=== PATIENT | male | born 1960 | race Caucasian/White ===

== ENCOUNTER 2023-10-18 13:01 | Outpatient (CLI) | payer OTHER, SELFPAY ==
[2023-10-18 08:47] LABS: Hemoglobin A1C 7.1 % (<5.7)
[2023-10-18 09:07] LABS: Anion Gap 5.1 mmol/L (3-11); BUN 8 mg/dL (7-18); CO2 30.9 mmol/L (21.0-32.0); CREATININE 0.9 mg/dL (0.70-1.30); Calcium 8.5 mg/dL (8.5-10.1); Chloride 105 mmol/L (98-107); Cholesterol 170 mg/dL (<200); Estimated GFR 95.37 (mL/min/1.73m2); Glucose 126 mg/dL (74-106); HDL Cholesterol 98 mg/dL (40-60); Potassium 4.5 mmol/L (3.5-5.1); Sodium 141 mmol/L (136-145)
[2023-10-18 09:22] LABS: Triglyceride <25 mg/dL (<150)
[2023-10-18 09:23] LABS: LDL CHOLESTEROL 65 mg/dL (<100)
== END 2023-10-18 13:02 | disposition home or self-care (01) ==
LOC: LBO 13:02
PROVIDERS: Visit Provider Student in an Organized Health Care Education/Training Program
DX: E10.9 Type 1 diabetes mellitus without complications (principal)
CPT/HCPCS: 36415; 80048; 80061; 83721; 83036

== ENCOUNTER 2024-02-17 00:21 | Outpatient (CLI) | payer OTHER, SELFPAY ==
--- OUTSIDE RECORDS SUMMARY | 2024-02-17 00:35 | XMS_ITS | Encounter Summary ---
Author Organization [facility] [place] [address] Care Team Providers Care Sales Enablement Specialist Name Role Phone None Primary Care Provider Unavailabl e Reason for Visit * Reason Onset Date Comments Medication Refill 11/06/2023 Encounter Details Date Type Department Care Team (Late st Contact Info) Description 11/06/2023 Refill Endocrinology at [address] [phone] Parker Land MD [facility] [place] [address] Type 1 diabetes mellitus on insulin therapy Social History Tobacco Use Types Packs/Day Years Used Date Smoking Tobacco: Never Smokeless Tobacco: Never Alcohol Use Standard Drinks/Week Comments Yes 10 (1 standard drink = 0.6 oz pu re alcohol) Wine with dinner Sex and Gender Information Value Date Recorded Sex Assigned at Not on file Gender Identity Not on file Sexual Orientation Not on file documented as of this encounter Plan of Treatment Not on file documented as of this encounter Visit Diagnoses Diagnosis Type 1 diabetes mellitus on insulin therapy Type I (juvenile type) diabetes mellitus without mention of complication, not stated as uncontrolled documented in this encounter Care Teams Sales Enablement Specialist Relationship Specialty Start Date End Date None None PCP - General 10/25/23 documented as of this encounter
--- OUTSIDE RECORDS SUMMARY | 2024-02-17 00:35 | XMS_ITS | Encounter Summary ---
[place] [address] Care Team Providers Care Entry Level Web Developer Name Role Phone Unknown Primary Care Provider Unavailabl e Encounter Details Date Type Department Care Team ([facility] Contact Info) Description 11/12/2021 12:00 PM EDT Office Visit Gastroenterology and Hepatology at [address] [phone] Barbara Sneed, PHLEBOTOMY COORDINATOR [address] [place] [address] [place] [address] Reyna's esophagus without dysplasia Social History Tobacco Use Types Packs/Day Years Used Date Smoking Tobacco: Never Smokeless Tobacco: Never Alcohol Use Standard Drinks/Week Comments Yes 10 (1 standard drink = 0.6 oz pu re alcohol) Wine with dinner Sex and Gender Information Value Date Recorded Sex Assigned at Not on file Gender Identity Not on file Sexual Orientation Not on file documented as of this encounter Last Filed Vital Signs Vital Sign Reading Time Taken Comments Blood Pressure 130/68 11/12/2021 11:58 AM EDT Pulse 54 11/12/2021 11:58 AM EDT Temperature - - Respiratory Rate - - Oxygen Saturation 99% 11/12/2021 11:58 AM EDT Inhaled Oxygen Concentration - - Weight 81.8 kg (180 lb 4.8 oz) 11/12/2021 11:58 AM EDT Height - - Body Mass Index 25.87 05/07/2021 12:44 PM EDT documented in this encounter Patient Instructions * Attachments The following attachments cannot be sent through Care Everywhere. * Reyna's Esophagus ([place]) documented in this encounter Progress Notes * Barbara Sneed, PHLEBOTOMY COORDINATOR - 11/12/2021 12:00 PM EDT [facility] - OUTPATIENT FOLLOW-UP ASSESSMENT & PLAN: Reyna's esophagus without dysplasia The patient has had Nexium 20mg BID. We did discuss that it may be appropriate to decrease the dosing and see if this is tolerated without symptoms. The patient was educated that with Reyna's esophagus fci PPI use was recommended and symptoms should be well managed so if the lower dose is not successful, he should resume the increased dosing. We agree to try this and he will let me know if it is working. Plan: Vitamin D (B12 was already checked this year) Renew Nexium Trial of decreased dosing of PPI therapy Follow up in 1 year, sooner as clinically indicated HPI: 61 y.o. male with Reyna's esophagus was seen today in the [facility] for a follow-up visit. Since his last visit, the patient did have an EGD in April of 2021. He also had a colonoscopy and recommended recall for both procedures is 3 years. The patient denies any odynophagiaor dysphagia and denies any acid reflux. He feels his symptoms are well controlled. He denies any unintentional weight loss or nausea and vomiting. He denies any black stools. Patient Active Problem List Diagnosis Code ??? Diabetic retinopathy, nonproliferative E11.3299 ??? Erectile dysfunction of non-organic origin F52.21 ??? Esophageal reflux K21.9 ??? Herpes simplex B00.9 ??? Hyperopia with presbyopia of both eyes H52.03, H52.4 ??? Type 1 diabetes mellitus on insulin therapy E10.9 ??? Amblyopia, left eye H53.002 ??? Non-recurrent unilateral inguinal hernia without obstruction or gangrene K40.90 ??? Gastroesophageal reflux disease K21.9 ??? Dysphagia R13.10 ??? Reyna's esophagus without dysplasia K22.70 Past Surgical History: Procedure Laterality Date ??? INGUINAL HERNIA REPAIR Right 03/2001 ??? INGUINAL HERNIA REPAIR Left 07/2018 ??? PRO COLONOSCOPY, DIAGNOSTIC N/A 05/07/2021 COLONOSCOPY,SCREENING performed by Greg Salcido MD at [facility] ??? PRO UPPER GI ENDOSCOPY, DIAGNOSTIC N/A 11/16/2019 EGD, UPPER GI ENDOSCOPY performed by Greg Salcido MD at [facility] ??? PRO UPPER GI ENDOSCOPY, DIAGNOSTIC N/A 05/07/2021 EGD, UPPER GI ENDOSCOPY performed by Greg Salcido MD at [facility] ??? VASECTOMY Social History Tobacco Use ??? Smoking status: Never Smoker ??? Smokeless tobacco: Never Used Substance Use Topics ??? Alcohol use: Yes Alcohol/week: 10.0 standard drinks Types: 10 Glasses of wine per week Comment: Wine with dinner Current Outpatient Medications on File Prior to Visit Medication Sig Dispense Refill ??? lisinopriL (Zestril) 5 mg Tablet Take 1 tab daily 90 tablet 3 ??? pravastatin (Pravachol) 10 mg Tablet Take 1 tablet by mouth daily. Taking one tab daily 90 tablet 3 ??? Accu-Chek Guide test strips Strip Use as instructed to check blood glucose 4 times daily Indications: diabetes mellitus 200 strip 11 ??? [DISCONTINUED] esomeprazole (NexIUM) 20 mg Capsule, Delayed Release(E.C.) Take 1 capsule by mouth 2 times daily. 180 capsule 0 ??? insulin detemir U-100 (Levemir) 100 unit/mL (3 mL) Insulin Pen Use in case of pump failure start immediately inject 14 units once a day 15 mL 1 ??? insulin needles, disposable, 31 gauge x 5/16 Needle Use as directed with insulin detemir pen in case of pump failure 30 each 1 ??? NovoLOG U-100 Insulin aspart 100 unit/mL Solution .USE IN INSULIN PUMP UP TO 35 UNITS DAILY 40 mL 1 ??? vardenafiL (LEVITRA) 20 mg Tablet TAKE 1/2 TO 1 TABLET NEEDED 6 tablet 5 ??? Accu-Chek Fastclix Lancet Drum Misc 1 each by Misc.(Non-Drug; Combo Route) route 4 times daily.Indications: diabetes mellitus 200 each 11 ??? cholecalciferol, Vitamin D3, 1,000 unit Capsule One cap daily. ??? UNABLE TO FIND Pump: Basal 12a=0.525, 6a=0.45, 12:30p=0.4, 6p=0.525; I:C 12a=12, 6a=8, 11a=9, 4p=10; Sensitivity 12a=75; BGT 120; Act 3 hrs ??? aspirin 81 mg Tablet, Delayed Release (E.C.) Take 1 tablet by mouth Daily. ??? Multivitamins with Iron Tab No current facility-administered medications on file prior to visit. Allergies Allergen Reactions ??? Oxycodone-Acetaminophen CIS - Nausea/Vomiting ??? Penicillins CIS - Hives Vitals: 11/12/21 1158 BP: 130/68 BP Location (NBP): Left arm Patient Position: Sitting BP Cuff Sizes: Adult (25-34 cm) Pulse: 54 SpO2: 99% Weight: 81.8 kg (180 lb 4.8 oz) Body mass index is 25.87 kg/m??. Gen: No fatigue, unintentional weight loss or weight gain Eyes: No eye pain or loss of vision ENT: No tinnitus or mouth sores Heart: No exertional CP, palpitations or pedal edema Resp: No SOB, wheezing or cough GI: Please see HPI Renal: No dysuria or hematuria M/S: Some joint and back pain Skin: No itching or new skin lesions Neuro: No headaches Heme: No bleeding or easy bruising EXAM: WDWN male - NAD. Head: NC/AT. Eyes: Anicteric sclera. EOMI. Mouth: No oral lesions. Neck: Supple. C/V: Heart rate regular Resp: Lung sounds clear Abd: soft, nontender, nondistended, no appreciable organomegaly or palpable masses Skin: No jaundice. No lesions on exposed skin. Neuro: Non-focal examination. LABS: Lab Results Component Value Date WBC 7.60 (External Lab) 08/23/2014 HGB 14.0 (External Lab) 08/23/2014 HCT 39.9 (EXTERNAL/ABN) 08/23/2014 MCV 89.3 (External Lab) 08/23/2014 PLATELET 221 (External Lab) 08/23/2014 Lab Results Component Value Date NA 138 05/14/2021 K 4.4 05/14/2021 BUN 15 05/14/2021 CREATININE 0.91 05/14/2021 GLUCOSE 191 05/14/2021 CALCIUM 8.7 05/14/2021 Lab Results Component Value Date AST 18 05/14/2021 ALT 16 05/14/2021 ALKPHOS 74 05/14/2021 BILITOT 0.4 05/14/2021 ALBUMIN 3.8 05/14/2021 PROT 6.6 05/14/2021 No results found for: AMYLASE, LIPASE PATHOLOGY: Lab Results Component Value Date SURGFINALRPT 05/07/2021 [id number] Location: [facility] The signing pathologist has (i) examined the relevant preparation(s) for the specimen(s) and (ii) rendered or confirmed the diagnosis(es). . Surgical Pathology DIAGNOSIS A - DISTAL ESOPHAGUS, BIOPSY: 1. SQUAMOUS MUCOSA WITH MILD REFLUX ESOPHAGITIS. 2. COLUMNAR MUCOSA WITH MODERATE CHRONIC INFLAMMATION. 3. POSITIVE FOR INTESTINAL METAPLASIA. 4. NEGATIVE FOR DYSPLASIA. B - COLON, CECUM, BIOPSY: FRAGMENTS OF TUBULAR ADENOMA. CR-PX Electronically signed by: Tara Rosario MD Verified: 05/08/2021 11:33 Pathologist Performed at: [facility] Dept of Pathology, [address] [place] [address] SPECIMEN(S) SUBMITTED A - Distal esophagus bxs, biopsy (Multiple) B - Cecal polyp, excision (1) CLINICAL INFORMATION A - EGD: F/u Reyna's esophagus B - [place]: screen A - No additional comment B - Polyp x1 SPECIMEN PROCESSING A - Received in formalin labeled with the patient's name and distal esophagus are multiple palma soft tissues, 0.2-0.3 cm. Submitted in toto in a single cassette. B - Received in formalin labeled with the patient's name and cecal polyps are multiple palma soft tissues, 0.3-0.9 cm. Submitted in toto in a single cassette. clc No results found for: HPYLORIRUREA, HPYLORISTLAG documented in this encounter Miscellaneous Notes * Assessment & Plan Note - Barbara Sneed APRN - 11/12/2021 12:20 PM EDT Associated Problem(s): Reyna's esophagus without dysplasia The patient has had Nexium 20mg BID. We did discuss that it may be appropriate to decrease the dosing and see if this is tolerated without symptoms. The patient was educated that with Reyna's esophagus fci PPI use was recommended and symptoms should be well managed so if the lower dose is not successful, he should resume the increased dosing. We agree to try this and he will let me know if it is working. Plan: Vitamin D (B12 was already checked this year) Renew Nexium Trial of decreased dosing of PPI therapy Follow up in 1 year, sooner as clinically indicated documented in this encounter Plan of Treatment Not on file documented as of this encounter Results * Vitamin D, 25-Hydroxy (06/08/2022 3:39 PM EDT) Vitamin D Total 25 OH 34 21 - 100 ng/mL [facility] Vit D Interp Sufficient [facility] Blood 06/08/2022 3:39 PM EDT 06/08/2022 3:39 PM EDT Narrative Resulting Agency Comment Spec In Lab Barbara Sneed APRN CHEMISTRY ORDERABL ES [facility] [address] [place] [address] documented in this encounter Visit Diagnoses Diagnosis Reyna's esophagus without dysplasia Reyna's esophagus documented in this encounter Care Teams Entry Level Web Developer Relationship Specialty Start Date End Date Unknown None PCP - General 08/05/21 10/05/22 documented as of this encounter
--- OUTSIDE RECORDS SUMMARY | 2024-02-17 00:35 | XMS_ITS | Encounter Summary ---
[facility] [place] [address] Care Team Providers Care Melter Supervisor Electric Arc Furnace Name Role Phone Unknown Primary Care Provider Unavailabl e Reason for Visit * Reason Comments Medication Refill Encounter Details Date Type Department Care Team ([facility] st Contact Info) Description 09/23/2021 Refill Gastroenterology and Hepatology at [address] [phone] Barbara Sneed, CAN SOLDERER [address] [place] [address] [place] [address] Reyna's esophagus without dysplasia Social History Tobacco [...] as of this encounter Visit Diagnoses Diagnosis Reyna's esophagus without dysplasia Reyna's esophagus documented in this encounter Care Teams Melter Supervisor Electric Arc Furnace Relationship Specialty Start Date End Date Unknown None PCP - General 08/05/21 10/05/22 documented as of this encounter
--- OUTSIDE RECORDS SUMMARY | 2024-02-17 00:35 | XMS_ITS | Encounter Summary ---
Author Organization [facility] [place] [address] Care Team Providers Care Industrial Nurse Name Role Phone Unavailable Primary Care Provider Unavailabl e Reason for Visit * Reason Onset Date Comments Medication Refill 04/02/2023 Encounter Details Date Type Department Care Team (Late st Contact Info) Description 04/02/2023 Refill Endocrinology at [address] [phone] Parker Land MD [facility] [place] [address] Type 1 diabetes mellitus on insulin therapy [...]
--- OUTSIDE RECORDS SUMMARY | 2024-02-17 00:35 | XMS_ITS | Encounter Summary ---
[place] [address] Care Team Providers Care Calculating Machine Mechanic Name Role Phone None Primary Care Provider Unavailabl e Reason for Visit * Reason Onset Date Comments Medication Refill 10/25/2022 Encounter Details Date Type Department Care Team (Late st Contact Info) Description 10/25/2022 Refill Endocrinology at [address] [phone] Darleen Falk, PLASTIC CNC MACHINE OPERATOR [address] [place] [address] [place] [address] Type 1 diabetes mellitus on insulin therapy [...] uncontrolled documented in this encounter Care Teams Calculating Machine Mechanic Relationship Specialty Start Date End Date None None PCP - General 10/25/23 documented as of this encounter
--- OUTSIDE RECORDS SUMMARY | 2024-02-17 00:35 | XMS_ITS | Encounter Summary ---
Author Organization [facility] [place] [address] Care Team Providers Care Show Card Letterer Name Role Phone Unavailable Primary Care Provider Unavailabl e Reason for Visit * Reason Onset Date Comments Medication Refill 08/02/2023 Encounter Details Date Type Department Care Team (Late st Contact Info) Description 08/02/2023 Refill [place] [phone] Parker Land MD [facility] [place] [address] Social History Tobacco Use Types Packs/Day Years [...] documented as of this encounter Visit Diagnoses Not on filedocumented in this encounter
--- OUTSIDE RECORDS SUMMARY | 2024-02-17 00:35 | XMS_ITS | Encounter Summary ---
[place] [address] Care Team Providers Care Manager Gallery Name Role Phone Unknown Primary Care Provider Unavailabl e Reason for Referral * Consultation (Routine) - Closed Specialty Diagnoses / Procedures Referred By Contkathy t Referred To Contact Endocrinology Diagnoses Type 1 diabetes mellitus on insulin therapy Darleen Falk APRN [address] [place] [id number] [facility] [address] [place] [phone] Referral ID Status Reason Start Date Expiration Date V isits Requested Visits Authorized [id number] Closed Consult, Test & Treat 06/14/2022 06/14/2023 1 1 Encounter Details Date Type Department Care Team (Late st Contact Info) Description 06/08/2022 2:50 PM EDT Office Visit Endocrinology at [address] [phone] Darleen Falk APRN [address] [place] [address] [id number] Type 1 diabetes mellitus on insulin therapy; Diabetic retinopathy, nonproliferative; Insulin pump in place Social History Tobacco Use Types Packs/Day Years [...] Sign Reading Time Taken Comments Blood Pressure 156/84 06/08/2022 2:40 PM EDT Pulse 74 06/08/2022 2:40 PM EDT Temperature - - Respiratory Rate - - Oxygen Saturation 96% 06/08/2022 2:40 PM EDT Inhaled Oxygen Concentration - - Weight 79.4 kg (175 lb) 06/08/2022 2:40 PM EDT Height - - Body Mass Index 25.11 05/07/2021 12:44 PM EDT documented in this encounter Patient Instructions * Patient Instructions* Darleen Falk APRN - 06/08/2022 2:50 PM EDT Please do some labs today. No follow up here you will be transferring your care to [facility]. documented in this encounter Progress Notes * Darleen Falk APRN - 06/08/2022 2:50 PM EDT Images from the original note were not included. Diabetes Visit: Visit Type: [] Initial Appnt [x] Follow up Appointment Type: [x] In office [] Telehealth [x] This provider conducted visit at [address] [place] [address] Diagnoses and all orders for this visit: Type 1 diabetes mellitus on insulin therapy - Cancel: Hemoglobin A1c; Future - Cancel: Hemoglobin A1c; Future - Hemoglobin A1c; Future - Lipid Panel (Reflex Direct LDL); Future - U Albumin/Cre Ratio; Future - glucagon (Gvoke HypoPen 2-Pack) 1 mg/0.2 mL Auto-Injector; Inject 0.2 mLs subcutaneously as needed (for low glucose emergency not responding to oral treatment.). - Referral to Endocrinology Diabetic retinopathy, nonproliferative Insulin pump in place Comments: Medtronic 7070 G with auto mode total daily dose 29.7 units Assessment/Plan: ?? Diabetes: Previously good control last HgbA1c is 7.0 on 08/25/21. His diabetes is currently managed with Medtronic 7070 G insulin pump therapy he uses auto mode most of the time . Ordered another hemoglobin A1c. No changes today to his insulin pump settings . We discussed him upgrading to the 780Medtronic pump . Diabetes safety issues, the treatment of hypoglycemia while on a pump with automation and the use of quick acting carbohydrates to treat hypoglycemia were discussed. I am Sending referral to endocrinology at [facility] as he is retiring and relocating to [facility] and wishes to establish with the practice that is closer. Glucagon Gvoke hypopen was prescribed and he was advised of risks, benefits, side effects, and proper use of this medication ?? HTN:Never diagnosed on lisinopril 5 mg??for renal protection BP borderline high today 156/84 ?? HLD: Well-controlled last LDL 74 on 05/14/2021 on pravastatin 10 mg No follow-up appointment with endocrinology here he is planning to transfer to endocrinology at [facility] after he moves HPI: Ivan is a 62 y.o. yo male who is here for Diabetes follow up.He was diagnosed in his mid 30s. Hejust got a notice that he an upgrade to a 780. He does get woken up at night by alarms to calibrate. No new medical problems,no hospital admission, no medication changes. 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 Plays [employer].??He is retiring in October and moving to [facility] and will need to change providers. ?? Past Medical History: reviewed ?Reyna's esophagus ?? No family history on file. Hemoglobin A1c: Last 3 Hemoglobin A1Cs Lab Results Component Value Date HA1C 7.3 (H) 06/08/2022 HA1C 7.0 (H) 08/25/2021 HA1C 7.3 (H) 05/14/2021 Diabetes meds:?Lisinopril 5 mg Pravastatin 10 mg? Insulins:??aspart (Novolog for pump PUMP: Model [] Medtronic : [] 530g/Paradigm [] 630 g [] 670 G [x] 770g [] Omnipod : [] Original [] Dash [] OP5 [] Tandem: [] Control IQ [] Basal IQ Back up plan for insulin pump failure: Has Lantus pen FREQUENCY OF SET CHANGES: Every 3.7 Days [] SENSOR [] Dexcom: [] G6 [] G7 [] Medtronic Guardian [] Jose: [] 14 day [] Jose 2 [] Jose 3 Finger stick testing: [] Daily, [x] twice a day, [] three times a day, [] AC and HS, [] Continuous Glucose Monitoring: Time in Range:72 % FS data: N/A Hypoglycemia: [x]?yes ??[]?no Hypoglycemia unawareness:??No Treatment ??Plan for Hypoglycemia: juice box and glucose gummies ?? Diet:??his cooks Breakfast:??frozen egg mc muffin , breakfast bowls Lunch:??at work sandwich 1 bag of chips fruits Supper:??black ??[employer] chili, pasta, chicken and potatoes?? Snacks:??nut bars, fig bars?? Beverages:??1 cup of coffee, water ?? Exercise:??don't like to go outside in the cold, usually walks dog after work and walks during lunchtime? Smoking: [x]?No ??[]?Yes, ?Alcohol: [x]?No []?Yes ? Complications: Retinopathy: [x]?yes ??[]?no, last eye exam: 10/08/20 Dr. Saxena minimal Neuropathy: []?yes ??[]?no, daily foot exams: [x]?yes ??[]?no, Follows with podiatry: []?yes ??[x]?no Nephropathy: []?yes ??[x]?no, UACR negative 05/14/21 Macrovascular complications: ??[]?yes ??[x]?no ?? ROS:?? +?weight changes increased a little?? No polyuria/polydipsia, No increased sweating or confusion, No fevers/chills, No chest pain/palpitations, No burning or tingling in hands or feet, No rashes or foot ulcers, No insomnia/nightly awakening, No n/v/d/c/early satiety??small amount of abdominal pain from bending over?? No gait instability, No memory problems, No vision impairment No anxiety, depression Labs: Hemoglobin A1C Date Value Ref Range Status 06/08/2022 7.3 (H) 4.3 - 5.6 % Final Lab Results Component Value Date NA 138 05/14/2021 K 4.4 05/14/2021 CL 103 05/14/2021 CO2 26 05/14/2021 BUN 15 05/14/2021 CREATININE 0.91 05/14/2021 GLUCOSE 191 05/14/2021 GLUCFASTING 229 (ExtH) 09/13/2016 CALCIUM 8.7 05/14/2021 ESTGFR 90 05/14/2021 Lab Results Component Value Date ALT 16 05/14/2021 AST 18 05/14/2021 ALKPHOS 74 05/14/2021 BILITOT 0.4 05/14/2021 ALBUMIN 3.8 05/14/2021 PROT 6.6 05/14/2021 Lipid Panel Lab Results Component Value Date CHLPL 180 06/08/2022 HDL 86 06/08/2022 CHOLHDL 2.1 06/08/2022 TRIG 38 06/08/2022 LDLCHOL 86 06/08/2022 Lab Results Component Value Date UMICALBCALC 2 06/08/2022 MEDS: Current Outpatient Medications: ??? Accu-Chek Guide test strips Strip, Use as instructed to check blood glucose 4 times daily Indications: diabetes, Disp: 400 strip, Rfl: 1 ??? lisinopriL (Zestril) 5 mg Tablet, Take 1 tab daily, Disp: 90 tablet, Rfl: 3 ??? pravastatin (Pravachol) 10 mg Tablet, Take 1 tablet by mouth daily. Taking one tab daily, Disp:90 tablet, Rfl: 3 ??? insulin detemir U-100 (Levemir) 100 unit/mL (3 mL) Insulin Pen, Use in case of pump failure start immediately inject 14 units once a day, Disp: 15 mL, Rfl: 1 ??? insulin needles, disposable, 31 gauge x 5/16 Needle, Use as directed with insulin detemir pen in case of pump failure, Disp: 30 each, Rfl: 1 ??? vardenafiL (LEVITRA) 20 mg Tablet, TAKE 1/2 TO 1 TABLET NEEDED, Disp: 6 tablet, Rfl: 5 ??? Accu-Chek Fastclix Lancet Drum Misc, 1 each by Misc.(Non-Drug; Combo Route) route 4 times daily. Indications: diabetes mellitus, Disp: 200 each, Rfl: 11 ??? cholecalciferol, Vitamin D3, 1,000 unit Capsule, One cap daily., Disp: , Rfl: ??? UNABLE TO FIND, Pump: Basal 12a=0.525, 6a=0.45, 12:30p=0.4, 6p=0.525; I:C 12a=12, 6a=8, 11a=9, 4p=10; Sensitivity 12a=75; BGT 120; Act 3 hrs, Disp: , Rfl: ??? aspirin 81 mg Tablet, Delayed Release (E.C.), Take 1 tablet by mouth Daily., Disp: , Rfl: ??? Multivitamins with Iron Tab, , Disp: , Rfl: ??? esomeprazole (NexIUM) [address] capsule, TAKE 1 CAPSULE TWICE DAILY, Disp: 180 capsule, Rfl: 0 ??? NovoLOG U-100 Insulin aspart 100 unit/mL Solution, .USE IN INSULIN PUMP UP TO 35 UNITS DAILY, Disp: 40 mL, Rfl: 0 ??? glucagon (Gvoke HypoPen 2-Pack) 1 mg/0.2 mL Auto-Injector, Inject 0.2 mLs subcutaneously as needed (for low glucose emergency not responding to oral treatment.)., Disp: 0.4 mL, Rfl: 3 Vital signs and weight: Visit Vitals BP 156/84 (BP Location (NBP): Left arm, Patient Position: Sitting) Pulse 74 Wt 79.4 kg (175 lb) SpO2 96% BMI 25.11 kg/m?? PE: AAOx3 In NAD abdomen soft/NT/ND Extr: no edema Skin: insulin injection/infusion sites: intact 30 minutes of this office visit is spent in counseling and disease management reviewing past and recent medical history, lifestyle patterns, nutrition patterns with education related to diabetes, glucose patterns, medication compliance with recommendation for changes, screening, monitoring and follow-up, excluding the time spent on continuous glucose monitoring analysis, interpretation and report. Disclaimer: This dictation was done with the use of the [employer] voice recognition software. Please overlook any errors in content. Darleen Falk APRN, 06/14/2022, 4:36 PM * Darleen Falk APRN - 06/08/2022 2:50 PM EDT CGM review from: 2022 through 06/08/2022 Average glucose mg/dl:145 GMI:6.8% Glucose variability:34.5 % Very High:3% High:22 % Time within Target:72 % Low:3 % Very Low:0 % Glucose trends show: Good time in range some postprandial hyperglycemia and some hypoglycemia documented in this encounter Plan of Treatment Scheduled Referrals Name Type Priority Associated Diagnoses Order Schedule Referral to Endocrinology Outpatient Referral Routine Type 1 diabetes mellitus on insulin therapy Ordered: 06/14/2022 documented as of this encounter Results * U Albumin/Cre Ratio (06/08/2022 4:50 PM EDT) Albumin / Creatinin Ratio, Urine 2 0 - 29 mcg/mg Cr [facility] Albumin, Urine 4.8 mg/L [facility] Creatinine, Urine 201 mg/dL [facility] Urine 06/08/2022 4:50 PM EDT 06/08/2022 4:50 PM EDT Narrative Resulting Agency Comment Spec In Lab Darleen Falk APRN URINE ORDERABL ES [facility] [address] [place] [address] * Lipid Panel (Reflex Direct LDL) (06/08/2022 3:39 PM EDT) Cholesterol, Total 180 mg/dL [facility] Comment: Lower Risk: <200 mg/dL Average Risk: 200-239 mg/dL Higher Risk: >br=502 mg/dL Triglyceride 38 mg/dL [facility] Comment: Average Risk/Lower Risk: <150 mg/dL Borderline High Risk: 150-199 mg/dL High Risk: 200-499 mg/dL Very High Risk: >in=686 mg/dL HDL Cholesterol 86 mg/dL [facility] Comment: Males: ?? Higher Risk: <40 mg/dL Females: ?? Higher Risk: <50 mg/dL LDL Cholesterol 86 mg/dL [facility] Comment: Lowest Risk: <100 mg/dL Lower Risk: 100-129 mg/dL Borderline High Risk: 130-159 mg/dL High Risk: 160-189 mg/dL Very High Risk: >yd=061 mg/dL Cholesterol/HDL Ratio 2.1 ratio [facility] Lipid Interpretation See Note [facility] Comment: Lipid management should be guided by a patient? s ASCVD risk, goals and preferences. ACC/AHA Guidelines recommend high intensity statin if clinical ASCVD or LDL greater than or equal to 190 mg/dL. http://TalkPlus.com/OTQ-WAP-Pddjxvwvy Adults aged 40-75 with LDL 70-189 mg/dL should have their 10 year ASCVD risk estimated with the ACC/AHA ASCVD risk junior estimator http://tools.acc.org/DFIGQ-Tiwg-Jzdrdexdo/ Statin should be discussed if risk greater than or equal to 7.5% in non-diabetics. With diabetes, moderate intensity statin is recommended if risk less than 7.5%, high intensity if risk greater than or equal to 7.5%. Annual lipid monitoring on statins is not necessary. Evaluate secondary causes of Triglycerides greater than 500 mg/dL or LDL greater than 190 mg/dL: See table 6 of ACC/AHA Guideline. Lifestyle modification is a critical component of ASCVD risk reduction. Blood 06/08/2022 3:39 PM EDT 06/08/2022 3:39 PM EDT Narrative Resulting Agency Comment Spec In Lab Darleen Martha Deya FILM READER CHEMISTRY ORDE THERESA Performing Organization Address City/[facility] Co de Phone Number [facility] [address] [place] [address] * (ABNORMAL) Hemoglobin A1c (06/08/2022 3:39 PM EDT) Hemoglobin A1c 7.3(H) 4.3 - 5.6 % [facility] Estimated Average Glucose 163 mg/dL [facility] Blood 06/08/2022 3:39 PM EDT 06/08/2022 3:39 PM EDT Narrative Resulting Agency Comment Spec In Lab Darleen Thomas Deya AMAYAN CHEMISTRY ORDRicky CARDENAS Performing Organization Address [facility] Co de Phone Number [facility] [address] [place] [address] documented in this encounter Visit Diagnoses Diagnosis Type 1 diabetes mellitus on insulin therapy Type I (juvenile type) diabetes mellitus without mention of complication, not stated as uncontrolled Diabetic retinopathy, nonproliferative Type II or unspecified type diabetes mellitus with ophthalmic manifestations, not stated as uncontrolled Insulin pump in place Insulin pump status documented in this encounter Care Teams Manager Gallery Relationship Specialty Start Date End Date Unknown None PCP - General 08/05/21 10/05/22 documented as of this encounter
--- OUTSIDE RECORDS SUMMARY | 2024-02-17 00:35 | XMS_ITS | Encounter Summary ---
Author Organization [facility]ly [facility] [place] [address] Care Team Providers Care Clean Out Driller Name Role Phone Unavailable Primary Care Provider Unavailabl e Reason for Visit * Reason Onset Date Comments Medication Refill 07/01/2023 Encounter Details Date Type Department Care Team (Late st Contact Info) Description 07/01/2023 Refill Endocrinology at [address] [phone] Parker Land MD [facility] [place] [address] Type 1 diabetes mellitus on insulin therapy [...] on file documented as of this encounter Miscellaneous Notes * Telephone Encounter - Dominique Angeles RN - 07/08/2023 8:22 AM EDT SHEY 04/19/23, no FUV scheduled - labs before next visit: A1c, BMP, lipid panel and to be done at [facility] in 6 months. documented in this encounter Plan of Treatment Not on file documented as of this encounter Visit Diagnoses Diagnosis Type 1 diabetes mellitus on insulin therapy Type I (juvenile type) diabetes mellitus without mention of complication, not stated as uncontrolled documented in this encounter
--- OUTSIDE RECORDS SUMMARY | 2024-02-17 00:35 | XMS_ITS | Encounter Summary ---
[place] [address] Care Team Providers Care Parcel Post Carrier Name Role Phone Unknown Primary Care Provider Unavailabl e Encounter Details Date Type Department Care Team (Late st Contact Info) Description 10/05/2021 Orders Only Gastroenterology and Hepatology at [address] [phone] Mireya Kahn RN Reyna's esophagus without dysplasia Social History Tobacco [...] esophagus documented in this encounter Care Teams Parcel Post Carrier Relationship Specialty Start Date End Date Unknown None PCP - General 08/05/21 10/05/22 documented as of this encounter
--- OUTSIDE RECORDS SUMMARY | 2024-02-17 00:35 | XMS_ITS | Encounter Summary ---
[place] [address] Care Team Providers Care Chief Minister Name Role Phone Unknown Primary Care Provider Unavailabl e Encounter Details Date Type Department Care Team (Late st Contact Info) Description 08/27/2021 Orders Only Endocrinology at [address] [phone] Cecily Kingston, RN Type 1 diabetes mellitus on insulin therapy [...] on file documented as of this encounter Progress Notes * Cecily Kingston RN - 08/27/2021 1:07 PM EDT Pharmacy can only fill Levemir as 15ml pen. Quantity adjsuted. documented in this encounter Plan of Treatment Not on file documented as of this encounter Visit Diagnoses Diagnosis Type 1 diabetes mellitus on insulin therapy Type I (juvenile type) diabetes mellitus without mention of complication, not stated as uncontrolled documented in this encounter Care Teams Chief Minister Relationship Specialty Start Date End Date Unknown None PCP - General 08/05/21 10/05/22 documented as of this encounter
--- OUTSIDE RECORDS SUMMARY | 2024-02-17 00:35 | XMS_ITS | Encounter Summary ---
[place] [address] Care Team Providers Care Client Relations Associate Name Role Phone Unknown Primary Care Provider Unavailabl e Reason for Visit * Reason Onset Date Comments Medication Refill 05/06/2022 Encounter Details Date Type Department Care Team (Late st Contact Info) Description 05/06/2022 Refill Endocrinology at [address] [phone] Edna Avila CMA Type 1 diabetes mellitus on insulin therapy [...] encounter Miscellaneous Notes * Telephone Encounter - Edna Avila CCMA - 05/06/2022 8:32 AM EDT Received fax from [facility] [employer] requesting a renewal on his Accu-Chek test strips documented in this encounter Plan of Treatment Not on file documented as of this encounter Visit Diagnoses Diagnosis Type 1 diabetes mellitus on insulin therapy Type I (juvenile type) diabetes mellitus without mention of complication, not stated as uncontrolled documented in this encounter Care Teams Client Relations Associate Relationship Specialty Start Date End Date Unknown None PCP - General 08/05/21 10/05/22 documented as of this encounter
--- OUTSIDE RECORDS SUMMARY | 2024-02-17 00:35 | XMS_ITS | Clinical Summary ---
Author Organization [facility] Address [facility] [place] [address] Care Team Providers Care Field Geologist Name Role Phone None Primary Care Provider Unavailabl e Allergies Active Allergy Reactions Criticality Noted Date Comments Oxycodone-Acetaminophen CIS - Nausea/Vomiting Penicillins CIS - Hives Medications Medication Sig Dispensed Refills Start Date End Date Status Multivitamins with Iron Tab 07/28/2006 Active aspirin 81 mg Tablet, Delayed Release (E.C.) Take 1 tablet by mouth Daily. 01/17/2006 Active UNABLE TO FIND Pump: Basal 12a=0.525, 6a=0.45, 12:30p=0.4, 6p=0.525; I:C 12a=12, 6a=8, 11a=9, 4p=10; Sensitivity 12a=75; BGT 120; Act 3 hrs 02/19/2010 Active cholecalciferol, Vitamin D3, 1,000 unit Capsule One cap daily. 02/09/2017 Active Accu-Chek Fastclix Lancet Drum MiscIndications:d iabetes mellitus 1 each by Misc.(Non-Drug; Combo Route) route 4 times daily. Indications: diabetes mellitus 200 each 11 05/16/2020 Active insulin needles, disposable, 31 gauge x 5/16 NeedleIndications :Type 1 diabetes mellitus on insulin therapy Use as directed with insulin detemir pen in case of pump failure 30 each 1 08/25/2021 Active lisinopriL (Zestril) 5 mg TabletIndications :Type 1 diabetes mellitus on insulin therapy Take 1 tab daily 90 tablet 3 11/06/2021 Active pravastatin (Pravachol) 10 mg TabletIndications :Type 1 diabetes mellitus on insulin therapy Take 1 tablet by mouth daily. Taking one tab daily 90 tablet 3 11/06/2021 Active glucagon (Gvoke HypoPen 2-Pack) 1 mg/0.2 mL Auto-InjectorIndi cations:Type 1 diabetes mellitus on insulin therapy Inject 0.2 mLs subcutaneously as needed (for low glucose emergency not responding to oral treatment.). 0.4 mL 3 06/08/2022 Active Acetone, Urine, Test (Ketone Care) Strip 1 each by [facility].(Non-Drug; Combo Route) route as needed (As needed for severe hyperglycemia). 50 strip 3 10/06/2022 Active esomeprazole (NexIUM) [address] capsuleIndication s:Reyna's esophagus without dysplasia,Short-s egment Reyna's esophagus,Current use of proton pump inhibitor Take 1 capsule by mouth daily. 90 capsule 3 11/03/2022 Active vardenafiL (Levitra) 20 mg tablet TAKE 1/2 TO 1 TABLET NEEDED 10 tablet 5 08/03/2023 Active insulin glargine (Lantus Solostar U-100 Insulin) 100 unit/mL (3 mL) pen Inject 10-14 Units subcutaneously nightly. In case of pump failure 3 mL 12 10/25/2023 Active Accu-Chek Guide test strips StripIndications: diabetes mellitus Use as instructed to check blood glucose 4 times daily Indications: diabetes 400 strip 3 10/25/2023 Active NovoLOG U-100 Insulin aspart 100 unit/mL SolutionIndicatio ns:Type 1 diabetes mellitus on insulin therapy .USE IN INSULIN PUMP UP TO 35 UNITS DAILY. DX: E10.9 40 mL 2 11/08/2023 Active Active Problems Problem Noted Date Diagnosed Date Reyna's esophagus without dysplasia 12/10/2019 Assessment & Plan (11/12/2021 12:24 PM EDT): The patient has had Nexium 20mg BID. [...] in 1 year, sooner as clinically indicated Assessment & Plan (12/10/2019 4:21 PM EST): The patient was educated today on his new diagnosis of Reyna's esophagus. He reports that he has been taking his Nexium for a long time and was having similar symptoms initially when he started the Nexium. He states that he is still needing to clear his throat and is having epigastric discomfort. We discuss lifestyle and diet modifications as well as how he wants to be symptom free with Reyna's esophagus. He is aware of a 1 year recall for Reyna's screening. We will plan to increase his PPI and he will give an update over the next few weeks to ensure his symptoms are improving. If they are not improving, we may decide to do a barium swallow. Plan: Increase Nexium to 20mg BID Send update thru [facility] for progress on symptoms Follow up in 6 months or sooner as clinically indicated Gastroesophageal reflux disease 11/08/2019 Overview (11/08/2019): Added automatically from request for surgery [id number] Dysphagia 11/08/2019 Overview (11/08/2019): Added automatically from request for surgery [id number] Assessment & Plan (11/08/2019 3:21 PM EDT): The patient reports ongoing GERD but more recently notes more phlegm and difficulty swallowing. He denies getting any food stuck. He does report some epigastric pain. He denies nausea or vomiting but does get queasy when bending over. He denies any significant increase in his reflux but does feel more phlegm in his throat recently. He denies loss of appetite or weight loss. He denies odynophagia. Plan: EGD with moderate sedation Follow up after exam- if unrevealing, barium swallow may be indicated to further evaluate dysphagia. Non-recurrent unilateral ing uinal hernia without obstruction or gangrene 06/28/2018 Amblyopia, left eye 04/13/2018 Hyperopia with presbyopia of both eyes 7 Type 1 diabetes mellitus on insulin therapy 06/07 Erectile dysfunction of non-organic origin 03/17 Diabetic retinopathy, nonproliferative 6 Esophageal reflux 05/14/2014 Herpes simplex 01/14/2012 Immunizations Name Administration Dates Next Due Influenza Trivalent, Preservative Free 8,01/05/2017 Influenza Unspecified Formulation 2015,12/22/2012(Deferred: Patient Refused - [facility] - Influenza; DEFERRED; Work; 2012; recorded on 12/22/2012 1:28:21 PM;),11/17/2011,11/07/2010,11/30/2009, 11/08/2007,11/15/2006 Pneumococcal 23-Valent Polys accharide (Pneumovax 23) 02/08/2004,2002 Tdap (Adacel, Boostrix) 07/23/2013 Social History Tobacco Use Types Packs/Day Years Used Date Smoking Tobacco: Never Smokeless Tobacco: Never Tobacco Cessation:Counseling Given: Not Answered Alcohol Use Standard Drinks/Week Comments Yes 10 (1 standard drink = 0.6 oz pu re alcohol) Wine with dinner Sex and Gender Information Value Date Recorded Sex Assigned at Not on file Gender Identity Not on file Sexual Orientation Not on file Last Filed Vital Signs Vital Sign Reading Time Taken Comments Blood Pressure 142/72 10/25/2023 11:40 AM EDT Pulse 63 10/25/2023 11:40 AM EDT Temperature 35.9 ??C (96.7 ??F) 10/25/2023 11:40 AM E DT Respiratory Rate 16 10/25/2023 11:40 AM EDT Oxygen Saturation 99% 10/25/2023 11:40 AM EDT Inhaled Oxygen Concentration - - Weight 75.5 kg (166 lb 6.4 oz) 10/25/2023 11:40 AM EDT Height 177.8 cm (5' 10) 10/25/2023 11:40 AM EDT Body Mass Index 23.88 10/25/2023 11:40 AM EDT Plan of Treatment Health Maintenance Due Date Last Done Comments CT Colonography 1960 FIT DNA 1960 FIT 1960 Sigmoidoscopy 1960 HIV screen 04/26/1977 Hepatitis C Screening 04/26/1977 Pneumococcal Vaccine: At-Ris k 5-64yrs (2 of 2 - PCV) 02/07/2005 02/08/2004, 2002 Zoster vaccine (1 of 2) 04/26/2009 RSV Vaccine (1 - Risk 60-74 years 1-dose series) 2019 DM Opthalmology Exam 10/08/2021 10/08/2020, 09/06/2019, 04/13/2018, Additional history exists Tetanus/Diphtheria/Pertussis Vaccines (2 - Td or Tdap) 07/24/2023 07/23/2013 Covid-19 Vaccine (1 - 2023-2 5 season) 2023 Influenza (Flu) vaccine (1 o f 1 - Influenza standard series) 10/09/2023 10/14/2017, 01/05/2017, 10/29/2015, Additional history exists DM Hemoglobin A1c 6 month 10/20/20232023, 10/06/2022, 06/08/2022, Additional history exists DM Creatinine yearly 04/18/2024 04/19/2023, 10/06/2022, 05/14/2021, Additional history exists DM Urine Microalbumin yearly 04/18/202401/2024, 06/08/2022, 05/14/2021, Additional history exists Colonoscopy 05/08/2031 05/07/2021, 04/09, 07/12/2011 Colorectal Cancer Screening 05/08/2031 Sigmoidoscopy (10 year) with FIT yearly 05/08/2031 05/07/2021, 05/07/2021 Procedures Procedure Name Priority Date/Time Associated Diagnosis Comments U ALBUMIN/CRE RATIO Routine 04/19/2023 1 0:23 AM EDT Type 1 diabetes mellitus on insulin therapy BASIC METABOLIC PANEL Routine 04/19/2023 10:20 AM EDT Type 1 diabetes mellitus on insulin therapy HEMOGLOBIN A1C Routine 04/19/2023 10:20 AM EDT Type 1 diabetes mellitus on insulin therapy COLONOSCOPY Routine 05/07/2021 12:50 PM EDT EXTERNAL DIABETES EYE EXAM RESULT Routine 11/03/2016 4:00 PM EDT from Last 3 Months or Most Recently Relevant to Health Maintenance Results * U Albumin/Cre Ratio (04/19/2023 10:23 AM EDT) Albumin / Creatinin Ratio, Urine Not Calculated 0 - 29 mcg/mg Cr [facility] Comment: Reference Ranges: <30 mcg/mg: Normal 30-300 mcg/mg: Moderately increased albuminuria.* >300 mcg/mg: Severely increased albuminuria. * ACEI or ARB recommended if diabetic; suggested if BP>130/80 without diabetes ACEI or ARB strongly recommended if diabetic; recommended if BP>130/80 without diabetes Two of three specimens collected within a 3 to 6 month period should be abnormal before considering a patient to have albuminuria. Transient causes: exercise, fever, infection, CHF, marked hyperglycemia or hypertension. Persistent albuminuria indicates CKD and is an independent risk factor for ASCVD. ADA Standards of Medical Care in Diabetes-2016; KDIGO: Kidney International Supplements (2012) 2, 357? 362 Albumin, Urine <3.0 mg/L [facility] Creatinine, Urine 71 mg/dL [facility] Urine 04/19/2023 10:2 3 AM EDT 04/19/2023 10:33 AM EDT Narrative Resulting Agency Comment Spec In Lab Parker Land MD URINE ORDERABLES [facility] [place] [address] * (ABNORMAL) Hemoglobin A1c (04/19/2023 10:20 AM EDT) Hemoglobin A1c 6.9(H) 4.3 - 5.6 % [facility] Comment: Reference Range: 4.3 - 5.6% 5.7 - 6.4% - Increased Risk of Developing Diabetes Mellitus >= 6.5% - Consistent with diagnosis of Diabetes Mellitus In the absence of hyperglycemia (i.e. plasma glucose > 200 mg/dL) or classic symptoms of hyperglycemia a repeat measurement of HbA1c should be performed on a separate sample to confirm the diagnosis. Diagnosis and Classification of Diabetes Mellitus, Diabetes Care 2013; 36: Suppl. 1, S67-34 Estimated Average Glucose 150 mg/dL [facility] Blood 04/19/2023 10:2 0 AM EDT 04/19/2023 10:28 AM EDT Narrative Resulting Agency Comment Spec In Lab Parker Land MD CHEMISTRY ORDERABL ES [facility] [place] [address] * Basic Metabolic Panel (non-fasting) (04/19/2023 10:20 AM EDT) Glucose 180 65 - 199 mg/dL [facility] Comment:Diabetes: >=200 mg/d L plus symptoms Blood Urea Nitrogen 14 10 - 20 mg/dL [facility] Creatinine 0.82 0.80 - 1.50 mg/dL [facility] Sodium 140 135 - 145 mmol/L [facility] Potassium 4.5 3.5 - 5.0 mmol/L [facility] Comment: Please note: ??Patients with WBC >100,000 may have falsely elevated Potassium levels. ??For accurate Potassium quantification in these patients send serum separator tube (gold top) for subsequent determinations. ??Contact the Clinical Chemistry Laboratory if there are any questions. Chloride 105 98 - 107 mmol/L [facility] Carbon Dioxide 27 22 - 31 mmol/L [facility] Anion Gap 8 5 - 15 mmol/L [facility] Calcium 9.3 8.5 - 10.5 mg/dL [facility] Est Glomerular Filtration Rate 99 >=60 mL/min/1. 73 m?? [facility] Comment: This patient's estimated GFR was calculated using the 2020 CKD-EPI equation. The estimated GFR can vary from the measured GFR by up to 30% in the absence of rapidly changing kidney function. Assessment of the estimated GFR is not appropriate when creatinine concentrations are rapidly changing. For clinical situations in which a more precise estimate of GFR is necessary, consider alternative methods of GFR estimation such as a 24-hour urine creatinine clearance. Assignment of CKD stage 1-5 for patients with an eGFR near the transition point between stages may be based on clinical assessment of muscle mass and symptoms in addition to eGFR. Blood 04/19/2023 10:2 0 AM EDT 04/19/2023 10:28 AM EDT Narrative Resulting Agency Comment Spec In Lab Parker Land MD CHEMISTRY ORDERABL ES [facility] [place] [address] * COLONOSCOPY (05/07/2021 12:50 PM EDT) COLONOSCOPY Patient Name: Ivan Luna Procedure Date: 05/07/2021 12:50 PM ?Attending MD: Greg Salcido MD Date of : 1960 ? Order #: [id number] Age: 61 ?Instrument Name: [id number] Procedure: ? Colonoscopy Indications: ? Screening for colorectal malignant ? neoplasm Providers: ? Greg Salcido MD, Marie ? Ruth Vincent Referring MD: ? Medicines: ? Monitored Anesthesia Care Complications: ? No immediate complications. Procedure: ? Pre-Anesthesia Assessment: ? - Prior to the procedure, a History ? and Physical was performed, and ? patient medications, allergies and ? sensitivities were reviewed. The ? patient's tolerance of previous ? anesthesia was reviewed. ? The procedure, indications, ? benefits, risks and alternatives ? were explained to the patient. ? Specifically discussed were ? potential complications including, ? but not limited to, bleeding, ? perforation, infection, missing a ? cancer, and adverse medication ? reactions. The patient was placed ? in the left lateral decubitus ? position, and a digital rectal exam ? was performed. The Colonoscope was ? inserted in the anus and under ? direct visualization, advanced to ? the cecum, identified by ? appendiceal orifice and ileocecal ? valve. Careful inspection was made ? as the colonoscope was withdrawn. ? The colonoscopy was performed ? without difficulty. The patient ? tolerated the procedure well. The ? quality of the bowel preparation ? was good. ? Scope Withdrawal Time: 0 hours 9 minutes 22 seconds Findings: ? The perianal and digital rectal examinations were ? normal. ? A 12 mm polyp was found in the cecum. The polyp was ? sessile. The polyp was removed with a hot snare. ? Resection and retrieval were complete. ? Internal hemorrhoids were found during retroflexion. ? The hemorrhoids were medium-sized. ? The exam was otherwise without abnormality. ? Impression: ?- One 12 mm polyp in the cecum, ? removed with a hot snare. Resected ? and retrieved. ? - Internal hemorrhoids. ? - The examination was otherwise ? normal. Recommendation: ?- Discharge patient to home. ? - Resume previous diet. ? - Continue present medications. ? - Await pathology results. ? - Repeat colonoscopy in 3 years for ? surveillance based on pathology ? results. ? Procedure Code(s): ? --- Professional --- ? 46299, Colonoscopy, flexible; with ? removal of tumor(s), polyp(s), or ? other lesion(s) by snare technique Diagnosis Code(s): ? --- Professional --- ? Z12.11, Encounter for screening for ? malignant neoplasm of colon ? D12.0, Benign neoplasm of cecum ? K64.8, Other hemorrhoids ? --- Technical --- ? Z12.11, Encounter for screening for ? malignant neoplasm of colon ? D12.0, Benign neoplasm of cecum ? K64.8, Other hemorrhoids CPT copyright 2020 [employer]. All rights reserved. The codes documented in this report are preliminary and upon business integration analyst review may be revised to meet current compliance requirements. Greg Salcido MD ____ Greg Salcido MD 05/07/2021 1:23:47 PM This report has been signed electronically. Number of Addenda: 0 PROVATION 05/07/2021 12:5 0 PM EDT Greg Salcido MD GENERAL SURGICAL OR DERABLES PROVATION * (ABNORMAL) Diabetes External Eye Exam (11/03/2016 4:00 PM EDT) External DM Eye Exam 11/03/2016 4:00:00 PM; See Crittercism system for full report(Externa l Lab) DAVID JACOBO CONVERSION Comment:Sourced from Maureen Jacobo Conversion Anatomical Region Laterality Modality Other 11/03/2016 4:00 PM EDT His Yessy Provider OPHTHALMOLOGY SERV ICES ORDERABLES from Last 3 Months or Most Recently Relevant to Health Maintenance Advance Directives Documents on File Type Date Recorded Patient Bin Piler Expl anation Advance Directives and Living Will 07/12/2019 2:32 PM ronda luna Care Teams Field Geologist Relationship Specialty Start Date End Date None None PCP - General 10/25/23
--- OUTSIDE RECORDS SUMMARY | 2024-02-17 00:35 | XMS_ITS | Encounter Summary ---
[place] [address] Care Team Providers Care Gas Dispatcher Name Role Phone Timothy Mo DO Primary Care Provider [phone] Reason for Visit * Auth/Cert Specialty Diagnoses / Procedures Referred By Cecille t Referred To Contact Diagnoses Reyna's esophagus Encounter for screening for malignant neoplasm of colon barretts f/u & 10 yr colo f/u Procedures PRO COLONOSCOPY, DIAGNOSTIC PRO UPPER GI ENDOSCOPY, DIAGNOSTIC PRO COLONOSCOPY, REMV LESN, SNARE PRO COLONOSCOPY, BIOPSY PRO UPPER GI ENDOSCOPY, BIOPSY PRO UP GI ENDOSCOPY, REMV TUMOR, SNARE PRO ANESTH, LWR INTESTINE, SCREENING COLONOSCOPY PRO ANESTH, UGI ENDOSCOPY NOS COLONOSCOPY,SCREENING EGD, UPPER GI ENDOSCOPY Referral ID Status Reason Start Date Expiration Date Visits Re quested Visits Authorized [id number] 1 1 Encounter Details Date Type Department Care Team ([facility] Contact Info) Description 05/07/2021 12:55 PM EDT Anesthesia Event Endoscopy at [address] [phone] Jayjay La MD [address] [place] [address] [place] [address] Anesthesia Record Procedure Summary Procedure Name Responsible Anesthesiologist Anesthesia Start Time Anesthesia Stop Time COLONOSCOPY,SCREENI NG (WRVU 3.26) (Trunk) Jayjay La MD 05/07/21 1255 05/07/21 1325 Events Date Time Event Comment 05/07/2021 1232 1251 AN Verify 1255 Start 1255 An Start Data 1256 An Induction 1258 Anesthesia Ready 1321 an stop data 1325 Recovery or ICU Handoff Kimberlyn ent care was transferred to the destination unit staff after review of the patient's medical history, current anesthetic/surgical status and plan, according to the Provider Handoff Checklist. 1325 Stop Meds Name Total IV Lidocaine 100 mg Propofol 450 mg Lactated Ringers 400 mL * Agents Name O2 Auxiliary Flowmeter 1 * Blood No blood administrations on file. Lines, Drains, and Airways Type Details Placement Removal (RETIRED) Peripheral IV Line - Single Lumen 05/07/21; 1251; median cubital vein (antecubital fossa), right; [id number] catheter system; 20 gauge; Sofía York; distraction, tolerated well, appears comfortable; 05/07/21; 1355 05/07/21 1251 by Nata Nicole RN 05/07/21 1355 by Loyda Menard RN documented in this encounter Social History Tobacco Use Types Packs/Day Years [...] Sign Reading Time Taken Comments Blood Pressure - - Pulse - - Temperature - - Respiratory Rate 23 05/07/2021 1:20 PM EDT Oxygen Saturation - - Inhaled Oxygen Concentration - - Weight - - Height - - Body Mass Index - - documented in this encounter OR Notes * Anesthesia Postprocedure Evaluation - Jayjay La MD - 05/07/2021 1:26 PM EDT Department of Anesthesiology Post-procedure Note Patient: Ivan Luna Procedure Summary Date: 05/07/21 Room / Location: [facility] / [facility] Anesthesia Start: 1255 Anesthesia Stop: 1325 Procedures: COLONOSCOPY,SCREENING (N/A Trunk) EGD, UPPER GI ENDOSCOPY (N/A ) Diagnosis: (barretts f/u & 10 yr colo f/u) Surgeons: Greg Salcido MD Responsible Provider: Jayjay La MD Anesthesia Type: MAC ASA Status: 2 All Anesthesia Providers: Anesthesiologist: Jayjay La MD Vitals Value Taken Time BP Temp Pulse Resp SpO2 Pain Level Patient Location: PACU/SSU Level of Consciousness: Conscious but Sleepy Pain Management: Satisfactory Analgesia PONV: None Cardiovascular Status: At Baseline Respiratory Status: At Baseline Postoperative Fluid Status: Intravascular EUvolemia Possible Anesthetic Complications: NONE apparent at time of evaluation Final Primary Anesthesia Type: MAC (The anesthetic type performed was the same as planned.) Comments: * Anesthesia Preprocedure Evaluation - Jayjay aL MD - 05/07/2021 12:31 PM EDT Pre-Anesthesia Evaluation for: Ivan Luna a 61 y.o. male. Procedure(s): COLONOSCOPY,SCREENING EGD, UPPER GI ENDOSCOPY Patient Active Problem List Diagnosis Date Noted ??? Reyna's esophagus without dysplasia 12/10/2019 ??? Gastroesophageal reflux disease 11/08/2019 ??? Dysphagia 11/08/2019 ??? Non-recurrent unilateral inguinal hernia without obstruction or gangrene 06/28/2018 ??? Amblyopia, left eye 04/13/2018 ??? Hyperopia with presbyopia of both eyes 11/03/2016 ??? Type 1 diabetes mellitus on insulin therapy 06/18/2016 ??? Erectile dysfunction of non-organic origin 03/17/2016 ??? Diabetic retinopathy, nonproliferative 10/30/2015 ??? Esophageal reflux 05/14/2014 ??? Herpes simplex 01/14/2012 Past Medical History: Diagnosis Date ??? Diabetes type 1 ??? Diabetic retinopathy ??? Gastroesophageal reflux ??? Herpes simplex Past Surgical History: Procedure Laterality Date ??? INGUINAL HERNIA REPAIR Right 03/2001 ??? INGUINAL HERNIA REPAIR Left 07/2018 ??? PRO UPPER GI ENDOSCOPY, DIAGNOSTIC N/A 11/16/2019 EGD, UPPER GI ENDOSCOPY performed by Greg Salcido MD at [facility] END[facility]COPY ??? VASECTOMY Social History Tobacco Use ??? Smoking status: Never Smoker ??? Smokeless tobacco: Never Used Substance Use Topics ??? Alcohol use: Yes Alcohol/week: 10.0 standard drinks Types: 10 Glasses of wine per week Comment: Wine with dinner Social History Substance and Sexual Activity Drug Use No Allergies Allergen Reactions ??? Oxycodone-Acetaminophen CIS - Nausea/Vomiting ??? Penicillins CIS - Hives Medications: MAR and/or home medications have been reviewed. Physical Exam: Preprocedure Vitals Current as of 05/07/21 1231 No BP, pulse, respiration, SpO2, or temperature recorded. Height: Weight: BMI: IBW: Airway Assessment: Mallampati: II TM distance: >3 FB Neck ROM: full Cardiovascular Assessment: system normal Pulmonary Assessment: pulmonary exam normal Dental Assessment: - normal exam Misc Assessment: Last Filed Perioperative Cognitive Screening None Anesthesia Plan: ASA 2 MAC, with a(n) intravenous induction Informed Consent: Anesthetic plan and risks discussed with patient. Anesthesia Screening documented in this encounter Plan of Treatment Not on file documented as of this encounter Visit Diagnoses Not on filedocumented in this encounter Administered Medications Inactive Administered Medications - up to 3 most recent administrations Medication Order MAR Action Action Date Dose Rate Site lactated ringers infusion Intravenous, CONTINUOUS PRN, Starting on Debo 05/07/21 at 1251, Until Debo 05/07/21 at 1325, Anesthesia Intra-op New Bag 05/07/2021 12:51 PM EDT lidocaine (pf) (Xylocaine) (20 mg/mL) 2% injection syringe Intravenous, PRN, Starting on Debo 05/07/21 at 1321, Until Debo 05/07/21 at 1325, Anesthesia Intra-op, Routine Given 05/07/2021 1:21 PM EDT 100 mg propofoL (Diprivan) 10 mg/mL bolus injection (Anesthesia) Intravenous, PRN, Starting on Debo 05/07/21 at 1321, Until Debo 05/07/21 at 1325, Anesthesia Intra-op Given 05/07/2021 1:21 PM EDT 450 mg documented in this encounter Care Teams Gas Dispatcher Relationship Specialty Start Date End Date Timothy Mo DO [address] [place] [id number] PCP - General Family Medicine 12/09/16 08/04/21 documented as of this encounter
--- OUTSIDE RECORDS SUMMARY | 2024-02-17 00:35 | XMS_ITS | Encounter Summary ---
[place] [address] Care Team Providers Care Forensic Medical Examiner Name Role Phone Unknown Primary Care Provider Unavailabl e Encounter Details Date Type Department Care Team (Late st Contact Info) Description 11/06/2021 Refill Endocrinology at [address] [phone] Yvonne Meneses RN Type 1 diabetes mellitus on insulin [...] encounter Miscellaneous Notes * Telephone Encounter - Yvonne Meneses RN - 11/06/2021 8:57 AM EDT Left message on nurse line. Patient of Darleen Falk. Last seen 08/25/21. Needs refills for Lisinopril Pravastatin Test strips. Last full set of labs 05/14/21 Return call to patient to find out where he would like RX's sent. Uses [facility]. Last scripts were in previous providers name. Scripts set up and sent to provider to sign documented in this encounter Plan of Treatment Not on file documented as of this encounter Visit Diagnoses Diagnosis Type 1 diabetes mellitus on insulin therapy Type I (juvenile type) diabetes mellitus without mention of complication, not stated as uncontrolled documented in this encounter Care Teams Forensic Medical Examiner Relationship Specialty Start Date End Date Unknown None PCP - General 08/05/21 10/05/22 documented as of this encounter
--- OUTSIDE RECORDS SUMMARY | 2024-02-17 00:35 | XMS_ITS | Encounter Summary ---
Author Organization [facility] [place] [address] Care Team Providers Care Conference Director Name Role Phone None Primary Care Provider Unavailabl e Encounter Details Date Type Department Care Team (Late st Contact Info) Description 10/25/2023 11:30 AM EDT Office Visit [place] [address] Parker Land MD [facility] [place] [address] Type 1 diabetes mellitus on insulin therapy [...] Mass Index 23.88 10/25/2023 11:40 AM EDT documented in this encounter Progress Notes * Parker Land MD - 10/25/2023 11:30 AM EDT Images from the original note were not included. Endocrine Outpatient Visit Date of Consultation: 10/25/2023 Reason for follow up: type 1 DM HPI: Ivan Luna is a 63 y.o. male with PMH significant for type 1 DM, GERD, Robert's esophagus presents for follow up of T1 DM. He was last seen in 04/2023. 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 Diabetes History: Diagnosed with T1DM at the age of mid 30s Current home regimen: Medtronic insulin pump 780 (did online videos for upgrade) Smart guard Basal settings: Midnight-6 am 0.525 6am-12:30 ppm 0.475 12:30-6 pm 0.375 6 pm -midnight 0.525 Total 11.450 Target 110 Active insulin time 3h IC ratio Midnight-6 am 1:12 6 am-11 am 1:8 11 am- midnight 1:10 Correction bolus target 120 CF 75 BG Monitoring: CGM- Medtronic 4th generation TIR 85% Smart guard 94% of time in a week Most recent HgA1C on 7.1% on 10/18/2023 Last 3 Hemoglobin A1Cs Lab Results Component Value Date HA1C 6.9 (H) 04/19/2023 HA1C 7.1 (H) 10/06/2022 HA1C 7.3 (H) 06/08/2022 24h Diet recall: Breakfast- donut and coffee Lunch- sandwich, chips, more snack as sugars was dropping Supper- pizza Typical exercise regimen: walking post lunch, exercising the dog Trouble with hypoglycemia: 1-2 times a week, symptoms nervous feeling, sweating , palpitations, corrects with sugar tablets or juice, follow 15-15 rule Hypoglycemia unawareness: no Family h/o DM: no Injection site: abdomen Recent admission with DKA: no Diabetes Complications Status: Eyes: no retinopathy, August 2023 Kidneys: None Feet: None Sensory: neg neuropathy Autonomic: none Cardiac: None Prevention: last eye exam: no retinopathy, August 2023 last microalbumin :negative 04/2023 last Cr: Lab Results Component Value Date CREATININE 0.82 04/19/2023 last lipid panel: 10/18/2023 Lipid Panel Chol 170 Trig 25 HDL 98 LDL 64 regular hog pusher: no special shoes: no flu shot: annually pneumovax: once, 15 years ago ACEi: lisinopril 5 mg ASA: 81 mg Statin:pravastatin 10 mg ROS: +lost 10 lbs (-) for Endocrine: No increased thirst or urination Eyes: No recent vision change ENT: No dysphagia, dental issues Cardiovascular: No chest pain Respiratory: No wheezing , shortness of breath GI: No nausea, vomiting, diarrhea, constipation : No frequent urinary tract infections Neurological: No weakness or numbness Skin/Feet: No current diabetic foot ulcers/open area PMH Past Medical History: Diagnosis Date Diabetes type 1 Diabetic retinopathy Gastroesophageal reflux Herpes simplex Allergy: Allergies Allergen Reactions Oxycodone-Acetaminophen CIS - Nausea/Vomiting Penicillins CIS - Hives Social history: Social History Tobacco Use Smoking status: Never Smokeless tobacco: Never Vaping Use Vaping status: Never Used Substance Use Topics Alcohol use: Yes Alcohol/week: 10.0 standard drinks of alcohol Types: 10 Glasses of wine per week Comment: Wine with dinner Drug use: No Family history: No family history on file. Vitals BP 142/72 (BP Location (NBP): Right arm, Patient Position: Sitting, BP Cuff Sizes: Adult (25-34 cm)) Pulse 63 Temp 35.9 ??C (96.7 ??F) (Temporal) Resp 16 Ht 177.8 cm (5' 10) Wt 75.5 kg (166 lb 6.4 oz) SpO2 99% BMI 23.88 kg/m?? Physical Exam: Gen: NAD, talking in clear sentences HEENT: no LAD, oral mucus membranes moist no obvious inflammation Heart:Radial pulses +2. Lungs: CTAB, breathing non-labored Abd: Soft, non-distended, no lipodistrophy SKIN: No open areas or redness to both fee, monofilament test normal Neuro: Moving all extremities. Grossly non-focal Labs: Component Latest Ref Rng 04/19/2023 Glucose Lvl 65 - 199 mg/dL 180 BUN 10 - 20 mg/dL 14 Creatinine 0.80 - 1.50 mg/dL 0.82 Sodium 135 - 145 mmol/L 140 Potassium 3.5 - 5.0 mmol/L 4.5 Chloride 98 - 107 mmol/L 105 CO2 22 - 31 mmol/L 27 Anion Gap 5 - 15 mmol/L 8 Calcium 8.5 - 10.5 mg/dL 9.3 Estimated GFR >=60 mL/min/1.73 m?? 99 Chol, Total mg/dL 191 Triglycerides mg/dL 31 HDL mg/dL 98 LDL Cholesterol mg/dL 87 Chol/HDL Ratio ratio 1.9 Lipid Interpretation See Note Alb/Cr Ratio, Random 0 - 29 mcg/mg Cr Not Calculated U Albumin Conc, Random mg/L <3.0 U Creatinine mg/dL 71 Hemoglobin A1C 4.3 - 5.6 % 6.9 (H) Est Avg Gluc mg/dL 150 Legend: (H) High Assessment: Mr. Ivan Luna is a 63 y.o. years old male with PMH significant for type 1 DM (Last A1C of 6.9% from 04/30), GERD, Robert's esophagus presents for further management of T1 DM. He is currently on Medtronic 780 insulin pump (smart guard downloaded to his 770 pump) and Guardiansensor 4th generation. Review of CGM data showed he is 80% in range which is at the target. He is using SmartGuyard 89% of the week.His A1c is currently 7.1%, increased since last visit as he had COVID recently during which he was having periods of hyperglycemia. Overall doing well so I will not make any changes to the settings. His BP is at goal. LDL is at goal. No microalbuminuria. # Well controlled Type 1 DM Plan: - continue with Medtronic 780 pump (smart guard) and [employer] 4th generation sensor- no change in the settings - prescription for lantus in case of pump failure sent - has glucagon pen at home - has ketone strips tat home - Diet - low fat/low carb diet - Exercise - weight-bearing exercise 30 min/day, as tolerated - labs before next visit: A1c, BMP, lipid panel and to be done at [facility] in 6 months. Time statement: I spent 30 total minutes on this visit today. The time was spent face to face with the patient, on chart review and documentation, ordering labs/studies and coordination of care, excludes reading of CGM data. Parker Land MD documented in this encounter Plan of Treatment Scheduled Orders Name Type Priority Associated Diagnoses Orde r Schedule Hemoglobin A1c Lab Routine Type 1 diabetes mellitus on insulin therapy Expected: 10/25/2023 (Approximate), Expires: 10/24/2024 Basic Metabolic Panel Fasting required Lab Routine Type 1 diabetes mellitus on insulin therapy Expected: 10/25/2023 (Approximate), Expires: 10/24/2024 U Albumin/Cre Ratio Lab Routine Type 1 diabetes mellitus on insulin therapy Expected: 10/25/2023 (Approximate), Expires: 10/24/2024 documented as of this encounter Visit Diagnoses Diagnosis Type 1 diabetes mellitus on insulin therapy Type I (juvenile type) diabetes mellitus without mention of complication, not stated as uncontrolled documented in this encounter Care Teams Conference Director Relationship Specialty Start Date End Date None None PCP - General 10/25/23 documented as of this encounter
--- OUTSIDE RECORDS SUMMARY | 2024-02-17 00:35 | XMS_ITS | Encounter Summary ---
Author Organization [facility]y [facility] [place] [address] Care Team Providers Care Blue Split Trimmer Name Role Phone Unavailable Primary Care Provider Unavailabl e Reason for Visit * Reason Onset Date Comments Pump/sensor 07/28/2023 Encounter Details Date Type Department Care Team (Late st Contact Info) Description 07/28/2023 Telephone [place] [address] Fely Pope Pump/sensor Social History Tobacco Use Types Packs/Day Years [...] encounter Miscellaneous Notes * Telephone Encounter - Kay Lira - 08/02/2023 11:25 AM EDT CMN (for [facility] members only) from [employer]. Filled out. Dr. Land will sign. Secretaries faxed and confirmed to [phone] * Telephone Encounter - Fely Pope - 08/01/2023 10:29 AM EDT CMN (for [facility] members only) from [employer]. Filled out. Dr. Land will sign. Secretaries will fax. * Telephone Encounter - Fely Pope - 07/28/2023 9:20 AM EDT Received CMN from [employer] Will complete as soon as possible documented in this encounter Plan of Treatment Not on file documented as of this encounter Visit Diagnoses Not on filedocumented in this encounter
--- OUTSIDE RECORDS SUMMARY | 2024-02-17 00:35 | XMS_ITS | Encounter Summary ---
[place] [address] Care Team Providers Care Dump Grounds Checker Name Role Phone Unknown Primary Care Provider Unavailabl e Encounter Details Date Type Department Care Team (Late st Contact Info) Description 10/05/2021 Telephone Gastroenterology and Hepatology at [address] [phone] Mireya Kahn RN Social History Tobacco Use Types Packs/Day Years [...] encounter Miscellaneous Notes * Telephone Encounter - Mireya Kahn RN - 10/05/2021 11:50 AM EDT Pt called requesting renewal of nexium Last seen 12/10/2019 Last rx 06/18/21 Has appt scheduled 11/12 Will set up and pend documented in this encounter Plan of Treatment Not on file documented as of this encounter Visit Diagnoses Not on filedocumented in this encounter Care Teams Dump Grounds Checker Relationship Specialty Start Date End Date Unknown None PCP - General 08/05/21 10/05/22 documented as of this encounter
--- OUTSIDE RECORDS SUMMARY | 2024-02-17 00:35 | XMS_ITS | Encounter Summary ---
[place] [address] Care Team Providers Care Bleaching Supervisor Name Role Phone Unknown Primary Care Provider Unavailabl e Encounter Details Date Type Department Care Team (Latest Contact Info) Description 06/08/2022 Travel Social History Tobacco Use Types Packs/Day Years [...] on filedocumented in this encounter Care Teams Bleaching Supervisor Relationship Specialty Start Date End Date Unknown None PCP - General 08/05/21 10/05/22 documented as of this encounter
--- OUTSIDE RECORDS SUMMARY | 2024-02-17 00:35 | XMS_ITS | Encounter Summary ---
[place] [address] Care Team Providers Care Maintenance Repairer Name Role Phone Timothy Mo DO Primary Care Provider [phone] Encounter Details Date Type Department Care Team (Latest Contact Info) Description 10/06/2022 Travel Social History Tobacco Use Types Packs/Day [...] on filedocumented in this encounter Care Teams Maintenance Repairer Relationship Specialty Start Date End Date Timothy Mo DO [address] [place] [id number] PCP - General Family Medicine 10/06/22 01/12/23 documented as of this encounter
--- OUTSIDE RECORDS SUMMARY | 2024-02-17 00:35 | XMS_ITS | Encounter Summary ---
[place] [address] Care Team Providers Care Bioinformatics Specialist Name Role Phone Timothy Mo DO Primary Care Provider [phone]- [phone] Encounter Details Date Type Department Care Team (Latest Contact Info) Description 11/03/2022 Travel Social History Tobacco Use Types Packs/Day [...] on filedocumented in this encounter Care Teams Bioinformatics Specialist Relationship Specialty Start Date End Date Timothy Mo DO [address] [place] [id number] PCP - General Family Medicine 10/06/22 01/12/23 documented as of this encounter
--- OUTSIDE RECORDS SUMMARY | 2024-02-17 00:35 | XMS_ITS | Encounter Summary ---
[place] [address] Care Team Providers Care Mechanical Insulator Name Role Phone Unavailable Primary Care Provider Unavailabl e Reason for Visit * Reason Onset Date Comments Pump/sensor 08/03/2023 Encounter Details Date Type Department Care Team (Late st Contact Info) Description 08/03/2023 [place] [phone] Fely Pope Pump/sensor Social History Tobacco Use [...] encounter Miscellaneous Notes * Telephone Encounter - Fely Pope - 08/03/2023 12:57 PM EDT Documentation request received from [employer]. 04/19/23 office notes routed Fax number: [phone] documented in this encounter Plan of Treatment Not on file documented as of this encounter Visit Diagnoses Not on filedocumented in this encounter
--- OUTSIDE RECORDS SUMMARY | 2024-02-17 00:35 | XMS_ITS | Encounter Summary ---
[place] [address] Care Team Providers Care Vacuum Form Operator Name Role Phone Unavailable Primary Care Provider Unavailabl e Encounter Details Date Type Department Care Team (Late st Contact Info) Description 03/03/2023 Telephone [place] [phone] Yosef Singh, CCMA Social History Tobacco Use Types Packs/Day Years [...]
--- OUTSIDE RECORDS SUMMARY | 2024-02-17 00:35 | XMS_ITS | Encounter Summary ---
[place] [address] Care Team Providers Care Head Librarian Name Role Phone Unknown Primary Care Provider Unavailabl e Encounter Details Date Type Department Care Team (Latest Contact Info) Description 06/08/2022 3:50 PM EDT Laboratory Appointment Lab at [address] [phone] Reyna's esophagus without dysplasia; Type 1 diabetes mellitus on insulin therapy [...] as of this encounter Progress Notes * Darleen Falk APRN - 06/08/2022 3:50 PM EDT Received lab results from 06/08/2022 Hemoglobin A1c 7.3 UACR 2 negative Lipid profile: Total cholesterol 180 Triglycerides 38 HDL 86 LDL 86 documented in this encounter Plan of Treatment Not on file documented as of this encounter Procedures Procedure Name Priority Date/Time Associated Diagnosis Comments U ALBUMIN/CRE RATIO Routine 06/08/2022 4 :50 PM EDT Type 1 diabetes mellitus on insulin therapy VITAMIN D, 25-HYDROXY Routine 06/08/2022 3:39 PM EDT Reyna's esophagus without dysplasia HEMOGLOBIN A1C Routine 06/08/2022 3:39 PM EDT Type 1 diabetes mellitus on insulin therapy LIPID PANEL (REFLEX DIRECT LDL) Routine 06/08/2022 3:39 PM EDT Type 1 diabetes mellitus on insulin therapy documented in this encounter Results * U Albumin/Cre Ratio (06/08/2022 4:50 PM EDT) Albumin / Creatinin Ratio, Urine 2 0 - 29 mcg/mg Cr [facility] Albumin, Urine 4.8 mg/L [facility] Creatinine, Urine 201 mg/dL [facility] Urine 06/08/2022 4:50 PM EDT 06/08/2022 4:50 PM EDT Narrative Resulting Agency Comment Spec In Lab Darleen Falk CONTINUOUS YARN DYEING MACHINE OPERATOR URINE ORDERABL ES Performing Organization Address [facility] Co de Phone Number [facility] [address] [place] [address] * (ABNORMAL) Hemoglobin A1c (06/08/2022 3:39 PM EDT) Hemoglobin A1c 7.3(H) 4.3 - 5.6 % [facility] Estimated Average Glucose 163 mg/dL [facility] Blood 06/08/2022 3:39 PM EDT 06/08/2022 3:39 PM EDT Narrative Resulting Agency Comment Spec In Lab Darleen Falk CONTINUOUS YARN DYEING MACHINE OPERATOR CHEMISTRY ORDE RABLES Performing Organization Address City/[facility] Co de Phone Number [facility] [address] [place] [address] * Lipid Panel (Reflex Direct LDL) (06/08/2022 3:39 PM EDT) Cholesterol, Total 180 mg/dL [facility] Comment: Lower Risk: <200 mg/dL Average Risk: 200-239 mg/dL Higher Risk: >rq=190 mg/dL Triglyceride 38 mg/dL [facility] Comment: Average Risk/Lower Risk: <150 mg/dL Borderline High Risk: 150-199 mg/dL High Risk: 200-499 mg/dL Very High Risk: >gx=396 mg/dL HDL Cholesterol 86 mg/dL [facility] Comment: Males: ?? Higher Risk: <40 mg/dL Females: ?? Higher Risk: <50 mg/dL LDL Cholesterol 86 mg/dL [facility] Comment: Lowest Risk: <100 mg/dL Lower Risk: 100-129 mg/dL Borderline High Risk: 130-159 mg/dL High Risk: 160-189 mg/dL Very High Risk: >cf=534 mg/dL Cholesterol/HDL Ratio 2.1 ratio [facility] Lipid Interpretation See Note [facility] Comment: Lipid management should be guided by a patient? s ASCVD risk, goals and preferences. ACC/AHA Guidelines recommend high intensity statin if clinical ASCVD or LDL greater than or equal to 190 mg/dL. http://Informatics [employer] Context.com/HVJ-OPV-Vjjlqpjzn Adults aged 40-75 with LDL 70-189 mg/dL should have their 10 year ASCVD risk estimated with the ACC/AHA ASCVD risk flight security specialist http://tools.acc.org/GQGYE-Bjrn-Pkdwuandv/ Statin should be discussed if risk greater [...] Comment Spec In Lab Darleen Falk APRN CHEMISTRY BELKYS CARDENAS [facility] [address] [place] [address] * Vitamin D, 25-Hydroxy (06/08/2022 3:39 PM EDT) Vitamin D Total 25 OH 34 21 - 100 ng/mL [facility] Vit D Interp Sufficient [facility] Blood 06/08/2022 3:39 PM EDT 06/08/2022 3:39 PM EDT Narrative Resulting Agency Comment Spec In Lab Barbara Sneed CONTINUOUS YARN DYEING MACHINE OPERATOR CHEMISTRY ORDERABL ES [facility] [address] [place] [address] documented in this encounter Visit Diagnoses Diagnosis Reyna's esophagus without dysplasia Reyna's esophagus Type 1 diabetes mellitus on insulin therapy Type I (juvenile type) diabetes mellitus without mention of complication, not stated as uncontrolled documented in this encounter Care Teams Head Librarian Relationship Specialty Start Date End Date Unknown None PCP - General 08/05/21 10/05/22 documented as of this encounter
--- OUTSIDE RECORDS SUMMARY | 2024-02-17 00:35 | XMS_ITS | Encounter Summary ---
[place] [address] Care Team Providers Care Transfer And Line Up Worker Name Role Phone Unknown Primary Care Provider Unavailabl e Reason for Visit * Reason Onset Date Comments Medication Refill 04/07/2022 Encounter Details Date Type Department Care Team (Late st Contact Info) Description 04/07/2022 Refill Endocrinology at [address] [phone] Darleen Falk, POCKET CREASER [address] [place] [address] [place] [address] Type 1 diabetes mellitus on insulin therapy [...] Telephone Encounter - Edna Avila CCMA - 04/07/2022 9:11 AM EST BECK Winters has requested a refill on his Novolog documented in this encounter Plan of Treatment Not on file documented as of this encounter Visit Diagnoses Diagnosis Type 1 diabetes mellitus on insulin therapy Type I (juvenile type) diabetes mellitus without mention of complication, not stated as uncontrolled documented in this encounter Care Teams Transfer And Line Up Worker Relationship Specialty Start Date End Date Unknown None PCP - General 08/05/21 10/05/22 documented as of this encounter
--- OUTSIDE RECORDS SUMMARY | 2024-02-17 00:35 | XMS_ITS | Encounter Summary ---
[place] [address] Care Team Providers Care Process Server Name Role Phone Unknown Primary Care Provider Unavailabl e Reason for Visit * Reason Comments Medication Refill Encounter Details Date Type Department Care Team ([facility] st Contact Info) Description 06/08/2022 Refill Gastroenterology and Hepatology at [address] [phone] Barbara Sneed, SOLE MOLDER [address] [place] [address] [place] [address] Reyna's esophagus without dysplasia Social History Tobacco [...] esophagus documented in this encounter Care Teams Process Server Relationship Specialty Start Date End Date Unknown None PCP - General 08/05/21 10/05/22 documented as of this encounter
--- OUTSIDE RECORDS SUMMARY | 2024-02-17 00:35 | XMS_ITS | Encounter Summary ---
Author [place] [address] Care Team Providers Care Agriculture Laborer Name Role Phone Unknown Primary Care Provider Unavailabl e Reason for Visit * Reason Onset Date Comments Medication Refill 12/30/2021 Encounter Details Date Type Department Care Team (Late st Contact Info) Description 12/30/2021 Refill Endocrinology at [address] [phone] Edna Avila CMA Type 1 [...] Telephone Encounter - Edna Avila CCMA - 12/30/2021 2:03 PM EST Pt left message again. He would like a call when this is all set. * Telephone Encounter - Edna Avila CCMA - 12/30/2021 9:29 AM EST Pt left message stating he is traveling for and just realized he is almost out of his Insulin. He is hoping to get to pick it up today at the chosen pharmacy in [place] documented in this encounter Plan of Treatment Not on file documented as of this encounter Visit Diagnoses Diagnosis Type 1 diabetes mellitus on insulin therapy Type I (juvenile type) diabetes mellitus without mention of complication, not stated as uncontrolled documented in this encounter Care Teams Agriculture Laborer Relationship Specialty Start Date End Date Unknown None PCP - General 08/05/21 10/05/22 documented as of this encounter
--- OUTSIDE RECORDS SUMMARY | 2024-02-17 00:35 | XMS_ITS | Encounter Summary ---
[place] [address] Care Team Providers Care Knotting Machine Operator Name Role Phone Timothy Mo DO Primary Care Provider Encounter Details Date Type Department Care Team (Latest Contact Info) Description 05/14/2021 7:30 AM EDT Laboratory Appointment Lab at [address] [phone] Type 1 diabetes mellitus on insulin therapy [...] Procedure Name Priority Date/Time Associated Diagnosis Comments HC CREATININE - NON BLOOD Routine 05/14/2021 8:30 AM EDT Type 1 diabetes mellitus on insulin therapy HC HEMOGLOBIN A1C Routine 05/14/2021 7:3 1 AM EDT Type 1 diabetes mellitus on insulin therapy HC VITAMIN B12 SERUM Routine 05/14/2021 7:31 AM EDT Type 1 diabetes mellitus on insulin therapy HC VENIPUNCTURE Routine 05/14/2021 7:31 AM EDT Type 1 diabetes mellitus on insulin therapy COMPREHENSIVE METABOLIC PANEL Routine 05/14/2021 7:31 AM EDT Type 1 diabetes mellitus on insulin therapy documented in this encounter Results * U Albumin/Cre Ratio (05/14/2021 8:30 AM EDT) Albumin / Creatinin Ratio, Urine Not Calculated 0 - 29 mcg/mg Cr [facility] Albumin, Urine <3.0 mg/L [facility] Comment:Unable to calculate ratio due to microalbumin being below linearity. Creatinine, Urine 153 mg/dL [facility] Urine 05/14/2021 8:30 AM EDT 05/14/2021 8:54 AM EDT Narrative Resulting Agency Comment Spec In Lab Darleen Falk FOOT DRILL OPERATOR URINE ORDERABL ES Performing Organization Address [facility] Co de Phone Number [facility] [address] [place] [address] * (ABNORMAL) Hemoglobin A1c (05/14/2021 7:31 AM EDT) Hemoglobin A1c 7.3(H) 4.3 - 5.6 % [facility] Estimated Average Glucose 163 mg/dL [facility] Blood 05/14/2021 7:31 AM EDT 05/14/2021 7:31 AM EDT Narrative Resulting Agency Comment Spec In Lab Darleen Falk FOOT DRILL OPERATOR CHEMISTRY ORDE RABLES Performing Organization Address [facility]/ZIP Co de Phone Number [facility] [address] [place] [address] * Comprehensive metabolic panel (non-fasting) (05/14/2021 7:31 AM EDT) Glucose 191 65 - 199 mg/dL [facility] Comment:Diabetes: >=200 mg/d L plus symptoms Blood Urea Nitrogen 15 10 - 20 mg/dL [facility] Creatinine 0.91 0.80 - 1.50 mg/dL [facility] Sodium 138 135 - 145 mmol/L [facility] Potassium 4.4 3.5 - 5.0 mmol/L [facility] Comment: Please note: ??Patients with WBC >100,000 may have falsely elevated Potassium levels. ??For accurate Potassium quantification in these patients send serum separator tube (gold top) for subsequent determinations. ??Contact the Clinical Chemistry Laboratory if there are any questions. Chloride 103 98 - 107 mmol/L [facility] Carbon Dioxide 26 22 - 31 mmol/L [facility] Anion Gap 9 5 - 15 mmol/L [facility] Calcium 8.7 8.5 - 10.5 mg/dL [facility] Protein, Total 6.6 6.1 - 8.0 g/dL [facility] Albumin 3.8 3.2 - 5.2 g/dL [facility] Aspartate Aminotransferase 18 0 - 39 unit/L [facility] Alanine Aminotransferase 16 0 - 55 unit/L [facility] Alkaline Phosphatase 74 40 - 130 unit/L [facility] Bilirubin, Total 0.4 0.2 - 1.3 mg/dL [facility] Est Glomerular Filtration Rate 90 >=60 mL/min/1. 73 m?? [facility] Comment: This patient? s estimated glomerular filtration rate (eGFR) is between 90 mL/min/1.73 m2 (patients with less muscle mass per kg body weight) and 104 mL/min/1.73 m2 (patients with more muscle mass per kg body weight) as determined by the CKD-EPI equation. Assessment of eGFR is not appropriate when creatinine concentrations are rapidly changing. For clinical decisions where creatinine clearance will affect therapy, a 24-hour urine creatinine clearance may be advised. Assignment of CKD stage 1 - 5 for patients with an eGFR near the transition point between stages may be based on clinical assessment of muscle mass and symptoms in addition to eGFR. Blood 05/14/2021 7:31 AM EDT 05/14/2021 7:31 AM EDT Narrative Resulting Agency Comment Spec In Lab Darleen Falk APRN CHEMISTRY BELKYS CARDENAS [facility] [address] [place] [address] * Vitamin B12 (05/14/2021 7:31 AM EDT) Vitamin B12 531 232 - 1,245 pg/mL [facility] Blood 05/14/2021 7:31 AM EDT 05/14/2021 7:31 AM EDT Narrative Resulting Agency Comment Spec In Lab Darleen Falk FOOT DRILL OPERATOR CHEMISTRY BELKYS CARDENAS [facility] [address] [place] [address] * Lipid Panel (Reflex Direct LDL) (05/14/2021 7:31 AM EDT) Cholesterol, Total 158 mg/dL [facility] Comment: Lower Risk: <200 mg/dL Average Risk: 200-239 mg/dL Higher Risk: >jf=903 mg/dL Triglyceride 33 mg/dL [facility] Comment: Average Risk/Lower Risk: <150 mg/dL Borderline High Risk: 150-199 mg/dL High Risk: 200-499 mg/dL Very High Risk: >qt=641 mg/dL HDL Cholesterol 77 mg/dL [facility] Comment: Males: ?? Higher Risk: <40 mg/dL Females: ?? Higher Risk: <50 mg/dL LDL Cholesterol 74 mg/dL [facility] Comment: Lowest Risk: <100 mg/dL Lower Risk: 100-129 mg/dL Borderline High Risk: 130-159 mg/dL High Risk: 160-189 mg/dL Very High Risk: >pm=550 mg/dL Cholesterol/HDL Ratio 2.1 ratio [facility] Lipid Interpretation See Note [facility] Comment: Lipid management should be guided by a patient? s ASCVD risk, goals and preferences. ACC/AHA Guidelines recommend high intensity statin if clinical ASCVD or LDL greater than or equal to 190 mg/dL. http://Submitneturl.com/EEW-JKT-Gxbqulrmc Adults aged 40-75 with LDL 70-189 mg/dL should have their 10 year ASCVD risk estimated with the ACC/AHA ASCVD risk external relations manager http://tools.acc.org/OAXKU-Fcru-Rajxlnbet/ Statin should be discussed if risk greater [...] critical component of ASCVD risk reduction. Blood 05/14/2021 7:31 AM EDT 05/14/2021 7:31 AM EDT Narrative Resulting Agency Comment Spec In Lab Darleen Falk APRN CHEMISTRY BELKYS CARDENAS [facility] [address] [place] [address] documented in this encounter Visit Diagnoses Diagnosis Type 1 diabetes mellitus on insulin therapy Type I (juvenile type) diabetes mellitus without mention of complication, not stated as uncontrolled documented in this encounter Care Teams Knotting Machine Operator Relationship Specialty Start Date End Date Timothy Mo DO [address] [place] [id number] PCP - General Family Medicine 12/09/16 08/04/21 documented as of this encounter
--- OUTSIDE RECORDS SUMMARY | 2024-02-17 00:35 | XMS_ITS | Encounter Summary ---
Author Organization [facility] [place] [address] Care Team Providers Care Retail General Manager Name Role Phone Unavailable Primary Care Provider Unavailabl e Reason for Visit * Reason Onset Date Comments Pump/sensor 02/25/2023 Encounter Details Date Type Department Care Team (Late st Contact Info) Description 02/25/2023 Telephone [place] [phone] Fely Pope Pump/sensor Social History Tobacco Use [...] * Telephone Encounter - Fely Pope - 03/14/2023 12:21 PM EST Re-printed * Telephone Encounter - Jim Way - 03/02/2023 10:08 AM EST Patient called to check on the status of this prescription. * Telephone Encounter - Rin May - 03/02/2023 9:42 AM EST Gabriela with [employer] called again to check on the status of the Rx request for the patient's supplies. Gabriela stated that the patient only has two left so they are needing this as soon as possible please. * Telephone Encounter - Kathia Reis - 03/01/2023 2:41 PM EST Vinnie, with [employer] [facility], is calling to confirm this request was received. Can be reached at [phone] opt2. * Telephone Encounter - Fely Pope - 02/28/2023 10:07 AM EST Prescription from [employer]. Filled out. Dr. Land will sign. Secretaries will fax. * Telephone Encounter - Fely Pope - 02/25/2023 2:50 PM EST Received Prescription from [employer] Will complete as soon as possible documented in this encounter Plan of Treatment Not on file documented as of this encounter Visit Diagnoses Not on filedocumented in this encounter
--- OUTSIDE RECORDS SUMMARY | 2024-02-17 00:35 | XMS_ITS | Encounter Summary ---
[place] [address] Care Team Providers Care Digital Sales Director Name Role Phone Unknown Primary Care Provider Unavailabl e Encounter Details Date Type Department Care Team (Late st Contact Info) Description 08/19/2021 Orders Only Endocrinology at [address] [phone] Cecily Kingston, RN Type 1 [...] of this encounter Progress Notes * Cecily Kingston, RN - 08/19/2021 12:24 PM EDT [facility] DEPARTMENT OF Endocrinology Medication Renewal: Novolog Ivan Luna is a 61 y.o. male. Last seen: 05/20/2021 100 unit/ml #40mls with 1 Refills Last Refill: 03/05/2021 A1C out of date. Order pended to provider Lab Results Component Value Date HA1C 7.3 (H) 05/14/2021 Lab Results Component Value Date NA 138 05/14/2021 K 4.4 05/14/2021 CL 103 05/14/2021 CO2 26 05/14/2021 BUN 15 05/14/2021 CREATININE 0.91 05/14/2021 GLUCOSE 191 05/14/2021 GLUCFASTING 229 (ExtH) 09/13/2016 CALCIUM 8.7 05/14/2021 ESTGFR 90 05/14/2021 Lab Results Component Value Date ALT 16 05/14/2021 AST 18 05/14/2021 ALKPHOS 74 05/14/2021 BILITOT 0.4 05/14/2021 ALBUMIN 3.8 05/14/2021 PROT 6.6 05/14/2021 Lab Results Component Value Date MICROALBUR <3.0 05/14/2021 Lab Results Component Value Date CHLPL 158 05/14/2021 Lab Results Component Value Date HDL 77 05/14/2021 Lab Results Component Value Date LDLCHOL 74 05/14/2021 Lab Results Component Value Date TRIG 33 05/14/2021 Lab Results Component Value Date CHOLHDL 2.1 05/14/2021 documented in this encounter Plan of Treatment Not on file documented as of this encounter Visit Diagnoses Diagnosis Type 1 diabetes mellitus on insulin therapy Type I (juvenile type) diabetes mellitus without mention of complication, not stated as uncontrolled documented in this encounter Care Teams Digital Sales Director Relationship Specialty Start Date End Date Unknown None PCP - General 08/05/21 10/05/22 documented as of this encounter
--- OUTSIDE RECORDS SUMMARY | 2024-02-17 00:35 | XMS_ITS | Encounter Summary ---
[place] [address] Care Team Providers Care Cylinder Sander Operator Name Role Phone Unknown Primary Care Provider Unavailabl e Reason for Visit * Reason Comments Medication Refill Encounter Details Date Type Department Care Team ([facility] st Contact Info) Description 08/25/2022 Refill Gastroenterology and Hepatology at [address] [phone] Barbara Sneed, [employer]UCTURE ASSEMBLER [address] [place] [address] [place] [address] Reyna's esophagus without dysplasia Social History Tobacco [...] Telephone Encounter - Yvonne Meneses RN - 08/26/2022 9:25 AM EDT Last seen 11/12/2021, 1 yr ROV recommended. Last filled 06/09/22 for 90 day supply, no refill. Please review and refill if appropriate documented in this encounter Plan of Treatment Not on file documented as of this encounter Visit Diagnoses Diagnosis Reyna's esophagus without dysplasia Reyna's esophagus documented in this encounter Care Teams Cylinder Sander Operator Relationship Specialty Start Date End Date Unknown None PCP - General 08/05/21 10/05/22 documented as of this encounter
--- OUTSIDE RECORDS SUMMARY | 2024-02-17 00:35 | XMS_ITS | Encounter Summary ---
[place] [address] Care Team Providers Care Merchandise Presentation Associate Name Role Phone Timothy Mo DO Primary Care Provider [phone] Reason for Referral * Consultation (Routine) - Closed Specialty Diagnoses / Procedures Referred By Cecille nieto Referred To Contact Diagnoses Type 1 diabetes mellitus on insulin therapy Parker Land MD [facility] [place] [address] Referral ID Status Reason Start Date Expiration Date V isits Requested Visits Authorized [id number] Closed Consult, Test & Treat 10/06/2022 04/04/2023 1 1 Reason for Visit * Consultation (Routine) - Closed Specialty Diagnoses / Procedures Referred By Cecille nieto Referred To Contact Endocrinology Diagnoses Type 1 diabetes mellitus on insulin therapy Darleen Falk, [employer] [address] [place] [address] [facility] Endocrinology [address] [place] [phone] Referral ID Status Reason Start Date Expiration Date V isits Requested Visits Authorized [id number] Closed Consult, Test & Treat 06/14/2022 06/14/2023 1 1 Encounter Details Date Type Department Care Team (Late st Contact Info) Description 10/06/2022 1:00 PM EDT Office Visit Endocrinology at [facility] [place] [place] [address] Parker Land MD [facility] [place] [address] Type 1 diabetes mellitus on insulin therapy [...] Sign Reading Time Taken Comments Blood Pressure 132/70 10/06/2022 12:45 PM EDT Pulse 59 10/06/2022 12:45 PM EDT Temperature 37.1 ??C (98.8 ??F) 10/06/2022 12:45 PM E DT Respiratory Rate - - Oxygen Saturation 99% 10/06/2022 12:45 PM EDT Inhaled Oxygen Concentration - - Weight 77.2 kg (170 lb 3.2 oz) 10/06/2022 12:45 PM EDT Height 177.8 cm (5' 10) 10/06/2022 12:45 PM EDT Body Mass Index 24.42 10/06/2022 12:45 PM EDT documented in this encounter Progress Notes * Parker Land MD - 10/06/2022 1:00 PM EDT Images from the original note were not included. Endocrine Outpatient Visit Date of Consultation: 10/06/2022 Reason for Consultation: type 1 DM HPI: Ivan Luna is a 62 y.o. male with PMH significant for type 1 DM, GERD, Robert's esophagus is referred to endocrine clinic for further management of T1 DM. He was following with [facility] and recently moved closer to [place] so he is here for establishment of care. Most recently seen in [place] in June 2022. He is on Medtronic pump,with recent upgrade to 780 ~3 weeks ago. He recently changed target from 120 to 110. 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 Diabetes History: Diagnosed with T1DM at the age of mid 30s Diabetes provider: [facility] Current home regimen: Medtronic insulin pump 780 (did online videos for upgrade) Smart guard Target 110 Active insulin time 3h IC ratio Midnight-6 am 1:12 6 am-11 am 1:8 11 am- midnight 10 am Correction bolus target 120 (fixed) BG Monitoring: CGM- Medtronic 4th generation TIR 78% Most recent HgA1C on Last 3 Hemoglobin A1Cs Lab Results Component Value Date HA1C 7.3 (H) 06/08/2022 HA1C 7.0 (H) 08/25/2021 HA1C 7.3 (H) 05/14/2021 24h Diet recall: Breakfast- belgian muffin Lunch- half russian hoagie Supper- hamburger Typical exercise regimen: walking post lunch Trouble with hypoglycemia: few times a week, symptoms nervous feeling, sweating , palpitations, corrects with sugar tablet or juice sarah, follow 15-15 rule Hypoglycemia unawareness: no Family h/o DM: no Injection site: abdomen Recent admission with DKA: no Diabetes Complications Status: Eyes: as per pt no diabetic retinopathy, last year, due for follow Kidneys: None Feet: None Sensory: neg neuropathy Autonomic: none Cardiac: None Prevention: last eye exam: as per pt no diabetic retinopathy, last year, due for follow last microalbumin :negative 06/2022 last Cr: will obtain today last lipid panel: from 06/29 chol 180. 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 Vitals BP 132/70 (BP Location (NBP): Right arm) Pulse 59 Temp 37.1 ??C (98.8 ??F) (Temporal) Ht 177.8 cm (5' 10) Wt 77.2 kg (170 lb 3.2 oz) SpO2 99% BMI 24.42 kg/m?? Physical Exam: Gen: NAD, talking in clear sentences HEENT: no LAD, oral mucus membranes moist no obvious inflammation Heart:Radial pulses +2. Lungs: CTAB, breathing non-labored Abd: Soft, non-distended, no lipodistrophy SKIN: No open areas or redness to both fee, monofilament test normal Neuro: Moving all extremities. Grossly non-focal Labs: Component Latest Ref Rng 10/06/2022 Glucose Lvl 65 - 199 mg/dL 176 BUN 10 - 20 mg/dL 17 Creatinine 0.80 - 1.50 mg/dL 0.81 Sodium 135 - 145 mmol/L 138 Potassium 3.5 - 5.0 mmol/L 4.1 Chloride 98 - 107 mmol/L 101 CO2 22 - 31 mmol/L 26 Anion Gap 5 - 15 mmol/L 11 Calcium 8.5 - 10.5 mg/dL 9.0 Estimated GFR >=60 mL/min/1.73 m?? 99 Hemoglobin A1C 4.3 - 5.6 % 7.1 (H) Est Avg Gluc mg/dL 157 (H) High Assessment: Mr. Ivan Luna is a 62 y.o. years old male with PMH significant for type 1 DM (Last A1C of 7.1% from 09/29), GERD, Robert's esophagus is referred to endocrine clinic for further management of T1DM. He is currently on Medtronic 780 insulin pump (smart guard downloaded to his 770 pump) and Guardiansensor 4th generation. Review of CGM data showed he is 78% in range which is at the target. Last hehad some lows after meals but he was on vacation and active more, this week his glucose has been pretty stable so we will not make any changes to the insulin pump settings at the moment. His BP is at goal, LDL is <100, no microalbuminuria and he is due for follow up with Ophthalmology (pt does not recall having retinopathy but there is diagnosis of non-proliferative retinopathy inhis chart). Our A1c goal for him is <7%, and his A1c improved from 7.3% to 7.1% since last visit. # Well controlled Type 1 DM Plan: - continue with Medtronic 780 pump (smart guard) and Medtronic 4th generation sensor- no change in the settings - has levemir at home in case of pump failure - has glucagon pen at home - will order ketone strips today - Diet - low fat/low carb diet - Exercise - weight-bearing exercise 30 min/day, as tolerated - external Ophthalmology referral was placed - labs before next visit: A1c, BMPl, lipid panel, microalbumin RTC in 6 months. Time statement: I spent 45 total minutes on this visit today. The time was spent face to face with the patient, on chart review and documentation, ordering labs/studies and coordination of care, excludes reading of CGM data. Parker Land MD documented in this encounter Plan of Treatment Scheduled Referrals Name Type Priority Associated Diagnoses Order Schedule Referral to Ophthalmology Outpatient Referral Routine Type 1 diabetes mellitus on insulin therapy Ordered: 10/06/2022 documented as of this encounter Procedures Procedure Name Priority Date/Time Associated Diagnosis Comments HEMOGLOBIN A1C Routine 10/06/2022 1:51 PM EDT Type 1 diabetes mellitus on insulin therapy BASIC METABOLIC PANEL Routine 10/06/2022 1:51 PM EDT Type 1 diabetes mellitus on insulin therapy documented in this encounter Results * U Albumin/Cre Ratio (04/19/2023 10:23 AM EDT) Albumin / Creatinin Ratio, Urine Not Calculated 0 - 29 mcg/mg Cr [facility] Comment: Reference Ranges: <30 mcg/mg: Normal [...] 2, 357? 362 Albumin, Urine <3.0 mg/L [facility] Creatinine, Urine 71 mg/dL [facility] Urine 04/19/2023 10:2 3 AM EDT 04/19/2023 10:33 AM EDT Narrative Resulting Agency Comment Spec In Lab Parker Land MD URINE ORDERABLES Performing Organization Address City/State/[facility] Co de Phone Number [facility] [address] [place] [address] * Lipid Panel (Reflex Direct LDL) (04/19/2023 10:20 AM EDT) Cholesterol, Total 191 mg/dL [facility] Comment: Desirable: ? <200 mg/dL Borderline High: 200-239 mg/dL Higher: ?>lt=164 mg/dL Triglyceride 31 mg/dL [facility] Comment: Normal: ?<150 mg/dL Borderline High: 150-199 mg/dL High: ?200-499 mg/dL Very High: ? >mt=036 mg/dL HDL Cholesterol 98 mg/dL [facility] Comment: Females: High Risk: <50 mg/dL Males: High Risk: <40 mg/dL LDL Cholesterol 87 mg/dL [facility] Comment: Desirable: ? <100 mg/dL Above Desirable: 100-129 mg/dL Borderline High: 130-159 mg/dL High: ?160-189 mg/dL Very High: ? >se=237 mg/dL Cholesterol/HDL Ratio 1.9 ratio [facility] Lipid Interpretation See Note [facility] Comment: It is important to review the results of ??your lipid panel with your health care provider. You can compare your lipid results to the ranges below and whether they are in the desirable range. These ranges are only meant to be used for people without known cardiac disease, history of stroke, or peripheral vascular disease (blockages in the leg arteries or diabetes). If ??you have one of these conditions, your desirable LDL-C (bad cholesterol) will likely be even lower. ACC/AHA Guidelines (most recently Jordana et al. [facility] 11/10/21): ?? For individuals with atherosclerotic cardiovascular disease (ASCVD)or LDL >wz=266 mg/dL, use a high-intensity statin (40-80 mg atorvastatin or 20-40 mg rosuvastatin with goal >or=50% LDL reduction) ?? For individuals with diabetes, age 40-75 without ASCVD, moderate-intensity statin (goal 30-49% LDL reduction); consider high intensity statin for those with increased risk. ?? For adults without diabetes or ASCVD, aged 40-75 with LDL 70-189 mg/dL, estimate 10 year ASCVD risk with smarphrase .ASCVDRISK or Dynamed Decisions. If 10 year risk is 7.5%-19.9% (intermediate risk), consider moderate intensity statin based on risk enhancers and patient preference. Consider coronary artery calcium test (CT) if there is concern regarding the benefit of a statin. If ten year risk is >or=20%, initiate high-intensity statin. ?? Evaluate for secondary causes of triglycerides >500 mg/dL or LDL >190 mg/dL. ?? Lifestyle modification is a critical component of ASCVD risk reduction. ?? If not reaching LDL goals on maximally tolerated statin, consider ezetimibe and/or a PCSK9 inhibitor: ?? Target for primary prevention: LDL<100 ?? Target for those with ASCVD or diabetes and 10-year risk >or=20%: LDL<70 ?? Target for thos with very high risk ASCVD: LDL<55 (Very high risk being the presence of 2 or more of: recent acute coronary syndrome, past myocardial infarction, ischemic stroke, symptomatic peripheral artery disease) Blood 04/19/2023 10:2 0 AM EDT 04/19/2023 10:28 AM EDT Narrative Resulting Agency Comment Spec In Lab Parker Land MD CHEMISTRY ORDERABL ES Performing Organization Address [facility] Co de Phone Number [facility] [place] [address] * (ABNORMAL) Hemoglobin A1c (04/19/2023 10:20 AM EDT) Hemoglobin A1c 6.9(H) 4.3 - 5.6 % [facility] Comment: Reference Range: 4.3 - 5.6% [...] Mellitus, Diabetes Care 2013; 36: Suppl. 1, Z27-04 Estimated Average Glucose 150 mg/dL [facility] Blood 04/19/2023 10:2 0 AM EDT 04/19/2023 10:28 AM EDT Narrative Resulting Agency Comment Spec In Lab Parker Land MD CHEMISTRY ORDERABL ES Performing Organization Address [facility] de Phone Number [facility] [place] [address] * Basic Metabolic Panel (non-fasting) (04/19/2023 10:20 AM EDT) Glucose 180 65 - 199 mg/dL [facility] Comment:Diabetes: >=200 mg/d L plus symptoms Blood Urea Nitrogen 14 10 - 20 mg/dL [facility] Creatinine 0.82 0.80 - 1.50 mg/dL [facility] Sodium 140 135 - 145 mmol/L [facility] Potassium 4.5 3.5 - 5.0 mmol/L [facility] Comment: Please note: ??Patients with WBC >100,000 may have falsely elevated Potassium levels. ??For accurate Potassium quantification in these patients send serum separator tube (gold top) for subsequent determinations. ??Contact the Clinical Chemistry Laboratory if there are any questions. Chloride 105 98 - 107 mmol/L [facility] Carbon Dioxide 27 22 - 31 mmol/L [facility] Anion Gap 8 5 - 15 mmol/L [facility] Calcium 9.3 8.5 - 10.5 mg/dL [facility] Est Glomerular Filtration Rate 99 >=60 mL/min/1. 73 m?? [facility] Comment: This patient's estimated GFR was [...] Lab Parker Land MD CHEMISTRY ORDERABL ES [facility] [place] [address] * Basic Metabolic Panel (non-fasting) (10/06/2022 1:51 PM EDT) Glucose 176 65 - 199 mg/dL [facility] Comment:Diabetes: >=200 mg/d L plus symptoms Blood Urea Nitrogen 17 10 - 20 mg/dL [facility] Creatinine 0.81 0.80 - 1.50 mg/dL [facility] Sodium 138 135 - 145 mmol/L [facility] Potassium 4.1 3.5 - 5.0 mmol/L [facility] Comment: Please note: ??Patients with WBC >100,000 may have falsely elevated Potassium levels. ??For accurate Potassium quantification in these patients send serum separator tube (gold top) for subsequent determinations. ??Contact the Clinical Chemistry Laboratory if there are any questions. Chloride 101 98 - 107 mmol/L [facility] Carbon Dioxide 26 22 - 31 mmol/L [facility] Anion Gap 11 5 - 15 mmol/L [facility] Calcium 9.0 8.5 - 10.5 mg/dL [facility] Est Glomerular Filtration Rate 99 >=60 mL/min/1. 73 m?? [facility] Comment: This patient's estimated GFR was [...] and symptoms in addition to eGFR. Blood 10/06/2022 1:51 PM EDT 10/06/2022 2:10 PM EDT Narrative Resulting Agency Comment Spec In Lab Parker Land MD CHEMISTRY ORDERABL ES [facility] [place] [address] * (ABNORMAL) Hemoglobin A1c (10/06/2022 1:51 PM EDT) Hemoglobin A1c 7.1(H) 4.3 - 5.6 % [facility] Comment: Reference Range: 4.3 - 5.6% [...] Mellitus, Diabetes Care 2013; 36: Suppl. 1, Y11-54 Estimated Average Glucose 157 mg/dL [facility] Comment: eAG equivalents for HbA1c percentages: HbA1c(%) ?eAG(mg/dL) 6.0 ?126 6.5 ?140 7.0 ?154 7.5 ?169 8.0 ?183 8.5 ?197 9.0 ?212 9.5 ?226 10.0 ? 240 Limitations: The eAG calculation has not been validated on women, individuals below 18 years old and above 70 years old, and individuals with hemoglobinopathies. Additional resources are available on the ADA website. Jorje PARKER, Patito J, Arianne R, et al. ??Translating the A1C assay into estimated average glucose values. ??Diabetes Care 2008:31(8):5203-9445. Blood 10/06/2022 1:51 PM EDT 10/06/2022 2:10 PM EDT Narrative Resulting Agency Comment Spec In Lab Parker Land MD CHEMISTRY ORDERABL ES [facility] [place] [address] documented in this encounter Visit Diagnoses Diagnosis Type 1 diabetes mellitus on insulin therapy Type I (juvenile type) diabetes mellitus without mention of complication, not stated as uncontrolled documented in this encounter Care Teams Merchandise Presentation Associate Relationship Specialty Start Date End Date Timothy Mo DO [address] [place] [id number] PCP - General Family Medicine 10/06/22 01/12/23 documented as of this encounter
--- OUTSIDE RECORDS SUMMARY | 2024-02-17 00:35 | XMS_ITS | Encounter Summary ---
[place] [address] Care Team Providers Care Cardiopulmonary Specialist Name Role Phone Timothy Mo DO Primary Care Provider Reason for Visit * Reason Comments Medication Refill Encounter Details Date Type Department Care Team ([facility] st Contact Info) Description 06/16/2021 Refill Gastroenterology and Hepatology at [address] [phone] Barbara Sneed, TECH ED/[employer] TE[employer]ER [address] [place] [address] [place] [address] Reyna's esophagus without dysplasia Social History Tobacco [...] esophagus documented in this encounter Care Teams Cardiopulmonary Specialist Relationship Specialty Start Date End Date Timothy Mo DO [address] [place] [address] [place] [address] PCP - General Family Medicine 12/09/16 08/04/21 documented as of this encounter
--- OUTSIDE RECORDS SUMMARY | 2024-02-17 00:35 | XMS_ITS | Encounter Summary ---
[place] [address] Care Team Providers Care Automatic Car Wash Attendant Name Role Phone None Primary Care Provider Unavailabl e Encounter Details Date Type Department Care Team (Latest Contact Info) Description 10/25/2023 Travel Social History Tobacco Use Types Packs/Day [...] on filedocumented in this encounter Care Teams Automatic Car Wash Attendant Relationship Specialty Start Date End Date None None PCP - General 10/25/23 documented as of this encounter
--- OUTSIDE RECORDS SUMMARY | 2024-02-17 00:35 | XMS_ITS | Encounter Summary ---
Author Organization [facility] [place] [address] Care Team Providers Care Victims Advocate Clerk/Specialist Name Role Phone Unavailable Primary Care Provider Unavailabl e Reason for Referral * Consultation (Routine) - Authorized Specialty Diagnoses / Procedures Referred By Cecille nieto Referred To Contact Ophthalmology Diagnoses Type 1 diabetes mellitus on insulin therapy Parker Land MD [facility] ENDOCRINOLOGY [place] [address] Dali Sykes OD [facility] OPHTHALMOLOGY [place] [address] Referral ID Status Reason Start Date Expiration Date Visits Requested Visits Authorized [id number] Authorized Consult, Test & Treat 04/19/2023 04/18/2024 1 1 Encounter Details Date Type Department Care Team (Late st Contact Info) Description 04/19/2023 11:00 AM EDT Office Visit [place] [address] Parker Land MD [facility] [place] [address] Type 1 diabetes mellitus on insulin therapy [...] Sign Reading Time Taken Comments Blood Pressure 136/72 04/19/2023 9:58 AM EDT Pulse 60 04/19/2023 9:58 AM EDT Temperature 36.3 ??C (97.4 ??F) 04/19/2023 9:58 AM ED T Respiratory Rate 20 04/19/2023 9:58 AM EDT Oxygen Saturation 98% 04/19/2023 9:58 AM EDT Inhaled Oxygen Concentration - - Weight 78.4 kg (172 lb 12.8 oz) 04/19/2023 9:58 AM EDT Height 177.5 cm (5' 9.88) 04/19/2023 9:58 AM ED T Body Mass Index 24.88 04/19/2023 9:58 AM EDT documented in this encounter Progress Notes * Parker Land MD - 04/19/2023 11:00 AM EDT Images from the original note were not included. Endocrine Outpatient Visit Date of Consultation: 04/19/2023 Reason for follow up: type 1 DM HPI: Ivan Luna is a 62 y.o. male with PMH significant for type 1 DM, GERD, Robert's esophagus presents for follow up of T1 DM. He was last seen for initial visit in 09/2022. 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 Diabetes History: Diagnosed with T1DM at [...] in a week Most recent HgA1C on Last 3 Hemoglobin A1Cs Lab Results Component Value Date HA1C 6.9 (H) 04/19/2023 HA1C 7.1 (H) 10/06/2022 HA1C 7.3 (H) 06/08/2022 24h Diet recall: Breakfast- blubbery muffin and some cereal Lunch- half Manas sandwich and some leftover pizza Supper- beef with beans and rice Typical exercise regimen: walking post lunch Trouble with hypoglycemia: 1-2 times a week, [...] year, due for follow last microalbumin :negative 04/2023 last Cr: Lab Results Component Value Date CREATININE 0.82 04/19/2023 last lipid panel: Lipid Panel Lab Results Component Value Date CHLPL 191 04/19/2023 HDL 98 04/19/2023 CHOLHDL 1.9 04/19/2023 TRIG 31 04/19/2023 LDLCHOL 87 04/19/2023 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 Vitals BP 136/72 (BP Location (NBP): Left arm, Patient Position: Sitting, BP Cuff Sizes: Large Adult (32-43 cm)) Pulse 60 Temp 36.3 ??C (97.4 ??F) (Temporal) Resp 20 Ht 177.5 cm (5' 9.88) Wt 78.4kg (172 lb 12.8 oz) SpO2 98% BMI 24.88 kg/m?? Physical Exam: Gen: NAD, talking in [...] of T1 DM. He is currently on Lolay 780 insulin pump (smart guard downloaded to his 770 pump) and Guardiansensor 4th generation. Review of CGM data showed he is 85% in range which is at the target. His [id number] form 7.1 to 6.9% since last visit (A1c goal <7%).Overall doing well so I will not make any changes to the settings. His BP is at goal. LDL is <100 but >70 so we discussed increasing statin dose. He reports nottaking it regularly lately, so then we decided to keep the same dose and repeat labs before next visit and he will start taking it daily.No microalbuminuria and he is due for follow up with Ophthalmology (pt does not recall having retinopathy but there is diagnosis of non-proliferative retinopathy in his chart) so I will place referral to be sen at [facility]. # Well controlled Type 1 DM Plan: [...] weight-bearing exercise 30 min/day, as tolerated - Ophthalmology referral at [facility] was placed - labs before next visit: A1c, BMP, lipid panel and to be done at [facility] in 6 months. Time statement: I spent [...] 1 diabetes mellitus on insulin therapy Expected: 10/20/2023 (Approximate), Expires: 04/18/2024 Basic Metabolic Panel (non-fasting) Lab Routine Type 1 diabetes mellitus on insulin therapy Expected: 10/20/2023 (Approximate), Expires: 04/18/2024 Lipid Panel (Reflex Direct LDL) Lab Routine Type 1 diabetes mellitus on insulin therapy Expected: 10/20/2023 (Approximate), Expires: 04/18/2024 Scheduled Referrals Name Type Priority Associated Diagnoses Order Schedule Referral to Ophthalmology Outpatient Referral Routine Type 1 diabetes mellitus on insulin therapy Ordered: 04/19/2023 documented as of this encounter Procedures Procedure Name Priority Date/Time Associated Diagnosis Comments U ALBUMIN/CRE RATIO Routine 04/19/2023 1 0:23 AM EDT Type 1 diabetes mellitus on insulin therapy HEMOGLOBIN A1C Routine 04/19/2023 10:20 AM EDT Type 1 diabetes mellitus on insulin therapy LIPID PANEL (REFLEX DIRECT LDL) Routine 04/19/2023 10:20 AM EDT Type 1 diabetes mellitus on insulin therapy BASIC METABOLIC PANEL Routine 04/19/2023 10:20 AM EDT Type 1 diabetes mellitus on insulin therapy documented in this encounter Results * U Albumin/Cre Ratio (04/19/2023 10:23 AM EDT) Albumin / Creatinin Ratio, Urine Not Calculated 0 - 29 mcg/mg Cr [facility] Comment: Reference Ranges: <30 mcg/mg: Normal [...] 2, 357? 362 Albumin, Urine <3.0 mg/L [facility] Creatinine, Urine 71 mg/dL [facility] Urine 04/19/2023 10:2 3 AM EDT 04/19/2023 10:33 AM EDT Narrative Resulting Agency Comment Spec In Lab Parker Land MD URINE ORDERABLES [facility] [place] [address] * Basic Metabolic Panel (non-fasting) (04/19/2023 10:20 AM EDT) Glucose 180 65 - 199 mg/dL [facility] Comment:Diabetes: >=200 mg/d L plus symptoms Blood Urea Nitrogen 14 10 - 20 mg/dL [facility] Creatinine 0.82 0.80 - 1.50 mg/dL [facility] Sodium 140 135 - 145 mmol/L [facility] Potassium 4.5 3.5 - 5.0 mmol/L [facility] Comment: Please note: ??Patients with WBC >100,000 may have falsely elevated Potassium levels. ??For accurate Potassium quantification in these patients send serum separator tube (gold top) for subsequent determinations. ??Contact the Clinical Chemistry Laboratory if there are any questions. Chloride 105 98 - 107 mmol/L [facility] Carbon Dioxide 27 22 - 31 mmol/L [facility] Anion Gap 8 5 - 15 mmol/L [facility] Calcium 9.3 8.5 - 10.5 mg/dL [facility] Est Glomerular Filtration Rate 99 >=60 mL/min/1. 73 m?? [facility] Comment: This patient's estimated GFR was [...] Lab Parker Land MD CHEMISTRY ORDERABL ES [facility] [place] [address] * (ABNORMAL) Hemoglobin A1c (04/19/2023 10:20 AM EDT) Hemoglobin A1c 6.9(H) 4.3 - 5.6 % [facility] Comment: Reference Range: 4.3 - 5.6% [...] Mellitus, Diabetes Care 2013; 36: Suppl. 1, S67-74 Estimated Average Glucose 150 mg/dL [facility] Blood 04/19/2023 10:2 0 AM EDT 04/19/2023 10:28 AM EDT Narrative Resulting Agency Comment Spec In Lab Parker Land MD CHEMISTRY ORDERABL ES [facility] [place] [address] * Lipid Panel (Reflex Direct LDL) (04/19/2023 10:20 AM EDT) Cholesterol, Total 191 mg/dL [facility] Comment: Desirable: ? <200 mg/dL Borderline High: 200-239 mg/dL Higher: ?>bn=303 mg/dL Triglyceride 31 mg/dL [facility] Comment: Normal: ?<150 mg/dL Borderline High: 150-199 mg/dL High: ?200-499 mg/dL Very High: ? >xe=534 mg/dL HDL Cholesterol 98 mg/dL [facility] Comment: Females: High Risk: <50 mg/dL Males: High Risk: <40 mg/dL LDL Cholesterol 87 mg/dL [facility] Comment: Desirable: ? <100 mg/dL Above Desirable: 100-129 mg/dL Borderline High: 130-159 mg/dL High: ?160-189 mg/dL Very High: ? >qc=231 mg/dL Cholesterol/HDL Ratio 1.9 ratio [facility] Lipid Interpretation See Note [facility] Comment: It is important to review [...] ACC/AHA Guidelines (most recently Jordana et al. [facility] 11/10/21): ?? For individuals with atherosclerotic cardiovascular disease (ASCVD)or LDL >ia=296 mg/dL, use a high-intensity statin (40-80 mg [...] Lab Parker Land MD CHEMISTRY ORDERABL ES [facility] [place] [address] documented in this encounter Visit Diagnoses Diagnosis Type 1 diabetes mellitus on insulin therapy Type I (juvenile type) diabetes mellitus without mention of complication, not stated as uncontrolled documented in this encounter
--- OUTSIDE RECORDS SUMMARY | 2024-02-17 00:35 | XMS_ITS | Encounter Summary ---
Author Organization [facility] [place] [address] Care Team Providers Care Lift Truck Mechanic Name Role Phone Unavailable Primary Care Provider Unavailabl e Encounter Details Date Type Department Care Team (Late st Contact Info) Description 08/05/2023 Telephone [place] [address] [facility] [place] [address] Social History Tobacco Use Types Packs/Day Years [...] * Telephone Encounter - Kay Lira - 08/05/2023 3:22 PM EDT Needs FUV with Dr. Land in Oct documented in this encounter Plan of Treatment Not on file documented as of this encounter Visit Diagnoses Not on filedocumented in this encounter
--- OUTSIDE RECORDS SUMMARY | 2024-02-17 00:35 | XMS_ITS | Encounter Summary ---
[place] [address] Care Team Providers Care Bander Hand Name Role Phone Unknown Primary Care Provider Unavailabl e Encounter Details Date Type Department Care Team (Latest Contact Info) Description 08/25/2021 2:40 PM EDT Laboratory Appointment Lab at [address] [phone] Type 1 diabetes mellitus on insulin therapy [...] Name Priority Date/Time Associated Diagnosis Comments HC HEMOGLOBIN A1C Routine 08/25/2021 2:3 9 PM EDT Type 1 diabetes mellitus on insulin therapy documented in this encounter Results * (ABNORMAL) Hemoglobin A1c (08/25/2021 2:39 PM EDT) Hemoglobin A1c 7.0(H) 4.3 - 5.6 % [facility] Estimated Average Glucose 154 mg/dL [facility] Blood 08/25/2021 2:39 PM EDT 08/25/2021 2:39 PM EDT Narrative Resulting Agency Comment Spec In Lab Darleen J Snowle[employer] MANAGER CHEMISTRY BELKYS [employer]DE[employer] [facility] [address] [place] [address] documented in this encounter Visit Diagnoses Diagnosis Type 1 diabetes mellitus on insulin therapy Type I (juvenile type) diabetes mellitus without mention of complication, not stated as uncontrolled documented in this encounter Care Teams Bander Hand Relationship Specialty Start Date End Date Unknown None PCP - General 08/05/21 10/05/22 documented as of this encounter
--- OUTSIDE RECORDS SUMMARY | 2024-02-17 00:35 | XMS_ITS | Encounter Summary ---
Author Organization [facility] [place] [address] Care Team Providers Care Dirt Bike Mechanic Name Role Phone Unknown Primary Care Provider Unavailabl e Encounter Details Date Type Department Care Team (Late st Contact Info) Description 02/25/2022 Telephone Endocrinology at [address] [phone] Edna Avila CMA Social History Tobacco Use Types Packs/Day Years [...] Telephone Encounter - Edna Avila CCMA - 02/25/2022 2:37 PM EST Received fax from [email or web address]. Form completed, signed and faxed back documented in this encounter Plan of Treatment Not on file documented as of this encounter Visit Diagnoses Not on filedocumented in this encounter Care Teams Dirt Bike Mechanic Relationship Specialty Start Date End Date Unknown None PCP - General 08/05/21 10/05/22 documented as of this encounter
--- OUTSIDE RECORDS SUMMARY | 2024-02-17 00:35 | XMS_ITS | Encounter Summary ---
[place] [address] Care Team Providers Care Air Defense Artillery Officer Name Role Phone Timothy Mo DO Primary Care Provider Encounter Details Date Type Department Care Team ([facility] st Contact Info) Description 11/03/2022 11:00 AM EDT Office Visit Gastroenterology and Hepatology at [address] [phone] Barbara Sneed, EDITOR DEPARTMENT [address] [place] [address] [place] [address] Reyna's esophagus without dysplasia; Short-segment Reyna's esophagus; Current use of proton pump inhibitor Social History Tobacco Use Types Packs/Day Years [...] Sign Reading Time Taken Comments Blood Pressure 120/74 11/03/2022 10:59 AM EDT Pulse 51 11/03/2022 10:59 AM EDT Temperature 36.4 ??C (97.6 ??F) 11/03/2022 1 0:59 AM EDT Respiratory Rate - - Oxygen Saturation 100% 11/03/2022 10: 59 AM EDT Inhaled Oxygen Concentration - - Weight 78.3 kg (172 lb 11.2 oz) 023 10:59 AM EDT Height - - Body Mass Index 24.78 10/06/2022 12:45 PM EDT documented in this encounter Progress Notes * Barbara Sneed APRN - 11/03/2022 11:00 AM EDT [facility] - OUTPATIENT FOLLOW-UP ASSESSMENT & PLAN: Renew Esomeprazole Vitamin B12 and Vitamin D up to date and within normal limites Follow up in 1 year via telehealth EGD due in 2024 HPI: 62 y.o. male with Reyna's esophagus was seen today in the [facility] for a follow-up visit. The patient did have an EGD in 2021 and was recommended to have a repeat in 2024. The patient has been able to cut back to one daily PPI instead of 2 over the past year. He denies anypain or any difficultly swallowing. He has moved about 2.5 hours away and asks about travel. We discuss that I can certainly refer him to a local GI and there is also option of Telehealth. He requests the telehealth option and does request having his EGD in [place] which I can certainly facilitate in 2024. Patient Active Problem List Diagnosis Code Diabetic retinopathy, nonproliferative E11.3299 Erectile dysfunction of non-organic origin F52.21 Esophageal reflux K21.9 Herpes simplex B00.9 Hyperopia with presbyopia of both eyes H52.03, H52.4 Type 1 diabetes mellitus on insulin therapy E10.9 Amblyopia, left eye H53.002 Non-recurrent unilateral inguinal hernia without obstruction or gangrene K40.90 Gastroesophageal reflux disease K21.9 Dysphagia R13.10 Reyna's esophagus without dysplasia K22.70 Past Surgical History: Procedure Laterality Date INGUINAL HERNIA REPAIR Right 03/2001 INGUINAL HERNIA REPAIR Left 07/2018 PRO COLONOSCOPY, DIAGNOSTIC N/A 05/07/2021 COLONOSCOPY,SCREENING performed by Greg Salcido MD at [facility] ENDOSCOPY PRO UPPER GI ENDOSCOPY, DIAGNOSTIC N/A 11/16/2019 EGD, UPPER GI ENDOSCOPY performed by Greg Salcido MD at [facility] ENDOSCOPY PRO UPPER GI ENDOSCOPY, DIAGNOSTIC N/A 05/07/2021 EGD, UPPER GI ENDOSCOPY performed by Greg Salcido MD at [facility] ENDOSCOPY VASECTOMY Social History Tobacco Use Smoking status: Never Smokeless tobacco: Never Substance Use Topics Alcohol use: Yes Alcohol/week: 10.0 standard drinks Types: 10 Glasses of wine per week Comment: Wine with dinner Current Outpatient Medications on File Prior to Visit Medication Sig Dispense Refill NovoLOG U-100 Insulin aspart 100 unit/mL Solution .USE IN INSULIN PUMP UP TO 35 UNITS DAILY 40 mL 2 vardenafiL (Levitra) 20 mg tablet TAKE 1/2 TO 1 TABLET NEEDED 10 tablet 5 Acetone, Urine, Test (Ketone Care) Strip 1 each by Misc.(Non-Drug; Combo Route) route as needed (Asneeded for severe hyperglycemia). 50 strip 3 esomeprazole (NexIUM) [address] capsule TAKE 1 CAPSULE TWICE DAILY 180 capsule 0 glucagon (Gvoke HypoPen 2-Pack) 1 mg/0.2 mL Auto-Injector Inject 0.2 mLs subcutaneously as needed (for low glucose emergency not responding to oral treatment.). 0.4 mL 3 Accu-Chek Guide test strips Strip Use as instructed to check blood glucose 4 times daily Indications: diabetes 400 strip 1 lisinopriL (Zestril) 5 mg Tablet Take 1 tab daily 90 tablet 3 pravastatin (Pravachol) 10 mg Tablet Take 1 tablet by mouth daily. Taking one tab daily 90 tablet 3 insulin detemir U-100 (Levemir) 100 unit/mL (3 mL) Insulin Pen Use in case of pump failure start immediately inject 14 units once a day 15 mL 1 insulin needles, disposable, 31 gauge x 5/16 Needle Use as directed with insulin detemir pen in case of pump failure 30 each 1 Accu-Chek Fastclix Lancet Drum Misc 1 each by Misc.(Non-Drug; Combo Route) route 4 times daily. Indications: diabetes mellitus 200 each 11 cholecalciferol, Vitamin D3, 1,000 unit Capsule One cap daily. UNABLE TO FIND Pump: Basal 12a=0.525, 6a=0.45, 12:30p=0.4, 6p=0.525; I:C 12a=12, 6a=8, 11a=9, 4p=10; Sensitivity 12a=75; BGT 120; Act 3 hrs aspirin 81 mg Tablet, Delayed Release (E.C.) Take 1 tablet by mouth Daily. Multivitamins with Iron Tab No current facility-administered medications on file prior to visit. Allergies Allergen Reactions Oxycodone-Acetaminophen CIS - Nausea/Vomiting Penicillins CIS - Hives There were no vitals filed for this visit. There is no height or weight on file to calculate BMI. EXAM: WDWN male - NAD. Head: NC/AT. [...] Lab Results Component Value Date NA 138 10/06/2022 K 4.1 10/06/2022 BUN 17 10/06/2022 CREATININE 0.81 10/06/2022 GLUCOSE 176 10/06/2022 CALCIUM 9.0 10/06/2022 Lab Results Component Value Date AST 18 05/14/2021 ALT 16 05/14/2021 ALKPHOS 74 05/14/2021 BILITOT 0.4 05/14/2021 ALBUMIN 3.8 05/14/2021 PROT 6.6 05/14/2021 No results found for: AMYLASE, LIPASE PATHOLOGY: Lab Results Component Value Date SURGFINALRPT 05/07/2021 [id number] Location: [facility] The signing pathologist has (i) examined the [...] MD Verified: 05/08/2021 11:33 Pathologist Performed at: [facility] Dept of Pathology, [address] [place] [address] SPECIMEN(S) SUBMITTED A - Distal esophagus bxs, biopsy (Multiple) B - Cecal polyp, excision (1) CLINICAL INFORMATION A - EGD: F/u Reyna's esophagus B - Millis: screen A - No additional comment B [...] single cassette. clc No results found for: HPYLESTEPHANIA HPYLORISTLAG documented in this encounter Plan of Treatment Not on file documented as of this encounter Visit Diagnoses Diagnosis Reyna's esophagus without dysplasia Reyna's esophagus Short-segment Reyna's esophagus Reyna's esophagus Current use of proton pump inhibitor documented in this encounter Care Teams Air Defense Artillery Officer Relationship Specialty Start Date End Date Timothy Mo DO [address] [place] [id number] PCP - General Family Medicine 10/06/22 01/12/23 documented as of this encounter
--- OUTSIDE RECORDS SUMMARY | 2024-02-17 00:35 | XMS_ITS | Encounter Summary ---
[place] [address] Care Team Providers Care Aircraft Pneudraulics Repairer Name Role Phone Unknown Primary Care Provider Unavailabl e Encounter Details Date Type Department Care Team ([facility] st Contact Info) Description 08/25/2021 2:00 PM EDT Office Visit Endocrinology at [address] [phone] Darleen Falk, [employer] [address] [place] [address] [place] [address] Type 1 diabetes mellitus on insulin therapy; [...] Sign Reading Time Taken Comments Blood Pressure 128/64 08/25/2021 1:43 PM EDT Pulse 81 08/25/2021 1:43 PM EDT Temperature - - Respiratory Rate - - Oxygen Saturation 95% 08/25/2021 1:43 PM EDT Inhaled Oxygen Concentration - - Weight 80.3 kg (177 lb) 08/25/2021 1:43 PM EDT Height - - Body Mass Index 25.4 05/07/2021 12:44 PM EDT documented in this encounter Patient Instructions * Patient Instructions* Darleen Falk APRN - 08/25/2021 2:00 PM EDT No changes to insulin pump therapy today your diabetes is well controlled. If you have any problems with your diabetes and want a sooner appointment than 6 month, you may call. documented in this encounter Progress Notes * Darleen Falk APRN - 08/25/2021 2:00 PM EDT Diabetes Follow-up: Diagnoses and all orders for this visit: Type 1 diabetes mellitus on insulin therapy - Cancel: Hemoglobin A1c; Future - Hemoglobin A1c; Future Diabetic retinopathy, nonproliferative Insulin pump in place Comments: Total Daily Dose 27.4 units Assessment and Plan: ?? Diabetes: HgBA1c 05/14/21 7.3 previously excellent control. I have ordered another hemoglobin A1c.I did not make any changes to his insulin pump therapy today. ?? HTN:Never diagnosed on lisinopril 5 mg for renal protection BP controlled ?? HLD:LDL 74 on 05/14/21 pravastatin 10 mg not at goal of <70. Follow-up in 6 months HPI: Ivan is a 61 y.o. yo male who is here for Diabetes follow up. He was diagnosed in his mid 30s. He is doing well overall had some highs when the pump go detached due to sweating. Not too many low. No new medical problems, hospital admission, medication changes. 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 Plays [employer]. Past Medical History: reviewed Reyna's esophagus No family history on file. Adopted - it is possible that his biological father might have had diabetes and of it prematurely. Hemoglobin A1c: Last 3 Hemoglobin A1Cs Lab Results Component Value Date HA1C 7.3 (H) 05/14/2021 HA1C 7.3 (A) 09/29/2020 HA1C 7.4 (A) 05/06/2020 Diabetes meds: Lisinopril 5 mg Pravastatin 10 mg ?? Insulins: aspart (Novolog for pump) ?? PUMP: Model? []? MM 530? []? MM 630?? [x]? MM770 []? Omnipod []? Tandem? Back up plan for pump failure Total Daily Dose:27.4 Units 12.5 basal and 14.9 bolus Basal Rate: 00:00 0.525 06:00 0.475 12:30 0.375 18:00 0.525 I:C 00:00 1:12 06:00 1:8 11:00 1:9 Correction Factor 1:75 ? FREQUENCY OF SET CHANGES:? Every 3-4 Days [x]? SENSOR? Dexcom []? 6 G ?[]? 5G ? []? MM?? enlite?? [x]? MM?[]? Jose ? Finger stick testing: []? Daily, [x]? twice a day, []? three times a day, []? AC and HS, []? Continuous Glucose Monitoring: Time in Range:% ?? Hypoglycemia: [x]? yes []? no Hypoglycemia unawareness: No Treatment Plan for Hypoglycemia: juice box and glucose gummies ?? Diet: his cooks Breakfast: frozen egg mc muffin , breakfast bowls Lunch: at work sandwich 1 bag of chips fruits Supper: black [place] chili, pasta, chicken and potatoes Snacks: nut bars, fig bars Beverages: 1 cup of coffee, water ?? Exercise: don't like to go outside in the cold, usually walks dog after work and walks during lunchtime ?? Smoking: [x]? No []? Yes, Alcohol: [x]? No []? Yes ?? Complications: Retinopathy: [x]? yes []? no, last eye exam: 10/08/20 Dr. Saxena minimal Neuropathy: []? yes []? no, daily foot exams: [x]? yes []? no, Follows with podiatry: []? yes [x]? no Nephropathy: []? yes [x]? no, UACR negative 05/14/21 Macrovascular complications: []? yes [x]? no ?? ROS: + weight changes increased a little No polyuria/polydipsia, No increased sweating or confusion, No fevers/chills, No chest pain/palpitations, No burning or tingling in hands or feet, No rashes or foot ulcers, No insomnia/nightly awakening, No n/v/d/c/early satiety small amount of abdominal pain from bending over No gait instability, No memory problems, No vision impairment No anxiety, depression ?? Labs: Hemoglobin A1C Date Value Ref Range Status 05/14/2021 7.3 (H) 4.3 - 5.6 % Final [...] Panel Lab Results Component Value Date CHLPL 158 05/14/2021 HDL 77 05/14/2021 CHOLHDL 2.1 05/14/2021 TRIG 33 05/14/2021 LDLCHOL 74 05/14/2021 Lab Results Component Value Date MICROALBUR <3.0 05/14/2021 MEDS: Current Outpatient Medications: ??? NovoLOG U-100 Insulin aspart 100 unit/mL Solution, .USE IN INSULIN PUMP UP TO 35 UNITS DAILY, Disp: 40 mL, Rfl: 1 ??? esomeprazole (NexIUM) 20 mg Capsule, Delayed Release(E.C.), TAKE 1 CAPSULE TWICE DAILY, Disp: 180 capsule, Rfl: 0 ??? vardenafiL (LEVITRA) 20 mg Tablet, TAKE 1/2 TO 1 TABLET NEEDED, Disp: 6 tablet, Rfl: 5 ??? lisinopriL (Zestril) 5 mg Tablet, Take 1 tab daily, Disp: 90 tablet, Rfl: 3 ??? pravastatin (Pravachol) 10 mg Tablet, Take 1 tablet by mouth daily. Taking one tab daily, Disp:90 tablet, Rfl: 3 ??? Accu-Chek Guide test strips Strip, Use as instructed to check blood glucose 4 times daily Indications: diabetes mellitus, Disp: 200 each, Rfl: 11 ??? Accu-Chek Fastclix Lancet Drum Misc, 1 [...] with Iron Tab, , Disp: , Rfl: Vital signs and weight: Visit Vitals BP 128/64 (BP Location (NBP): Left arm, Patient Position: Sitting, BP Cuff Sizes: Adult (25-34 cm)) Pulse 81 Wt 80.3 kg (177 lb) SpO2 95% BMI 25.40 kg/m?? PE: AAOx3 In NAD abdomen soft/NT/ND Skin: insulin injection/infusion sites: intact 25 minutes of this office visit is spent in counseling and disease management reviewing past and recent medical history, lifestyle patterns, nutrition patterns with education related to diabetes, glucose patterns, medication compliance with recommendation for changes, screening, monitoring and follow-up excluding the time spent on continuous glucose monitoring analysis interpretation and report. Darleen Falk APRN, 08/25/2021, 2:18 PM * Darleen Falk APRN - 08/25/2021 2:00 PM EDT Images from the original note were not included. CGM review from:08/12- 08/25/21 Average glucose mg/dl:148 GMI:6.8% Glucose variability:30.4 % Very High:3% High:18 % Time within Target:78 % Low:1 % Very Low:0 % Glucose trends show: a little hyper and hypoglycemia overall well controlled documented in this encounter Plan of Treatment Not on file documented as of this encounter Results * (ABNORMAL) Hemoglobin A1c (08/25/2021 2:39 PM EDT) Hemoglobin A1c 7.0(H) 4.3 - 5.6 % [facility] Estimated Average Glucose 154 mg/dL [facility] Blood 08/25/2021 2:39 PM EDT 08/25/2021 2:39 PM EDT Narrative Resulting Agency Comment Spec In Lab Darleen Falk APRN CHEMISTRY BELKYS CARDENAS [facility] [address] [place] [id number] documented in this encounter Visit Diagnoses Diagnosis Type 1 diabetes mellitus on insulin therapy Type I (juvenile type) diabetes mellitus without mention of complication, not stated as uncontrolled Diabetic retinopathy, nonproliferative Type II or unspecified type diabetes mellitus with ophthalmic manifestations, not stated as uncontrolled Insulin pump in place Insulin pump status documented in this encounter Care Teams Aircraft Pneudraulics Repairer Relationship Specialty Start Date End Date Unknown None PCP - General 08/05/21 10/05/22 documented as of this encounter
--- OUTSIDE RECORDS SUMMARY | 2024-02-17 00:35 | XMS_ITS | Encounter Summary ---
Author Organization [facility] [place] [address] Care Team Providers Care Hydropulper Name Role Phone Timothy Mo DO Primary Care Provider [phone] Reason for Visit * Auth/Cert Specialty Diagnoses / Procedures Referred By Cecille nieto Referred To Contact Diagnoses Reyna's esophagus Encounter [...] Expiration Date Visits Re quested Visits Authorized [id number] 1 1 Encounter Details Date Type Department Care Team ([facility] Contact Info) Description 05/07/2021 1:15 PM EDT - 05/07/2021 2:00 PM EDT Surgery Endoscopy at [address] [phone] Greg Salcido MD [address] [place] [address] [place] [address] COLONOSCOPY,SCREENING (WRVU 3.26) Social History Tobacco Use Types Packs/Day Years [...] Sign Reading Time Taken Comments Blood Pressure 112/73 05/07/2021 1:30 PM EDT Pulse 68 05/07/2021 1:37 PM EDT Temperature 36.4 ??C (97.6 ??F) 05/07/2021 1:26 PM ED T Respiratory Rate 16 05/07/2021 1:37 PM EDT Oxygen Saturation 100% 05/07/2021 1:37 PM EDT Inhaled Oxygen Concentration - - Weight 74.4 kg (164 lb) 05/07/2021 12:44 PM EDT Height 177.8 cm (5' 10) 05/07/2021 12:44 PM EDT Body Mass Index 23.53 05/07/2021 12:44 PM EDT documented in this encounter Medications at Time of Discharge Medication Sig Dispensed Refills Start Date End Date Accu-Chek Fastclix Lancet Drum MiscIndications:diab etes mellitus 1 each by Misc.(Non-Drug; Combo Route) route 4 times daily. Indications: diabetes mellitus 200 each 11 05/16/2020 cholecalciferol, Vitamin D3, 1,000 unit Capsule One cap daily. 02/09/2017 UNABLE TO FIND Pump: Basal 12a=0.525, 6a=0.45, 12:30p=0.4, 6p=0.525; I:C 12a=12, 6a=8, 11a=9, 4p=10; Sensitivity 12a=75; BGT 120; Act 3 hrs 02/19/2010 aspirin 81 mg Tablet, Delayed Release (E.C.) Take 1 tablet by mouth Daily. 01/17/2006 Multivitamins with Iron Tab 07/28/2006 NovoLOG U-100 Insulin aspart SolutionIndications: Type 1 diabetes mellitus on insulin therapy USE IN INSULIN PUMP UP TO 35 UNITS DAILY 40 mL 03/05/2021 08/19/2021 esomeprazole (NexIUM) 20 mg Capsule, Delayed Release(E.C.)Indicat ions:Reyna's esophagus without dysplasia TAKE 1 CAPSULE TWICE DAILY 180 capsule 1 10/28/2020 06/18/2021 vardenafiL (LEVITRA) 20 mg Tablet TAKE 1/2 TO 1 TABLET NEEDED 6 tablet 5 10/03/2020 10/06/2022 lisinopriL (Zestril) 5 mg TabletIndications:Ty pe 1 diabetes mellitus on insulin therapy Take 1 tab daily 90 tablet 3 09/29/2020 11/06/2021 pravastatin (Pravachol) 10 mg TabletIndications:Ty pe 1 diabetes mellitus on insulin therapy Take 1 tablet by mouth daily. Taking one tab daily 90 tablet 3 09/29/2020 11/06/2021 Accu-Chek Guide test strips StripIndications:baljeet betes mellitus Use as instructed to check blood glucose 4 times daily Indications: diabetes mellitus 200 each 11 06/13/2020 11/06/2021 documented as of this encounter Progress Notes * Greg Salcido MD - 05/07/2021 2:21 PM EDT EGD and colonoscopy with MAC in 3 years for history of Reyna's and adenoma * Loyda Aldana RN - 05/07/2021 1:31 PM EDT 1325- Pt brought to recovery from GI. Pt sedated with simple mask on at 6L. property assessment monitor in place. 1332- Pt waking up, simple mask removed. Pt blood sugar: 149. Dr. Salcido at bedside to discuss findings and recommendations with pt. 1338- Pts ride unable to get here for 30-45 minutes. 1355- Pt dressed, sitting in recliner to wait for ride. DC instructions reviewed with patient and all questions answered. Pt taking sips of water without difficulty. Pt walked with steady gait. documented in this encounter H&P Notes * Greg Salcido MD - 05/07/2021 12:45 PM EDT Patient Name: Ivan Luna Patient Age: 61 y.o. Birthdate: 1960 Admit date: 05/07/2021 Attending Physician: Greg Salcido MD Gastroenterology and Hepatology Pre-procedure History and Physical Note Procedure: Upper endoscopy and colonoscopy Indication: Ivan Luna is a 61 y.o. male here for Reyna's and screening Allergies and Meds reviewed Patient Active Problem List Diagnosis Code ??? [...] R13.10 ??? Reyna's esophagus without dysplasia K22.70 PE: Patient Vitals for the past 24 hrs: Temp Resp BP SpO2 O2 Device 05/07/21 1244 37.4 ??C (99.3 ??F) 17 146/88 99 % RA Awake and alert, NAD Heart regular A/P: Proceed with the planned endoscopic procedure. Sedation Plan: per anesthesia Risks and benefits of the procedure explained to the patient. Consent obtained. documented in this encounter Plan of Treatment Not on file documented as of this encounter Procedures Procedure Name Priority Date/Time Associated Diagnosis Comments POCT GLUCOSE Routine 05/07/2021 1:33 PM EDT SPECIMEN TO PATHOLOGY Routine 05/07/2021 1:20 PM EDT SURGICAL PATHOLOGY REPORT Routine 05/07/2021 1:02 PM EDT SPECIMEN TO PATHOLOGY Routine 05/07/2021 1:02 PM EDT Upper GI Endoscopy, Diagnostic (34821) 05/07/2021 12:52 PM EDT barretts f/u & 10 yr colo f/u Colonoscopy, Diagnostic (28162) 05/07/2021 12:52 PM EDT barretts f/u & 10 yr colo f/u GI PROVATION PATIENT INSTRUCTIONS Routine 05/07/2021 12:51 PM EDT UPPER GI ENDOSCOPY Routine 05/07/2021 12 :51 PM EDT GI PROVATION PATIENT INSTRUCTIONS Routine 05/07/2021 12:50 PM EDT COLONOSCOPY Routine 05/07/2021 12:50 PM EDT POCT GLUCOSE Routine 05/07/2021 12:49 PM EDT documented in this encounter Results * POCT Glucose (05/07/2021 1:33 PM EDT) Glucose, POC 149 65 - 199 mg/dL [facility] Blood 05/07/2021 1:33 PM EDT 05/07/2021 1:33 PM EDT Greg Salcido MD POINT OF CARE TEST ORDERABLES [facility] [address] [place] [id number] * Specimen to Pathology (05/07/2021 1:20 PM EDT) AP Specimen 05/07/2021 1:20 PM EDT 05/07/2021 1:20 PM EDT Narrative [facility] - 05/07/2021 1:20 PM EDT Specimen requisition ordered. ??Separate Pathology report to follow Greg Salcido MD PATHOLOGY/CYTOLOGY ORDERABLES Performing Organization Address City/[facility]/ZIP Co de Phone Number [facility] [place] [address] * Surgical Pathology Report (05/07/2021 1:02 PM EDT) Final Diagnosis [id number] ? Location: [facility] The signing pathologist has (i) examined the relevant preparation(s) for the specimen(s) and (ii) rendered or confirmed the diagnosis(es). . ?Surgical Pathology DIAGNOSIS A - ??DISTAL ESOPHAGUS, BIOPSY: 1. SQUAMOUS MUCOSA WITH MILD REFLUX ESOPHAGITIS. 2. COLUMNAR MUCOSA WITH MODERATE CHRONIC INFLAMMATION. 3. POSITIVE FOR INTESTINAL METAPLASIA. 4. NEGATIVE FOR DYSPLASIA. B - ??COLON, CECUM, BIOPSY: FRAGMENTS OF TUBULAR ADENOMA. CR-PX Electronically signed by: ?Abraham NELSON, Tara Sanders Verified: ??05/08/2021 11:33 ??Pathologist Performed at: ??[facility] Dept of Pathology, [address] [place] [address] SPECIMEN(S) SUBMITTED A - Distal esophagus bxs, biopsy (Multiple) B - Cecal polyp, excision (1) CLINICAL INFORMATION A - EGD: F/u Reyna's esophagus B - Marlin: screen A - No additional comment B - Polyp x1 SPECIMEN PROCESSING A - ??Received in formalin labeled with the patient's name and distal esophagus are multiple palma soft tissues, 0.2-0.3 cm. Submitted in toto in a single cassette. B - ??Received in formalin labeled with the patient's name and cecal polyps ??are multiple palma soft tissues, 0.3-0.9 cm. Submitted in toto in a single cassette. ??clc 05/08/2021 11:33 AM EDT [facility] GI Biopsy 05/07/2021 1:02 PM EDT 05/07/2021 1:02 PM EDT GI Biopsy 05/07/2021 1:02 PM EDT 05/07/2021 1:02 PM EDT Greg Salcido MD PATHOLOGY/CYTOLOGY ORDERABLES [facility] [place] [address] [facility] [address] [place] [id number] * Specimen to Pathology (05/07/2021 1:02 PM EDT) AP Specimen 05/07/2021 1:02 PM EDT 05/07/2021 1:02 PM EDT Narrative [facility] - 05/07/2021 1:02 PM EDT Specimen requisition ordered. ??Separate Pathology report to follow Greg Salcido MD PATHOLOGY/CYTOLOGY ORDERABLES Performing Organization Address City/State/[facility] Co de Phone Number [facility] [address] * Patient Instructions (05/07/2021 12:51 PM EDT) GI Provation Patient Instruction ENDOSCOPY UNIT Discharge Instructions Patient Name: ?Ivan Luna Date of : ?1960 Attending Physician:Janna Salcido MD Date of Procedure: ?? , May 07, 2021 Today's Procedure: Upper GI endoscopy Indication: Follow-up of Reyna's esophagus Your Doctor's Findings: There were esophageal mucosal changes secondary to established short-segment Reyna's disease. ??These changes involved the mucosa along an irregular Z-line. ??Mucosa was biopsied with a cold forceps for histology in 4 quadrants. The exam of the esophagus was otherwise normal. The entire examined stomach was normal. The examined duodenum was normal. Your Doctor's Recommendations: We are waiting for your pathology results. Follow an antireflux regimen. ??This includes: ?- Do not lie down for at least 3 to 4 hours after meals. ?- Raise the head of the bed 4 to 6 inches. ?- Decrease excess weight. ?- Avoid citrus juices and other acidic foods, alcohol, chocolate, mints, coffee and other caffeinated beverages, carbonated beverages, fatty and fried foods. ?- Avoid tight-fitting clothing. ?- Avoid cigarettes and other tobacco products. Continue your present medications. You will receive pathology/biopsy results from any specimens taken during your examination via phone call or letter within approximately 7 to 10 days. ??If you do not hear results by 2 weeks then please call . Upper Endoscopy Procedures 1. It is necessary that someone drive you home because even if you do not feel tired or sleepy, your judgement and reflexes will not be normal. It is recommended that you do not drive, drink alcoholic beverages or sign legal documents for 24 hours. Also, operating electrical devices or machinery should not be attempted until the effects of the medication wear off. (24 hours is suggested) 2.Localized irritation of the vein may occur at the site of medication injection. A warm moist face cloth wrapped around the area with a saran wrap covering to hold the heat in, four times a day for 20 minutes will help. 3.Notify your physician if you experience excessive cramping or abdominal pain, chest pain, fever, regurgitation or vomiting of blood, or excessive rectal bleeding (1/2 cup or more). It is not unusual to have a small amount of bleeding from the biopsy or polyp removal site. 4.The Doctor's office will notify you of biopsy results by phone or letter in about two weeks. 5.You may experience some abdominal bloating or gas for a couple hours after the procedure, this is normal. Air was introduced during the examination. 6. Medicine may have been given for the procedure to numb your gag reflex. Do not eat, drink or smoke until your gag reflex returns (Usually 30 minutes to 1 hour after the procedure) 7. Your throat may be a little sore after the procedure - this is not unusual. 8. If you have any problems or questions regarding your procedure please call Greg Salcido MD at #[phone] After 5pm Tuesday-Tuesday and on weekends or holidays please call [phone] and the hospital roof bolter operator can page the production assembly supervisor ?gastroenterolo gist to return your call. Greg Salcido MD Greg Salcido MD 05/07/2021 1:07:11 PM This report has been signed electronically. PROVATION 05/07/2021 12:5 1 PM EDT Greg Salcido MD INFORMATIONAL ON LY PROVATION * UPPER GI ENDOSCOPY (05/07/2021 12:51 PM EDT) UPPER GI ENDOSCOPY Patient Name: Ivan Luna Procedure Date: 05/07/2021 12:51 PM ?Attending MD: Greg Salcido MD Date of : 1960 ? Order #: [id number] Age: 61 ?Instrument Name: [id number] Procedure: ? Upper GI endoscopy Indications: ? Follow-up of Reyna's esophagus Providers: ? Greg Salcido MD, [facility] ? Ruth Vincent MD: ? Medicines: ? Monitored Anesthesia Care [...] cancer, and adverse medication ? reactions. The Endoscope was ? introduced through the mouth, and ? advanced to the second part of ? duodenum. The patient tolerated the ? procedure well. The upper GI ? endoscopy was accomplished without ? difficulty. The patient tolerated ? the procedure well. ? Scope Withdrawal Time: Findings: ? There were esophageal mucosal changes secondary to ? established short-segment Reyna's disease. These ? changes involved the mucosa along an irregular ? Z-line. Mucosa was biopsied with a cold forceps for ? histology in 4 quadrants. ? The exam of the esophagus was otherwise normal. ? The entire examined stomach was normal. ? The examined duodenum was normal. ? Impression: ?- Esophageal mucosal changes ? secondary to established ? short-segment Reyna's disease. ? Biopsied. ? - Normal stomach. ? - Normal examined duodenum. Recommendation: ?- Await pathology results. ? - Follow an antireflux regimen. ? - Continue present medications. ? Procedure Code(s): ? --- Professional --- ? 08698, Esophagogastroduo denoscopy, ? flexible, transoral; with biopsy, ? single or multiple Diagnosis Code(s): ? --- Professional --- ? K22.70, Reyna's esophagus without ? dysplasia ? --- Technical --- ? K22.70, Reyna's esophagus without ? dysplasia CPT copyright 202 [employer]. All rights reserved. The codes documented in this report are preliminary and upon golf cart mechanic review may be revised to meet current compliance requirements. Greg Salcido MD ____ Greg Salcido MD 05/07/2021 1:07:11 PM This report has been signed electronically. Number of Addenda: 0 PROVATION 05/07/2021 12:5 1 PM EDT Greg Salcido MD GENERAL SURGICAL OR DERABLES PROVATION * Patient Instructions (05/07/2021 12:50 PM EDT) GI Provation Patient Instruction ENDOSCOPY UNIT Discharge Instructions Patient Name: ?Ivan Luna Date of : ?1960 Attending Physician:Janna Salcido MD Date of Procedure: ?? , May 07, 2021 Today's Procedure: Colonoscopy Indication: Screening for colorectal malignant neoplasm Your Doctor's Findings: The perianal and digital rectal examinations were normal. A 12 mm polyp was found in the cecum. ??The polyp was sessile. The polyp was removed with a hot snare. ??Resection and retrieval were complete. Internal hemorrhoids were found during retroflexion. ??The hemorrhoids were medium-sized. The exam was otherwise without abnormality. Your Doctor's Recommendations: You are being discharged to home. Resume your previous diet. Continue your present medications. We are waiting for your pathology results. Your physician has recommended a repeat colonoscopy in three years for surveillance based on pathology results. You will receive pathology/biopsy results from any specimens taken during your examination via phone call or letter within approximately 7 to 10 days. ??If you do not hear results by 2 weeks then please call . Lower Endoscopy Procedures 1. It is necessary that someone drive you home because even if you do not feel tired or sleepy, your judgement and reflexes will not be normal. It is recommended that you do not drive, drink alcoholic beverages or sign legal documents for 24 hours. Also, operating electrical devices or machinery should not be attempted until the effects of the medication wear off. (24 hours is suggested) 2.Localized irritation of the vein may occur at the site of medication injection. A warm moist face cloth wrapped around the area with a saran wrap covering to hold the heat in, four times a day for 20 minutes will help. 3.Notify your physician if you experience excessive cramping or abdominal pain, chest pain, fever, regurgitation or vomiting of blood, or excessive rectal bleeding (1/2 cup or more). It is not unusual to have a small amount of bleeding from the biopsy or polyp removal site. 4.The Doctor's office will notify you of biopsy results by phone or letter in about two weeks. 5.You may experience some abdominal bloating or gas for a couple hours after the procedure, this is normal. Air was introduced during the examination. 6. If you have any problems or questions regarding your procedure please call Greg Salcido MD at #[phone] After 5pm Tuesday-Tuesday and on weekends or holidays please call [phone] and the hospital roof bolter operator can page the production assembly supervisor ?gastroenterolo gist to return your call. Greg Salcido MD Greg Salcido MD 05/07/2021 1:23:47 PM This report has been signed electronically. PROVATION 05/07/2021 12:5 0 PM EDT Greg Salcido MD INFORMATIONAL ON LY PROVATION * COLONOSCOPY (05/07/2021 12:50 PM EDT) COLONOSCOPY Patient Name: Ivan Luna Procedure Date: 05/07/2021 12:50 PM ?Attending MD: Greg Salcido MD Date of : 1960 ? Order #: [id number] Age: 61 ?Instrument Name: [id number] Procedure: ? Colonoscopy Indications: ? Screening for colorectal malignant ? neoplasm Providers: ? Greg Salcido MD, Marie ? Ruth Vincent Referring : ? Medicines: ? Monitored Anesthesia Care Complications: [...] Procedure Code(s): ? --- Professional --- ? 91041, Colonoscopy, flexible; with ? removal of tumor(s), [...] ? K64.8, Other hemorrhoids CPT copyright 2020 [employer]. All rights reserved. The codes documented in this report are preliminary and upon golf cart mechanic review may be revised to meet current compliance requirements. Greg Salcido MD ____ Greg Salcido MD 05/07/2021 1:23:47 PM This report has been signed electronically. Number of Addenda: 0 PROVATION 05/07/2021 12:5 0 PM EDT Greg Salcido MD GENERAL SURGICAL OR DERABLES Performing Organization Address City/[facility] Co de Phone Number PROVATION * POCT Glucose (05/07/2021 12:49 PM EDT) Glucose, POC 132 65 - 199 mg/dL [facility] Blood 05/07/2021 12:4 9 PM EDT 05/07/2021 12:49 PM EDT Greg Salcido MD POINT OF CARE TEST ORDERABLES Performing Organization Address [facility] Co de Phone Number [facility] [address] [place] [address] documented in this encounter Visit Diagnoses Not on filedocumented in this encounter Administered Medications Inactive Administered Medications - up to 3 most recent administrations Medication Order MAR Action Action Date Dose Rate Site lactated ringers infusion 500 mL, at 50 mL/hr, Intravenous, CONTINUOUS, Starting on Debo 05/07/21 at 1300, Until Debo 05/07/21 at 1358, Day of Surgery (Day of Procedure) New Bag 05/07/2021 12:51 PM EDT 500 mLs 50 mL/hr documented in this encounter Active and Recently Administered Medications Times are shown in EDT. Continuous Medication Order 05/05/2021 05/06/2021 05/07/2021 lactated ringers infusion (CANCELED) 500 mL, at 50 mL/hr, Intravenous, CONTINUOUS, Starting on Debo 05/07/21 at 1300, Until Debo 05/07/21 at 1358, Day of Surgery (Day of Procedure) 1251 (New Bag - Prov ider: Nata Nicole RN)1358 (Due: Stopped) documented in this encounter Care Teams Hydropulper Relationship Specialty Start Date End Date Timothy Mo DO [address] [place] [id number] PCP - General Family Medicine 12/09/16 08/04/21 documented as of this encounter
--- OUTSIDE RECORDS SUMMARY | 2024-02-17 00:35 | XMS_ITS | Encounter Summary ---
[place] [address] Care Team Providers Care Kiln Repairer Name Role Phone Timothy Mo DO Primary Care Provider Encounter Details Date Type Department Care Team (Latest Contact Info) Description 05/20/2021 1:30 PM EDT Office Visit Endocrinology at [address] [phone] Darleen Falk, WIND TURBINE SERVICE TECHNICIAN [address] [place] [address] ENDOCRINOLOGY [place], [place] [id number] Type 1 diabetes mellitus on insulin therapy (Primary Dx); Diabetic retinopathy, nonproliferative Social History Tobacco Use Types Packs/Day Years [...] Sign Reading Time Taken Comments Blood Pressure 120/72 05/20/2021 1:28 PM EDT Pulse 81 05/20/2021 1:28 PM EDT Temperature - - Respiratory Rate - - Oxygen Saturation 97% 05/20/2021 1:28 PM EDT Inhaled Oxygen Concentration - - Weight 82.1 kg (181 lb) 05/20/2021 1:28 PM EDT Height - - Body Mass Index 25.97 05/07/2021 12:44 PM EDT documented in this encounter Progress Notes * Darleen Falk, WIND TURBINE SERVICE TECHNICIAN - 05/20/2021 1:30 PM EDT Diabetes Follow-up: Diagnoses and all orders for this visit: Type 1 diabetes mellitus on insulin therapy - Hemoglobin A1c; Future Diabetic retinopathy, nonproliferative Assessment and Plan: ?? Diabetes: 7.3 HgbA1c 05/14/21. Well controlled. Ivan wanted to make a slight change to insulin pump therapy to address a glucose pattern that he noticed recently of higher glucose after lunch then dropping too low in the afternoon. After Consulting with my colleague Dr. Perry, I am advising him to change his I:C ratio at 11:00 am from 1:9 to 1:10. ?? HTN: Never diagnosed on lisinopril 5 mg for renal protection BP controlled ?? HLD: LDL 74 on 05/14/21 pravastatin 10 mg not at goal of <70. He is going to make an effort to take the pravastatin every day and plan to recheck the lipids in 12 months. Follow up in 3 months. HPI: Ivan is a 61 y.o. yo male who is here for Diabetes follow up. He has diabetes since his mid 30s.He has noticed that he has good glucose overnight and small spike at breakfast but not bad then at lunch he trends high for few hours and then 4 pm is when he drops low. His glucose comes down soonerafter breakfast than lunchtime. He may have missed a few doses of pravastatin. No new medical problems - had routine endoscopy and colonscopy, hospital admission, medication changes. 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 Plays Oatmeal. No family history on file. Adopted - it is possible that his biological father might have had diabetes and of it prematurely. Hemoglobin A1c: Last 3 Hemoglobin A1Cs Lab Results Component Value Date HA1C 7.3 (H) 05/14/2021 HA1C 7.3 (A) 09/29/2020 HA1C 7.4 (A) 05/06/2020 Diabetes meds: Lisinopril 5 mg Pravastatin 10 mg Insulins: aspart (Novolog for pump) PUMP: Model [] MM 530 [] MM 630 [x] MM770 [] Omnipod [] Tandem Total Daily Dose:27.4 Units 12.5 basal and 14.9 bolus Basal Rate: 00:00 0.525 06:00 0.475 12:30 0.375 18:00 0.525 I:C 00:00 1:12 06:00 1:8 11:00 1:9 Correction Factor 1:75 FREQUENCY OF SET CHANGES: Every 3-4 Days [x] SENSOR Dexcom [] 6 G [] 5G [] MM enlite [x] MM [] Jose Finger stick testing: [] Daily, [x] twice a day, [] three times a day, [] AC and HS, [] Continuous Glucose Monitoring: Time in Range:67% Hypoglycemia: [x] yes [] no Hypoglycemia unawareness: No Treatment Plan for Hypoglycemia: juice box and glucose gummies Diet: his cooks Breakfast: frozen egg mc muffin , breakfast bowls Lunch: at work sandwich 1 bag of chips fruits Supper: black [place] chili, pasta, chicken and potatoes Snacks: nut bars, fig bars Beverages: 1 cup of coffee, water Exercise: don't like to go outside in the cold, usually walks dog after work and walks during lunchtime Smoking: [x] No [] Yes, Alcohol: [x] No [] Yes Complications: Retinopathy: [x] yes [] no, last eye exam: 10/08/20 Dr. Saxena minimal Neuropathy: [] yes [] no, daily foot exams: [x] yes [] no, Follows with podiatry: [] yes [x] no Nephropathy: [] yes [x] no, UACR negative 05/14/21 Macrovascular complications: [] yes [x] no ROS: + weight changes increased a little [...] Outpatient Medications: ??? NovoLOG U-100 Insulin aspart Solution, USE IN INSULIN PUMP UP TO 35 UNITS DAILY, Disp: 40 mL, Rfl: 0 ??? esomeprazole (NexIUM) 20 mg Capsule, Delayed Release(E.C.), TAKE 1 CAPSULE TWICE DAILY, Disp: 180 capsule, Rfl: 1 ??? vardenafiL (LEVITRA) 20 mg [...] Vital signs and weight: Visit Vitals BP 120/72 (BP Location (NBP): Left arm, Patient Position: Sitting, BP Cuff Sizes: Adult (25-34 cm)) Pulse 81 Wt 82.1 kg (181 lb) SpO2 97% BMI 25.97 kg/m?? PE: AAOx3 In NAD S1 S2 normal lungs CTA b/l abdomen soft/NT/ND Skin: insulin injection/infusion sites: not too much induration a little on abdomen 40 minutes of this office visit is spent in counseling and disease management reviewing past and recent medical history, lifestyle patterns, nutrition patterns with education related to diabetes, glucose patterns, medication compliance with recommendation for changes, screening, monitoring and follow-up, excluding for the time spent on continuous glucose monitoring analysis, interpretation and report. Darleen Falk APRN, 05/20/2021, 4:19 PM * Darleen Falk APRN - 05/20/2021 1:30 PM EDT Images from the original note were not included. CGM review from:05/07/21- 05/20/21 Average glucose mg/dl:168 % GMI:7.1% Glucose variability:29.8 % Very High:4% High:28 % Time within Target:67 % Low:1 % Very Low:<1 % Glucose trends show:some hyperglycemia and a few hypoglycemic episodes documented in this encounter Plan of Treatment Not on file documented as of this encounter Visit Diagnoses Diagnosis Type 1 diabetes mellitus on insulin therapy- Primary Type I (juvenile type) diabetes mellitus without mention of complication, not stated as uncontrolled Diabetic retinopathy, nonproliferative Type II or unspecified type diabetes mellitus with ophthalmic manifestations, not stated as uncontrolled documented in this encounter Care Teams Kiln Repairer Relationship Specialty Start Date End Date Timothy Mo DO [address] [place] [id number] PCP - General Family Medicine 12/09/16 08/04/21 documented as of this encounter
--- OUTSIDE RECORDS SUMMARY | 2024-02-17 00:35 | XMS_ITS | Encounter Summary ---
[place] [address] Care Team Providers Care Linen Room Worker Name Role Phone Unknown Primary Care Provider Unavailabl e Reason for Visit * Reason Onset Date Comments Medication Refill 06/08/2022 Encounter Details Date Type Department Care Team (Late st Contact Info) Description 06/08/2022 Refill Endocrinology at [address] [phone] Edna Avila CMA Type 1 [...] Telephone Encounter - Edna Avila CCMA - 06/08/2022 9:22 AM EDT [place] a renewal on his Novolog Solution documented in this encounter Plan of Treatment Not on file documented as of this encounter Visit Diagnoses Diagnosis Type 1 diabetes mellitus on insulin therapy Type I (juvenile type) diabetes mellitus without mention of complication, not stated as uncontrolled documented in this encounter Care Teams Linen Room Worker Relationship Specialty Start Date End Date Unknown None PCP - General 08/05/21 10/05/22 documented as of this encounter
--- OUTSIDE RECORDS SUMMARY | 2024-02-17 00:35 | XMS_ITS | Encounter Summary ---
[place] [address] Care Team Providers Care Straightening Machine Feeder Name Role Phone Unavailable Primary Care Provider Unavailabl e Encounter Details Date Type Department Care Team (Latest Contact Info) Description 04/19/2023 Travel Social History Tobacco Use Types Packs/Day [...]
--- OUTSIDE RECORDS SUMMARY | 2024-02-17 00:35 | XMS_ITS | Encounter Summary ---
[place] [address] Care Team Providers Care Roofing Contractor Name Role Phone Unavailable Primary Care Provider Unavailabl e Encounter Details Date Type Department Care Team (Late st Contact Info) Description 03/14/2023 Telephone [place] [phone] Selene Scruggs Social History Tobacco Use Types Packs/Day Years [...]
--- OUTSIDE RECORDS SUMMARY | 2024-02-17 00:36 | XMS_ITS | Encounter Summary ---
[place] [address] Care Team Providers Care Manager Call Center Name Role Phone None Primary Care Provider Unavailabl e Reason for Visit * Reason Onset Date Comments Medication Refill 10/03/2019 Encounter Details Date Type Department Care Team (Late st Contact Info) Description 10/03/2019 Refill Endocrinology at [address] [phone] Melida Loza APRN Uncomplicated type 1 diabetes mellitus Social History Tobacco Use Types Packs/Day Years [...] as of this encounter Visit Diagnoses Diagnosis Uncomplicated type 1 diabetes mellitus Type I (juvenile type) diabetes mellitus without mention of complication, not stated as uncontrolled documented in this encounter Care Teams Manager Call Center Relationship Specialty Start Date End Date None None PCP - General 10/25/23 documented as of this encounter
--- OUTSIDE RECORDS SUMMARY | 2024-02-17 00:36 | XMS_ITS | Encounter Summary ---
[place] [address] Care Team Providers Care Bull Bucker Name Role Phone Timothy Mo DO Primary Care Provider [phone] Encounter Details Date Type Department Care Team (Late st Contact Info) Description 11/13/2019 Notes Only Gastroenterology and Hepatology at [address] [phone] Livier Vallejo Social History Tobacco Use Types Packs/Day Years [...] as of this encounter Progress Notes * Livier Vallejo - 11/13/2019 10:58 AM EDT Scheduling Instructions (Edited)?? Rebuild GI SANDER OPERATOR'S NOTE ?? Livier Vallejo 11/13/19 Patient's name: Ivan Luna - : 58 Procedure: EGD Reason: Difficulty swallowing, GERD Provider: Dr. Salcido Date: 11/16/19 Arrival: 7:15 am Time of procedure: 8:15 am Sedation Method: IV CONSCIOUS PER Barbara Paula Prep: 11/13/19 - Instructions for EGD/8-hr fast delivered verbally to patient via telephone Nurse: 11/13/19 - Message sent to nurse re: COVID-19 ORDER. Being diabetic, I transferred pt to [facility] for instructions. Message to MD: [place] order: 11/13/19 In Basket order: Verbal order: Complete recall: Assign Referral: Pacemaker form to [facility]: BRIAN Wylie folder: Copied to [facility] chart: 11/13/19 Comments: COVID-19 test scheduled 11/13/19 @3:45 pm ? documented in this encounter Plan of Treatment Not on file documented as of this encounter Visit Diagnoses Not on filedocumented in this encounter Care Teams Bull Bucker Relationship Specialty Start Date End Date Timothy Mo DO [address] [place] [address] PCP - General Family Medicine 12/09/16 08/04/21 documented as of this encounter
--- OUTSIDE RECORDS SUMMARY | 2024-02-17 00:36 | XMS_ITS | Encounter Summary ---
[place] [address] Care Team Providers Care Curer Foam Rubber Name Role Phone Timothy Mo DO Primary Care Provider [phone] Encounter Details Date Type Department Care Team (Late st Contact Info) Description 12/08/2020 11:45 AM EDT Public Health Public Health at [address] [phone] *Screening for COVID-19 virus Social History Tobacco Use Types Packs/Day Years [...] Procedure Name Priority Date/Time Associated Diagnosis Comments RAPID COVID-19 PCR (CLOTHIER) Routine 12/08/2020 12:30 PM EDT *Screening for COVID-19 virus documented in this encounter Results * COVID-19 PCR (12/08/2020 12:30 PM EDT) SARS-CoV-2 RNA (Rapid) Not Detected Not Detected [facility] Comment: This result should be interpreted in combination with the clinical observations, patient history and epidemiological information. Testing for SARS-CoV-2 (Severe acute respiratory syndrome coronavirus 2, formerly known as 2019 novel coronavirus or 2019-nCoV) to aid in the diagnosis of COVID-19 is performed using the Hurricane PartyGX Sars CoV-2 reagents for the BD Videregen as authorized by the FDA issued Emergency Use Authorization (EUA). This BD Videregen BioGX Sars CoV-2 EUA assay is intended for In-vitro Diagnostic (IVD) use with respiratory specimens such as nasopharyngeal swabs collected from individuals meeting the CDC criteria for testing. The BD MAX EUA assay is performed based on the instructions for use provided by [employer]. Testing is performed in the Microbiology Laboratory at [facility], certified under the Clinical Laboratory Improvement Amendments of 1988 (CLIA), 42 U.S.C. section 263a, to perform high complexity tests. Assay performance has been verified according to clinical laboratory regulatory requirements. Test results are provided above. A result of Not Detected indicates that the viral RNA target is not present but does not preclude SARS-CoV-2 infection. False negative results may occur if a specimen is improperly collected, transported or handled; if amplification inhibitors are present; or if inadequate numbers of viral particles are present in the specimen. A result of Detected suggests a current or recent infection and the patient is presumed to be infected. As required or requested by public health authorities, positive specimens may be sent for additional testing. Positive and negative predictive values for this test are highly dependent on disease prevalence. A result of Indeterminate is used when the inconclusive results are obtained due to the detection of only one of the viral genome regions targeted by this assay. Recollection or referral of testing to the [facility] or [facility] laboratory may be considered for specimens with indeterminate results. A result of Invalid indicates that neither the viral RNA targets nor the internal control target was detected. An invalid result suggests the presence of inhibitors or inadequate collection. Recollection is recommended in the case of an invalid result. CDC COVID-19 criteria for testing on human specimens and clinical management guidance information are available at the CDC Coronavirus Disease 2019 (COVID-19) webpage under Information for Healthcare Professionals (https://www.cdc.gov/coronavirus/2019-ncov/hcp/index.html) Additional information about this and other EUA tests can be found in provider and patient fact sheets at the following FDA website: https://www.fda.gov/medical-devices/ablhwszyalm-zfojgvz-6996-gceyr-79-xlidtjzfg- use-a obpoknylbvoda-mmdgmpb-nbjptzz/mrlog-iknvnvzqmgh-bebj SARS-CoV-2 Source AUTO RADIATOR MECHANIC Swab [facility] Nasopharyngeal Swab 12/09/19 12:30 PM EDT 12/08/2020 1:14 PM EDT Comment:Specimen Source->[facility]ha opharyngeal Swab Narrative Resulting Agency Comment Spec In Lab Piotr Lowe MD MICROBIOLOGY - G ENERAL ORDERABLES [facility] [address] [place] [address] documented in this encounter Visit Diagnoses Diagnosis Encounter for screening laboratory testing for COVID-19 virus documented in this encounter Care Teams Curer Foam Rubber Relationship Specialty Start Date End Date Timothy Mo DO [address] [place] [id number] PCP - General Family Medicine 12/09/16 08/04/21 documented as of this encounter
--- OUTSIDE RECORDS SUMMARY | 2024-02-17 00:36 | XMS_ITS | Encounter Summary ---
[place] [address] Care Team Providers Care Office Clinician Name Role Phone Timothy Mo DO Primary Care Provider [phone] Reason for Visit * Reason Comments Medication Refill Encounter Details Date Type Department Care Team ([facility] st Contact Info) Description 10/21/2020 Refill Gastroenterology and Hepatology at [address] [phone] Barbara Sneed, QUANTITATIVE ANALYST [address] [place] [address] [place] [address] Reyna's esophagus without dysplasia Social [...] esophagus documented in this encounter Care Teams Office Clinician Relationship Specialty Start Date End Date Timothy Mo DO [address] [place] [address] [place] [address] PCP - General Family Medicine 12/09/16 08/04/21 documented as of this encounter
--- OUTSIDE RECORDS SUMMARY | 2024-02-17 00:36 | XMS_ITS | Encounter Summary ---
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 Contact me through My- in 2 weeks to update on symptoms- if not improved, we can do the barium swallow test Follow the lifestyle modifications and diet modifications to see if this helps your symptoms. Patient Education Alvarado's Esophagus: Care Instructions Your Care Instructions The esophagus is the tube that connects the throat to the stomach. Food and liquids go through thistube. In Alvarado's esophagus, the cells that line the tube change. This is usually because of gastroesophageal reflux disease (GERD). GERD causes acid from your stomach to back up into the esophagus. When you have Alvarado's esophagus, you are slightly more likely to get cancer of the esophagus. So regular testing is important to watch for signs of this cancer. You can treat GERD to control your symptoms and feel better. Follow-up care is a rehman part of your treatment and safety. Be sure to make and go to all appointments, and call your doctor if you are having problems. It's also a good idea to know your test resultsand keep a list of the medicines you take. How can you care for yourself at home? ?? Take your medicines exactly as prescribed. Call your doctor if you think you are having a problem with your medicine. ?? If you take livi-vfo-ftcpttv medicine, such as antacids or acid reducers, follow all instructions on the label. If you use these medicines often, talk with your doctor. Be careful when you take kvbr-ngg-upmvqed antacid medicines. Many of these medicines have aspirin in them. Read the label to make sure that you are not taking more than the recommended dose. Too much aspirin can be harmful. ?? Do not smoke or chew tobacco. Smoking can make GERD worse. If you need help quitting, talk to your doctor about stop-smoking programs and medicines. These can increase your chances of quitting forgood. ?? Chocolate, mint, and alcohol can make GERD worse. They relax the valve between the esophagus andthe stomach. ?? Spicy foods, foods that have a lot of acid (like tomatoes and oranges), and coffee can make GERDsymptoms worse in some people. If your symptoms are worse after you eat a certain food, you may want to stop eating that food to see if your symptoms get better. ?? Eat smaller meals, and more often. After eating, wait 2 to 3 hours before you lie down. ?? Raise the head of your bed 6 to 8 inches by putting blocks under the frame or a foam wedge underthe head of the mattress. ?? Do not wear tight clothing around your midsection. ?? If you are overweight, lose weight. Even losing 5 to 10 pounds can help. When should you call for help? Call your doctor now or seek immediate medical care if: ? You have new or worse belly pain. ? You are vomiting. Watch closely for changes in your health, and be sure to contact your doctor if: ? You have any pain or difficulty swallowing. ? You are losing weight. ? You have new or worse symptoms, such as heartburn. ? You do not get better as expected. Where can you learn more? Visit our [employer] information library at [email or web address] You can also view health information on [employer], your personal patient account. Log in or sign uptoday. Enter L146 in the search box to learn more about Alvarado's Esophagus: Care Instructions. Current as of: May 23, 2019?Content Version: 12.6 ?? [id number] [employer]. Care instructions adapted under license by [facility]. If you have questions about a medical condition or this instruction, always ask your healthcare professional. [employer] disclaims any warranty or liability for your use of this information. 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 He reports that he has been taking his Nexium for a long time and was having similar symptoms initially when he started theNexium. He states that he is still needing to clear his throat and is having epigastric discomfort.We discuss lifestyle and diet modifications as well as how he wants to be symptom free with Alvarado's esophagus. He is aware of a 1 year recall for Alvarado's screening. We will plan to increase his PPI and he will give an update over the next few weeks to ensure his symptoms are improving. If they are not improving, we may decide to do a barium swallow. Plan: Increase Nexium to 20mg BID Send update thru MyDH for progress on symptoms Follow up in 6 months or sooner as clinically indicated HPI: 59 y.o. male with dysphagia was seen today in the [facility] for a follow-up visit. Since his last visit, he had an EGD with an abnormal z-line but otherwise was normal. He reports that his symptoms have not changes since the last time he was here. He does not note difficulty but just feels the need to swallow more. He has phlegm in his throat. He is also noting that he is clearing. He was diagnosed with Alvarado's esophagus and has been taking Nexium for awhile. He notices that when he swims, he cannot use a snorkel because it feels uncomfortable because of the forward position that he needs to go in. He was having similar symptoms prior to his Nexium. Patient Active Problem List Diagnosis Code ??? [...] reflux disease K21.9 ??? Dysphagia R13.10 ??? Alvarado's esophagus without dysplasia K22.70 Past Surgical History: Procedure Laterality Date ??? INGUINAL HERNIA REPAIR Right 03/2001 ??? INGUINAL HERNIA REPAIR Left 07/2018 ??? PRO UPPER GI ENDOSCOPY, DIAGNOSTIC N/A 11/16/2019 EGD, UPPER GI ENDOSCOPY performed by Greg Salcido MD at [facility] END[facility] ??? VASECTOMY Social History Tobacco Use ??? Smoking status: Never Smoker ??? Smokeless tobacco: Never Used Substance Use Topics ??? Alcohol use: Yes Alcohol/week: 10.0 standard drinks Types: 10 Glasses of wine per week Frequency: 4 or more times a week Drinks per session: 1 or 2 Binge frequency: Never Comment: Wine with dinner Current Outpatient Medications on File Prior to Visit Medication Sig Dispense Refill ??? Contour Next Test Strips Strip Test blood sugar 8 times daily. Pt has insulin pump. 800 strip 3 ??? NovoLOG U-100 Insulin aspart Solution USE IN INSULIN PUMP UP TO 35 UNITS DAILY 40 mL 1 ??? lisinopriL (Prinivil;Zestril) 5 mg Tablet Take 1 tab daily 90 tablet 3 ??? pravastatin (Pravachol) 10 mg Tablet Take 1 tablet by mouth daily. Taking one tab daily 90 tablet 3 ??? vardenafiL (Levitra) 20 mg Tablet 1/2 to 1 tab as needed. 6 tablet 5 ??? cholecalciferol, Vitamin D3, 1,000 unit Capsule One cap daily. ??? UNABLE TO FIND Pump: Basal 12a=0.525, 6a=0.45, 12:30p=0.4, 6p=0.525; I:C 12a=12, 6a=8, 11a=9, 4p=10; Sensitivity 12a=75; BGT 120; Act 3 hrs ??? insulin detemir (LEVEMIR) Solution ??? aspirin 81 mg Tablet, Delayed Release (E.C.) Take 1 tablet by mouth Daily. ??? Multivitamins with Iron Tab ??? [DISCONTINUED] esomeprazole (NEXIUM) 20 mg Capsule, Delayed Release(E.C.) Take 1 capsule by mouth daily. 30 capsule 12 No current facility-administered medications on file prior to visit. Allergies Allergen Reactions ??? Oxycodone-Acetaminophen CIS - Nausea/Vomiting ??? Penicillins CIS - Hives Vitals: 12/10/19 1619 BP: 120/78 BP Location (P): Left arm Patient Position: Sitting BP Cuff Sizes: Adult (25-34 cm) Pulse: 58 SpO2: 97% Weight: 78.3 kg (172 lb 11.2 oz) Body mass index is 24.78 kg/m??. Gen: No fatigue, unintentional weight loss or weight gain Eyes: No eye pain or loss of vision ENT: No tinnitus or mouth sores Heart: No exertional CP, palpitations or pedal edema Resp: No SOB, wheezing or cough, clearing of the throat GI: Please see HPI Renal: No dysuria or hematuria M/S: No joint or back pain Skin: No itching or new skin lesions Neuro: No headaches Heme: No bleeding or easy bruising EXAM: WDWN male - NAD. Head: NC/AT. Eyes: Anicteric sclera. EOMI. Mouth: No oral lesions. Neck: Supple. C/V: Heart rate regular Resp: Lung sounds clear Abd: soft, tender in the epigastric area, nondistended, no appreciable organomegaly or palpable masses Skin: No jaundice. No lesions on exposed skin. Neuro: Non-focal examination. LABS: Lab Results Component Value Date WBC 7.60 (External Lab) 08/23/2014 HGB 14.0 (External Lab) 08/23/2014 HCT 39.9 (EXTERNAL/ABN) 08/23/2014 MCV 89.3 (External Lab) 08/23/2014 PLATELET 221 (External Lab) 08/23/2014 Lab Results Component Value Date NA 139 11/04/2018 K 4.3 11/04/2018 BUN 14 11/04/2018 CREATININE 0.82 11/04/2018 GLUCOSE 181 11/04/2018 CALCIUM 9.1 11/04/2018 Lab Results Component Value Date AST 21 11/04/2018 ALT 20 11/04/2018 ALKPHOS 71 11/04/2018 BILITOT 0.4 11/04/2018 ALBUMIN 4.2 11/04/2018 PROT 7.0 11/04/2018 No results found for: AMYLASE, LIPASE PATHOLOGY: Lab Results Component Value Date SURGFINALRPT 11/16/2019 [id number] Location: [facility]; [facility]; A The signing pathologist has (i) examined the relevant preparation(s) for the specimen(s) and (ii) rendered or confirmed the diagnosis(es). . Surgical Pathology DIAGNOSIS DISTAL ESOPHAGUS, BIOPSY: SQUAMOUS MUCOSA WITH MILD REFLUX ESOPHAGITIS. NEGATIVE FOR INCREASED INTRAEPITHELIAL EOSINOPHILS. COLUMNAR MUCOSA WITH MODERATE CHRONIC INFLAMMATION. FOCALLY POSITIVE FOR ALVARADO'S ESOPHAGUS. NEGATIVE FOR DYSPLASIA. Electronically signed by: Tara Rosario MD Verified: 11/19/2019 Pathologist Performed at: [facility] Dept of Pathology, [address] [place] [address] SPECIMEN(S) SUBMITTED A - Distal esophagus, biopsy (Multiple) CLINICAL INFORMATION EGD, GERD A - Irregular z line SPECIMEN PROCESSING Received in formalin labeled with the patient's name and distal esophagus are 2 palma soft tissues, 0.2 and 0.4 cm. Submitted in toto in a single cassette. 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 He reports that he has been taking his Nexium for a long time and was having similar symptoms initially when he started theNexium. He states that he is still needing to clear his throat and is having epigastric discomfort.We discuss lifestyle and diet modifications as well as how he wants to be symptom free with Alvarado's esophagus. He is aware of a 1 year recall for Alvarado's screening. We will plan to increase his PPI and he will give an update over the next few weeks to ensure his symptoms are improving. If they are not improving, we may decide to do a barium swallow. 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
--- OUTSIDE RECORDS SUMMARY | 2024-02-17 00:36 | XMS_ITS | Encounter Summary ---
[place] [address] Care Team Providers Care Front Desk Lead Name Role Phone Timothy Mo DO Primary Care Provider Reason for Referral * Consultation (Routine) - Closed Specialty Diagnoses / Procedures Referred By Cecille nieto Referred To Contact Gastroenterology Diagnoses Type 1 diabetes mellitus on insulin therapy Melida Loza APRN [address] [place] [address] [facility] [address] [place] [phone] Referral ID Status Reason Start Date Expiration Date V isits Requested Visits Authorized [id number] Closed Consult, Test & Treat 09/06/2019 09/05/2020 1 1 Reason for Visit * Reason Comments Follow-up Diabetes Encounter Details Date Type Department Care Team ([facility] st Contact Info) Description 09/06/2019 3:00 PM EDT Office Visit Endocrinology at [address] [phone] Melida Loza APRN Type 1 diabetes mellitus on insulin therapy [...] Reading Time Taken Comments Blood Pressure 130/68 09/06/2019 3:04 PM EDT Pulse 60 09/06/2019 3:04 PM EDT Temperature - - Respiratory Rate - - Oxygen Saturation - - Inhaled Oxygen Concentration - - Weight 77.1 kg (170 lb) 09/06/2019 3:04 PM EDT Height - - Body Mass Index 24.39 05/14/2014 3:40 PM EDT documented in this encounter Progress Notes * Melida Loza APRN - 09/06/2019 3:00 PM EDT [facility] FOLLOW UP Chief Complaint Patient presents with ??? Follow-up ??? Diabetes Orders Placed This Encounter Procedures ??? Comprehensive metabolic panel (non-fasting) Standing Status: Future Standing Expiration Date: 03/04/2020 ??? U Albumin/Cre Ratio Standing Status: Future Standing Expiration Date: 03/04/2020 ??? Lipid Panel (Reflex Direct LDL) Standing Status: Future Standing Expiration Date: 01/07/2020 ??? TSH Standing Status: Future Standing Expiration Date: 12/05/2019 ??? Vitamin D, 25-Hydroxy Standing Status: Future Standing Expiration Date: 01/07/2020 ??? Referral to Gastroenterology Referral Priority: Routine Referral Type: Consultation Referral Reason: Consult, Test & Treat Number of Visits Requested: 1 ??? POCT Fingerstick Glucose ??? POCT glycated hemoglobin, total (HA1C) ASSESSMENT/PLAN: Diabetes type 1 for insulin pump management. Your A1c is??stable.?Glucose patterns are fairly stable??and better when using continuous glucose sensor. 1 insulin pump setting changed today bring him a less aggressive insulin to carb ratio for lunch and supper. Continue use of CGM for improved focus on glucose patterns and trending. Continue with healthy eating and regular activity. Return in 4 months for review and recheck of A1c or sooner for concerns. Andrew also agrees to annual screening labs including Lipids, TSH, vitamin D levels, CMP and urine microalbumin. We will follow-up with results when available and recommendations as needed. Referral to gastroenterology for reflux and colonoscopy. Rule out diabetic neuropathy. More urgent referral today to ophthalmology given history of herpes simplex and lesions on the outer aspect of the right eye with erythema, itching, pain and watering. It is also noted that there is a small very dark lesion in the center of the left lower rim that isalso of concern for malignancy. He denies any trauma such as with pencil-tip in the past and has noted this lesion to be there for the last couple of years. ?? HPI:?? Andrew is here today for review of his insulin pump and a recheck of his A1C for his quarterly evaluation.?He was last seen in August 2018??and continues to use the 670 G auto mode pump with continuous sensor.??He is changing his site every 3-4 days regularly. He is using on average 26??units of insulin daily with??58% as bolus insulin. He is using his bolus wizard??3-6??times daily on average.?With increased use of??his continuous glucose sensor he is in auto mode 82% of the time. Average glucose is 149??with a standard deviation of 48. His one concern has been lower blood sugars afterlunch and supper resulting in the need to snack more or bolus for less carbohydrates in an effort to prevent hypoglycemia. This has continued despite giving him a less aggressive insulin to carb ratio for lunch and supper at his last follow-up. As a result he feels like he underestimates his lunchtime carbohydrates to prevent the lows but they still occur and then he over treats the lows leading to some higher blood sugars at supper. Social History Socioeconomic History ??? Marital status: Spouse name: None ??? Number of children: None ??? Years of education: None ??? Highest education level: None Occupational History Employer: [employer] Social Needs ??? Financial resource strain: None ??? Food insecurity Worry: None Inability: None ??? Transportation needs Medical: None Non-medical: None Tobacco Use ??? Smoking status: Never Smoker ??? Smokeless tobacco: Never Used Substance and Sexual Activity ??? Alcohol use: Yes Alcohol/week: 10.0 standard drinks Types: 10 Glasses of wine per week Comment: Wine with dinner ??? Drug use: No ??? Sexual activity: None Lifestyle ??? Physical activity Days per week: None Minutes per session: None ??? Stress: None Relationships ??? Social connections Talks on phone: None Gets together: None Attends christian service: None Active member of club or organization: None Attends meetings of clubs or organizations: None Relationship status: None ??? Intimate partner violence Fear of current or ex partner: None Emotionally abused: None Physically abused: None Forced sexual activity: None Other Topics Concern ??? Abuse or Threat: Help requested by patient Not Asked ??? Abuse or Threat: Physical, Sexual, Verbal Not Asked ??? Back Care Not Asked ??? Bike Helmet Not Asked ??? Blood Transfusions Not Asked ??? Caffeine Concern Not Asked ??? Exercise Not Asked ??? Exercise: Patient reported Yes Comment: Walking when can with weather. ??? Hobby Hazards Not Asked ??? Service Not Asked ??? Occupational Exposure Not Asked ??? Poor oral hygiene Not Asked ??? Seat Belt Not Asked ??? Second-hand smoke exposure Not Asked ??? Self-Exams Not Asked ??? Sleep Concern Not Asked ??? Special Diet Not Asked ??? Stress Concern Not Asked ??? Violence Concern Not Asked ??? 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 Eye exam was in??April 2018??with background retinopathy noted. Urine for microalbumin was?? Lab Results Component Value Date MICROALBUR <3.0 11/04/2018 Lab Results Component Value Date NA 139 11/04/2018 K 4.3 11/04/2018 CL 100 11/04/2018 CO2 29 11/04/2018 BUN 14 11/04/2018 CREATININE 0.82 11/04/2018 GLUCOSE 181 11/04/2018 GLUCFASTING 229 (ExtH) 09/13/2016 CALCIUM 9.1 11/04/2018 ESTGFR 97 11/04/2018 Foot exam. Right Foot: Monofilament testing: intact sensation Dorsalis pedis pulses are Present on the right side Posterior tibial pulses are Present on the right side Skin Integrity: Negative for ulcer, blister, skin breakdown, erythema, warmth, callus or dry skin. Left Foot: Monofilament testing: intact sensation Dorsalis pedis pulses are Present on the left side. Posterior tibial pulses are Present on the left side. Skin Integrity: Negative for ulcer, blister, skin breakdown, erythema, warmth, callus or dry skin. ? DIETARY REVIEW:?? Breakfast is typically a breakfast sandwich or breakfast bowl or cereal??or??bread??with banana. Lunch is a sandwich with chips and yogurt. Might snack on fruit or granola bar or pretzels before supper. Supper are a regular meal with protein, vegetables and a starch. Bedtime snack is a cookie and his glucose is around 100 or lower. During the day he tends to drink coffee or water. ?? REVIEW OF SYSTEMS: ?? General: Overall good general health. No fever or chills. No fatigue. No flu or viral symptoms. Eyes:??There have been no visual changes. No eye pain. No blurring. Glasses. ENT:??No difficulty swallowing. No sore throat or hoarseness. Respiratory:?No dyspnea on exertion, wheeze, cough or shortness of breath. Cardiac:??Denies any chest pain or palpitations. ??No edema. Neuro:??No complaint of headaches. ??No complaint of numbness, tingling or weakness. GI:??There are no issues with heartburn, diarrhea or constipation. ??No abdominal pain or bloating.Reflux is better on Nexium. :??Denies urinary symptoms or erectile dysfunction. Uses Levitra as needed. Muscle/bone:??Can have myalgias on and off. Better lately.??Taking Vitamin d OTC. ??Denies weaknessor tremor. ??Heel can hurt when walking. Psych:??Mood is good without depression or anxiety. Sleep:??No problems falling or staying asleep. Can be off and on.?? Results for orders placed or performed in visit on 09/06/19 POCT Fingerstick Glucose Result Value Ref Range POC Glucose 179 (H) 60 - 199 mg/dl POCT glycated hemoglobin, total (HA1C) Result Value Ref Range POC HA1C 7.3 (H) 4.3 - 5.6 % Last 3 Hemoglobin A1Cs Lab Results Component Value Date HA1C 7.3 (H) 09/06/2019 HA1C 7.1 (H) 09/04/2018 HA1C 7.5 (H) 04/17/2018 Wt Readings from Last 3 Encounters: 09/06/19 77.1 kg (170 lb) 09/04/18 77.1 kg (170 lb) 06/28/18 75.8 kg (167 lb) Patient Vitals for the past 24 hrs: Pulse BP 09/06/19 1504 60 130/68 Objective: Vital signs are noted per nursing staff. Insulin pump logbook is reviewed. Please see scanned copy for details. A1c is 7.3% reflecting an average glucose of 160. 20/30 minutes of this office visit is spent in counseling and disease management reviewing recent medical history, lifestyle patterns, nutrition patterns with education related to diabetes, glucose patterns, medication compliance with recommendation for changes, screening, monitoring and follow-up. documented in this encounter Plan of Treatment Scheduled Referrals Name Type Priority Associated Diagnoses Order Schedule Referral to Gastroenterology Outpatient Referral Routine Type 1 diabetes mellitus on insulin therapy Ordered: 09/06/2019 documented as of this encounter Procedures Procedure Name Priority Date/Time Associated Diagnosis Comments POCT GLYCATED HEMOGLOBIN, TOTAL (HA1C) Routine 09/06/2019 3:20 PM EDT Type 1 diabetes mellitus on insulin therapy POCT FINGERSTICK GLUCOSE STAT 09/06/2019 3:20 PM EDT Type 1 diabetes mellitus on insulin therapy documented in this encounter Results * Vitamin D, 25-Hydroxy (12/24/2019 7:33 AM EST) Vitamin D Total 25 OH 29 21 - 100 ng/mL [facility] Vit D Interp Insufficient [facility] Blood specimen (specimen) 12/24/2019 7:33 AM EST 12/24/2019 7:33 AM EST Narrative Resulting Agency Comment Spec In Lab Melida Loza APRN CHEMISTRY ORDERA BLES [facility] [address] [place] [address] * Lipid Panel (Reflex Direct LDL) (12/24/2019 7:33 AM EST) Cholesterol, Total 182 mg/dL [facility] Comment: Lower Risk: <200 mg/dL Average Risk: 200-239 mg/dL Higher Risk: >hg=522 mg/dL Triglyceride 42 mg/dL [facility] Comment: Average Risk/Lower Risk: <150 mg/dL Borderline High Risk: 150-199 mg/dL High Risk: 200-499 mg/dL Very High Risk: >gx=238 mg/dL HDL Cholesterol 83 mg/dL [facility] Comment: Males: ?? Higher Risk: <40 mg/dL Females: ?? HIgher Risk: <50 mg/dL LDL Cholesterol 91 mg/dL [facility] Comment: Lowest Risk: <100 mg/dL Lower Risk: 100-129 mg/dL Borderline High Risk: 130-159 mg/dL High Risk: 160-189 mg/dL Very High Risk: >de=336 mg/dL Cholesterol/HDL Ratio 2.2 ratio [facility] Lipid Interpretation See Note [facility] Comment: Lipid management should be guided by a patient? s ASCVD risk, goals and preferences. ACC/AHA Guidelines recommend high intensity statin if clinical ASCVD or LDL greater than or equal to 190 mg/dL. http://[employer].com/XEH-UDR-Afeuvwmnm Adults aged 40-75 with LDL 70-189 mg/dL should have their 10 year ASCVD risk estimated with the ACC/AHA ASCVD risk welding estimator http://tools.acc.org/BJCMA-Sbaz-Xcevwcaeg/ Statin should be discussed if risk greater [...] critical component of ASCVD risk reduction. Blood specimen (specimen) 12/24/2019 7:33 AM EST 12/24/2019 7:33 AM EST Narrative Resulting Agency Comment Spec In Lab Melida Loza APRN CHEMISTRY ORDERA BLES [facility] [address] [place] [address] * Comprehensive metabolic panel (non-fasting) (12/24/2019 7:33 AM EST) Glucose 135 65 - 199 mg/dL [facility] Comment:Diabetes: >=200 mg/d L plus symptoms Blood Urea Nitrogen 16 10 - 20 mg/dL [facility] Creatinine 1.01 0.80 - 1.50 mg/dL [facility] Sodium 140 135 - 145 mmol/L [facility] Potassium 4.3 3.5 - 5.0 mmol/L [facility] Comment: Please note: ??Patients with WBC >100,000 may have falsely elevated Potassium levels. ??For accurate Potassium quantification in these patients send serum separator tube (gold top) for subsequent determinations. ??Contact the Clinical Chemistry Laboratory if there are any questions. Chloride 103 98 - 107 mmol/L [facility] Carbon Dioxide 29 22 - 31 mmol/L [facility] Anion Gap 8 5 - 15 mmol/L [facility] Calcium 9.0 8.5 - 10.5 mg/dL [facility] Protein, Total 6.6 6.1 - 8.0 gm/dL [facility] Albumin 4.1 3.2 - 5.2 gm/dL [facility] Aspartate Aminotransferase 23 0 - 39 unit/L [facility] Alanine Aminotransferase 15 0 - 55 unit/L [facility] Alkaline Phosphatase 68 40 - 130 unit/L [facility] Bilirubin, Total 0.7 0.2 - 1.3 mg/dL [facility] Est Glomerular Filtration Rate 80 >=60 mL/min/1. 73 m?? [facility] Comment: The eGFR was calculated using the CKD-EPI equation. As with all creatinine based estimates of kidney function, eGFR values calculated with the CKD-EPI equation are not accurate in patients with acute kidney failure, extremes of body mass or the acutely ill. http://[employer]/DHMCnkf eGFR 93 >=60 mL/min/1. 73 m?? [facility] Comment: The eGFR was calculated using the CKD-EPI equation. As with all creatinine based estimates of kidney function, eGFR values calculated with the CKD-EPI equation are not accurate in patients with acute kidney failure, extremes of body mass or the acutely ill. http://[employer]/DHMCnkf Blood specimen (specimen) 12/24/2019 7:33 AM EST 12/24/2019 7:33 AM EST Narrative Resulting Agency Comment Spec In Lab Melida A Dago SUPERVISOR [employer] CHEMISTRY ORDERA BLES Performing Organization Address [facility] de Phone Number [facility] [address] [place] [address] * U Albumin/Cre Ratio (12/24/2019 7:30 AM EST) Albumin / Creatinin Ratio, Urine <2 0 - 29 mcg/mg Cr [facility] Albumin, Urine <3.0 mg/L [facility] Creatinine, Urine 160 mg/dL [facility] Urine specimen (specimen) 12/24/2019 7:30 AM EST 12/24/2019 8:12 AM EST Narrative Resulting Agency Comment Spec In Lab Melida A Dago SUPER[employer]OR [employer] URINE ORDERABLES Performing Organization Address [facility] Phone Number [facility] [address] [place] [address] * (ABNORMAL) POCT glycated hemoglobin, total (HA1C) (09/06/2019 3:20 PM EDT) Hemoglobin A1C, POC 7.3(H) 4.3 - 5.6 % 09/06/2019 3:20 PM EDT Melida A Dago SUPERVISOR [employer] POINT OF CARE TE ST ORDERABLES * (ABNORMAL) POCT Fingerstick Glucose (09/06/2019 3:20 PM EDT) Glucose, POC 179(H) 60 - 199 mg/dl 09/06/2019 3:20 PM EDT Melida Rose Dago SUPERVISOR [employer] POINT OF CARE TE ST ORDERABLES documented in this encounter Visit Diagnoses Diagnosis Type 1 diabetes mellitus on insulin therapy Type I (juvenile type) diabetes mellitus without mention of complication, not stated as uncontrolled documented in this encounter Care Teams Front Desk Lead Relationship Specialty Start Date End Date Timothy Mo DO [address] [place] [address] PCP - General Family Medicine 12/09/16 08/04/21 documented as of this encounter
--- OUTSIDE RECORDS SUMMARY | 2024-02-17 00:36 | XMS_ITS | Encounter Summary ---
[place] [address] Care Team Providers Care Stone Crusher Operator Name Role Phone Unknown Primary Care Provider Unavailabl e Reason for Visit * Reason Comments Medication Refill Encounter Details Date Type Department Care Team (Late st Contact Info) Description 01/29/2020 Refill Endocrinology at [address] [phone] Melida Loza APRN Type 1 [...] uncontrolled documented in this encounter Care Teams Stone Crusher Operator Relationship Specialty Start Date End Date Unknown None PCP - General 08/05/21 10/05/22 documented as of this encounter
--- OUTSIDE RECORDS SUMMARY | 2024-02-17 00:36 | XMS_ITS | Encounter Summary ---
[place] [address] Care Team Providers Care Account Financial Manager Name Role Phone Unknown Primary Care Provider Unavailabl e Reason for Visit * Reason Comments Medication Refill Encounter Details Date Type Department Care Team (Late st Contact Info) Description 12/13/2020 Refill Endocrinology at [address] [phone] Melida Loza APRN Type 1 [...] uncontrolled documented in this encounter Care Teams Account Financial Manager Relationship Specialty Start Date End Date Unknown None PCP - General 08/05/21 10/05/22 documented as of this encounter
--- OUTSIDE RECORDS SUMMARY | 2024-02-17 00:36 | XMS_ITS | Encounter Summary ---
[place] [address] Care Team Providers Care Combining Machine Operator Name Role Phone Timothy Mo DO Primary Care Provider Encounter Details Date Type Department Care Team (Latest Contact Info) Description 11/04/2018 11:30 AM EDT Laboratory Appointment Lab at [address] [phone] Type 1 diabetes mellitus on insulin therapy [...] Name Priority Date/Time Associated Diagnosis Comments HC VENIPUNCTURE Routine 11/04/2018 11:28 AM EDT Type 1 diabetes mellitus on insulin therapy COMPREHENSIVE METABOLIC PANEL Routine 11/04/2018 11:28 AM EDT Type 1 diabetes mellitus on insulin therapy HC MICROALBUMIN, URINE Routine 9 11:00 AM EDT Type 1 diabetes mellitus on insulin therapy documented in this encounter Results * Comprehensive metabolic panel (non-fasting) (11/04/2018 11:28 AM EDT) Glucose 181 65 - 199 mg/dL [facility] Comment:Diabetes: >=200 mg/d L plus symptoms Blood Urea Nitrogen 14 10 - 20 mg/dL [facility] Creatinine 0.82 0.80 - 1.50 mg/dL [facility] Sodium 139 135 - 145 mmol/L [facility] Potassium 4.3 3.5 - 5.0 mmol/L [facility] Comment: Please note: ??Patients with WBC >100,000 may have falsely elevated Potassium levels. ??For accurate Potassium quantification in these patients send serum separator tube (gold top) for subsequent determinations. ??Contact the Clinical Chemistry Laboratory if there are any questions. Chloride 100 98 - 107 mmol/L [facility] Carbon Dioxide 29 22 - 31 mmol/L [facility] Anion Gap 10 5 - 15 mmol/L [facility] Calcium 9.1 8.5 - 10.5 mg/dL [facility] Protein, Total 7.0 6.1 - 8.0 gm/dL [facility] Albumin 4.2 3.2 - 5.2 gm/dL [facility] Aspartate Aminotransferase 21 0 - 39 unit/L [facility] Alanine Aminotransferase 20 0 - 55 unit/L [facility] Alkaline Phosphatase 71 40 - 130 unit/L [facility] Bilirubin, Total 0.4 0.2 - 1.3 mg/dL [facility] Est Glomerular Filtration Rate 97 >=60 mL/min/1. 73 m?? [facility] Comment: The eGFR was calculated using the CKD-EPI equation. As with all creatinine based estimates of kidney function, eGFR values calculated with the CKD-EPI equation are not accurate in patients with acute kidney failure, extremes of body mass or the acutely ill. http://[employer]/[facility] – MIAMInkf eGFR 112 >=60 mL/min/1. 73 m?? [facility] Comment: The eGFR was calculated using the CKD-EPI equation. As with all creatinine based estimates of kidney function, eGFR values calculated with the CKD-EPI equation are not accurate in patients with acute kidney failure, extremes of body mass or the acutely ill. http://[employer]/[facility] MIAM[facility]kf Blood specimen (specimen) 11/04/2018 11:28 AM EDT 11/04/2018 11:29 AM EDT Narrative Resulting Agency Comment Spec In Lab Melida Loza CRITICAL CARE EDUCATOR CHEMISTRY ORDERA BLES Performing Organization Address [facility] Phone Number [facility] [address] [place] [address] * Vitamin D, 25-Hydroxy (11/04/2018 11:28 AM EDT) Vitamin D Total 25 OH 34 30 - 100 ng/mL [facility] Comment: Deficient <10 ng/mL Insufficient 10 to 29 ng/mL Sufficient 30 to 100 ng/mL Potential Intoxication >100 ng/mL According to the [place] National Osteoporosis Foundation, Vitamin D concentrations >30 ng/mL are sufficient to protect bone health. ??The National Kidney Foundation has similarly stated that patients with Vitamin D concentrations <30ng/mL should be considered to be insufficient or deficient. http://[employer]/nkf-guidelines http://[employer]/nejm-VitD Blood specimen (specimen) 11/04/2018 11:28 AM EDT 11/04/2018 11:29 AM EDT Narrative Resulting Agency Comment Spec In Lab Melida Robertsonnell CRITICAL CARE EDUCATOR CHEMISTRY ORDERA BLES Performing Organization Address [facility] de Phone Number [facility] [address] [place] [address] * U Albumin/Cre Ratio (11/04/2018 11:00 AM EDT) Albumin / Creatinin Ratio, Urine Not Calculated 0 - 29 mcg/mg Cr [facility] Albumin, Urine <3.0 mg/L [facility] Creatinine, Urine 74 mg/dL [facility] Urine specimen (specimen) 11/04/2018 11:00 AM EDT 11/04/2018 12:10 PM EDT Narrative Resulting Agency Comment Spec In Lab Melida A Dago CRITICAL CARE EDUCATOR URINE ORDERABLES [facility] [address] [place] [address] documented in this encounter Visit Diagnoses Diagnosis Type 1 diabetes mellitus on insulin therapy Type I (juvenile type) diabetes mellitus without mention of complication, not stated as uncontrolled documented in this encounter Care Teams Combining Machine Operator Relationship Specialty Start Date End Date Timothy Mo DO [address] [place] [address] PCP - General Family Medicine 12/09/16 08/04/21 documented as of this encounter
--- OUTSIDE RECORDS SUMMARY | 2024-02-17 00:36 | XMS_ITS | Encounter Summary ---
[place] [address] Care Team Providers Care Television Installer Name Role Phone Unknown Primary Care Provider Unavailabl e Reason for Visit * Reason Comments Medication Refill Encounter Details Date Type Department Care Team (Late st Contact Info) Description 04/13/2019 Refill Endocrinology at [address] [phone] Melida Loza APRN Social History Tobacco Use Types Packs/Day Years [...] on filedocumented in this encounter Care Teams Television Installer Relationship Specialty Start Date End Date Unknown None PCP - General 08/05/21 10/05/22 documented as of this encounter
--- OUTSIDE RECORDS SUMMARY | 2024-02-17 00:36 | XMS_ITS | Encounter Summary ---
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 Baking Factory Worker Name Role Phone Timothy Mo DO Primary Care Provider [phone]- [phone] Reason for Visit * Consultation (Routine) - Closed Specialty Diagnoses / Procedures Referred By Cecille nieto Referred To Contact Gastroenterology Diagnoses Type 1 diabetes mellitus on insulin therapy Melida Loza, [employer] [address] [place] [address] [facility] Gastroenterology [address] [place] [phone] Referral ID Status Reason Start Date Expiration Date V isits Requested Visits Authorized [id number] Closed Consult, Test & Treat 09/06/2019 09/05/2020 1 1 Encounter Details Date Type Department Care Team (Latest Contact Info) Description 11/08/2019 3:00 PM EDT Office Visit Gastroenterology and Hepatology at [address] [phone] Barbara Sneed, [employer] [address] [place] [address] Gastroesophageal reflux disease, unspecified whether esophagitis present; Dysphagia, unspecified type Social History Tobacco Use Types Packs/Day Years [...] Sign Reading Time Taken Comments Blood Pressure 124/70 11/08/2019 2:59 PM EDT Pulse 66 11/08/2019 2:59 PM EDT Temperature - - Respiratory Rate - - Oxygen Saturation 97% 11/08/2019 2:59 PM EDT RA Inhaled Oxygen Concentration - - Weight 78 kg (172 lb) 11/08/2019 2:59 PM EDT Height - - Body Mass Index 24.68 05/14/2014 3:40 PM EDT documented in this encounter Progress Notes * Barbara Sneed APRN - 11/08/2019 3:00 PM EDT Reason for Visit: Consultation regarding GERD requested by Melida Loza APRN History of present illness: Ivan Luna is a 59 y.o. male presents to the clinic with pmhx of type 1 diabetes, reporting increased episodes of GERD. The patient repots that he seems to be havingsome trouble with swallowing and feels it is more in his throat. He reports that he has also been getting some pain on the base of his sternum occasionally- more discomfort that heavy pain. He has been taking Nexium for 2-3 years and it helped the heartburn but he did not have trouble swallowing until recent. He denies anything getting stuck in his throat. He does report sometime getting some queasiness when bending over. He is not getting heartburn sensations now. He denies any weight loss. Dysphagia The patient reports ongoing GERD but more recently notes more phlegm and difficulty swallowing. He denies getting any food stuck. He does report some epigastric pain. He denies nausea or vomiting butdoes get queasy when bending over. He denies any significant increase in his reflux but does feel more phlegm in his throat recently. He denies loss of appetite or weight loss. He denies odynophagia. Plan: EGD with moderate sedation Follow up after exam- if unrevealing, barium swallow may be indicated to further evaluate dysphagia. Gen: No fatigue, unintentional weight loss or [...] headaches Heme: No bleeding or easy bruising Social history negative for tobacco, + for alcohol- 7 drinks per week Family history negative for chronic GI diseases or GI malignancies as far as patient aware Physical Exam Patient Vitals for the past 24 hrs: Pulse BP SpO2 11/08/19 1459 66 124/70 97 % Awake and alert, oriented x 3, NAD Mood appropriate No gross neurological deficits Sclera anicteric, moist mucus membranes, head atraumatic Abdomen soft, tender in the epigastric area, nondistended, no appreciable organomegaly or palpable masses Extremities warm without considerable edema Skin free of jaundice documented in this encounter Miscellaneous Notes * Assessment & Plan Note - Barbara Sneed APRN - 11/08/2019 3:19 PM EDT Associated Problem(s): Dysphagia The patient reports ongoing GERD but more recently notes more phlegm and difficulty swallowing. He denies getting any food stuck. He does report some epigastric pain. He denies nausea or vomiting butdoes get queasy when bending over. He denies any significant increase in his reflux but does feel more phlegm in his throat recently. He denies loss of appetite or weight loss. He denies odynophagia. Plan: EGD with moderate sedation Follow up after exam- if unrevealing, barium swallow may be indicated to further evaluate dysphagia. documented in this encounter Plan of Treatment Scheduled Orders Name Type Priority Associated Diagnoses Orde r Schedule SURGICAL CASE REQUEST: EGD, UPPER GI ENDOSCOPY Procedures Routine Gastroesophageal Reflux Disease, Unspecified Whether Esophagitis Present Dysphagia, unspecified type Ordered: 11/08/2019 documented as of this encounter Visit Diagnoses Diagnosis Gastroesophageal reflux disease, unspecified whether esophagitis present Dysphagia, unspecified type documented in this encounter Care Teams Baking Factory Worker Relationship Specialty Start Date End Date Timothy Mo DO [address] [place] [id number] PCP - General Family Medicine 12/09/16 08/04/21 documented as of this encounter
--- OUTSIDE RECORDS SUMMARY | 2024-02-17 00:36 | XMS_ITS | Encounter Summary ---
[facility] [place] [address] Care Team Providers Care Change Room Attendant Name Role Phone Timothy Mo DO Primary Care Provider [phone]- [phone] Encounter Details Date Type Department Care Team ([facility] Contact Info) Description 05/16/2020 Orders Only Endocrinology at [address] [phone] Annalisa Sanders, RN Type 1 diabetes mellitus on insulin [...] uncontrolled documented in this encounter Care Teams Change Room Attendant Relationship Specialty Start Date End Date Timothy Mo DO [address] [place] [phone] PCP - General Family Medicine 12/09/16 08/04/21 documented as of this encounter
--- OUTSIDE RECORDS SUMMARY | 2024-02-17 00:36 | XMS_ITS | Encounter Summary ---
[place] [address] Care Team Providers Care Head Sawyer Name Role Phone Unknown Primary Care Provider Unavailabl e Reason for Visit * Reason Comments Medication Refill Encounter Details Date Type Department Care Team (Late st Contact Info) Description 06/13/2020 Refill Endocrinology at [address] [phone] Melida Loza APRN Type 1 [...] documented in this encounter Care Teams Head Sawyer Relationship Specialty Start Date End Date Unknown None PCP - General 08/05/21 10/05/22 documented as of this encounter
--- OUTSIDE RECORDS SUMMARY | 2024-02-17 00:36 | XMS_ITS | Encounter Summary ---
[place] [address] Care Team Providers Care Senior Trainer Name Role Phone Timothy Mo DO Primary Care Provider [phone]- [phone] Reason for Visit * Auth/Cert Specialty Diagnoses / Procedures Referred By Cecille t Referred To Contact Diagnoses Difficulty swallowing GERD (gastroesophageal reflux disease) difficulty swallowing, GERD, Procedures PRO UPPER GI ENDOSCOPY, DIAGNOSTIC PRO ANESTH, UGI ENDOSCOPY NOS EGD, UPPER GI ENDOSCOPY Referral ID Status Reason Start Date Expiration Date Visits Re quested Visits Authorized [id number] 1 1 Encounter Details Date Type Department Care Team (Latest Contact Info) Description 11/16/2019 7:34 AM EDT - 11/16/2019 10:09 AM EDT Hospital Encounter PACU at [address] [phone] Greg Salcido MD [address] [place] [address] [place] [address] Dysphagia Discharge Disposition: Home Social History Tobacco Use Types Packs/Day Years [...] Sign Reading Time Taken Comments Blood Pressure 110/64 11/16/2019 9:30 AM EDT Pulse 58 11/16/2019 9:30 AM EDT Temperature 36.6 ??C (97.8 ??F) 11/16/2019 7:54 AM ED T Respiratory Rate 15 11/16/2019 9:30 AM EDT Oxygen Saturation 99% 11/16/2019 9:30 AM EDT Inhaled Oxygen Concentration - - Weight 77.1 kg (170 lb) 11/16/2019 7:54 AM EDT Height 177.8 cm (5' 10) 11/16/2019 7:54 AM EDT Body Mass Index 24.39 11/16/2019 7:54 AM EDT documented in this encounter Medications at Time of Discharge Medication Sig Dispensed Refills Start Date End Date cholecalciferol, Vitamin D3, 1,000 unit Capsule One cap daily. 02/09/2017 UNABLE TO FIND Pump: Basal 12a=0.525, 6a=0.45, 12:30p=0.4, 6p=0.525; I:C 12a=12, 6a=8, 11a=9, 4p=10; Sensitivity 12a=75; BGT 120; Act 3 hrs 02/19/2010 aspirin 81 mg Tablet, Delayed Release (E.C.) Take 1 tablet by mouth Daily. 01/17/2006 Multivitamins with Iron Tab 07/28/2006 Contour Next Test Strips StripIndications:Unco mplicated type 1 diabetes mellitus Test blood sugar 8 times daily. Pt has insulin pump. 800 strip 3 10/03/2019 05/06/2020 NovoLOG U-100 Insulin aspart Solution USE IN INSULIN PUMP UP TO 35 UNITS DAILY 40 mL 1 09/24/2019 01/09/2020 lisinopriL (Prinivil;Zestril) 5 mg TabletIndications:Typ e 1 diabetes mellitus on insulin therapy Take 1 tab daily 90 tablet 3 09/06/2019 09/29/2020 pravastatin (Pravachol) 10 mg Tablet Take 1 tablet by mouth daily. Taking one tab daily 90 tablet 3 09/06/2019 09/29/2020 vardenafiL (Levitra) 20 mg Tablet 1/2 to 1 tab as needed. 6 tablet 5 09/06/2019 10/03/2020 esomeprazole (NEXIUM) 20 mg Capsule, Delayed Release(E.C.) Take 1 capsule by mouth daily. 30 capsule 12 09/04/2018 12/10/2019 insulin detemir (LEVEMIR) Solution 03/04/2010 2 documented as of this encounter Progress Notes * Greg Salcido MD - 11/16/2019 10:09 AM EDT Please arrange for office visit for GERD/Alvarado's. * Barbie Fry RN - 11/16/2019 9:07 AM EDT 0848 Patient transported via stretcher from gi to pacu Side rails up x2 o2 via simple mask, left lateral position. Sleepy, arousable 0935 Patient awake, denies chest pain Tolerates fluids well Dressed self, d/c instructions reviewed with verbalized understanding. Ambulated to pacu exit for d/c documented in this encounter H&P Notes * Greg Salcido MD - 11/16/2019 8:25 AM EDT Patient Name: Ivan Luna Patient Age: 59 y.o. Birthdate: 1960 Admit date: 11/16/2019 Attending Physician: Greg Salcido MD Gastroenterology and Hepatology Pre-procedure History and Physical Note Procedure: Upper endoscopy Indication: Ivan Luna is a 59 y.o. male here for GERD Allergies and Meds reviewed Patient Active Problem [...] Gastroesophageal reflux disease K21.9 ??? Dysphagia R13.10 PE: Patient Vitals for the past 24 hrs: Temp Pulse Resp BP SpO2 O2 Device 10/09/20 0754 36.6 ??C (97.8 ??F) 64 22 137/86 100 % RA Awake and alert, NAD Mallampati Score: II (soft palate, uvula, fauces visible) Heart regular A/P: Proceed with the planned endoscopic procedure. ASA 2 - Patient with mild systemic disease with no functional limitations Sedation Plan: moderate (conscious sedation) Risks and benefits of the procedure explained to the patient. Verbal consent obtained given currentpandemic. documented in this encounter Plan of Treatment Not on file documented as of this encounter Procedures Procedure Name Priority Date/Time Associated Diagnosis Comments SURGICAL PATHOLOGY REPORT Routine 11/16/2019 8:42 AM EDT SPECIMEN TO PATHOLOGY Routine 11/16/2019 8:42 AM EDT GI PROVATION PATIENT INSTRUCTIONS Routine 11/16/2019 8:25 AM EDT UPPER GI ENDOSCOPY Routine 11/16/2019 8: 25 AM EDT Upper GI Endoscopy, Diagnostic (405[address]) 11/16/2019 8:23 AM EDT Gastroesophageal reflux disease, unspecified whether esophagitis present Dysphagia, unspecified type POCT GLUCOSE Routine 11/16/2019 8:02 AM EDT documented in this encounter Results * Surgical Pathology Report (11/16/2019 8:42 AM EDT) Final Diagnosis [id number] ? [facility]; A The signing pathologist has (i) examined the relevant preparation(s) for the specimen(s) and (ii) rendered or confirmed the diagnosis(es). . ?Surgical Pathology DIAGNOSIS DISTAL ESOPHAGUS, BIOPSY: SQUAMOUS MUCOSA WITH MILD REFLUX ESOPHAGITIS. NEGATIVE FOR INCREASED INTRAEPITHELIAL EOSINOPHILS. COLUMNAR MUCOSA WITH MODERATE CHRONIC INFLAMMATION. FOCALLY POSITIVE FOR ALVARADO'S ESOPHAGUS. NEGATIVE FOR DYSPLASIA. Electronically signed by: ??Abraham NELSON, Tara Sanders Verified: ??11/19/2019 ?Pathologist Performed at: ??[facility] Dept of Pathology, [address] [place] [address] SPECIMEN(S) SUBMITTED A - Distal esophagus, biopsy (Multiple) CLINICAL INFORMATION EGD, GERD A - Irregular z line SPECIMEN PROCESSING Received in formalin labeled with the patient's name and distal esophagus are 2 palma soft tissues, 0.2 and 0.4 cm. Submitted in toto in a single cassette. ??AL 11/19/2019 9:24 AM EDT [facility] GI Biopsy 11/16/2019 8:42 AM EDT 11/16/2019 8:42 AM EDT Greg Salcido MD PATHOLOGY/CYTOLOGY ORDERABLES Performing Organization Address City/[facility]/ZIP Co de Phone Number [facility] [place] [address] [facility] [address] [place] [phone] * Specimen to Pathology (11/16/2019 8:42 AM EDT) AP Specimen 11/16/2019 8:42 AM EDT 11/16/2019 8:42 AM EDT Narrative [facility] - 11/16/2019 8:42 AM EDT Specimen requisition ordered. ??Separate Pathology report to follow Greg Salcido MD PATHOLOGY/CYTOLOGY ORDERABLES [facility] [place] [address] * Patient Instructions (11/16/2019 8:25 AM EDT) GI Provation Patient Instruction ENDOSCOPY UNIT Discharge Instructions Patient Name: ?Ivan Luna Date of : ?1960 Attending Physician:Janna Salcido MD Date of Procedure: ?? Андрей, November 16, 2019 Today's Procedure: Upper GI endoscopy Indication: Esophageal reflux Your Doctor's Findings: The Z-line was irregular. ??Biopsies were taken with a cold forceps for histology. The exam was otherwise without significant abnormality. Your Doctor's Recommendations: You are being [...] ?- Avoid cigarettes and other tobacco products. You will receive pathology/biopsy results from any specimens taken during your examination via phone call or letter within approximately 10 to 14 days. ??If you do not hear results [...] procedure please call Greg Salcido MD at #[phone] After 5pm Tuesday-Tuesday and on weekends or holidays please call [phone] and the hospital metal cnc operator can page the environmental health and safety leader ?gastroenterolo gist to return your call. Greg Salcido MD Greg Salcido MD 11/16/2019 8:44:10 AM This report has been signed electronically. PROVATION 11/16/2019 8:25 AM EDT Greg Salcido MD INFORMATIONAL ON LY PROVATION * UPPER GI ENDOSCOPY (11/16/2019 8:25 AM EDT) UPPER GI ENDOSCOPY Patient Name: Ivan Luna Procedure Date: 11/16/2019 8:25 AM ?Attending MD: Greg Salcido MD Date of : 1960 ? Order #: [id number] Age: 59 ?Instrument Name: [id number] Procedure: ? Upper GI endoscopy Indications: ? Esophageal reflux Providers: ? Greg Salcido MD, Marie ? RENALDO Garnett, Wendy Jaime MD: ?Melida Loza Requesting Provider: Barbara Sneed Medicines: ? Midazolam 6 mg IV, Fentanyl 100 ? micrograms IV Moderate Sedation: ? Moderate (conscious) sedation was administered by the ? endoscopy nurse and supervised by the endoscopist. ? The patient's oxygen saturation, heart rate, blood ? pressure and response to care were monitored. Total ? physician intraservice time was 11 minutes. Complications: ? No immediate complications. Procedure: ? Pre-Anesthesia Assessment: ? - Prior to the procedure, a History ? and Physical was performed, and ? patient medications, allergies and ? sensitivities were reviewed. The ? patient's tolerance of previous ? anesthesia was reviewed. ? The procedure, indications, benefits, ? risks and alternatives were explained ? to the patient. Specifically ? discussed were potential ? complications including, but not ? limited to, bleeding, perforation, ? infection, missing a cancer, and ? adverse medication reactions. The ? Endoscope was introduced through the ? mouth, and advanced to the second ? part of duodenum. The patient ? tolerated the procedure well. The ? upper GI endoscopy was accomplished ? without difficulty. The patient ? tolerated the procedure well. ? Scope Withdrawal Time: Findings: ? The Z-line was irregular. Biopsies were taken with a ? cold forceps for histology. ? The exam was otherwise without significant ? abnormality. ? Impression: ?- Z-line irregular. Biopsied. ? - The examination was otherwise ? normal. Recommendation: ?- Discharge patient to home. ? - Resume previous diet. ? - Continue present medications. ? - Await pathology results. ? - Follow an antireflux regimen. ? Procedure Code(s): ?? --- Professional --- ? 30493, Esophagogastroduo denoscopy, ? flexible, transoral; with biopsy, ? single or multiple ? 09377, 59, Moderate sedation services ? provided by the same physician or ? other qualified health care ? professional performing the ? diagnostic or therapeutic service ? that the sedation supports, requiring ? the presence of an independent ? trained observer to assist in the ? monitoring of the patient's level of ? consciousness and physiological ? status; initial 15 minutes of ? intraservice time, patient age 5 ? years or older Diagnosis Code(s): ?? --- Professional --- ? K22.8, Other specified diseases of ? esophagus ? K21.9, Gastro-esophageal reflux ? disease without esophagitis ? --- Technical --- ? K22.8, Other specified diseases of ? esophagus ? K21.9, Gastro-esophageal reflux ? disease without esophagitis CPT copyright 2019 [employer]. All rights reserved. The codes documented in this report are preliminary and upon surgical coder review may be revised to meet current compliance requirements. Greg Salcido MD ____ Greg Salcido MD 11/16/2019 8:44:10 AM This report has been signed electronically. Number of Addenda: 0 PROVATION 11/16/2019 8:25 AM EDT Greg Salcido MD GENERAL SURGICAL OR DERABLES PROVATION * POCT Glucose (11/16/2019 8:02 AM EDT) Glucose, POC 197 65 - 199 mg/dL [facility] Blood specimen (specimen) 11/16/2019 8:02 AM EDT 11/16/2019 8:02 AM EDT Grge Salcido MD POINT OF CARE TEST ORDERABLES Performing Organization Address [facility] Co de Phone Number [facility] [address] [place] [address] documented in this encounter Visit Diagnoses Diagnosis Dysphagia Dysphagia, unspecified Gastroesophageal reflux disease Esophageal reflux documented in this encounter Admitting Diagnoses Diagnosis Dysphagia Dysphagia, unspecified documented in this encounter Administered Medications Inactive Administered Medications - up to 3 most recent administrations Medication Order MAR Action Action Date Dose Rate Site lactated ringers infusion 500 mL, at 50 mL/hr, Intravenous, CONTINUOUS, Starting on Tue11/16/19 at 0800, Until Tue11/16/19 at 1045, Day of Surgery (Day of Procedure) New Bag 11/16/2019 8:00 AM EDT 500 mLs 50 mL/hr documented in this encounter Active and Recently Administered Medications Times are shown in EDT. Continuous Medication Order 11/14/2019 11/15/2019 11/16/2019 lactated ringers infusion (CANCELED) 500 mL, at 50 mL/hr, Intravenous, CONTINUOUS, Starting on Tue11/16/19 at 0800, Until Tue11/16/19 at 1045, Day of Surgery (Day of Procedure) 0800 (New Bag - Prov ider: Marie Vincent RN) PRN Medication Order 11/14/2019 11/15/2019 11/16/2019 benzocaine (Americaine) 20 % topical aerosol (CANCELED) ONCE PRN, Starting on Tue11/16/19 at 0825, Until Tue11/16/19 at 1245, Intra-Operative (Intra-Procedure) 0825 (Given - Provid er: Greg Salcido MD - Comment: back of throat) fentaNYL (PF) 50 mcg/mL injection (CANCELED) ONCE PRN, Starting on Tue11/16/19 at 0830, Until Tue11/16/19 at 1245, Intra-Operative (Intra-Procedure), Routine 0830 (Given - Provid er: Marie Garnett RN)0832 (Given - Provider: Marie Garnett RN) midazolam (PF) (VERSED) injection (CANCELED) ONCE PRN, Starting on Tue11/16/19 at 0830, Until Tue11/16/19 at 1245, Intra-Operative (Intra-Procedure), Routine 0830 (Given - Provid er: Marie Garnett RN)0832 (Given - Provider: Marie Garnett RN)0834 (Given - Provider: Marie Garnett, RN) documented in this encounter Care Teams Senior Trainer Relationship Specialty Start Date End Date Timothy Mo DO [address] [place] [phone] PCP - General Family Medicine 12/09/16 08/04/21 documented as of this encounter
--- OUTSIDE RECORDS SUMMARY | 2024-02-17 00:36 | XMS_ITS | Encounter Summary ---
[place] [address] Care Team Providers Care Project Development Director Name Role Phone Timothy Mo DO Primary Care Provider [phone]- [phone] Reason for Visit * Reason Comments Follow-up Diabetes Encounter Details Date Type Department Care Team (Late st Contact Info) Description 01/07/2020 3:30 PM EST Office Visit Endocrinology at [address] [phone] Melida Loza APRN Type 1 diabetes mellitus [...] Sign Reading Time Taken Comments Blood Pressure 130/72 01/07/2020 3:24 PM EST Pulse 56 01/07/2020 3:24 PM EST Temperature - - Respiratory Rate - - Oxygen Saturation - - Inhaled Oxygen Concentration - - Weight 78.5 kg (173 lb) 01/07/2020 3:24 PM EST Height 177.8 cm (5' 10) 01/07/2020 3:24 PM EST Body Mass Index 24.82 01/07/2020 3:24 PM EST documented in this encounter Progress Notes * Melida Loza APRN - 01/07/2020 3:30 PM EST [facility] FOLLOW UP Chief Complaint Patient presents with ??? Follow-up ??? Diabetes Orders Placed This Encounter Procedures ??? POCT Fingerstick Glucose ??? POCT glycated hemoglobin, total (HA1C) ASSESSMENT/PLAN: Diabetes type 1 for insulin pump management. Your A1c is??stable.?Glucose patterns are fairly stable??and better when using continuous glucose sensor. No insulin pump changes today. Continue to focus on accurate bolus patterns. Continue use of CGM for improved focus on glucose patterns and trending. Continue with healthy eating and regular activity. Return in 4 months for review and recheck of A1c or sooner for concerns. History of vitamin D deficiency. Andrew is advised to increase his [id number] vitamin D supplement 2000 international units daily during the winter months. ?? HPI:?? Andrew is here today for review of his insulin pump and a recheck of his A1C for his quarterly evaluation.?He was last seen in August 2019??and??continues to use the??670 G auto mode pump with continuous sensor.??He is changing his site every 3-4 days regularly. He is using on average??27??units of insulin daily with??48% as bolus insulin. He is using his bolus wizard??4-6??times daily on average.?With increased use of??his continuous glucose sensor he is in auto mode??84% of the time. ??Average glucose is 149??with a standard deviation of??46.?? Earlier this year we did lower his insulin to carb ratio for lunch and supper as there was concern for lower blood sugars after those meals.In general it seems to be better although he can still have lower blood sugar by late afternoon butnothing critical. He states that he does not mind as this typically gives him permission to have a small snack prior to dinner. He has already ordered the upgrade for the new Medtronic 770 G insulin pump and is hoping that he continues to have good results. Recent glucoses are in target range 75% of the time. There is some mild hypoglycemia 2% of the time and hyperglycemia 23%. He did have his screening labs done prior to this appointment and everything is in good range although his vitamin D level is just slightly below normal at 29. Those results are reviewed today. Social History Socioeconomic History ??? Marital status: Spouse name: None ??? Number of children: None ??? Years of education: None ??? Highest education level: None Occupational History Employer: [employer] Social Needs ??? Financial resource strain: None [...] Binge frequency: Never Comment: Wine with dinner ??? Drug use: No ??? Sexual activity: None Lifestyle ??? Physical activity Days per week: None Minutes per session: None ??? Stress: None Relationships ??? 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 Eye exam was in??April 2018??with background retinopathy noted. Urine for microalbumin was?? Lab Results Component Value Date MICROALBUR <3.0 12/24/2019 Lab Results Component Value Date NA 140 12/24/2019 K 4.3 12/24/2019 CL 103 12/24/2019 CO2 29 12/24/2019 BUN 16 12/24/2019 CREATININE 1.01 12/24/2019 GLUCOSE 135 12/24/2019 GLUCFASTING 229 (ExtH) 09/13/2016 CALCIUM 9.0 12/24/2019 ESTGFR 80 12/24/2019 Foot exam.?? Right Foot:?? Monofilament testing: intact sensation Dorsalis pedis pulses are??Present??on the right side Posterior tibial pulses are??Present??on the right side Skin Integrity: Negative for??ulcer,??blister,??skin breakdown,??erythema,??warmth,??callus??or dryskin. Left Foot:?? Monofilament testing: intact sensation Dorsalis pedis pulses are??Present??on the left side. Posterior tibial pulses are??Present??on the left side. Skin Integrity: Negative for??ulcer,??blister,??skin breakdown,??erythema,??warmth,??callus??or dryskin.? DIETARY REVIEW:?? Breakfast is typically a breakfast [...] diarrhea or constipation. ??No abdominal pain or bloating.??Reflux is better on Nexium.??Saw GI and had scope. :??Denies urinary symptoms or erectile dysfunction. Uses Levitra as needed. Muscle/bone:??Can have myalgias on and off. Better lately.??Taking Vitamin d OTC. ??Denies weaknessor tremor. ??Heel can hurt when walking. Psych:??Mood is good without depression or anxiety. Sleep:??No problems falling or staying asleep. Can be off and on.?? Recent Results (from the past 504 hour(s)) U Albumin/Cre Ratio Collection Time: 12/24/19 7:30 AM Result Value Ref Range Alb/Cr Ratio, Random <2 0 - 29 mcg/mg Cr U Albumin Conc, Random <3.0 mg/L U Creatinine 160 mg/dL Vitamin D, 25-Hydroxy Collection Time: 12/24/19 7:33 AM Result Value Ref Range 25-OH Vit D Total 29 21 - 100 ng/mL 25-OH Vit D Interp Insufficient Lipid Panel (Reflex Direct LDL) Collection Time: 12/24/19 7:33 AM Result Value Ref Range Chol, Total 182 mg/dL Triglycerides 42 mg/dL HDL 83 mg/dL LDL Cholesterol 91 mg/dL Chol/HDL Ratio 2.2 ratio Lipid Interpretation See Note Comprehensive metabolic panel (non-fasting) Collection Time: 12/24/19 7:33 AM Result Value Ref Range Glucose Lvl 135 65 - 199 mg/dL BUN 16 10 - 20 mg/dL Creatinine 1.01 0.80 - 1.50 mg/dL Sodium 140 135 - 145 mmol/L Potassium 4.3 3.5 - 5.0 mmol/L Chloride 103 98 - 107 mmol/L CO2 29 22 - 31 mmol/L Anion Gap 8 5 - 15 mmol/L Calcium 9.0 8.5 - 10.5 mg/dL Total Protein 6.6 6.1 - 8.0 gm/dL Albumin 4.1 3.2 - 5.2 gm/dL AST 23 0 - 39 unit/L ALT 15 0 - 55 unit/L Alk Phos 68 40 - 130 unit/L Total Bilirubin 0.7 0.2 - 1.3 mg/dL Estimated GFR 80 >=60 mL/min/1.73 m?? eGFR 93 >=60 mL/min/1.73 m?? POCT Fingerstick Glucose Collection Time: 01/07/20 3:20 PM Result Value Ref Range POC Glucose 158 60 - 199 mg/dl POCT glycated hemoglobin, total (HA1C) Collection Time: 01/07/20 3:20 PM Result Value Ref Range POC HA1C 7.5 (A) 4.3 - 5.6 % Last 3 Hemoglobin A1Cs Lab Results Component Value Date HA1C 7.5 (A) 01/07/2020 HA1C 7.3 (H) 09/06/2019 HA1C 7.1 (H) 09/04/2018 Wt Readings from Last 3 Encounters: 01/07/20 78.5 kg (173 lb) 12/10/19 78.3 kg (172 lb 11.2 oz) 11/16/19 77.1 kg (170 lb) Patient Vitals for the past 24 hrs: Pulse BP 01/07/20 1524 56 130/72 Objective: Vital signs are noted per nursing staff. Insulin pump logbook is reviewed. Please see scanned copy for details. A1c is 7.5% reflecting an average glucose of 169. 20/30 minutes of this office visit is [...] Comments POCT GLYCATED HEMOGLOBIN, TOTAL (HA1C) Routine 01/07/2020 3:20 PM EST Type 1 diabetes mellitus on insulin therapy POCT FINGERSTICK GLUCOSE STAT 01/07/2020 3:20 PM EST Type 1 diabetes mellitus on insulin therapy documented in this encounter Results * (ABNORMAL) POCT glycated hemoglobin, total (HA1C) (01/07/2020 3:20 PM EST) Hemoglobin A1C, POC 7.5(A) 4.3 - 5.6 % Blood specimen (specimen) 01/07/2020 3:20 PM EST Melida A Dago RAO POINT OF CARE TE ST ORDERABLES * (ABNORMAL) POCT Fingerstick Glucose (01/07/2020 3:20 PM EST) Glucose, POC 158 60 - 199 mg/dl Blood specimen (specimen) 01/07/2020 3:20 PM EST Melida A Dago RAO POINT OF CARE TE ST ORDERABLES documented in this encounter Visit Diagnoses Diagnosis Type 1 diabetes mellitus on insulin therapy Type I (juvenile type) diabetes mellitus without mention of complication, not stated as uncontrolled documented in this encounter Care Teams Project Development Director Relationship Specialty Start Date End Date Timothy Mo DO [address] [place] [id number] PCP - General Family Medicine 12/09/16 08/04/21 documented as of this encounter
--- OUTSIDE RECORDS SUMMARY | 2024-02-17 00:36 | XMS_ITS | Encounter Summary ---
[place] [address] Care Team Providers Care Patternator Name Role Phone Timothy Mo DO Primary Care Provider [phone]- [phone] Reason for Visit * Reason Comments Pre-op Exam Encounter Details Date Type Department Care Team ([facility] st Contact Info) Description 06/28/2018 3:15 PM EDT Office Visit Primary Care at [address] [phone] Timothy Mo DO [address] [place] [phone] Preoperative examination; Non-recurrent unilateral inguinal hernia without obstruction or gangrene Social History Tobacco Use Types Packs/Day Years [...] Sign Reading Time Taken Comments Blood Pressure 128/60 06/28/2018 3:04 PM EDT Pulse 58 06/28/2018 3:04 PM EDT Temperature - - Respiratory Rate - - Oxygen Saturation 98% 06/28/2018 3:04 PM EDT Inhaled Oxygen Concentration - - Weight 75.8 kg (167 lb) 06/28/2018 3:04 PM EDT Height - - Body Mass Index 23.96 05/14/2014 3:40 PM EDT documented in this encounter Progress Notes * Timothy Mo, DO - 06/28/2018 3:15 PM EDT I am being asked to provide preoperative evaluation for Ivan Luna in anticipation of their upcoming surgery. Indication for Surgery:Inguinal hernia, R Date of Surgery: 07/12/18 Surgical Procedure: R inguinal hernia repair Surgeon: Dr Larry in [facility] HPI: Ivan Luna is a 58 y.o. male Concerns about surgery: none Previous Studies: ?? PFT: ?? Stress Test: nuclear stress test 2011: negative, EF 67% ?? EKG: ordered ?? Echo: ?? Cardiac Cath: Surgical/ Anesthetic Complications: none Bleeding Disorders/Concerns: none Patient Active Problem List Diagnosis Code ??? Diabetic retinopathy, nonproliferative E11.3299 ??? Erectile dysfunction of non-organic origin F52.21 ??? Esophageal reflux K21.9 ??? Herpes simplex B00.9 ??? Hyperopia with presbyopia of both eyes H52.03, H52.4 ??? Type 1 diabetes mellitus on insulin therapy E10.9 ??? Amblyopia, left eye H53.002 Current Outpatient Medications on File Prior to Visit Medication Sig Dispense Refill ??? CONTOUR NEXT TEST STRIPS Strip Test blood sugar 8 times daily. Pt has insulin pump. 800 strip 3 ??? NOVOLOG U-100 INSULIN ASPART Solution Use in insulin pump up to 35 units daily 40 mL 1 ??? lisinopril (PRINIVIL;ZESTRIL) 5 mg Tablet Take 1 tab daily 90 tablet 3 ??? LEVITRA 20 mg Tablet TAKE 1/2 TO 1 TABLET 1 HOUR PRIOR TO INTERCOURSE NEEDED. 6 tablet 5 ??? pravastatin (PRAVACHOL) 10 mg Tablet Take 1 tablet by mouth daily. Taking one tab daily 90 tablet 3 ??? cholecalciferol, Vitamin D3, 1,000 unit Capsule One cap daily. ??? UNABLE TO FIND Pump: Basal 12a=0.525, 6a=0.45, 12:30p=0.4, 6p=0.525; I:C 12a=12, 6a=8, 11a=9, 4p=10; Sensitivity 12a=75; BGT 120; Act 3 hrs ??? insulin detemir (LEVEMIR) Solution ??? aspirin 81 mg Tablet, Delayed Release (E.C.) Take 1 tablet by mouth Daily. ??? pantoprazole (PROTONIX) 40 mg Tablet, Delayed Release (E.C.) Take 1 tablet by mouth daily as needed. ??? Multivitamins with Iron Tab No current facility-administered medications on file prior to visit. Allergies Allergen Reactions ??? Oxycodone-Acetaminophen CIS - Nausea/Vomiting ??? Penicillins CIS - Hives No family history on file. Vitals: 06/28/18 1504 BP: 128/60 BP Location (NBP): Left arm Pulse: 58 SpO2: 98% Weight: 75.8 kg (167 lb) Physical Exam [ x] Mallampati 1- entire soft palate clearly visible General: NAD, thin white male Head: Atraumatic, normocephalic Eyes: PERRL ENT: Ears canals and TM normal, MMM, nostrils patent, throat normal Neck: trachea midline, neck supple w/o masses CV: RRR, no murmurs Lungs: CTAB, breathing comfortably Abd: soft, non distended, non tender, normal bowel sounds Ext: no LE edema Skin: no rashes appreciated Neuro: cranial nerves normal,moving all limbs Mental: A&O, answers questions appropriately Psych: normal mood and affect, appropriate dress, normal eye contact Assessment: Condition Examples x None Unstable coronary syndromes Unstable or severe angina Recent OK Decompensated HF Significant arrhythmias High-grade AV block Mobitz II AV block Third-degree AV heart block Symptomatic ventricular arrhythmias SVT (including A-fib) with uncontrolled ventricular rate Symptomatic bradycardia Newly recognized ventricular tachycardia Severe valvular disease Severe aortic stenosis Symptomatic mitral stenosis Severe Liver Disease MELD score >10 Uncontrolled Respiratory Disease COPD or asthma flare, pneumonia Any of the above present No Surgical Risk Surgical risk Procedure Examples High / Vascular Major emergency surgery Aortic and other major vascular surgery Peripheral vascular surgery Intermediate Intraperitoneal and intrathoracic Carotid endarterectomy Head and neck surgery Orthopedic surgery (not same day) Prostate surgery Low Endoscopic procedures Superficial procedures Cataract surgery Breast surgery Ambulatory surgery (includes most arthroscopies) Functional Capacity If intermediate or high risk surgery enter Mets Examples <4 Perform ADL's Walk indoors Walk a block at 2-3 mph x >4 Run a short distance Scrub floors / move heavy furniture Moderate recreational activities If low risk procedure, not relevant Any patient undergoing intermediate risk surgery, regardless of clinical risk factors and able to exercise >4 mets may proceed to surgery without further testing or Beta Blockers administration. Clinical Risk Factors If intermediate or high risk surgery and not able to exercise > 4 mets enter (See Below): RISK STRATIFICATION Functional status: - Functional Class II: Able to perform 5-7 METS (walk > 4 blocks or climb over 2 flights without cardiac or pulmonary Sx) Revised [Still] Cardiac Risk Index (RCRI) 1. Hx ischemic heart disease: No 2. Hx heart failure: No 3. Hx cerebrovascular disease (stroke or TIA): No 4. Diabetes requiring perioperative insulin use: Yes 5. CKD (stage 3 or creatinine >2.0) : No 6. High-risk surgery type: No RCRI Score = __1 RCRI estimated risk of sandy-operative cardiac , non-fatal OK, or non-fatal cardiac arrest: 0. 0 predictors: 0.4% (95% CI: 0.1-0.8) 1. 1 predictors: 1.0% (95% CI: 0.5-1.4) 2. 2 predictors: 2.4% (95% CI: 1.3-3.5) 3. 3 predictors: 5.4% (95% CI: 2.8-7.9) 4. >3 predictors: >11% Otherwise not relevant Cardiac Evaluation & Care Plan Description Recommendations Disposition Low risk surgery (to include same day orthopedic procedures) Proceed with planned surgery x Int. Risk Surgery w/ METS >= 4 Proceed with planned surgery Int. Risk Surgery w/ METS < 4 Assess risk factors Consider pre-procedural testing if it would exchange trouble shooter (i.e. if you would do if not undergoing operation) Perioperative Testing History Action x Intermediate risk procedure with 1+ clinical risk factors, or patient without recent EKG ( x) Preoperative EKG Prior history or concern for anemia, history of clotting or bleeding disorder (should not be ordered routinely) ( ) CBC ( ) Coagulation studies x Pt on medications: Digoxin, Buddy-I/ARB, diuretics Patients undergoing urologic procedure w/ bladder irrigation (x ) Electrolytes/creatinine x Pts with Diabetes or Risk Factors for Diabetes (x ) fasting BG ( ) HbA1c (if not within last 3 months) None of the above No testing unless clinically indicated Summary: Cardiac Risk Stratification: [ ] Low Risk Surgery: Proceed to OR, no further testing [ x] Intermediate Risk Surgery > 4 Mets: Proceed to OR [ ] Intermediate Risk Surgery < 4 Mets, no cardiac risk factors: Proceed to OR [ ] Intermediate Risk Surgery > 4 Mets 1 or more cardiac Risk factors - Consider Beta Blockers initation for resting Heart Rate < 65 (re-assess prior to surgery) - Consider Stress Testing if it would exchange trouble shooter or would be done otherwise Pre-Op Testing Ordered: Was ordered by surgery in [place] - ECG: - CBC: - CMP - CXR: not indicated as no lung disease Medication Changes Prior To Surgery: none ASSESSMENT/PLAN: #1 Preoperative evaluation #2 NPV - intermediate risk surgery, low risk patient. - RCRI Score = __1__= 1% risk of perioperative cardiac issues - pending lab work, cleared for planned procedure #3 Health maintenance - ROV in 6 months to establish care documented in this encounter Plan of Treatment Not on file documented as of this encounter Visit Diagnoses Diagnosis Preoperative examination Preoperative examination, unspecified Non-recurrent unilateral inguinal hernia without obstruction or gangrene documented in this encounter Care Teams Patternator Relationship Specialty Start Date End Date Timothy Mo DO [address] [place] [id number] PCP - General Family Medicine 12/09/16 08/04/21 documented as of this encounter
--- OUTSIDE RECORDS SUMMARY | 2024-02-17 00:36 | XMS_ITS | Encounter Summary ---
[place] [address] Care Team Providers Care Level Designer Name Role Phone Timothy Mo DO Primary Care Provider +1- [phone] Encounter Details Date Type Department Care Team (Late st Contact Info) Description 04/09/2021 Telephone Endocrinology at [address] [phone] Selene Silva Social History Tobacco Use Types Packs/Day Years [...] encounter Miscellaneous Notes * Telephone Encounter - Carloz Shah - 04/16/2021 9:42 AM EST Appt scheduled 05/20 w/sommer Morejon aware of appt and to do fasting labs/urine prior * Telephone Encounter - Selene Silva - 04/15/2021 10:14 AM EST Left another message requesting call back to schedule apt. * Telephone Encounter - Selene Silva - 04/09/2021 3:45 PM EST LMOHM requesting c/b at his earliest convenience to schedule apt with Darleen for Type 1 DM 2-4 weeks, fasting labs & urine prior (former pt of [facility]). documented in this encounter Plan of Treatment Not on file documented as of this encounter Visit Diagnoses Not on filedocumented in this encounter Care Teams Level Designer Relationship Specialty Start Date End Date Timothy Mo DO [address] [place] [address] PCP - General Family Medicine 12/09/16 08/04/21 documented as of this encounter
--- OUTSIDE RECORDS SUMMARY | 2024-02-17 00:36 | XMS_ITS | Encounter Summary ---
[place] [address] Care Team Providers Care Cyber Forensic Specialist Name Role Phone Timothy Mo DO Primary Care Provider [phone]- [phone] Reason for Visit * Reason Comments Medication Refill Encounter Details Date Type Department Care Team ([facility] st Contact Info) Description 03/04/2021 Refill Endocrinology at [address] [phone] Sven Perry MD [address] [place] [address] [place] [address] Type 1 diabetes mellitus on insulin therapy [...] uncontrolled documented in this encounter Care Teams Cyber Forensic Specialist Relationship Specialty Start Date End Date Timothy Mo DO [address] [place] [address] [place] [address] PCP - General Family Medicine 12/09/16 08/04/21 documented as of this encounter
--- OUTSIDE RECORDS SUMMARY | 2024-02-17 00:36 | XMS_ITS | Encounter Summary ---
[place] [address] Care Team Providers Care Campus Coordinator Name Role Phone Timothy Mo DO Primary Care Provider Encounter Details Date Type Department Care Team (Late st Contact Info) Description 09/06/2019 4:00 PM EDT Office Visit Ophthalmology at [address] [phone] Luciano Huang MD [address] [place] [address] OPHTHALMOLOGY [place], [place] [id number] Herpes simplex Social History Tobacco Use Types Packs/Day Years [...] as of this encounter Progress Notes * Luciano Huang MD - 09/06/2019 4:00 PM EDT A/P: herpes simplex dermatitis right eyelid-outer canthus-pt using stye oint +AT drops Also: ?? 1. Type 1 diabetes mellitus on insulin therapy Without eye involvement. Continue yearly dilated eye exams and good sugar control. ?? 2. Hyperopia with presbyopia of both eyes ? 3. Amblyopia, left eye Stable ??4. Small pinpoint dark spot on LLL--being watched by Dermatology Valtrex 1gr x3 10 days po Pt will call Dr Saxena for yearly eye check ?? Patient understands all findings and I answered all questions documented in this encounter Plan of Treatment Not on file documented as of this encounter Visit Diagnoses Diagnosis Herpes simplex Herpes simplex without mention of complication documented in this encounter Care Teams Campus Coordinator Relationship Specialty Start Date End Date Timothy Mo DO [address] [place] [phone] PCP - General Family Medicine 12/09/16 08/04/21 documented as of this encounter
--- OUTSIDE RECORDS SUMMARY | 2024-02-17 00:36 | XMS_ITS | Encounter Summary ---
[place] [address] Care Team Providers Care Carpentry Supervisor Name Role Phone Timothy Mo DO Primary Care Provider [phone]- [phone] Reason for Visit * Reason Onset Date Comments Letter/Form 04/07/2021 HCP supplies Encounter Details Date Type Department Care Team (Late st Contact Info) Description 04/07/2021 Telephone Endocrinology at [address] [phone] Domitila Yates Letter/Form (HCP supplies) Social History Tobacco Use Types Packs/Day Years [...] encounter Miscellaneous Notes * Telephone Encounter - Domitila Yates CMA - 04/08/2021 3:40 PM EST Completed, Signed, Faxed and Scanned. * Telephone Encounter - Domitila Yates CMA - 04/07/2021 10:07 AM EST HCP form given to ES to sign documented in this encounter Plan of Treatment Not on file documented as of this encounter Visit Diagnoses Not on filedocumented in this encounter Care Teams Carpentry Supervisor Relationship Specialty Start Date End Date Timothy Mo DO [address] [place] [address] PCP - General Family Medicine 12/09/16 08/04/21 documented as of this encounter
--- OUTSIDE RECORDS SUMMARY | 2024-02-17 00:36 | XMS_ITS | Encounter Summary ---
[place] [address] Care Team Providers Care Pondman Name Role Phone Timothy Mo DO Primary Care Provider [phone] Reason for Visit * Reason Comments Follow-up Diabetes Encounter Details Date Type Department Care Team (Late st Contact Info) Description 05/06/2020 3:30 PM EDT Office Visit Endocrinology at [address] [phone] Melida Loza APRN Type 1 diabetes mellitus [...] Sign Reading Time Taken Comments Blood Pressure 128/76 05/06/2020 3:35 PM EDT Pulse 60 05/06/2020 3:35 PM EDT Temperature - - Respiratory Rate - - Oxygen Saturation - - Inhaled Oxygen Concentration - - Weight 79.6 kg (175 lb 8 oz) 05/06/2020 3:35 PM EDT Height - - Body Mass Index 25.18 01/07/2020 3:24 PM EST documented in this encounter Progress Notes * Melida Loza APRN - 05/06/2020 3:30 PM EDT [facility] FOLLOW UP Chief [...] for improved focus on glucose patterns and trending as well as auto mode control. Continue with healthy eating and regular activity. Return in??4??months for review and recheck of A1c or sooner for concerns. ?? HPI:?? Andrew is here today for review of his insulin pump and a recheck of his A1C for his quarterly evaluation.?He was last seen in??December 2019??and??continued to use the??670 G auto mode pump with continuous sensor until couple days ago. He has recently upgraded to the 770 G insulin pump with continuous glucose sensor. ??He is changing his site every 3-4 days regularly. He is using on average??22.5??units of insulin daily with 43% as bolus insulin. He is using his bolus wizard??2-5??times dailyon average.??With increased use of??his continuous glucose sensor he is in auto mode with a good percentage of the time. ??Average glucose is 146??41.?? Last year we did lower his insulin to carb ratio for lunch and supper as there was concern for lower blood sugars after those meals. In general itseems to be better although he can still have lower blood sugar by late afternoon but nothing critical. He states that he does not mind as this typically gives him permission to have a small snack prior to dinner. He has already ordered the upgrade for the new Medtronic 770 G insulin pump and is hop ing that he continues to have good results. Recent glucoses are in target range 78% of the time. There is some mild hypoglycemia 1% of the time and hyperglycemia 21%. Just started the new 770 G and not in auto mode yet. Has the ludwig and ok. Taking vit D. Got first COVID vaccine. Portions bigger in the day as working out of state and less active. Had gained a few pounds. Walking at lunch again. Social History Socioeconomic History ??? Marital status: Spouse name: Not on file ??? Number of children: Not on file ??? Years of education: Not on file ??? Highest education level: Not on file Occupational History Employer: [employer] Tobacco Use ??? Smoking status: Never Smoker ??? Smokeless tobacco: Never Used Substance and Sexual Activity ??? Alcohol use: Yes Alcohol/week: 10.0 standard drinks Types: 10 Glasses of wine per week Comment: Wine with dinner ??? Drug use: No ??? Sexual activity: Not on file Other Topics Concern ??? 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 Difficulty of Paying Living Expenses: Food Insecurity: ??? Worried About Running Out of Food in the Last Year: ??? Ran Out of Food in the Last Year: Transportation Needs: ??? Lack of Transportation (Medical): ??? Lack of Transportation (Non-Medical): Physical Activity: ??? Days of Exercise per Week: ??? Minutes of Exercise per Session: Stress: ??? Feeling of Stress : Social Connections: ??? Frequency of Communication with Friends and Family: ??? Frequency of Social Gatherings with Friends and Family: ??? Attends Jewish Services: ??? Active Member of Clubs or Organizations: ??? Attends Club or Organization Meetings: ??? Marital Status: Intimate Partner Violence: ??? Fear of Current or Ex-Partner: ??? Emotionally Abused: ??? Physically Abused: ??? Sexually Abused: DIABETES HEALTH MAINTENANCE:?? Eye exam was in??April 2018??with background retinopathy noted. Urine for microalbumin was?? Lab Results Component Value Date ?? MICROALBUR <3.0 12/24/2019 ?? Lab Results Component Value Date ?? NA 140 12/24/2019 ?? K 4.3 12/24/2019 ?? CL 103 12/24/2019 ?? CO2 29 12/24/2019 ?? BUN 16 12/24/2019 ?? CREATININE 1.01 12/24/2019 ?? GLUCOSE 135 12/24/2019 ?? GLUCFASTING 229 (ExtH) 09/13/2016 ?? CALCIUM 9.0 12/24/2019 ?? ESTGFR 80 12/24/2019 ? Foot exam.?? Right Foot:?? Monofilament testing: intact [...] general health. No fever or chills. No fatigue.??No flu or viral symptoms.?? Eyes:??There have been no visual changes. No eye pain. No blurring.??Glasses.??Needs exam. ENT:??No difficulty swallowing. No sore throat or hoarseness. Respiratory:?No dyspnea on exertion, wheeze, cough or shortness of breath. Cardiac:??Denies any chest pain or palpitations.?No edema. Neuro:??No complaint of headaches. ??No complaint of numbness, tingling or weakness. GI:??There are no issues with heartburn, diarrhea or constipation. ??No abdominal pain or bloating.??Reflux is better on Nexium.??Saw GI and had scope. :??Denies urinary symptoms or erectile dysfunction. Uses Levitra as needed. Muscle/bone:??Can have myalgias on and off. Better lately.??Taking Vitamin d OTC. ??Denies weaknessor tremor. ?? Psych:??Mood is good without depression or anxiety. Sleep:??No problems falling or staying asleep. Can be off and on.?? Results for orders placed or performed in visit on 05/06/20 POCT Fingerstick Glucose Result Value Ref Range POC Glucose 182 60 - 199 mg/dl POCT glycated hemoglobin, total (HA1C) Result Value Ref Range POC HA1C 7.4 (A) 4.3 - 5.6 % Last 3 Hemoglobin A1Cs Lab Results Component Value Date HA1C 7.4 (A) 05/06/2020 HA1C 7.5 (A) 01/07/2020 HA1C 7.3 (H) 09/06/2019 Wt Readings from Last 3 Encounters: 05/06/20 79.6 kg (175 lb 8 oz) 01/07/20 78.5 kg (173 lb) 12/10/19 78.3 kg (172 lb 11.2 oz) Vital Signs Heart Rate: 60 BP: 128/76 Patient Position: Sitting Objective: Vital signs are noted per nursing staff. Pump logbook is reviewed. Please see scanned copy for details. A1c is 7.4% reflecting an average glucose of 165. This office visit is spent in counseling and disease management reviewing recent medical history, review and interpretation of insulin pump and continuous glucose sensor report, lifestyle patterns, nutrition patterns with education related to diabetes, glucose patterns, medication compliance with recommendation for changes, screening, monitoring and follow-up. documented in this encounter Plan of Treatment Not on file documented as of this encounter Procedures Procedure Name Priority Date/Time Associated Diagnosis Comments POCT GLYCATED HEMOGLOBIN, TOTAL (HA1C) Routine 05/06/2020 3:47 PM EDT Type 1 diabetes mellitus on insulin therapy POCT FINGERSTICK GLUCOSE STAT 05/06/2020 3:46 PM EDT Type 1 diabetes mellitus on insulin therapy documented in this encounter Results * (ABNORMAL) POCT glycated hemoglobin, total (HA1C) (05/06/2020 3:47 PM EDT) Hemoglobin A1C, POC 7.4(A) 4.3 - 5.6 % 05/06/2020 3:47 PM EDT Melida Loza APRN POINT OF CARE TE ST ORDERABLES * (ABNORMAL) POCT Fingerstick Glucose (05/06/2020 3:46 PM EDT) Glucose, POC 182 60 - 199 mg/dl 05/06/2020 3:46 PM EDT Melida Loza APRN POINT OF CARE TE ST ORDERABLES documented in this encounter Visit Diagnoses Diagnosis Type 1 diabetes mellitus on insulin therapy Type I (juvenile type) diabetes mellitus without mention of complication, not stated as uncontrolled documented in this encounter Care Teams P[place]man Relationship Specialty Start Date End Date Timothy Mo DO [address] [place] [id number] PCP - General Family Medicine 12/09/16 08/04/21 documented as of this encounter
--- OUTSIDE RECORDS SUMMARY | 2024-02-17 00:36 | XMS_ITS | Encounter Summary ---
[place] [address] Care Team Providers Care Public Health Technician Name Role Phone Timothy Mo DO Primary Care Provider [phone]- [phone] Encounter Details Date Type Department Care Team ([facility] Contact Info) Description 01/09/2020 Orders Only Endocrinology at [address] [phone] Katelynn Perdomo LPN Type 1 diabetes mellitus on insulin therapy [...] uncontrolled documented in this encounter Care Teams Public Health Technician Relationship Specialty Start Date End Date Timothy Mo DO [address] [place] [id number] PCP - General Family Medicine 12/09/16 08/04/21 documented as of this encounter
--- OUTSIDE RECORDS SUMMARY | 2024-02-17 00:36 | XMS_ITS | Encounter Summary ---
[place] [address] Care Team Providers Care Administrative Specialist Name Role Phone Timothy Mo DO Primary Care Provider Encounter Details Date Type Department Care Team (Latest Contact Info) Description 11/13/2019 3:45 PM EDT Public Health Public Health at [address] [phone] Gastroesophageal reflux disease, unspecified whether esophagitis present; Dysphagia, unspecified type; Pre-op testing Social History Tobacco Use Types Packs/Day Years [...] Procedure Name Priority Date/Time Associated Diagnosis Comments COVID-19 PCR Routine 11/13/2019 3:45 PM EDT Gastroesophageal reflux disease, unspecified whether esophagitis present Dysphagia, unspecified type Pre-op testing documented in this encounter Results * COVID-19 PCR (11/13/2019 3:45 PM EDT) SARS-CoV-2 RNA Not Detected Not Detected [facility] Comment: This result should be interpreted in combination with the clinical observations, patient history and epidemiological information in making a final diagnosis. For testing of asymptomatic individuals, assay performance characteristics and clinical utility have not been evaluated. Testing for SARS-CoV-2 (Severe acute respiratory syndrome coronavirus 2, formerly known as 2019 novel coronavirus or 2019-nCoV) to aid in the diagnosis of COVID-19 is performed using the [employer] RealTime SARS-CoV-2 Assay as authorized by the FDA Emergency Use Authorization (EUA). This EUA assay is intended for In-vitro Diagnostic (IVD) use with respiratory specimens such as nasopharyngeal swabs collected from individuals during the acute phase of infection. This assay is performed based on the instructions for use provided by [employer] and additional guidance provided by CDC and FDA. Testing is performed in the [facility] within the Department of Pathology and Laboratory Medicine at [facility], certified under the Clinical Laboratory Improvement Amendments of 1988 (CLIA), 42 U.S.C. 263a, to perform high complexity tests. Assay performance has been verified according to clinical laboratory regulatory requirements for use with specimens collected from individuals suspected of COVID-19. Test results are provided above. A result of ? Not Detected? indicates that the viral RNA target is not present above the limit of detection, but does not preclude SARS-CoV-2 infection. False negative results may occur if a specimen is improperly collected, transported or handled; if amplification inhibitors are present; or if inadequate numbers of viral particles are present in the specimen. When a diagnostic test is negative, the possibility of a false negative result should be considered in the context of a patient? s recent exposures and the presence of clinical signs and symptoms consistent with COVID-19. A result of ? Detected? indicates that RNA from SARS-CoV-2 was detected and the patient is infected. As required or requested by public health authorities, positive specimens may be sent for additional testing. Positive and negative predictive values for this test are highly dependent on disease prevalence. A result of ? Invalid? indicates that neither the viral RNA targets nor the internal control target was detected. An invalid result suggests the presence of inhibitors. Recollection and re-testing is recommended in the case of an invalid result. CDC COVID-19 criteria for testing on human specimens and clinical management guidance information are available at the CDC Coronavirus Disease 2019 (COVID-19) webpage under ? Information for Healthcare Professionals? (https://www.cdc.gov/coronavirus/2019-ncov/hcp/index.html) Additional information about this and other EUA tests can be found in provider and patient fact sheets at the following FDA website: https://www.fda.gov/medical-devices/lkesvfrdrax-ngxdaop-7300-mdvvy-42-rsvzruzaa- use-a mqcnhjfjkrgpc-zsayxci-rcewzjp/kcstr-mqwkupzuszi-guxo SARS-CoV-2 RNA Source [employer] Swab [facility] Nasopharyngeal swab (specimen) 11/13/2019 3:45 PM EDT 11/14/2019 7:12 PM EDT Comment:Symptoms->Asymptomat ic Narrative Resulting Agency Comment Spec In Lab Greg Salcido MD MOLECULAR ORDERABLE S [facility] [place] [address] documented in this encounter Visit Diagnoses Diagnosis Gastroesophageal reflux disease, unspecified whether esophagitis present Dysphagia, unspecified type Pre-op testing Preoperative examination, unspecified documented in this encounter Care Teams Administrative Specialist Relationship Specialty Start Date End Date Timothy Mo DO [address] [place] [id number] PCP - General Family Medicine 12/09/16 08/04/21 documented as of this encounter
--- OUTSIDE RECORDS SUMMARY | 2024-02-17 00:36 | XMS_ITS | Encounter Summary ---
[place] [address] Care Team Providers Care Wax Molder Name Role Phone Timothy Mo DO Primary Care Provider [phone] Reason for Visit * Reason Comments Follow-up Diabetes Encounter Details Date Type Department Care Team (Late st Contact Info) Description 09/04/2018 9:30 AM EDT Office Visit Endocrinology at [address] [address] Melida Loza APRN Type 1 diabetes mellitus [...] Sign Reading Time Taken Comments Blood Pressure 130/65 09/04/2018 9:41 AM EDT Pulse 64 09/04/2018 9:41 AM EDT Temperature - - Respiratory Rate - - Oxygen Saturation - - Inhaled Oxygen Concentration - - Weight 77.1 kg (170 lb) 09/04/2018 9:41 AM EDT Height - - Body Mass Index 24.39 05/14/2014 3:40 PM EDT documented in this encounter Progress Notes * Melida Loza APRN - 09/04/2018 9:30 AM EDT [facility] FOLLOW UP Chief Complaint Patient presents with ??? Follow-up ??? Diabetes Orders Placed This Encounter Procedures ??? U Albumin/Cre Ratio Standing Status: Future Standing Expiration Date: 03/07/2019 ??? Comprehensive metabolic panel (non-fasting) Standing Status: Future Standing Expiration Date: 03/07/2019 ??? Vitamin D, 25-Hydroxy Standing Status: Future Standing Expiration Date: 03/07/2019 ??? POCT Fingerstick Glucose ??? POCT glycated [...] healthy eating and regular activity. Return in 3 months for review and recheck of A1c or sooner for concerns. Andrew also agrees to annual screening labs including vitamin D levels, CMP and urine microalbumin. We will follow-up with results when available and recommendations as needed. HPI:?? Andrew is here today for review of his insulin pump and a recheck of his A1C for his quarterly evaluation.?He was last seen in??April and continues to use the 670 G auto mode pump with continuous sensor.??He is changing his site every 3-4 days regularly. He is using on average 26??units of insulindaily with??58% as bolus insulin. He is using his bolus wizard??3-6??times daily on average.? With increased use of his continuous glucose sensor he is in auto mode 71% of the time. ??He has had some difficulties with sensors recently leading to less time in auto mode although his A1c is improved. Average glucose is 143 with a standard deviation of 48. His one concern has been lower blood sugars after lunch and supper resulting in the need to snack more or bolus for less carbohydrates in an effort to prevent hypoglycemia. ?? He did have left inguinal hernia repair in early July. He has had no issues with recovery. He does note a little bit of weight gain but feels that that is most likely due to decreased activity initially after his surgery. With the summer he is back to being more active hiking and working around hishouse. He is due for his annual screening labs. He reports varying compliance with his statin therap y. His prescription is renewed today to ensure more consistent usage. He does continue to take his fkkx-uxt-bzidgxu vitamin D and does have a history of vitamin D deficiency in the past. We had recommended Nexium at his last follow- up for his reflux and he reports that this is working better than the Protonix. Social History Socioeconomic History ??? Marital status: Spouse name: None ??? Number of children: None ??? Years of education: None ??? Highest education level: None Occupational History Employer: [employer] Social Needs ??? Financial resource strain: None ??? Food insecurity: Worry: None Inability: None ??? Transportation needs: Medical: None Non-medical: None Tobacco Use ??? Smoking status: Never Smoker ??? Smokeless tobacco: Never Used Substance and Sexual Activity ??? Alcohol use: Yes Alcohol/week: 6.0 oz Types: 10 Glasses of wine per week Comment: Wine with dinner ??? Drug use: No ??? Sexual activity: None Lifestyle ??? Physical activity: Days per week: None Minutes per session: None ??? Stress: None Relationships ??? Social connections: Talks on phone: None Gets together: None Attends scientologist service: None Active member of club or organization: None Attends meetings of clubs or organizations: None Relationship status: None ??? 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 Eye exam was in April 2018 with background retinopathy noted. Urine for microalbumin was??September 2017??and normal.?? Foot exam. Right Foot: Monofilament testing: intact [...] breakdown, erythema, warmth, callus or dry skin. Seasonal flu vaccine is up-to-date. ?? DIETARY REVIEW:?? Breakfast is typically a breakfast sandwich or breakfast bowl or cereal??or bread with banana. Lunch is a sandwich with chips [...] health. No fever or chills. No fatigue. Eyes:??There have been no visual changes. No eye pain. No blurring. ENT:??No difficulty swallowing. No sore throat or hoarseness. Respiratory:?No dyspnea on exertion, wheeze, cough or shortness of breath. Cardiac:??Denies any chest pain or palpitations ??No edema. Neuro:??No complaint of headaches. ??No [...] orders placed or performed in visit on 09/04/18 POCT Fingerstick Glucose Result Value Ref Range POC Glucose 145 (H) 60 - 199 mg/dl POCT glycated hemoglobin, total (HA1C) Result Value Ref Range POC HA1C 7.1 (H) 4.3 - 5.6 % Wt Readings from Last 3 Encounters: 09/04/18 77.1 kg (170 lb) 06/28/18 75.8 kg (167 lb) 04/17/18 73.9 kg (163 lb) Patient Vitals for the past 24 hrs: Pulse BP 09/04/18 0941 64 130/65 Objective: Vital signs are noted per nursing staff. Insulin pump logbook and continuous sensor reports are reviewed. Please see scanned copy for details. A1c is improved at 7.1% reflecting an average glucose of 157. 18/23 minutes of this office visit is spent [...] Comments POCT GLYCATED HEMOGLOBIN, TOTAL (HA1C) Routine 09/04/2018 10:15 AM EDT Type 1 diabetes mellitus on insulin therapy POCT FINGERSTICK GLUCOSE STAT 09/04/2018 9:57 AM EDT Type 1 diabetes mellitus on insulin therapy documented in this encounter Results * Vitamin D, 25-Hydroxy (11/04/2018 11:28 AM EDT) Vitamin D Total 25 OH 34 30 - 100 ng/mL [facility] Comment: Deficient <10 ng/mL Insufficient 10 to 29 ng/mL Sufficient 30 to 100 ng/mL Potential Intoxication >100 ng/mL According to the US National Osteoporosis Foundation, Vitamin D concentrations >30 ng/mL are sufficient to protect bone health. ??The National Kidney Foundation has similarly stated that patients with Vitamin D concentrations <30ng/mL should be considered to be insufficient or deficient. http://[employer].com/nkf-guidelines http://[employer]/nejm-VitD Blood specimen (specimen) 11/04/2018 11:28 AM EDT 11/04/2018 11:29 AM EDT Narrative Resulting Agency Comment Spec In Lab Melidaemili Loza PRINTED CIRCUIT BOARD REWORKER CHEMISTRY ORDERA BLES [facility] [address] [place] [address] * Comprehensive metabolic panel (non-fasting) (11/04/2018 11:28 AM EDT) Glucose 181 65 - 199 mg/dL [facility] Comment:Diabetes: >=200 mg/d L plus symptoms Blood Urea Nitrogen 14 10 - 20 mg/dL [facility] Creatinine 0.82 0.80 - 1.50 mg/dL [facility] Sodium 139 135 - 145 mmol/L [facility] Potassium 4.3 3.5 - 5.0 mmol/L [facility] Comment: Please note: ??Patients with WBC >100,000 may have falsely elevated Potassium levels. ??For accurate Potassium quantification in these patients send serum separator tube (gold top) for subsequent determinations. ??Contact the Clinical Chemistry Laboratory if there are any questions. Chloride 100 98 - 107 mmol/L [facility] Carbon Dioxide 29 22 - 31 mmol/L [facility] Anion Gap 10 5 - 15 mmol/L [facility] Calcium 9.1 8.5 - 10.5 mg/dL [facility] Protein, Total 7.0 6.1 - 8.0 gm/dL [facility] Albumin 4.2 3.2 - 5.2 gm/dL [facility] Aspartate Aminotransferase 21 0 - 39 unit/L [facility] Alanine Aminotransferase 20 0 - 55 unit/L [facility] Alkaline Phosphatase 71 40 - 130 unit/L [facility] Bilirubin, Total 0.4 0.2 - 1.3 mg/dL [facility] Est Glomerular Filtration Rate 97 >=60 mL/min/1. 73 m?? [facility] Comment: The eGFR was calculated using the CKD-EPI equation. As with all creatinine based estimates of kidney function, eGFR values calculated with the CKD-EPI equation are not accurate in patients with acute kidney failure, extremes of body mass or the acutely ill. http://[employer]/[facility] BEAVERnkf eGFR 112 >=60 mL/min/1. 73 m?? [facility] Comment: The eGFR was calculated using the CKD-EPI equation. As with all creatinine based estimates of kidney function, eGFR values calculated with the CKD-EPI equation are not accurate in patients with acute kidney failure, extremes of body mass or the acutely ill. http://[employer]/[facility]ER[facility] Blood specimen (specimen) 11/04/2018 11:28 AM EDT 11/04/2018 11:29 AM EDT Narrative Resulting Agency Comment Spec In Lab Melida Loza PRINTED CIRCUIT BOARD REWORKER CHEMISTRY ORDERA BLES Performing Organization Address [facility] Co de Phone Number [facility] [address] [place] [address] * U Albumin/Cre Ratio (11/04/2018 11:00 AM EDT) Albumin / Creatinin Ratio, Urine Not Calculated 0 - 29 mcg/mg Cr [facility] Albumin, Urine <3.0 mg/L [facility] Creatinine, Urine 74 mg/dL [facility] Urine specimen (specimen) 11/04/2018 11:00 AM EDT 11/04/2018 12:10 PM EDT Narrative Resulting Agency Comment Spec In Lab Melida Loza PRINTED CIRCUIT BOARD REWORKER URINE ORDERABLES Performing Organization Address [facility] Co de Phone Number [facility] [address] [place] [address] * (ABNORMAL) POCT glycated hemoglobin, total (HA1C) (09/04/2018 10:15 AM EDT) Hemoglobin A1C, POC 7.1(H) 4.3 - 5.6 % 09/04/2018 10:1 5 AM EDT Melida A Dago RAO POINT OF CARE TE ST ORDERABLES * (ABNORMAL) POCT Fingerstick Glucose (09/04/2018 9:57 AM EDT) Glucose, POC 145(H) 60 - 199 mg/dl 09/04/2018 9:57 AM EDT Melida A Dago RAO POINT OF CARE TE ST ORDERABLES documented in this encounter Visit Diagnoses Diagnosis Type 1 diabetes mellitus on insulin therapy Type I (juvenile type) diabetes mellitus without mention of complication, not stated as uncontrolled documented in this encounter Care Teams Wax Molder Relationship Specialty Start Date End Date Timothy Mo DO [address] [place], [place] [address], [place] [address] PCP - General Family Medicine 12/09/16 08/04/21 documented as of this encounter
--- OUTSIDE RECORDS SUMMARY | 2024-02-17 00:36 | XMS_ITS | Encounter Summary ---
[place] [address] Care Team Providers Care Soil Science Technical Officer Name Role Phone Timothy Mo DO Primary Care Provider Encounter Details Date Type Department Care Team (Late st Contact Info) Description 04/07/2021 Telephone Gastroenterology and Hepatology at [address] [address] Dale Molina RN Social History Tobacco Use Types Packs/Day [...] encounter Miscellaneous Notes * Telephone Encounter - Dale Molina RN - 04/07/2021 3:07 PM EST 05/07 COLO/EGD with [facility]. Per our records, Ivan is DM1 and has insulin pump. COVID test ordered. Andrew called and LM, looking for hold instructions for his diabetic meds before his COLO tomorrow. I called specialty med and was able to speak with Ricky Falk APRN. She would like him to keep his basal rate going on his insulin pump. His insulin pump has closed loop technology and will actually turn off and stop the basal rate if his sugar gets too low. Per Ricky Falk, if he does have sometime sugary like apple juice or gatorade, he should do a small corrective bolus. I called his home and spoke with his . Andrew is actually at work right now. He is currently doing clear liquid diet. He took his two DULCOLAX this morning but plans on coming home from work if he feels he needs to. I was able to relay the instructions from endocrinology to Andrew's , and she says she will call and give them to him. I did try calling his cell but he did not sampler pickup. * Telephone Encounter - Dale Molina RN - 04/07/2021 3:06 PM EST ----- Message from Shawanda Rivera sent at 04/07/2021 1:58 PM EST ----- 05/07/21 EGD/COLO [place] 1. PT IS DIABETIC. NEEDS INSULIN INSTRUCTIONS 2. COVID TEST ORDER NEEDED documented in this encounter Plan of Treatment Not on file documented as of this encounter Visit Diagnoses Diagnosis Reyna's esophagus without dysplasia Reyna's esophagus Pre-procedure lab exam Pre-procedural laboratory examination documented in this encounter Care Teams Soil Science Technical Officer Relationship Specialty Start Date End Date Timothy Mo DO [address] [place] [address] PCP - General Family Medicine 12/09/16 08/04/21 documented as of this encounter
--- OUTSIDE RECORDS SUMMARY | 2024-02-17 00:36 | XMS_ITS | Encounter Summary ---
[place] [address] Care Team Providers Care Labor Relations Worker Name Role Phone Timothy Mo DO Primary Care Provider [phone]- [phone] Encounter Details Date Type Department Care Team (Late st Contact Info) Description 04/07/2021 Notes Only Gastroenterology and Hepatology at [address] [phone] Shawanda Rivera Social History Tobacco Use Types Packs/Day Years [...] as of this encounter Progress Notes * Shawanda Rivera - 04/07/2021 1:45 PM EST GI SLIDE MAKER'S NOTE Shawanda Rivera 04/07/21 Patient's name: Ivan Luna Procedure: COLO / EGD Reason: SCREEN / BARRETTS F/U Provider: SHERIF Date: 05/07/21 Arrival: 12:15 PM Time of procedure: 1:15 PM Sedation Method: MAC Prep: Instructions for DULC AND MIRALAX SPLIT DOSE delivered via MAIL, 04/07/21 Nurse: Message sent to nurse re: PT IS DIABETIC. NEEDS INSULIN INSTRUCTIONS, COVID TEST ORDER VIA FOLLOWUP, 04/07/21 Message to MD: SEEN BY ADDISON [facility] [employer] order: In Basket order: Verbal order: Complete recall: Assign Referral: Pacemaker form to [employer] GUID[employer] COUNSELOR: BRIAN Dejan folder: Copied to [facility] chart: 04/07/21 Comments: 04/25/21: COVID test cxld by Dept. No longer needed. Pt aware /casandra COVID TEST 05/05/21 @ 8:00 AM documented in this encounter Plan of Treatment Not on file documented as of this encounter Visit Diagnoses Not on filedocumented in this encounter Care Teams Labor Relations Worker Relationship Specialty Start Date End Date Timothy Mo DO [address] [place] [address] PCP - General Family Medicine 12/09/16 08/04/21 documented as of this encounter
--- OUTSIDE RECORDS SUMMARY | 2024-02-17 00:36 | XMS_ITS | Encounter Summary ---
[place] [address] Care Team Providers Care Graduate Advisor Name Role Phone Timothy Mo DO Primary Care Provider Encounter Details Date Type Department Care Team (Late st Contact Info) Description 12/02/2020 Orders Only Public Health at [address] [phone] Ute Haley, [facility] *Screening for COVID-19 virus (Primary Dx) Social History Tobacco Use Types Packs/Day Years [...] documented as of this encounter Results * COVID-19 PCR (12/08/2020 12:30 PM EDT) SARS-CoV-2 RNA (Rapid) Not Detected Not Detected [facility] Comment: This result should be interpreted in combination with the clinical observations, patient history and epidemiological information. Testing for SARS-CoV-2 (Severe acute respiratory syndrome coronavirus 2, formerly known as 2019 novel coronavirus or 2019-nCoV) to aid in the diagnosis of COVID-19 is performed using the [employer] Sars CoV-2 reagents for the BD MAX as authorized by the FDA issued Emergency Use Authorization (EUA). This BD Room 77GX Sars CoV-2 EUA assay is intended for In-vitro Diagnostic (IVD) use with respiratory specimens such as nasopharyngeal swabs collected from individuals meeting the CDC criteria for testing. The BD MAX EUA assay is performed based on the instructions for use provided by Haily Pinellas. Testing is performed in the Microbiology Laboratory at [facility], certified under the Clinical Laboratory Improvement [...] Recollection or referral of testing to the [facility] or [facility] may be considered for [...] fact sheets at the following FDA website: https://www.fda.gov/medical-devices/yekyibqdiis-omjyynw-5902-ddngd-00-bvfnpywsj- use-a sndttizjbjfjg-ssyrzbt-qtjetvp/zuymr-gkgfheklgrx-bdza SARS-CoV-2 Source VICE PRESIDENT OF PROCUREMENT Swab [facility] Nasopharyngeal Swab 11/01/20 21 12:30 PM EDT 12/08/2020 1:14 PM EDT Comment:Specimen Source->Talha opharyngeal Swab Narrative Resulting Agency Comment Spec In Lab Piotr Lowe MD MICROBIOLOGY - G ENERAL ORDERABLES [facility] [address] [place] [address] documented in this encounter Visit Diagnoses Diagnosis Encounter for screening laboratory testing for COVID-19 virus- Primary documented in this encounter Care Teams Graduate Advisor Relationship Specialty Start Date End Date Timothy Mo DO [address] [place] [address] PCP - General Family Medicine 12/09/16 08/04/21 documented as of this encounter
--- OUTSIDE RECORDS SUMMARY | 2024-02-17 00:36 | XMS_ITS | Encounter Summary ---
[place] [address] Care Team Providers Care Business Control Manager Name Role Phone Timothy Mo DO Primary Care Provider [phone]- [phone] Encounter Details Date Type Department Care Team ([facility] Contact Info) Description 03/20/2020 Orders [place] [address] Covid, Eligible Social History Tobacco Use Types Packs/Day Years [...] on filedocumented in this encounter Care Teams Business Control Manager Relationship Specialty Start Date End Date Timothy Mo DO [address] [place] [address] [place] [address] PCP - General Family Medicine 12/09/16 08/04/21 documented as of this encounter
--- OUTSIDE RECORDS SUMMARY | 2024-02-17 00:36 | XMS_ITS | Encounter Summary ---
[place] [address] Care Team Providers Care Passementerie Worker Name Role Phone None Primary Care Provider Unavailabl e Reason for Visit * Reason Onset Date Comments Medication Refill 02/04/2020 Encounter Details Date Type Department Care Team ([facility] st Contact Info) Description 02/04/2020 Refill Gastroenterology and Hepatology at [address] [phone] Barbara Sneed, STAFF TRAINER [address] [place] [address] [place] [address] Reyna's esophagus without dysplasia Social History Tobacco [...] esophagus documented in this encounter Care Teams Passementerie Worker Relationship Specialty Start Date End Date None None PCP - General 10/25/23 documented as of this encounter
--- OUTSIDE RECORDS SUMMARY | 2024-02-17 00:36 | XMS_ITS | Encounter Summary ---
Author Organization [facility] [place] [address] Care Team Providers Care Spooler Operator Automatic Name Role Phone Timothy Mo DO Primary Care Provider [phone]- [phone] Reason for Visit * Auth/Cert Specialty Diagnoses / Procedures Referred By Contac t Referred To Contact Diagnoses Difficulty swallowing GERD (gastroesophageal reflux disease) difficulty swallowing, GERD, Procedures PRO UPPER GI ENDOSCOPY, DIAGNOSTIC PRO ANESTH, UGI ENDOSCOPY NOS EGD, UPPER GI ENDOSCOPY Referral ID Status Reason Start Date Expiration Date Visits Re quested Visits Authorized [id number] 1 1 Encounter Details Date Type Department Care Team ([facility] st Contact Info) Description 11/16/2019 8:15 AM EDT - 11/16/2019 9:00 AM EDT Surgery Endoscopy at [address] [phone] Greg Salcido MD [address] [place] [address] [place] [address] EGD, UPPER GI ENDOSCOPY (WRVU 2.09) Social History Tobacco Use Types Packs/Day Years [...] Sign Reading Time Taken Comments Blood Pressure 101/65 11/16/2019 9:00 AM EDT Pulse 54 11/16/2019 9:00 AM EDT Temperature 36.6 ??C (97.8 ??F) 11/16/2019 7:54 AM ED T Respiratory Rate 11 11/16/2019 9:00 AM EDT Oxygen Saturation 100% 11/16/2019 9:00 AM EDT Inhaled Oxygen Concentration - - [...] Temp Pulse Resp BP SpO2 O2 Device 11/16/19 0754 36.6 ??C (97.8 ??F) 64 22 [...] 25 AM EDT Upper GI Endoscopy, Diagnostic ([address]) 11/16/2019 8:23 AM EDT Gastroesophageal reflux disease, unspecified whether esophagitis present Dysphagia, unspecified type POCT GLUCOSE Routine 11/16/2019 8:02 AM EDT documented in this encounter Results * Surgical Pathology Report (11/16/2019 8:42 AM EDT) Final Diagnosis [id number] ? [facility]; [facility]; A The signing pathologist has (i) examined the relevant preparation(s) for the specimen(s) and (ii) rendered or confirmed the diagnosis(es). . ?Surgical Pathology DIAGNOSIS DISTAL ESOPHAGUS, BIOPSY: SQUAMOUS MUCOSA WITH MILD REFLUX ESOPHAGITIS. NEGATIVE FOR INCREASED INTRAEPITHELIAL EOSINOPHILS. COLUMNAR MUCOSA WITH MODERATE CHRONIC INFLAMMATION. FOCALLY POSITIVE FOR ALVARADO'S ESOPHAGUS. NEGATIVE FOR DYSPLASIA. Electronically signed by: ??Tara Roasrio MD Verified: ??11/19/2019 ?Pathologist Performed at: ??[facility] Dept of Pathology, [address] [place] [address] SPECIMEN(S) SUBMITTED A - Distal esophagus, biopsy (Multiple) CLINICAL INFORMATION EGD, GERD A - Irregular z line SPECIMEN PROCESSING Received in formalin labeled with the patient's name and distal esophagus are 2 palma soft tissues, 0.2 and 0.4 cm. Submitted in toto in a single cassette. ??AL 11/19/2019 9:24 AM EDT [facility] GI Biopsy 11/16/2019 8:42 AM EDT 11/16/2019 8:42 AM EDT Greg Salcido MD PATHOLOGY/CYTOLOGY ORDERABLES [facility] [place] [address] [facility] [address] [place] [id number] * Specimen to Pathology (11/16/2019 8:42 AM EDT) AP Specimen 11/16/2019 8:42 AM EDT 11/16/2019 8:42 AM EDT Narrative [facility] - 11/16/2019 8:42 AM EDT Specimen requisition ordered. ??Separate Pathology report to follow Greg Salcido MD PATHOLOGY/CYTOLOGY ORDERABLES Performing Organization Address City/[facility]/ZIP Co de Phone Number [facility] [place] [address] * Patient Instructions (11/16/2019 8:25 AM EDT) GI Provation Patient Instruction ENDOSCOPY UNIT Discharge Instructions Patient Name: ?Ivan Luna Date of : ?1960 Attending Physician:Janna Salcido MD Date of Procedure: ?? Saturday, November 16, 2019 Today's Procedure: Upper GI [...] procedure please call Greg Salcido MD at #[phone] After 5pm Tuesday-Tuesday and on weekends or holidays please call [phone] and the hospital timing machine operator can page the contracts paralegal ?gastroenterolo gist to return your call. Greg [...] Date of : 1960 ? Order #: [id number] Age: 59 ?Instrument Name: [id number] Procedure: ? Upper GI endoscopy Indications: ? Esophageal reflux Providers: ? Greg Salcido MD, Marie ? RENALDO Garnett, Wendy Reynaga Referring : ?Melida Loza Requesting Provider: Barbara Sneed Medicines: [...] Procedure Code(s): ?? --- Professional --- ? 16850, Esophagogastroduo denoscopy, ? flexible, transoral; with biopsy, ? single or multiple ? 55553, 59, Moderate sedation services ? provided by [...] ? disease without esophagitis CPT copyright 2019 [employer]. All rights reserved. The codes documented in this report are preliminary and upon clinical manager home care review may be revised to meet current compliance requirements. Greg Salcido MD ____ Greg Salcido MD 11/16/2019 8:44:10 AM This report has been signed electronically. Number of Addenda: 0 PROVATION 11/16/2019 8:25 AM EDT Greg Salcido MD GENERAL SURGICAL OR DERABLES Performing Organization Address City/[facility] Co de Phone Number PROVATION * POCT Glucose (11/16/2019 8:02 AM EDT) Glucose, POC 197 65 - 199 mg/dL [facility] Blood specimen (specimen) 11/16/2019 8:02 AM EDT 11/16/2019 8:02 AM EDT Greg Salcido MD POINT OF CARE TEST ORDERABLES Performing Organization Address [facility] de Phone Number [facility] [address] [phone] documented in this encounter Visit Diagnoses Diagnosis Dysphagia Dysphagia, unspecified Gastroesophageal reflux disease Esophageal reflux Gastroesophageal reflux disease, unspecified whether esophagitis present Dysphagia, unspecified type documented in this encounter Admitting Diagnoses Diagnosis Dysphagia Dysphagia, unspecified documented in this encounter Administered Medications Inactive Administered Medications - up to 3 most recent administrations Medication Order MAR Action Action Date Dose Rate Site benzocaine (Americaine) 20 % topical aerosol ONCE PRN, Starting on Tue11/16/19 at 0825, Until Tue11/16/19 at 1245, Intra-Operative (Intra-Procedure) Given 11/16/2019 8:25 AM EDT 1 spray 20-Other (document in comment section) fentaNYL (PF) 50 mcg/mL injection ONCE PRN, Starting on Tue11/16/19 at 0830, Until Tue11/16/19 at 1245, Intra-Operative (Intra-Procedure), Routine Given 11/16/2019 8:32 AM EDT 50 mcg Given 11/16/2019 8:30 AM EDT 50 mcg lactated ringers infusion 500 mL, at 50 mL/hr, Intravenous, CONTINUOUS, Starting on Tue11/16/19 at 0800, Until Tue11/16/19 at 1045, Day of Surgery (Day of Procedure) New Bag 11/16/2019 8:00 AM EDT 500 mLs 50 mL/hr midazolam (PF) (VERSED) injection ONCE PRN, Starting on Tue11/16/19 at 0830, Until Tue11/16/19 at 1245, Intra-Operative (Intra-Procedure), Routine Given 11/16/2019 8:34 AM EDT 2 mg Given 11/16/2019 8:32 AM EDT 2 mg Given 11/16/2019 8:30 AM EDT 2 mg documented in this encounter Active and Recently [...] Garnett RN)[phone] (Given - Provider: Marie Garnett, RENALDO) documented in this encounter Care Teams Spooler Operator Automatic Relationship Specialty Start Date End Date Timothy Mo DO [address] [place] [address] PCP - General Family Medicine 12/09/16 08/04/21 documented as of this encounter
--- OUTSIDE RECORDS SUMMARY | 2024-02-17 00:36 | XMS_ITS | Encounter Summary ---
[place] [address] Care Team Providers Care Cornice Upholsterer Name Role Phone Timothy Mo DO Primary Care Provider [phone]- [phone] Encounter Details Date Type Department Care Team ([facility] Contact Info) Description 10/05/2018 Orders Only Endocrinology at [address] [phone] Neeta Nath LPN Social History Tobacco Use Types Packs/Day Years [...] on filedocumented in this encounter Care Teams Cornice Upholsterer Relationship Specialty Start Date End Date Timothy Mo DO [address] [place] [address] PCP - General Family Medicine 12/09/16 08/04/21 documented as of this encounter
--- OUTSIDE RECORDS SUMMARY | 2024-02-17 00:36 | XMS_ITS | Encounter Summary ---
Author Organization [facility] [place] [address] Care Team Providers Care Wire Bender Name Role Phone Timothy Mo DO Primary Care Provider [phone]- [phone] Encounter Details Date Type Department Care Team ([facility] Contact Info) Description 05/15/2020 Orders Only Endocrinology at [address] [phone] Annalisa Sanders, RN Type 1 diabetes mellitus [...] uncontrolled documented in this encounter Care Teams Wire Bender Relationship Specialty Start Date End Date Timothy Mo DO [address] [place] [address] [phone] PCP - General Family Medicine 12/09/16 08/04/21 documented as of this encounter
--- OUTSIDE RECORDS SUMMARY | 2024-02-17 00:36 | XMS_ITS | Encounter Summary ---
[place] [address] Care Team Providers Care Coffee Taster Name Role Phone Timothy Mo DO Primary Care Provider [phone]- [phone] Encounter Details Date Type Department Care Team (Late st Contact Info) Description 05/12/2020 Telephone Endocrinology at [address] [phone] Annalisa Sanders RN Social History Tobacco Use Types Packs/Day [...] encounter Miscellaneous Notes * Telephone Encounter - Annalisa Sanders RN - 05/16/2020 3:50 PM EDT Sent Strips * Telephone Encounter - Annalisa Sanders RN - 05/12/2020 10:40 AM EDT ----- Message from Melida Loza APRN sent at 05/09/2020 9:34 AM EDT ----- Regarding: Myron Morales needs a RX to [facility] for strips to his new Accucheck meter that goes with the Medtronic 770 pump. I was not sure which strip that was. Please send for testing 6 times a day. 90 day with 3 refills Thanks documented in this encounter Plan of Treatment Not on file documented as of this encounter Visit Diagnoses Not on filedocumented in this encounter Care Teams Coffee Taster Relationship Specialty Start Date End Date Timothy Mo DO [address] [place] [address] PCP - General Family Medicine 12/09/16 08/04/21 documented as of this encounter
--- OUTSIDE RECORDS SUMMARY | 2024-02-17 00:36 | XMS_ITS | Encounter Summary ---
[place] [address] Care Team Providers Care Cyber Systems Administrator Name Role Phone Timothy Mo DO Primary Care Provider [phone] Encounter Details Date Type Department Care Team ([facility] st Contact Info) Description 11/13/2019 Orders Only Gastroenterology and Hepatology at [address] [phone] Greg Salcido MD [address] [place] [address] GASTROENTEROLOGY [place], [place] [phone] Gastroesophageal reflux disease, unspecified whether esophagitis present; [...] of this encounter Results * COVID-19 PCR (11/13/2019 3:45 PM EDT) SARS-CoV-[address] Not Detected [facility] Comment: This result should be [...] on the instructions for use provided by [employer] and additional guidance provided by CDC and FDA. Testing is performed in the Clinical Genomics and Advanced Technology Laboratory within the Department of Pathology and Laboratory Medicine at [facility], certified under the Clinical Laboratory Improvement [...] fact sheets at the following FDA website: https://www.fda.gov/medical-devices/mbgjcdhzbli-vmpzzlg-2627-epata-33-dyohwmehn- use-a brodeugdfmlvx-lluzrnw-mbhnmet/lqqqk-dkscgwmmjhq-yzvb SARS-CoV-2 RNA Source RADIO ARTIST Swab [facility] Nasopharyngeal swab (specimen) 11/13/2019 3:45 PM EDT 11/14/2019 7:12 PM EDT Comment:Symptoms->Asymptomat ic Narrative Resulting Agency Comment Spec In Lab Greg Salcido MD MOLECULAR ORDERABLE S [facility] [place] [address] documented in this encounter Visit Diagnoses Diagnosis Gastroesophageal reflux disease, unspecified whether esophagitis present Dysphagia, unspecified type Pre-op testing Preoperative examination, unspecified documented in this encounter Care Teams Cyber Systems Administrator Relationship Specialty Start Date End Date Timothy Mo DO [address] [place] [phone] PCP - General Family Medicine 12/09/16 08/04/21 documented as of this encounter
--- OUTSIDE RECORDS SUMMARY | 2024-02-17 00:36 | XMS_ITS | Encounter Summary ---
[place] [address] Care Team Providers Care Pump Installer Name Role Phone Timothy Mo DO Primary Care Provider [phone]- [phone] Reason for Visit * Reason Comments Follow-up Diabetes Encounter Details Date Type Department Care Team (Latest Contact Info) Description 09/29/2020 3:30 PM EDT Office Visit Endocrinology at [address] [phone] Melida Loza APRN Type 1 diabetes mellitus on insulin therapy; Diabetic retinopathy, nonproliferative Social History Tobacco Use [...] Sign Reading Time Taken Comments Blood Pressure 116/74 09/29/2020 3:58 PM EDT Pulse 56 09/29/2020 3:58 PM EDT Temperature - - Respiratory Rate - - Oxygen Saturation - - Inhaled Oxygen Concentration - - Weight 79.4 kg (175 lb) 09/29/2020 3:58 PM EDT Height - - Body Mass Index 25.11 01/07/2020 3:24 PM EST documented in this encounter Progress Notes * Melida Loza APRN - 09/29/2020 3:30 PM EDT [facility] FOLLOW UP Chief Complaint Patient presents with ??? Follow-up ??? Diabetes Orders Placed This Encounter Procedures ??? POCT Fingerstick Glucose ??? POCT glycated hemoglobin, total (HA1C) ASSESSMENT/PLAN: Diabetes type 1 for insulin pump management. Your A1c is??stable.?There is some postprandial spikes in the afternoon and evening. More aggressive I:C ratio from 11 AM-midnight. ??Continue to focus on accurate bolus patterns. Continue use of CGM for improved focus on glucose patterns and trending as well as auto mode control. Continue with healthy eating and regular activity. Return in??4??months with my replacement for review and recheck of A1c or sooner for concerns. Due for annual screening labs at next follow up. TSH, CMP, urine microalbumin and Vit D 25 OH. ?? HPI:?? Andrew is here today for review of his insulin pump and a recheck of his A1C for his quarterly evaluation.?He was last seen in??April 2020 and??is now using the??Medtronic 770 G auto mode pump with continuous sensor.??He is changing his site every 3-4 days regularly. He is using on average??25.3??units of insulin daily with 47% as bolus insulin. He is using his bolus wizard??3-6??times daily on average.??With increased use of??his continuous glucose sensor he is in auto mode 88% of the time. ??Average glucose is 151??51.?? Last year we did give him a less aggressive insulin to carb ratio forlunch and supper as there was concern for lower blood sugars after those meals. No it seems he is having higher glucose patterns after those meals. This may also be related to some increase in snacksbetween meals. ??Recent glucoses are in target range 74% of the time. There is some mild hypoglycemia 2% of the time and hyperglycemia 24%. Social History Socioeconomic History ??? Marital status: Spouse name: Not on file ??? Number of children: Not on file ??? Years of education: Not on file ??? Highest education level: Not on file Occupational History Employer: [employer] Tobacco Use ??? 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 Difficulty of Paying Living Expenses: Not on file Food Insecurity: ??? Worried About Running Out of Food in the Last Year: Not on file ??? Ran Out of Food in the Last Year: Not on file Transportation Needs: ??? Lack of Transportation (Medical): Not on file ??? Lack of Transportation (Non-Medical): Not on file Physical Activity: ??? Days of Exercise per Week: Not on file ??? Minutes of Exercise per Session: Not on file DIABETES HEALTH MAINTENANCE:?? Eye exam was in??April 2018??with background retinopathy noted. Exam scheduled next week. Urine for microalbumin was? Lab Results Component Value Date ?? MICROALBUR <3.0 12/24/2019 ? Lab Results Component Value Date ?? NA 140 12/24/2019 ?? K 4.3 12/24/2019 ?? CL 103 12/24/2019 ?? CO2 29 12/24/2019 ?? BUN 16 12/24/2019 ?? CREATININE 1.01 12/24/2019 ?? GLUCOSE 135 12/24/2019 ?? GLUCFASTING 229 (ExtH) 09/13/2016 ?? CALCIUM 9.0 12/24/2019 ?? ESTGFR 80 12/24/2019 Lipid Panel Lab Results Component Value Date CHLPL 182 12/24/2019 HDL 83 12/24/2019 CHOLHDL 2.2 12/24/2019 TRIG 42 12/24/2019 LDLCHOL 91 12/24/2019 ?? Foot exam.?? Right Foot:?? Monofilament testing: intact [...] or chills. No fatigue.??No flu or viral symptoms.??Had COVID vaccines. Eyes:??There have been no visual changes. No [...] is better on Nexium.??Saw GI and had scope.??Needs follow up on Barretts. :??Denies urinary symptoms or erectile dysfunction. Uses Levitra as needed. Muscle/bone:??Can have myalgias on and off. Better.??Taking Vitamin d OTC. ??Denies weakness or tremor. ?? Psych:??Mood is good without depression or anxiety. Sleep:??No problems falling or staying asleep. Can be off and on.?? Results for orders placed or performed in visit on 09/29/20 POCT Fingerstick Glucose Result Value Ref Range POC Glucose 158 60 - 199 mg/dl POCT glycated hemoglobin, total (HA1C) Result Value Ref Range POC HA1C 7.3 (A) 4.3 - 5.6 % Last 3 Hemoglobin A1Cs Lab Results Component Value Date HA1C 7.3 (A) 09/29/2020 HA1C 7.4 (A) 05/06/2020 HA1C 7.5 (A) 01/07/2020 Wt Readings from Last 3 Encounters: 09/29/20 79.4 kg (175 lb) 05/06/20 79.6 kg (175 lb 8 oz) 01/07/20 78.5 kg (173 lb) Patient Vitals for the past 24 hrs: Pulse BP 09/29/20 1558 56 116/74 Objective: Vital signs are noted per nursing staff. Insulin pump log book is reviewed. See scanned copy for details. A1c is 7.3% reflecting an average glucose of 163. This office visit is spent in counseling [...] Comments POCT GLYCATED HEMOGLOBIN, TOTAL (HA1C) Routine 09/29/2020 4:01 PM EDT Type 1 diabetes mellitus on insulin therapy POCT FINGERSTICK GLUCOSE STAT 09/29/2020 4:00 PM EDT Type 1 diabetes mellitus on insulin therapy documented in this encounter Results * (ABNORMAL) POCT glycated hemoglobin, total (HA1C) (09/29/2020 4:01 PM EDT) Hemoglobin A1C, POC 7.3(A) 4.3 - 5.6 % 09/29/2020 4:01 PM EDT Melida Loza APRN POINT OF CARE TE ST ORDERABLES * (ABNORMAL) POCT Fingerstick Glucose (09/29/2020 4:00 PM EDT) Glucose, POC 158 60 - 199 mg/dl 09/29/2020 4:00 PM EDT Melida Loza APRN POINT OF CARE TE ST ORDERABLES documented in this encounter Visit Diagnoses Diagnosis Type 1 diabetes mellitus on insulin therapy Type I (juvenile type) diabetes mellitus without mention of complication, not stated as uncontrolled Diabetic retinopathy, nonproliferative Type II or unspecified type diabetes mellitus with ophthalmic manifestations, not stated as uncontrolled documented in this encounter Care Teams Pump Installer Relationship Specialty Start Date End Date Timothy Mo DO [address] [place], [place] [address], [place] [address] PCP - General Family Medicine 12/09/16 08/04/21 documented as of this encounter
--- OUTSIDE RECORDS SUMMARY | 2024-02-17 00:36 | XMS_ITS | Encounter Summary ---
[place] [address] Care Team Providers Care Woods Superintendent Name Role Phone Timothy Mo DO Primary Care Provider Encounter Details Date Type Department Care Team ([facility] Contact Info) Description 11/01/2018 Orders Only Endocrinology at [address] [phone] Katelynn Perdomo LPN Type 1 diabetes mellitus [...] uncontrolled documented in this encounter Care Teams Woods Superintendent Relationship Specialty Start Date End Date Timothy Mo DO [address] [place] [phone] PCP - General Family Medicine 12/09/16 08/04/21 documented as of this encounter
--- OUTSIDE RECORDS SUMMARY | 2024-02-17 00:36 | XMS_ITS | Encounter Summary ---
[place] [address] Care Team Providers Care Tool Setter Name Role Phone Timothy Mo DO Primary Care Provider [phone]- [phone] Reason for Visit * Reason Comments Diabetic Eye Exam Encounter Details Date Type Department Care Team (Late st Contact Info) Description 10/08/2020 3:00 PM EDT Office Visit Ophthalmology at [address] [phone] Jamal Saxena MD Type 1 diabetes mellitus on insulin therapy; Amblyopia, left eye; Hyperopia with presbyopia of both eyes Social History Tobacco Use Types Packs/Day Years [...] as of this encounter Progress Notes * Jamal Saxena MD - 10/08/2020 3:00 PM EDT ASSESSMENT/PLAN: 1. Type 1 diabetes mellitus on insulin therapy Without eye involvement. Continue yearly dilated eye exams and good sugar control. 2. Amblyopia, left eye 3. Hyperopia with presbyopia of both eyes Updated RX given. Patient understands all findings and I answered all questions. documented in this encounter Plan of Treatment Not on file documented as of this encounter Visit Diagnoses Diagnosis Type 1 diabetes mellitus on insulin therapy Type I (juvenile type) diabetes mellitus without mention of complication, not stated as uncontrolled Amblyopia, left eye Amblyopia, unspecified Hyperopia with presbyopia of both eyes documented in this encounter Care Teams Tool Setter Relationship Specialty Start Date End Date Timothy Mo DO [address] [place] [id number] PCP - General Family Medicine 12/09/16 08/04/21 documented as of this encounter
--- OUTSIDE RECORDS SUMMARY | 2024-02-17 00:36 | XMS_ITS | Encounter Summary ---
Author Organization [facility] [place] [address] Care Team Providers Care Multi Disciplined Language Analyst Name Role Phone Timothy Mo DO Primary Care Provider [phone]- [phone] Encounter Details Date Type Department Care Team ([facility] Contact Info) Description 11/13/2019 Telephone Gastroenterology and Hepatology at [address] [phone] Loyda Menard RN Social History Tobacco Use Types Packs/Day [...] encounter Miscellaneous Notes * Telephone Encounter - Loyda Aldana RN - 11/13/2019 10:52 AM EDT Pt understands that there will be no changes to his insulin pump prior to procedure. documented in this encounter Plan of Treatment Not on file documented as of this encounter Visit Diagnoses Not on filedocumented in this encounter Care Teams Multi Disciplined Language Analyst Relationship Specialty Start Date End Date Timothy Mo DO [address] [place] [phone] PCP - General Family Medicine 11/2/17 6/28/22 documented as of this encounter
--- OUTSIDE RECORDS SUMMARY | 2024-02-17 00:36 | XMS_ITS | Encounter Summary ---
[place] [address] Care Team Providers Care Clinical Allergist Name Role Phone Timothy Mo DO Primary Care Provider Encounter Details Date Type Department Care Team (Latest Contact Info) Description 12/24/2019 7:30 AM EST Laboratory Appointment Lab at [address] [phone] Type 1 diabetes mellitus on insulin therapy [...] Name Priority Date/Time Associated Diagnosis Comments HC VITAMIN D TOTAL-25 HYDROXY Routine 12/24/2019 7:33 AM EST Type 1 diabetes mellitus on insulin therapy LIPID PANEL (REFLEX DIRECT LDL) Routine 12/24/2019 7:33 AM EST Type 1 diabetes mellitus on insulin therapy COMPREHENSIVE METABOLIC PANEL Routine 12/24/2019 7:33 AM EST Type 1 diabetes mellitus on insulin therapy HC CREATININE - NON BLOOD Routine 12/24/2019 7:30 AM EST Type 1 diabetes mellitus on insulin therapy documented in this encounter Results * Comprehensive metabolic panel (non-fasting) (12/24/2019 7:33 AM EST) Glucose 135 65 - 199 mg/dL [facility] Comment:Diabetes: >=200 mg/d L plus symptoms Blood Urea Nitrogen 16 10 - 20 mg/dL [facility] Creatinine 1.01 0.80 - 1.50 mg/dL [facility] Sodium 140 135 - 145 mmol/L [facility] Potassium 4.3 3.5 - 5.0 mmol/L [facility] Comment: Please note: ??Patients with WBC >100,000 may have falsely elevated Potassium levels. ??For accurate Potassium quantification in these patients send serum separator tube (gold top) for subsequent determinations. ??Contact the Clinical Chemistry Laboratory if there are any questions. Chloride 103 98 - 107 mmol/L [facility] Carbon Dioxide 29 22 - 31 mmol/L [facility] Anion Gap 8 5 - 15 mmol/L [facility] Calcium 9.0 8.5 - 10.5 mg/dL [facility] Protein, Total 6.6 6.1 - 8.0 gm/dL [facility] Albumin 4.1 3.2 - 5.2 gm/dL [facility] Aspartate Aminotransferase 23 0 - 39 unit/L [facility] Alanine Aminotransferase 15 0 - 55 unit/L [facility] Alkaline Phosphatase 68 40 - 130 unit/L [facility] Bilirubin, Total 0.7 0.2 - 1.3 mg/dL [facility] Est Glomerular Filtration Rate 80 >=60 mL/min/1. 73 m?? [facility] Comment: The eGFR was calculated using the CKD-EPI equation. As with all creatinine based estimates of kidney function, eGFR values calculated with the CKD-EPI equation are not accurate in patients with acute kidney failure, extremes of body mass or the acutely ill. http://Digital Path/DHnkf eGFR 93 >=60 mL/min/1. 73 m?? [facility] Comment: The eGFR was calculated using the CKD-EPI equation. As with all creatinine based estimates of kidney function, eGFR values calculated with the CKD-EPI equation are not accurate in patients with acute kidney failure, extremes of body mass or the acutely ill. http://Digital Path/DHMCnkf Blood specimen (specimen) 12/24/2019 7:33 AM EST 12/24/2019 7:33 AM EST Narrative Resulting Agency Comment Spec In Lab Melida Loza FIRER DIESEL LOCOMOTIVE CHEMISTRY ORDERA BLES [facility] [address] [place], [place] [id number] * Lipid Panel (Reflex Direct LDL) (12/24/2019 7:33 AM EST) Cholesterol, Total 182 mg/dL [facility] Comment: Lower Risk: <200 mg/dL Average Risk: 200-239 mg/dL Higher Risk: >vi=247 mg/dL Triglyceride 42 mg/dL [facility] Comment: Average Risk/Lower Risk: <150 mg/dL Borderline High Risk: 150-199 mg/dL High Risk: 200-499 mg/dL Very High Risk: >wd=194 mg/dL HDL Cholesterol 83 mg/dL [facility] Comment: Males: ?? Higher Risk: <40 mg/dL Females: ?? HIgher Risk: <50 mg/dL LDL Cholesterol 91 mg/dL [facility] Comment: Lowest Risk: <100 mg/dL Lower Risk: 100-129 mg/dL Borderline High Risk: 130-159 mg/dL High Risk: 160-189 mg/dL Very High Risk: >wl=903 mg/dL Cholesterol/HDL Ratio 2.2 ratio [facility] Lipid Interpretation See Note [facility] Comment: Lipid management should be guided by a patient? s ASCVD risk, goals and preferences. ACC/AHA Guidelines recommend high intensity statin if clinical ASCVD or LDL greater than or equal to 190 mg/dL. http://ColorChipurl.com/TDO-JJM-Vfthzrzlm Adults aged 40-75 with LDL 70-189 mg/dL should have their 10 year ASCVD risk estimated with the ACC/AHA ASCVD risk insulation estimator http://tools.acc.org/FKUEK-Pxjn-Syncozhfi/ Statin should be discussed if risk greater [...] Resulting Agency Comment Spec In Lab Melida Rose Dago FIRER DIESEL LOCOMOTIVE CHEMISTRY ORDERA BLES Performing Organization Address [facility] de Phone Number [facility] [address] [place] [address] * Vitamin D, 25-Hydroxy (12/24/2019 7:33 AM EST) Vitamin D Total 25 OH 29 21 - 100 ng/mL [facility] Vit D Interp Insufficient [facility] Blood specimen (specimen) 12/24/2019 7:33 AM EST 12/24/2019 7:33 AM EST Narrative Resulting Agency Comment Spec In Lab Melida Rose Dago FIRER DIESEL LOCOMOTIVE CHEMISTRY ORDERA BLES Performing Organization Address [facility] de Phone Number [facility] [address] [place] [address] * U Albumin/Cre Ratio (12/24/2019 7:30 AM EST) Albumin / Creatinin Ratio, Urine <2 0 - 29 mcg/mg Cr [facility] Albumin, Urine <3.0 mg/L [facility] Creatinine, Urine 160 mg/dL [facility] Urine specimen (specimen) 12/24/2019 7:30 AM EST 12/24/2019 8:12 AM EST Narrative Resulting Agency Comment Spec In Lab Melida Rose Dago FIRER DIESEL LOCOMOTIVE URINE ORDERABLES Performing Organization Address [facility] Co de Phone Number [facility] [address] [place] [address] documented in this encounter Visit Diagnoses Diagnosis Type 1 diabetes mellitus on insulin therapy Type I (juvenile type) diabetes mellitus without mention of complication, not stated as uncontrolled documented in this encounter Care Teams Clinical Allergist Relationship Specialty Start Date End Date Timothy Mo DO [address] [place] [address] PCP - General Family Medicine 12/09/16 08/04/21 documented as of this encounter
--- OUTSIDE RECORDS SUMMARY | 2024-02-17 00:36 | XMS_ITS | Encounter Summary ---
[place] [address] Care Team Providers Care Speeder Worker Name Role Phone Unknown Primary Care Provider Unavailabl e Reason for Visit * Reason Comments Medication Refill Encounter Details Date Type Department Care Team (Late st Contact Info) Description 09/24/2019 Refill Endocrinology at [address] [phone] Melida Loza APRN Social History [...] on filedocumented in this encounter Care Teams Speeder Worker Relationship Specialty Start Date End Date Unknown None PCP - General 08/05/21 10/05/22 documented as of this encounter
--- OUTSIDE RECORDS SUMMARY | 2024-02-17 00:36 | XMS_ITS | Encounter Summary ---
[place] [address] Care Team Providers Care Signal Operator Name Role Phone Timothy Mo DO Primary Care Provider Encounter Details Date Type Department Care Team ([facility] st Contact Info) Description 04/08/2021 Orders Only Endocrinology at [address] [phone] Darleen Falk, PRODUCTION ZONE LEADER [address] [facility] [place] [address] Type 1 diabetes mellitus on insulin therapy (Primary Dx) Social History Tobacco Use Types [...] Not Calculated 0 - 29 mcg/mg Cr [facility] Albumin, Urine <3.0 mg/L [facility] Comment:Unable to calculate ratio due to microalbumin being below linearity. Creatinine, Urine 153 mg/dL [facility] Urine 05/14/2021 8:30 AM EDT 05/14/2021 8:54 AM EDT Narrative Resulting Agency Comment Spec In Lab Darleen Falk PRODUCTION ZONE LEADER URINE ORDERABL ES [facility] [address] [place] [address] * Lipid Panel (Reflex Direct LDL) (05/14/2021 7:31 AM EDT) Cholesterol, Total 158 mg/dL C [facility] Comment: Lower Risk: <200 mg/dL Average Risk: 200-239 mg/dL Higher Risk: >bl=510 mg/dL Triglyceride 33 mg/dL [facility] Comment: Average Risk/Lower Risk: <150 mg/dL Borderline High Risk: 150-199 mg/dL High Risk: 200-499 mg/dL Very High Risk: >or=959 mg/dL HDL Cholesterol 77 mg/dL [facility] Comment: Males: ?? Higher Risk: <40 mg/dL Females: ?? Higher Risk: <50 mg/dL LDL Cholesterol 74 mg/dL [facility] Comment: Lowest Risk: <100 mg/dL Lower Risk: 100-129 mg/dL Borderline High Risk: 130-159 mg/dL High Risk: 160-189 mg/dL Very High Risk: >hr=760 mg/dL Cholesterol/HDL Ratio 2.1 ratio [facility] Lipid Interpretation See Note [facility] Comment: Lipid management should be guided by a patient? s ASCVD risk, goals and preferences. ACC/AHA Guidelines recommend high intensity statin if clinical ASCVD or LDL greater than or equal to 190 mg/dL. http://tinyurl.com/VCV-JNU-Zgwbgjjty Adults aged 40-75 with LDL 70-189 mg/dL should have their 10 year ASCVD risk estimated with the ACC/AHA ASCVD risk fabric and accessories estimator http://tools.acc.org/UIMKY-Dgjk-Modpnsazt/ Statin should be discussed if risk greater [...] Agency Comment Spec In Lab Darleen Falk PRODUCTION ZONE LEADER CHEMISTRY ORDE RABLES Performing Organization Address [facility] Co de Phone Number [facility] [address] [place] [address] * Vitamin B12 (05/14/2021 7:31 AM EDT) Vitamin B12 531 232 - 1,245 pg/mL [facility] Blood 05/14/2021 7:31 AM EDT 05/14/2021 7:31 AM EDT Narrative Resulting Agency Comment Spec In Lab Darleen Falk PRODUCTION ZONE LEADER CHEMISTRY ORDE RABLES Performing Organization Address [facility] de Phone Number [facility] [address] [place] [address] * Comprehensive metabolic panel (non-fasting) (05/14/2021 7:31 AM EDT) Glucose 191 65 - 199 mg/dL [facility] Comment:Diabetes: >=200 mg/d L plus symptoms Blood Urea Nitrogen 15 10 - 20 mg/dL [facility] Creatinine 0.91 0.80 - 1.50 mg/dL [facility] Sodium 138 135 - 145 mmol/L [facility] Potassium 4.4 3.5 - 5.0 mmol/L [facility] Comment: Please note: ??Patients with WBC >100,000 may have falsely elevated Potassium levels. ??For accurate Potassium quantification in these patients send serum separator tube (gold top) for subsequent determinations. ??Contact the Clinical Chemistry Laboratory if there are any questions. Chloride 103 98 - 107 mmol/L [facility] Carbon Dioxide 26 22 - 31 mmol/L [facility] Anion Gap 9 5 - 15 mmol/L [facility] Calcium 8.7 8.5 - 10.5 mg/dL [facility] Protein, Total 6.6 6.1 - 8.0 g/dL [facility] Albumin 3.8 3.2 - 5.2 g/dL [facility] Aspartate Aminotransferase 18 0 - 39 unit/L [facility] Alanine Aminotransferase 16 0 - 55 unit/L [facility] Alkaline Phosphatase 74 40 - 130 unit/L [facility] Bilirubin, Total 0.4 0.2 - 1.3 mg/dL [facility] Est Glomerular Filtration Rate 90 >=60 mL/min/1. 73 m?? [facility] Comment: This patient? s estimated [...] Agency Comment Spec In Lab Darleen Falk PRODUCTION ZONE LEADER CHEMISTRY BELKYS CARDENAS [facility] [address] [place] [address] * (ABNORMAL) Hemoglobin A1c (05/14/2021 7:31 AM EDT) Hemoglobin A1c 7.3(H) 4.3 - 5.6 % [facility] Estimated Average Glucose 163 mg/dL [facility] Blood 05/14/2021 7:31 AM EDT 05/14/2021 7:31 AM EDT Narrative Resulting Agency Comment Spec In Lab Darleen Falk PRODUCTION ZONE LEADER CHEMISTRY BELKYS CARDENAS [facility] [address] [place] [address] documented in this encounter Visit Diagnoses Diagnosis Type 1 diabetes mellitus on insulin therapy- Primary Type I (juvenile type) diabetes mellitus without mention of complication, not stated as uncontrolled documented in this encounter Care Teams Signal Operator Relationship Specialty Start Date End Date Timothy Mo DO [address] [place] [address] PCP - General Family Medicine 12/09/16 08/04/21 documented as of this encounter
--- OUTSIDE RECORDS SUMMARY | 2024-02-17 00:36 | XMS_ITS | Encounter Summary ---
[place] [address] Care Team Providers Care Pharmacy Clinical Coordinator Name Role Phone iTmothy Mo DO Primary Care Provider [phone]- [phone] Reason for Visit * Auth/Cert Specialty Diagnoses [...] Expiration Date Visits Re quested Visits Authorized [id number] 1 1 Encounter Details Date Type Department Care Team (Latest Contact Info) Description 05/07/2021 12:00 PM EDT - 05/07/2021 2:21 PM EDT Hospital Encounter PACU at [address] [phone] Greg Salcido MD [address] [place] [address] [place] [address] Discharge Disposition: Home Social History Tobacco Use [...] sedated with simple mask on at 6L. monitor tech in place. 1332- Pt waking up, simple [...] 1:02 PM EDT Upper GI Endoscopy, Diagnostic (75661) 05/07/2021 12:52 PM EDT barretts f/u & 10 yr colo f/u Colonoscopy, Diagnostic (81978) 05/07/2021 12:52 PM EDT barretts f/u & [...] Glucose, POC 149 65 - 199 mg/dL [facility] Blood 05/07/2021 1:33 PM EDT 05/07/2021 1:33 PM EDT Greg Salcido MD POINT OF CARE TEST ORDERABLES Performing Organization Address City/[facility]/ZIP Co de Phone Number [facility] [address] [place] [phone] * Specimen to Pathology (05/07/2021 1:20 PM EDT) AP Specimen 05/07/2021 1:20 PM EDT 05/07/2021 1:20 PM EDT Narrative [facility] - 05/07/2021 1:20 PM EDT Specimen requisition ordered. ??Separate Pathology report to follow Greg Salcido MD PATHOLOGY/CYTOLOGY ORDERABLES Performing Organization Address City/[facility]/ZIP Co de Phone Number [facility] [place] [address] * Surgical Pathology Report (05/07/2021 1:02 PM EDT) Final Diagnosis [id number] ? Location: [facility] The signing pathologist has (i) examined [...] Sanders Verified: ??05/08/2021 11:33 ??Pathologist Performed at: ??[facility] Dept of Pathology, [address] [place] [address] SPECIMEN(S) SUBMITTED A - Distal esophagus bxs, biopsy (Multiple) B - Cecal polyp, excision (1) CLINICAL INFORMATION A - EGD: F/u Reyna's esophagus B - [place]: screen A - No additional comment B [...] single cassette. ??clc 05/08/2021 11:33 AM EDT [facility] GI Biopsy 05/07/2021 1:02 PM EDT 05/07/2021 1:02 PM EDT GI Biopsy 05/07/2021 1:02 PM EDT 05/07/2021 1:02 PM EDT Greg Salcido MD PATHOLOGY/CYTOLOGY ORDERABLES [facility] [place] [address] [facility] [address] [place] [address] * Specimen to Pathology (05/07/2021 1:02 PM EDT) AP Specimen 05/07/2021 1:02 PM EDT 05/07/2021 1:02 PM EDT Narrative [facility] - 05/07/2021 1:02 PM EDT Specimen requisition ordered. ??Separate Pathology report to follow Greg Salcido MD PATHOLOGY/CYTOLOGY ORDERABLES Performing Organization Address City/State/[facility] Co de Phone Number [facility] [place] [address] * Patient Instructions (05/07/2021 12:51 PM EDT) [...] procedure please call Greg Salcido MD at #[phone] After 5pm Tuesday-Tuesday and on weekends or holidays please call [phone] and the hospital press operator meat can page the government relations analyst ?gastroenterolo gist to return your call. Greg [...] Date of : 1960 ? Order #: [id number] Age: 61 ?Instrument Name: [id number] Procedure: ? Upper GI endoscopy Indications: ? Follow-up of Reyna's esophagus Providers: ? Greg Salcido MD, [facility] ? Ruth Vincent MD: ? Medicines: ? [...] Procedure Code(s): ? --- Professional --- ? 27728, Esophagogastroduo denoscopy, ? flexible, transoral; with biopsy, ? single or multiple Diagnosis Code(s): ? --- Professional --- ? K22.70, Reyna's esophagus without ? dysplasia ? --- Technical --- ? K22.70, Reyna's esophagus without ? dysplasia CPT copyright 202 [employer]. All rights reserved. The codes documented in this report are preliminary and upon shipping lead review may be revised to meet current [...] procedure please call Greg Salcido MD at #[phone] After 5pm Tuesday-Tuesday and on weekends or holidays please call [phone] and the hospital press operator meat can page the government relations analyst ?gastroenterolo gist to return your call. Greg Salcido MD Greg Salcido MD 05/07/2021 1:23:47 PM This report has been signed electronically. PROVATION 05/07/2021 12:5 0 PM EDT Greg Salcido MD INFORMATIONAL ON LY PROVATION * COLONOSCOPY (05/07/2021 12:50 PM EDT) COLONOSCOPY Patient Name: Ivan Luna Procedure Date: 05/07/2021 12:50 PM ?Attending MD: Greg Salcido MD Date of : 1960 ? Order #: [id number] Age: 61 ?Instrument Name: [id number] Procedure: ? Colonoscopy Indications: ? Screening for [...] Procedure Code(s): ? --- Professional --- ? 86448, Colonoscopy, flexible; with ? removal of tumor(s), [...] ? K64.8, Other hemorrhoids CPT copyright 2020 [employer]. All rights reserved. The codes documented in this report are preliminary and upon shipping lead review may be revised to meet current compliance requirements. Greg Salcido MD ____ Greg Salcido MD 05/07/2021 1:23:47 PM This report has been signed electronically. Number of Addenda: 0 PROVATION 05/07/2021 12:5 0 PM EDT Greg Salcido MD GENERAL SURGICAL OR DERABLES Performing Organization Address City/[facility] Co de Phone Number PROVATION * POCT Glucose (05/07/2021 12:49 PM EDT) Glucose, POC 132 65 - 199 mg/dL [facility] Blood 05/07/2021 12:4 9 PM EDT 05/07/2021 12:49 PM EDT Greg Salcido MD POINT OF CARE TEST ORDERABLES Performing Organization Address [facility] Co de Phone Number [facility] [address] [place] [address] documented in this encounter Visit Diagnoses Not [...] Stopped) documented in this encounter Care Teams Pharmacy Clinical Coordinator Relationship Specialty Start Date End Date Timothy Mo DO [address] [place] [phone] PCP - General Family Medicine 12/09/16 08/04/21 documented as of this encounter
--- OUTSIDE RECORDS SUMMARY | 2024-02-17 00:36 | XMS_ITS | Encounter Summary ---
[place] [address] Care Team Providers Care Ordinary Seaman Name Role Phone Unknown Primary Care Provider Unavailabl e Reason for Visit * Reason Comments Medication Refill Encounter Details Date Type Department Care Team (Late st Contact Info) Description 10/02/2020 Refill Endocrinology at [address] [phone] Melida Loza APRN Social History [...] on filedocumented in this encounter Care Teams Ordinary Seaman Relationship Specialty Start Date End Date Unknown None PCP - General 08/05/21 10/05/22 documented as of this encounter
--- OUTSIDE RECORDS SUMMARY | 2024-02-17 00:37 | XMS_ITS | Encounter Summary ---
[place] [address] Care Team Providers Care Scale Attendant Name Role Phone Timothy Mo DO Primary Care Provider [phone]- [phone] Encounter Details Date Type Department Care Team ([facility] Contact Info) Description 03/28/2018 Orders Only Endocrinology at [address] [phone] Katelynn Perdomo LPN Uncomplicated type 1 diabetes mellitus Social History [...] uncontrolled documented in this encounter Care Teams Scale Attendant Relationship Specialty Start Date End Date Timothy Mo DO [address] [place] [phone] PCP - General Family Medicine 12/09/16 08/04/21 documented as of this encounter
--- OUTSIDE RECORDS SUMMARY | 2024-02-17 00:37 | XMS_ITS | Encounter Summary ---
[place] [address] Care Team Providers Care Hvac Engineering Technician Name Role Phone Timothy Mo DO Primary Care Provider [phone]- [phone] Reason for Visit * Reason Comments Diabetic Eye Exam Encounter Details Date Type Department Care Team (Late st Contact Info) Description 04/13/2018 2:30 PM EST Office Visit Ophthalmology at [address] [phone] Jamal Saxena MD Type 1 diabetes mellitus on insulin therapy; Diabetic retinopathy, nonproliferative; Hyperopia with presbyopia of both eyes; Amblyopia, left eye Social History Tobacco Use Types Packs/Day Years [...] Progress Notes * Jamal Saxena MD - 04/13/2018 2:30 PM EST ASSESSMENT/PLAN: 1. Type 1 diabetes mellitus on insulin therapy Without eye involvement. Continue yearly dilated eye exams and good sugar control. 2. Hyperopia with presbyopia of both eyes Updated RX given. 3. Amblyopia, left eye Stable Patient understands all findings and I answered [...] with ophthalmic manifestations, not stated as uncontrolled Hyperopia with presbyopia of both eyes Amblyopia, left eye Amblyopia, unspecified documented in this encounter Care Teams Hvac Engineering Technician Relationship Specialty Start Date End Date Timothy Mo DO [address] [place] [phone] PCP - General Family Medicine 12/09/16 08/04/21 documented as of this encounter
--- OUTSIDE RECORDS SUMMARY | 2024-02-17 00:37 | XMS_ITS | Encounter Summary ---
[place] [address] Care Team Providers Care Ornamental Ironworker Helper Name Role Phone Aram Ascencio MD Primary Care Provider [facility] Encounter Details Date Type Department Care Team (Late st Contact Info) Description 09/22/2016 4:00 PM EDT Office Visit Endocrinology [address] [phone] Melida Loza APRN Social History Tobacco Use Types Packs/Day Years Used Date Smoking Tobacco: Never Assessed Sex and Gender Information Value Date Recorded Sex Assigned at Not on file Gender Identity Not on file Sexual Orientation Not on file documented as of this encounter Plan of Treatment Not on file documented as of this encounter Visit Diagnoses Not on filedocumented in this encounter Care Teams Ornamental Ironworker Helper Relationship Specialty Start Date End Date Aram Ascencio MD PCP - General 05/08/12 12/08/16 documented as of this encounter
--- OUTSIDE RECORDS SUMMARY | 2024-02-17 00:37 | XMS_ITS | Encounter Summary ---
[place] [address] Care Team Providers Care Tube Heater Name Role Phone Aram Ascencio MD Primary Care Provider [facility] Encounter Details Date Type Department Care Team (Late st Contact Info) Description 06/17/2016 4:00 PM EDT Office Visit Endocrinology [address] [phone] Melida Loza APRN Social History Tobacco Use [...] on filedocumented in this encounter Care Teams Tube Heater Relationship Specialty Start Date End Date Aram Ascencio MD PCP - General 05/08/12 12/08/16 documented as of this encounter
--- OUTSIDE RECORDS SUMMARY | 2024-02-17 00:37 | XMS_ITS | Encounter Summary ---
[place] [address] Care Team Providers Care Inspector Firearms Name Role Phone Aram Ascencio MD Primary Care Provider [facility] Encounter Details Date Type Department Care Team (Late st Contact Info) Description 05/06/2014 4:00 AM EDT Laboratory Appointment [address] [phone] Social History Tobacco Use Types Packs/Day Years Used Date Smoking Tobacco: Never Assessed Sex and Gender Information Value Date Recorded Sex Assigned at Not on file Gender Identity Not on file Sexual Orientation Not on file documented as of this encounter Plan of Treatment Not on file documented as of this encounter Visit Diagnoses Not on filedocumented in this encounter Care Teams Inspector Firearms Relationship Specialty Start Date End Date Aram Ascencio MD PCP - General 05/08/12 12/08/16 documented as of this encounter
--- OUTSIDE RECORDS SUMMARY | 2024-02-17 00:37 | XMS_ITS | Encounter Summary ---
[place] [address] Care Team Providers Care Alterations Manager Name Role Phone Timothy Mo DO Primary Care Provider [phone]- [phone] Reason for Visit * Reason Comments Medication Refill Encounter Details Date Type Department Care Team ([facility] st Contact Info) Description 07/28/2017 Refill Endocrinology at [address] [phone] Melida Loza APRN Social History Tobacco Use [...] on filedocumented in this encounter Care Teams Alterations Manager Relationship Specialty Start Date End Date Timothy Mo DO [address] [place] [id number] PCP - General Family Medicine 12/09/16 08/04/21 documented as of this encounter
--- OUTSIDE RECORDS SUMMARY | 2024-02-17 00:37 | XMS_ITS | Encounter Summary ---
[place] [address] Care Team Providers Care Technology Advisor Name Role Phone Timothy Mo DO Primary Care Provider [phone] Reason for Visit * Reason Comments Follow-up Diabetes Encounter Details Date Type Department Care Team (Latest Contact Info) Description 09/12/2017 10:00 AM EDT Office Visit Endocrinology at [address] [phone] Melida Loza APRN Uncomplicated type 1 diabetes [...] Sign Reading Time Taken Comments Blood Pressure 130/64 09/12/2017 10:06 AM EDT Pulse - - Temperature - - Respiratory Rate - - Oxygen Saturation - - Inhaled Oxygen Concentration - - Weight 72.6 kg (160 lb) 09/12/2017 10:06 AM EDT Height - - Body Mass Index 22.96 05/14/2014 3:40 PM EDT documented in this encounter Progress Notes * Melida Loza APRN - 09/12/2017 10:00 AM EDT [facility] FOLLOW UP Chief Complaint Patient presents with ??? Follow-up ??? Diabetes Orders Placed This Encounter Procedures ??? U Albumin/Cre Ratio Standing Status: Future Number of Occurrences: 1 Standing Expiration Date: 03/11/2018 ??? Comprehensive metabolic panel (non-fasting) Standing Status: Future Number of Occurrences: 1 Standing Expiration Date: 03/11/2018 ??? Vitamin D, 25-Hydroxy Standing Status: Future Number of Occurrences: 1 Standing Expiration Date: 03/14/2018 ??? POCT Fingerstick Glucose ??? POCT glycated hemoglobin, total (HA1C) ASSESSMENT/PLAN: Diabetes type 1 for insulin pump management. Your A1c is stable. Glucose patterns are fairly stable and better when using continuous glucose sensor. No insulin pump setting changes today. Continue use of CGM for improved focus on glucose patterns and trending. Continue with healthy eating and regular activity. Return in 3 months for review and recheck of A1c or sooner for concerns. We will contact [facility] in regards to an upgrade to the 670 G series. Andrew is advised that it isimportant for him to bolus for all carbohydrates consumed with this system. He is also advised thathe will need to wear his continuous glucose sensor all of the time for her to function in the auto mode. Andrew agrees to go to the lab for his screening test including urine microalbumin, CMP and vitamin Dlevels. We will follow-up with results and recommendations as needed. HPI: Andrew is here today for review of his insulin pump, glucose log and a recheck of his A1C for his quarterly evaluation. He was last seen in February and unfortunately missed his most recent quarterly evaluation. This was the earliest reschedule available. Andrew is using his continuous glucose sensor more consistently and finds that that has been very helpful. Glucose patterns are more stable when using his sensor. He is using has bolus wizard regularly. He is changing his site every 3-4 days regularly. He is using 22-33 units of insulin daily with 47-69 % as bolus insulin. He is using his bolus wizard 3-7 times daily on average. He is eligible for pump upgrade this summer and would like to get the 670 G with continuous glucose sensor and auto mode option. He's had no other health history or medication changes in the interim. In addition to his calcium and vitamin D he is taking an additional 1000 international units of vitamin D. The myalgias that he is experiencing seem to come and go without any particular pattern. He continues to remain active as best he can with current weather. Using FitBit and walking and hiking. Getting steps in. He has not had a recheck of his vitamin D since beginning [id number] supplement. His annual screening labs are due as well. ?? Social History Social History ??? Marital status: Spouse name: N/A ??? Number of children: N/A ??? Years of education: N/A Occupational History ??? [employer] Social History Main Topics ??? Smoking status: Never Smoker ??? Smokeless tobacco: Never Used ??? Alcohol use 6.0 oz/week 10 Glasses of wine per week Comment: Wine with dinner ??? Drug use: No ??? Sexual activity: Not Asked Other Topics Concern ??? Exercise: Patient Reported Yes Walking when can with weather. Social History Narrative DIABETES HEALTH MAINTENANCE: Eye exam was in October 2016 with background retinopathy noted. Urine for microalbumin was June 2016 and normal. He will provide a sample today. Foot exam today and negative for neuropathy. Seasonal flu vaccine is up-to-date. FOOT EXAM (AMB) 09/12/2017 Visual foot exam normal Pedal pulse check - RIGHT nl Pedal pulse check - LEFT nl Monofilament exam - RIGHT foot nl Monofilament exam - LEFT foot nl DIETARY REVIEW: Breakfast is typically a breakfast sandwich or breakfast bowl or cereal or toast with banana. Lunch is a sandwich with chips and yogurt. Might snack on fruit or granola bar or pretzels before supper. Supper are a regular meal with protein, vegetables and a starch. Bedtime snack is a cookie and his glucose is around 100 or lower. During the day he tends to drink coffee or water. REVIEW OF SYSTEMS: General: Overall good general health. No fever or chills. No fatigue. Eyes: There have been no visual changes. No eye pain. No blurring. ENT: No difficulty swallowing. No sore throat or hoarseness. Recent URI with some PND. Respiratory: No dyspnea on exertion, wheeze, cough or shortness of breath. Cardiac: Denies any chest pain or palpitations No edema. Neuro: No complaint of headaches. No complaint of numbness, tingling or weakness. GI: There are no issues with heartburn, diarrhea or constipation. No abdominal pain or bloating. : Denies urinary symptoms or erectile dysfunction. Uses Levitra as needed. Muscle/bone: Can have myalgias on and off. Taking Vitamin d OTC. Denies weakness or tremor. Psych: Mood is good without depression or anxiety. Sleep: No problems falling or staying asleep. Can be off and on. Can be restless with aches and pains. Results for orders placed or performed in visit on 09/12/17 POCT Fingerstick Glucose Result Value Ref Range POC Glucose 198 (H) 60 - 199 mg/dl POCT glycated hemoglobin, total (HA1C) Result Value Ref Range POC HA1C 7.5 (H) 4.3 - 5.6 % Wt Readings from Last 3 Encounters: 09/12/17 72.6 kg (160 lb) 02/09/17 73 kg (161 lb) 09/22/16 73.9 kg (163 lb) Vital Signs BP: 130/64 Patient Position: Sitting Objective: Vital signs are noted per nursing staff. Insulin pump log book and sensor reports are reviewed. Please see scanned copy for details. A1c is stable at 7.5% reflecting an average glucose of 169. 18/23 minutes of this office visit is [...] Comments POCT GLYCATED HEMOGLOBIN, TOTAL (HA1C) Routine 09/12/2017 10:15 AM EDT Uncomplicated type 1 diabetes mellitus POCT FINGERSTICK GLUCOSE STAT 09/12/2017 10:14 AM EDT Uncomplicated type 1 diabetes mellitus documented in this encounter Results * Vitamin D, 25-Hydroxy (09/12/2017 11:07 AM EDT) Pathologist [facility] [place] Vitamin D Total 25 [place] 34 30 - 100 ng/mL [facility] Comment: Deficient <10 ng/mL Insufficient 10 to 29 ng/mL Sufficient 30 to 100 ng/mL Potential Intoxication >100 ng/mL According to the US National Osteoporosis Foundation, Vitamin D concentrations >30 ng/mL are sufficient to protect bone health. ??The National Kidney Foundation has similarly stated that patients with Vitamin D concentrations <30ng/mL should be considered to be insufficient or deficient. http://Magzter.Insight Guru/nkf-guidelines http://Magzter.[employer]uru/nejm-VitD Blood specimen (specimen) 09/12/2017 11:07 AM EDT 09/12/2017 11:08 AM EDT Narrative Resulting Agency Comment Spec In Lab Melida Loza SALESPERSON FLYING SQUAD CHEMISTRY ORDERA BLES [facility] [address] [place] [address] * (ABNORMAL) Comprehensive metabolic panel (non-fasting) (09/12/2017 11:07 AM EDT) Glucose 193 65 - 199 mg/dL [facility] Comment:Diabetes: >=200 mg/d L plus symptoms Blood Urea Nitrogen 17 10 - 20 mg/dL [facility] Creatinine 0.79(L) 0.80 - 1.50 mg/dL [facility] Sodium 139 135 - 145 mmol/L [facility] Potassium 4.5 3.5 - 5.0 mmol/L [facility] Comment: Please note: ??Patients with WBC >100,000 may have falsely elevated Potassium levels. ??For accurate Potassium quantification in these patients send serum separator tube (gold top) for subsequent determinations. ??Contact the Clinical Chemistry Laboratory if there are any questions. Chloride 97(L) 98 - 107 mmol/L [facility] Carbon Dioxide 28 22 - 31 mmol/L [facility] Anion Gap 14 5 - 15 mmol/L [facility] Calcium 9.2 8.5 - 10.5 mg/dL [facility] Protein, Total 7.0 6.1 - 8.0 gm/dL [facility] Albumin 4.1 3.2 - 5.2 gm/dL [facility] Aspartate Aminotransferase 20 0 - 39 unit/L [facility] Alanine Aminotransferase 18 0 - 55 unit/L [facility] Alkaline Phosphatase 57 40 - 120 unit/L [facility] Bilirubin, Total 0.6 0.2 - 1.3 mg/dL [facility] Est Glomerular Filtration Rate 99 >=60 mL/min/1. 73 m?? [facility] Comment: The eGFR was calculated using the CKD-EPI equation. As with all creatinine based estimates of kidney function, eGFR values calculated with the CKD-EPI equation are not accurate in patients with acute kidney failure, extremes of body mass or the acutely ill. [email or web address] CITYnkf eGFR 115 >=60 mL/min/1. 73 m?? [facility] Comment: The eGFR was calculated using the CKD-EPI equation. As with all creatinine based estimates of kidney function, eGFR values calculated with the CKD-EPI equation are not accurate in patients with acute kidney failure, extremes of body mass or the acutely ill. [email or web address] CITYnkf Blood specimen (specimen) 09/12/2017 11:07 AM EDT 09/12/2017 11:08 AM EDT Narrative Resulting Agency Comment Spec In Lab Melida Loza APRN CHEMISTRY ORDERA BLES Performing Organization Address [facility] Co de Phone Number [facility] [address] [place] [address] * U Albumin/Cre Ratio (09/12/2017 11:04 AM EDT) Albumin / Creatinin Ratio, Urine <2 0 - 29 mcg/mg Cr [facility] Albumin, Urine <3.0 mg/L [facility] Creatinine, Urine 145 mg/dL [facility] Urine specimen (specimen) 09/12/2017 11:04 AM EDT 09/12/2017 11:32 AM EDT Narrative Resulting Agency Comment Spec In Lab Melida Loza APRN URINE ORDERABLES Performing Organization Address [facility] Co de Phone Number [facility] [address] [place] [address] * (ABNORMAL) POCT glycated hemoglobin, total (HA1C) (09/12/2017 10:15 AM EDT) Hemoglobin A1C, POC 7.5(H) 4.3 - 5.6 % 09/12/2017 10:1 5 AM EDT Melida A Dago RAO POINT OF CARE TE ST ORDERABLES * (ABNORMAL) POCT Fingerstick Glucose (09/12/2017 10:14 AM EDT) Glucose, POC 198(H) 60 - 199 mg/dl 09/12/2017 10:1 4 AM EDT Melida Rose Dago RAO POINT OF CARE TE ST ORDERABLES documented in this encounter Visit Diagnoses Diagnosis Uncomplicated type 1 diabetes mellitus Type I (juvenile type) diabetes mellitus without mention of complication, not stated as uncontrolled documented in this encounter Care Teams Technology Advisor Relationship Specialty Start Date End Date Timothy Mo DO [address] [place] [id number] PCP - General Family Medicine 12/09/16 08/04/21 documented as of this encounter
--- OUTSIDE RECORDS SUMMARY | 2024-02-17 00:37 | XMS_ITS | Encounter Summary ---
[place] [address] Care Team Providers Care Instructor Tap Dancing Name Role Phone Aram Ascencio MD Primary Care Provider [facility] Encounter Details Date Type Department Care Team ([facility] st Contact Info) Description 08/23/2014 2:30 PM EDT Office Visit Primary Care [address] [phone] Briseida Sanchez, TALENT ASSOCIATE [address] [place] [phone] Social History Tobacco Use Types Packs/Day Years Used Date Smoking Tobacco: Never Assessed Sex and Gender Information Value Date Recorded Sex Assigned at Not on file Gender Identity Not on file Sexual Orientation Not on file documented as of this encounter Plan of Treatment Not on file documented as of this encounter Visit Diagnoses Not on filedocumented in this encounter Care Teams Instructor Tap Dancing Relationship Specialty Start Date End Date Aram Ascencio MD PCP - General 05/08/12 12/08/16 documented as of this encounter
--- OUTSIDE RECORDS SUMMARY | 2024-02-17 00:37 | XMS_ITS | Encounter Summary ---
[place] [address] Care Team Providers Care Sampling Expert Name Role Phone Timothy Mo DO Primary Care Provider [phone]- [phone] Encounter Details Date Type Department Care Team ([facility] Contact Info) Description 02/06/2018 Orders Only Endocrinology at [address] [phone] Neeta Nath LPN Social History Tobacco Use [...] on filedocumented in this encounter Care Teams Sampling Expert Relationship Specialty Start Date End Date Timothy Mo DO [address] [place] [address] PCP - General Family Medicine 12/09/16 08/04/21 documented as of this encounter
--- OUTSIDE RECORDS SUMMARY | 2024-02-17 00:37 | XMS_ITS | Encounter Summary ---
[place] [address] Care Team Providers Care Casing Mixer Name Role Phone Aram Ascencio MD Primary Care Provider [facility] Encounter Details Date Type Department Care Team (Late st Contact Info) Description 04/24/2015 3:30 PM EDT Office Visit Endocrinology [address] [phone] Melida Loza APRN Social History Tobacco Use [...] on filedocumented in this encounter Care Teams Casing Mixer Relationship Specialty Start Date End Date Aram Ascencio MD PCP - General 05/08/12 12/08/16 documented as of this encounter
--- OUTSIDE RECORDS SUMMARY | 2024-02-17 00:37 | XMS_ITS | Encounter Summary ---
[place] [address] Care Team Providers Care Sanitizer Name Role Phone Timothy Mo DO Primary Care Provider [phone]- [phone] Reason for Visit * Reason Comments Follow-up Diabetes Encounter Details Date Type Department Care Team (Latest Contact Info) Description 12/14/2017 3:30 PM EST Office Visit Endocrinology at [address] [phone] Melida Loza APRN Uncomplicated type 1 diabetes [...] Sign Reading Time Taken Comments Blood Pressure 124/62 12/14/2017 3:38 PM EST Pulse 64 12/14/2017 3:38 PM EST Temperature - - Respiratory Rate - - Oxygen Saturation - - Inhaled Oxygen Concentration - - Weight 73 kg (161 lb) 12/14/2017 3:38 PM EST Height - - Body Mass Index 23.1 05/14/2014 3:40 PM EDT documented in this encounter Progress Notes * Melida Loza APRN - 12/14/2017 3:30 PM EST [facility] FOLLOW UP Chief Complaint Patient presents with ??? Follow-up ??? Diabetes Orders Placed This Encounter Procedures ??? POCT Fingerstick Glucose ??? POCT glycated hemoglobin, total (HA1C) ASSESSMENT/PLAN: Diabetes type 1 for insulin pump management. Your A1c is stable.?Glucose patterns are fairly stable and better when using continuous glucose sensor. No insulin pump setting changes today. Continue use of CGM for improved focus on glucose patterns and trending. Continue with healthy eating and regular activity. Return in 3 months for review and recheck of A1c or sooner for concerns. He is provided with a tip sheet today for problem solving with the 670 G. HPI: Andrew is here today for review of his insulin pump, glucose log and a recheck of his A1C for his quarterly evaluation. He was last seen in September and has converted to the 670 G auto mode pump with continuous sensor. He is changing his site every 3-4 days regularly. He is using on average 30??units of insulin daily with 60??% as bolus insulin. He is using his bolus wizard 3-6??times daily on average. As he is not always wearing his continuous glucose sensor he is only in auto mode 46% of the time. Average glucose is 162 with a standard deviation of 58. He's had no other health history or medication changes in the interim. He did have his annual screening labs after his last follow-up and everything was in target range. Social History Socioeconomic History ??? Marital status: Spouse name: Not on file ??? Number of children: Not on file ??? Years of education: Not on file ??? Highest education level: Not on file Social Needs ??? Financial resource strain: Not on file ??? Food insecurity - worry: Not on file ??? Food insecurity - inability: Not on file ??? Transportation needs - medical: Not on file ??? Transportation needs - non-medical: Not on file Occupational History Employer: [employer] Tobacco Use ??? Smoking status: Never Smoker [...] Weight Concern Not Asked Social History Narrative ??? Not on file DIABETES HEALTH MAINTENANCE: Eye exam was in October 2016 with background retinopathy noted. Urine for microalbumin was September 2017 and normal. Foot exam September and negative for neuropathy. Seasonal flu vaccine is up-to-date. DIETARY REVIEW: Breakfast is typically a breakfast [...] visual changes. No eye pain. No blurring. Needs exam. ENT:??No difficulty swallowing. No sore throat or hoarseness. Respiratory:?No dyspnea on exertion, wheeze, cough or shortness of breath. Cardiac:??Denies any chest pain or palpitations ??No edema. Neuro:??No complaint of headaches. ??No complaint of numbness, tingling or weakness. GI:??There are no issues with heartburn, diarrhea or constipation. ??No abdominal pain or bloating. :??Denies urinary symptoms or erectile dysfunction. Uses Levitra as needed. Muscle/bone:??Can have myalgias on and off. Better lately. Taking Vitamin d OTC. ??Denies weakness or tremor. ?? Psych:??Mood is good without depression or anxiety. Sleep:??No problems falling or staying asleep. Can be off and on. Can be restless with new dog. Results for orders placed or performed in visit on 12/14/17 POCT Fingerstick Glucose Result Value Ref Range POC Glucose 152 60 - 199 mg/dl POCT glycated hemoglobin, total (HA1C) Result Value Ref Range POC HA1C 7.5 (A) 4.3 - 5.6 % Wt Readings from Last 3 Encounters: 12/14/17 73 kg (161 lb) 09/12/17 72.6 kg (160 lb) 02/09/17 73 kg (161 lb) Vital Signs Heart Rate: 64 BP: 124/62 Patient Position: Sitting Objective: Vital signs are noted per nursing staff. Insulin pump logbook is reviewed. Please see scanned copy for details. A1c is good at 7.5% reflecting an average glucose of 169. 18/23minutes of this office visit is spent in [...] Comments POCT GLYCATED HEMOGLOBIN, TOTAL (HA1C) Routine 12/14/2017 3:35 PM EST Uncomplicated type 1 diabetes mellitus POCT FINGERSTICK GLUCOSE STAT 12/14/2017 3:35 AM EST Uncomplicated type 1 diabetes mellitus documented in this encounter Results * (ABNORMAL) POCT glycated hemoglobin, total (HA1C) (12/14/2017 3:35 PM EST) Hemoglobin A1C, POC 7.5(A) 4.3 - 5.6 % 12/14/2017 3:35 PM EST Melida Loza APRN POINT OF CARE TE ST ORDERABLES * POCT Fingerstick Glucose (12/14/2017 3:35 AM EST) Glucose, POC 152 60 - 199 mg/dl 12/14/2017 3:35 AM EST Melida Loza APRN POINT OF CARE ST ORDERABLES documented in this encounter Visit Diagnoses Diagnosis Uncomplicated type 1 diabetes mellitus Type I (juvenile type) diabetes mellitus without mention of complication, not stated as uncontrolled documented in this encounter Care Teams Sanitizer Relationship Specialty Start Date End Date Timothy Mo DO [address] [place] [address] [place] [address] PCP - General Family Medicine 12/09/16 08/04/21 documented as of this encounter
--- OUTSIDE RECORDS SUMMARY | 2024-02-17 00:37 | XMS_ITS | Encounter Summary ---
[place] [address] Care Team Providers Care Mail Forwarding System Markup Clerk Name Role Phone Aram Ascencio MD Primary Care Provider [facility] Encounter Details Date Type Department Care Team (Late st Contact Info) Description 03/11/2014 11:15 AM EST Procedure visit [address] [phone] Social History Tobacco Use Types Packs/Day Years Used Date Smoking Tobacco: Never Assessed Sex and Gender Information Value Date Recorded Sex Assigned at Not on file Gender Identity Not on file Sexual Orientation Not on file documented as of this encounter Plan of Treatment Not on file documented as of this encounter Visit Diagnoses Not on filedocumented in this encounter Care Teams Mail Forwarding System Markup Clerk Relationship Specialty Start Date End Date Aram Ascencio MD PCP - General 05/08/12 12/08/16 documented as of this encounter
--- OUTSIDE RECORDS SUMMARY | 2024-02-17 00:37 | XMS_ITS | Encounter Summary ---
[place] [address] Care Team Providers Care Neurosurgery Spine Physician Name Role Phone Aram Ascencio MD Primary Care Provider [facility] Encounter Details Date Type Department Care Team (Late st Contact Info) Description 10/29/2015 4:00 PM EDT Office Visit Endocrinology [address] [phone] Melida Loza APRN Social History Tobacco Use [...] on filedocumented in this encounter Care Teams Neurosurgery Spine Physician Relationship Specialty Start Date End Date Aram Ascencio MD PCP - General 05/08/12 12/08/16 documented as of this encounter
--- OUTSIDE RECORDS SUMMARY | 2024-02-17 00:37 | XMS_ITS | Encounter Summary ---
[place] [address] Care Team Providers Care Mds Nurse Name Role Phone Aram Ascencio MD Primary Care Provider [facility] Encounter Details Date Type Department Care Team (Late st Contact Info) Description 03/11/2014 4:15 AM EST Procedure visit [address] [phone] Social History Tobacco Use Types Packs/Day Years Used Date Smoking Tobacco: Never Assessed Sex and Gender Information Value Date Recorded Sex Assigned at Not on file Gender Identity Not on file Sexual Orientation Not on file documented as of this encounter Plan of Treatment Not on file documented as of this encounter Visit Diagnoses Not on filedocumented in this encounter Care Teams Mds Nurse Relationship Specialty Start Date End Date Aram Ascencio MD PCP - General 05/08/12 12/08/16 documented as of this encounter
--- OUTSIDE RECORDS SUMMARY | 2024-02-17 00:37 | XMS_ITS | Encounter Summary ---
Author Organization [facility] [place] [address] Care Team Providers Care Gas Desulfurizer Name Role Phone Aram Ascencio MD Primary Care Provider [facility] Encounter Details Date Type Department Care Team (Late st Contact Info) Description 10/14/2015 [facility] Information Services [address] [place], [place] [address] [phone] Provider, His Yessy MD Social History Tobacco Use Types Packs/Day Years Used Date Smoking Tobacco: Never Assessed Sex and Gender Information Value Date Recorded Sex Assigned at Not on file Gender Identity Not on file Sexual Orientation Not on file documented as of this encounter Last Filed Vital Signs Vital Sign Reading Time Taken Comments Blood Pressure - - Pulse 60 07/29/2015 4:00 PM EDT Sourced from [employer] Conversion Temperature - - Respiratory Rate - - Oxygen Saturation - - Inhaled Oxygen Concentration - - Weight 76.4 kg (168 lb 8 oz) 07/29/2015 4:00 PM EDT Sourced from [employer] Conversion Height - - Body Mass Index 24.18 05/14/2014 3:40 PM EDT documented in this encounter Plan of Treatment Not on file documented as of this encounter Procedures Procedure Name Priority Date/Time Associated Diagnosis Comments CMP ([facility] CONVERSION) Routine 10/14/2015 7:45 AM EDT U ALBUMIN/CRE RATIO Routine 10/14/2015 6 :00 AM EDT POCT GLYCATED HEMOGLOBIN, TOTAL (HA1C) Routine 07/29/2015 4:12 PM EDT documented in this encounter Results * (ABNORMAL) CMP (David conversion) (10/14/2015 7:45 AM EDT) Est Glomerular Filtration Rate >60(Exte rnal Lab) ml/min/1.73m2 [facility] RES[facility] CONVERSION Comment: Sourced from [employer] Conversion Albumin 3.9(Exte rnal Lab) 3.5 - 5.2 g/dl [facility] RESULT CONVERSION Comment: Sourced from [facility] Conversion Alkaline Phosphatase 59(Exter nal Lab) 40 - 130 international units per liter [facility] RES[facility] Comment: Sourced from [employer] Conversion Alanine Aminotransferase 18(Exter nal Lab) <56 international units per liter [facility] RESULT CON[facility] Comment: Sourced from [facility] Conversion Aspartate Aminotransferase 22(Exter nal Lab) <40 international units per liter [facility] RESULT CONVERSION Comment: Sourced from [facility] Conversion Blood Urea Nitrogen 14(Exter nal Lab) 6 - 20 mg/dl [facility] RESULT CONVERSION Comment: Sourced from [facility] Conversion Calcium 9.1(Exte rnal Lab) 8.6 - 10.2 mg/dl [facility] RESULT CONVERSION Comment: Sourced from [facility] Conversion CKD Stage NL, 1or2(Ext ernal Lab) [facility] RES[facility] CONVERSION Comment: Sourced from [facility] Conversion Chloride 100(Exte rnal Lab) 98 - 107 mmol/L [facility] RESULT CONVERSION Comment: Sourced from [facility] Conversion Carbon Dioxide 28(Exter nal Lab) 21 - 32 mmol/L [facility] RESULT CONVERSION Comment: Sourced from [employer] Conversion Creatinine 0.8(Exte rnal Lab) 0.8 - 1.5 mg/dl [facility] RESULT CONVERSION Comment: Sourced from [facility] Conversion Anion Gap 11(Exter nal Lab) 8 - 16 mmol/L [facility] RESULT CONVERSION Comment: Sourced from [facility] Glucose Fasting 170(EXTE RNAL/ABN ) 70 - 100 mg/dl [facility] RESULT CONVERSION Comment: Sourced from [facility] Conversion Potassium 4.3(Exte rnal Lab) 3.3 - 5.1 mmol/L [facility] RESULT CONVERSION Comment: Sourced from [employer] Conversion Sodium 139(Exte rnal Lab) 136 - 145 mmol/L [facility] RESULT CONVERSION Comment: Sourced from [facility] [place] Conversion Bilirubin, Total 0.7(Exte rnal Lab) <1.2 mg/dl [facility] RESULT CONVERSION Comment: Sourced from [employer] Conversion Protein, Total 6.2(EXTE RNAL/ABN ) 6.6 - 8.7 g/dl [facility] RESULT CONVERSION Comment: Sourced from [facility] Conversion 10/14/2015 7:45 AM EDT His Yessy Provider CHEMISTRY ORDERABL ES [facility] RESULT CONVERSION * (ABNORMAL) U Albumin/Cre Ratio (10/14/2015 6:00 AM EDT) Albumin / Creatinin Ratio, Urine Urine albumin level <12.1 mg/l unable to(External Lab) [facility] RES[facility] CONVERSION Comment: calculate the urine albumin/creatinine ratio. Sourced from [facility] Conversion 10/14/2015 6:00 AM EDT His Yessy Provider URINE ORDERABLES [facility] RESULT CONVERSION * (ABNORMAL) POCT glycated hemoglobin, total (HA1C) (07/29/2015 4:12 PM EDT) POC Glycohemoglobin 7.2(EXTER NAL/ABN) <5.7% % [facility] RESULT CONVERSION Comment: Sourced from [facility] Conversion 07/29/2015 4:12 PM EDT His Yessy Provider POINT OF CARE TEST ORDERABLES [facility] RESULT CONVERSION documented in this encounter Visit Diagnoses Not on filedocumented in this encounter Care Teams Gas Desulfurizer Relationship Specialty Start Date End Date Aram Ascencio MD PCP - General 05/08/12 12/08/16 documented as of this encounter
--- OUTSIDE RECORDS SUMMARY | 2024-02-17 00:37 | XMS_ITS | Encounter Summary ---
[place] [address] Care Team Providers Care Medical Scheduler Name Role Phone Aram Ascencio MD Primary Care Provider [facility] le Encounter Details Date Type Department Care Team (Late st Contact Info) Description 03/11/2014 9:40 AM EST Office Visit [address] [phone] Aram Ascencio MD Social History Tobacco Use Types Packs/Day Years Used Date Smoking Tobacco: Never Assessed Sex and Gender Information Value Date Recorded Sex Assigned at Not on file Gender Identity Not on file Sexual Orientation Not on file documented as of this encounter Plan of Treatment Not on file documented as of this encounter Visit Diagnoses Not on filedocumented in this encounter Care Teams Medical Scheduler Relationship Specialty Start Date End Date Aram Ascencio MD PCP - General 05/08/12 12/08/16 documented as of this encounter
--- OUTSIDE RECORDS SUMMARY | 2024-02-17 00:37 | XMS_ITS | Encounter Summary ---
[place] [address] Care Team Providers Care Air Intelligence Specialist Name Role Phone Aram Ascencio MD Primary Care Provider [facility] Encounter Details Date Type Department Care Team (Late st Contact Info) Description 09/13/2016 External Results Lab at [address] [phone] Melida Loza APRN Social History Tobacco Use [...] Name Priority Date/Time Associated Diagnosis Comments CMP W/FASTING GLUCOSE Routine 09/13/2016 7:18 AM EDT TSH Routine 09/13/2016 7:18 AM EDT U ALBUMIN/CRE RATIO Routine 09/13/2016 7 :13 AM EDT documented in this encounter Results * (ABNORMAL) TSH (09/13/2016 7:18 AM EDT) Thyroid Stimulating Hormone 0.92(Exter nal Lab) 0.27 - 4.2 uIU/mL [facility] EXTERNAL RESULTS 09/13/2016 7:18 AM EDT Melida Loza APRN CHEMISTRY ORDERA BLES [facility] EXTERNAL RESULTS [address] [place] [address] * (ABNORMAL) CMP w/fasting Glucose (09/13/2016 7:18 AM EDT) Calcium 9.2(Exter nal Lab) 8.6 - 10.2 mg/dl [facility] EXTERNAL RESULTS Sodium 139(Exter nal Lab) 136 - 145 mmol/L [facility] EXTERNAL RESULTS Potassium 5.0(Exter nal Lab) 3.3 - 5.1 mmol/L [facility] EXTERNAL RESULTS Chloride 99(Reporting Coordinator al Lab) 98 - 107 mmol/L [facility] EXTERNAL RESULTS Carbon Dioxide 29(Reporting Coordinator al Lab) 21 - 32 mmol/L [facility] EXTERNAL RESULTS Glucose Fasting 229(ExtH) 70 - 100 mg/dl [facility] EXTERNAL RESULTS Blood Urea Nitrogen 19(Reporting Coordinator al Lab) 6 - 20 mg/dl [facility] EXTERNAL RESULTS Creatinine 0.9(Exter nal Lab) 0.8 - 1.5 mg/dl [facility] EXTERNAL RESULTS Est Glomerular Filtration Rate >60(Exter nal Lab) ml/min/1. 73m2 [facility] EXTERNAL RESULTS Comment: REFERENCE RANGE >60 ml/min/1.73m2 Test is not always accurate for GFR's above 60 CKD Stage NL, 1or2(Exte rnal Lab) [facility] EXTERNAL RESULTS Aspartate Aminotransferase 21(Reporting Coordinator al Lab) <40 IU/L [facility] EXTERNAL RESULTS Alanine Aminotransferase 17(Reporting Coordinator al Lab) <56 IU/L [facility] EXTERNAL RESULTS Alkaline Phosphatase 70(Reporting Coordinator al Lab) 40 - 130 IU/L [facility] EXTERNAL RESULTS Bilirubin, Total 0.5(Exter nal Lab) <1.2 mg/dl [facility] EXTERNAL RESULTS Protein, Total 6.7(Exter nal Lab) 6.6 - 8.7 g/dl [facility] EXTERNAL RESULTS Albumin 4.1(Exter nal Lab) 3.5 - 5.2 g/dl [facility] EXTERNAL RESULTS Anion Gap 11(Reporting Coordinator al Lab) 8 - 16 mmol/L [facility] EXTERNAL RESULTS 09/13/2016 7:18 AM EDT Melida A Dago BANKING PIN ADJUSTER CHEMISTRY ORDERA BLES Performing Organization Address [facility] Co de Phone Number [facility] EXTERNAL RESULTS [address] [place] [address] * (ABNORMAL) U Albumin/Cre Ratio (09/13/2016 7:13 AM EDT) U Albumin/24hr Urine albumin level <3.0 mg/l unable to calculate the urine albumin/crea tinine ratio. (External Lab) [facility] EXTERNAL RESULTS 09/13/2016 7:13 AM EDT Melida A Dago BANKING PIN ADJUSTER URINE ORDERABLES Performing Organization Address [facility] de Phone Number [facility] EXTERNAL RESULTS [address] [place] [address] documented in this encounter Visit Diagnoses Not on filedocumented in this encounter Care Teams Air Intelligence Specialist Relationship Specialty Start Date End Date Aram Ascencio MD PCP - General 05/08/12 12/08/16 documented as of this encounter
--- OUTSIDE RECORDS SUMMARY | 2024-02-17 00:37 | XMS_ITS | Encounter Summary ---
Author Organization [facility] [place] [address] Care Team Providers Care Residential Aide Name Role Phone Aram Ascencio MD Primary Care Provider [facility] Encounter Details Date Type Department Care Team (Late st Contact Info) Description 03/17/2016 [facility] Information Services [address] [place] [address] [place] [phone] Provider, His MD Yessy Social History Tobacco Use Types Packs/Day Years Used Date Smoking Tobacco: Never Assessed Sex and Gender Information Value Date Recorded Sex Assigned at Not on file Gender Identity Not on file Sexual Orientation Not on file documented as of this encounter Last Filed Vital Signs Vital Sign Reading Time Taken Comments Blood Pressure - - Pulse 60 03/17/2016 4:00 PM EST Sourced from [employer] Conversion Temperature - - Respiratory Rate - - Oxygen Saturation - - Inhaled Oxygen Concentration - - Weight 75.5 kg (166 lb 8 oz) 03/17/2016 4:00 PM EST Sourced from [employer] Conversion Height - - Body Mass Index 23.89 05/14/2014 3:40 PM EDT documented in this encounter Plan of Treatment Not on file documented as of this encounter Procedures Procedure Name Priority Date/Time Associated Diagnosis Comments POCT GLYCATED HEMOGLOBIN, TOTAL (HA1C) Routine 03/17/2016 4:21 PM EST documented in this encounter Results * (ABNORMAL) POCT glycated hemoglobin, total (HA1C) (03/17/2016 4:21 PM EST) POC Glycohemoglobin 8.0(EXTER NAL/ABN) <5.7% % [facility] Comment: Sourced from [facility] 03/17/2016 4:21 PM EST His Yessy Provider POINT OF CARE TEST ORDERABLES [facility] documented in this encounter Visit Diagnoses Not on filedocumented in this encounter Care Teams Residential Aide Relationship Specialty Start Date End Date Aram Ascencio MD PCP - General 05/08/12 12/08/16 documented as of this encounter
--- OUTSIDE RECORDS SUMMARY | 2024-02-17 00:37 | XMS_ITS | Encounter Summary ---
[facility] [place] [address] Care Team Providers Care Health Care Assistant Name Role Phone Aram Ascencio MD Primary Care Provider [facility] Encounter Details Date Type Department Care Team (Late st Contact Info) Description 04/24/2015 [facility] Information Services [address] [facility] [place] [phone] Provider, His MD Yessy Social History Tobacco Use Types Packs/Day Years Used Date Smoking Tobacco: Never Assessed Sex and Gender Information Value Date Recorded Sex Assigned at Not on file Gender Identity Not on file Sexual Orientation Not on file documented as of this encounter Last Filed Vital Signs Vital Sign Reading Time Taken Comments Blood Pressure - - Pulse 60 04/24/2015 3:30 PM EDT Sourced from [employer] Conversion Temperature - - Respiratory Rate - - Oxygen Saturation - - Inhaled Oxygen Concentration - - Weight 77.1 kg (170 lb) 04/24/2015 3:30 PM EDT Sourced from [employer] Conversion Height - - Body Mass Index 24.39 05/14/2014 3:40 PM EDT documented in this encounter Plan of Treatment Not on file documented as of this encounter Procedures Procedure Name Priority Date/Time Associated Diagnosis Comments POCT GLYCATED HEMOGLOBIN, TOTAL (HA1C) Routine 04/24/2015 3:47 PM EDT documented in this encounter Results * (ABNORMAL) POCT glycated hemoglobin, total (HA1C) (04/24/2015 3:47 PM EDT) POC Glycohemoglobin 7.3(EXTER NAL/ABN) <5.7% % [facility] RESULT CONVERSION Comment: Sourced from [facility] Conversion 04/24/2015 3:47 PM EDT His Yessy Provider POINT OF CARE TEST ORDERABLES [facility] RESULT CONVERSION documented in this encounter Visit Diagnoses Not on filedocumented in this encounter Care Teams Health Care Assistant Relationship Specialty Start Date End Date Aram Ascencio MD PCP - General 05/08/12 12/08/16 documented as of this encounter
--- OUTSIDE RECORDS SUMMARY | 2024-02-17 00:37 | XMS_ITS | Encounter Summary ---
[place] [address] Care Team Providers Care Reel Blade Bender Furnace Tender Name Role Phone Aram Ascencio MD Primary Care Provider [facility] Encounter Details Date Type Department Care Team (Late st Contact Info) Description 07/29/2015 4:00 PM EDT Office Visit Endocrinology [address] [phone] Melida Loza APRN Social History Tobacco Use [...] on filedocumented in this encounter Care Teams Reel Blade Bender Furnace Tender Relationship Specialty Start Date End Date Aram Ascencio MD PCP - General 05/08/12 12/08/16 documented as of this encounter
--- OUTSIDE RECORDS SUMMARY | 2024-02-17 00:37 | XMS_ITS | Encounter Summary ---
[place] [address] Care Team Providers Care Bag Filler Machine Operator Name Role Phone Timothy Mo DO Primary Care Provider [phone] Reason for Visit * Reason Comments Follow-up Diabetes Type 1 with insulin pump Encounter Details Date Type Department Care Team (Latest Contact Info) Description 02/09/2017 3:30 PM EST Office Visit Endocrinology at [address] [phone] Melida Loza APRN Uncomplicated type 1 diabetes [...] Sign Reading Time Taken Comments Blood Pressure 125/72 02/09/2017 4:03 PM EST Pulse 58 02/09/2017 4:03 PM EST Temperature - - Respiratory Rate - - Oxygen Saturation - - Inhaled Oxygen Concentration - - Weight 73 kg (161 lb) 02/09/2017 4:03 PM EST Height - - Body Mass Index 23.1 05/14/2014 3:40 PM EDT documented in this encounter Progress Notes * Melida Loza APRN - 02/09/2017 3:30 PM EST [facility] FOLLOW UP Chief Complaint Patient presents with ??? Follow-up Diabetes Type 1 with insulin pump Orders Placed This Encounter Procedures ??? POCT Fingerstick Glucose ??? POCT glycated hemoglobin, total (HA1C) ASSESSMENT/PLAN: Your A1c is improving. Glucose patterns are fairly stable although there is some persistent hyperglycemia in the morning. Formula seems to be appropriate so we are increasing the basal rate between 6 AM and 12:30 PM minimally from 0.45 up to 0.475. Bringing the total daily dose of basal insulin to 11.3-5 units. Continue use of CGM for improved focus on glucose patterns and trending. Continue with healthy eating and regular activity. Return in 3 months for review and recheck of A1c or sooner for concerns. In addition Andrew's ProPlan insulin pump is set for renewal later this year he will give [employer] call so that we can initiate paperwork for the 670 G closed-loop system as soon as he is eligible. HPI: Andrew is here today for review of his insulin pump, glucose log and a recheck of his A1C for his quarterly evaluation. Andrew is using his continuous glucose sensor more consistently and finds that thathas been very helpful. He is using has bolus wizard regularly. He is changing his site every 3-4 days regularly. He is using 23-33 units of insulin daily with 53-67 % as bolus insulin. He is using his bolus wizard 4-9 times daily on average. He is eligible for pump upgrade this year. He's had no other health history or medication changes in the interim although on his blood work earlier this summer he was noted to be mildly vitamin D deficient. In addition to his calcium and vitamin D he is taking an additional 1000 international units of vitamin D. The myalgias that he is experiencing seem to come and go without any particular pattern. He continues to remain active as best he can with current weather. Social History Social History ??? Marital status: Spouse name: N/A ??? Number of children: N/A ??? Years of education: N/A Social History Main Topics ??? Smoking status: Never Smoker ??? Smokeless tobacco: Never Used ??? Alcohol use None ??? Drug use: None ??? Sexual activity: Not Asked Other Topics Concern ??? None Social History Narrative ??? None DIABETES HEALTH MAINTENANCE: Eye exam was in October 2015 with background retinopathy noted. Urine for microalbumin was June 2016 and normal. Foot exam was in June 2016 and negative for neuropathy. Seasonal flu vaccine is up-to-date. DIETARY REVIEW: Breakfast is typically a breakfast sandwich or breakfast bowl or cereal. Lunch is a sandwich with chips and [...] visual changes. No eye pain. No blurring. Recent exam, no changes. ENT: No difficulty swallowing. No sore throat [...] staying asleep. Can be off and on. Results for orders placed or performed in visit on 11/03/16 Diabetes External Eye Exam Result Value Ref Range External DM Eye Exam (External Lab) 11/03/2016 4:00:00 PM; See [employer] system for full report Wt Readings from Last 3 Encounters: 09/22/16 73.9 kg (163 lb) 06/17/16 73.9 kg (163 lb) 03/17/16 75.5 kg (166 lb 8 oz) Vital Signs Heart Rate: 58 BP: 125/72 Patient Position: Sitting Objective: Vital signs are noted per nursing staff. Weight is stable at 161. Glucose on arrival is 110. Insulin pump log book and continuous glucose sensor reports are reviewed. Please see scanned copiesfor details. A1c is 7.4% reflecting an average glucose of 166. 18/23 minutes of this office visit is spent in counseling and disease management reviewing recent medical history, lifestyle patterns, nutrition patterns with education related to diabetes, glucose patterns, medication compliance with recommendation for changes, monitoring and follow-up. documented in this encounter Plan of Treatment Not on file documented as of this encounter Procedures Procedure Name Priority Date/Time Associated Diagnosis Comments POCT GLYCATED HEMOGLOBIN, TOTAL (HA1C) Routine 02/09/2017 4:01 PM EST Uncomplicated type 1 diabetes mellitus POCT FINGERSTICK GLUCOSE STAT 02/09/2017 3:59 PM EST Uncomplicated type 1 diabetes mellitus documented in this encounter Results * (ABNORMAL) POCT glycated hemoglobin, total (HA1C) (02/09/2017 4:01 PM EST) Hemoglobin A1C, POC 7.4(H) 4.3 - 5.6 % 02/09/2017 4:01 PM EST Melida Loza APRN POINT OF CARE TE ST ORDERABLES * (ABNORMAL) POCT Fingerstick Glucose (02/09/2017 3:59 PM EST) Glucose, POC 110(H) 60 - 199 mg/dl Kit name Stat Strip Kit Lot# [id number] 02/09/2017 3:59 PM EST Melida Loza APRN POINT OF CARE TE ST ORDERABLES documented in this encounter Visit Diagnoses Diagnosis Uncomplicated type 1 diabetes mellitus Type I (juvenile type) diabetes mellitus without mention of complication, not stated as uncontrolled documented in this encounter Care Teams Bag Filler Machine Operator Relationship Specialty Start Date End Date Timothy Mo DO [address] [place] [phone] PCP - General Family Medicine 12/09/16 08/04/21 documented as of this encounter
--- OUTSIDE RECORDS SUMMARY | 2024-02-17 00:37 | XMS_ITS | Encounter Summary ---
[place] [address] Care Team Providers Care Furniture Crater Name Role Phone Timothy Mo DO Primary Care Provider [phone]- [phone] Reason for Visit * Reason Comments Follow-up Diabetes Encounter Details Date Type Department Care Team (Late st Contact Info) Description 04/17/2018 9:30 AM EDT Office Visit Endocrinology at [address] [phone] Melida Loza APRN Type 1 diabetes mellitus on insulin therapy; Gastroesophageal reflux disease, esophagitis presence not specified Social History Tobacco Use Types Packs/Day Years [...] Sign Reading Time Taken Comments Blood Pressure 130/80 04/17/2018 9:32 AM EDT Pulse 59 04/17/2018 9:32 AM EDT Temperature - - Respiratory Rate - - Oxygen Saturation - - Inhaled Oxygen Concentration - - Weight 73.9 kg (163 lb) 04/17/2018 9:32 AM EDT Height - - Body Mass Index 23.39 05/14/2014 3:40 PM EDT documented in this encounter Progress Notes * Melida Loza APRN - 04/17/2018 9:30 AM EDT [facility] FOLLOW UP Chief Complaint Patient presents with ??? Follow-up ??? Diabetes Orders Placed This Encounter Procedures ??? POCT Fingerstick Glucose ??? POCT glycated hemoglobin, total (HA1C) ASSESSMENT/PLAN: Diabetes type 1 for insulin pump management. Your A1c is??stable.?Glucose patterns are fairly stable??and better when using continuous glucose sensor. 1 insulin pump setting changed today with a minimal increase to basal rate between 12:30 PM and 6 PM. Continue use of CGM for improved focus on glucose patterns and trending. Continue with healthy eating and regular activity. Return in 3 months for review and recheck of A1c or sooner for concerns. Esophageal reflux. Andrew is advised that he could try Nexium [id number] 1-2 times daily for his symptoms. If things do not improve or worsen he will be following up with his PCP in the near future for a physical exam prior to inguinal hernia surgery repair. ?? HPI: Andrew is here today for review of his insulin pump, glucose log and a recheck of his A1C for his quarterly evaluation.?He was last seen in December and has converted to the 670 G auto mode pump with continuous sensor. He is changing his site every 3-4 days regularly. He is using on average 31??units of insulin daily with??58% as bolus insulin. He is using his bolus wizard??3-6??times daily on av erage. With increased use of his continuous glucose sensor he is in auto mode 82% of the time. Average glucose is 159 with a standard deviation of 50. He does have some concern for possible reflux over the last couple of months. He has had 2 very badcolds and sinus congestion although they are gradually clearing. He feels that he has some discharge in the back of the throat that is not necessarily coming from his sinuses. He does have a history of reflux in the past treated with Protonix but nothing recently either prescriptive or [id number]. Is gradually gaining back his energy from being sick with a viral infections. Otherwise reviewof systems is negative with the exception of an inguinal hernia. He has had a surgical consultationand [place] and would like to proceed with a repair. He has not seen his PCP in quite some time. We did do his diabetes screening labs last year and everything was in target range. Social History Socioeconomic History ??? Marital status: Spouse name: None ??? Number of children: None ??? Years of education: None ??? Highest education level: None Social Needs ??? Financial resource strain: None ??? Food insecurity - worry: None ??? Food insecurity - inability: None ??? Transportation needs - medical: None ??? Transportation needs - non-medical: None Occupational History Employer: [employer] Tobacco Use ??? Smoking status: Never Smoker ??? Smokeless tobacco: Never Used Substance and Sexual Activity ??? Alcohol use: Yes Alcohol/week: 6.0 oz Types: 10 Glasses of wine per week Comment: Wine with dinner ??? Drug use: No ??? Sexual activity: None Other Topics Concern ??? Abuse [...] Concern Not Asked Social History Narrative ??? None DIABETES HEALTH MAINTENANCE: Eye exam was in April 2018 with background retinopathy noted. Urine for microalbumin was September 2017 and normal.?? Foot exam??[place]??and negative for neuropathy. Seasonal flu vaccine is up-to-date. ?? DIETARY REVIEW: Breakfast is typically a breakfast [...] health. No fever or chills. No fatigue. Did have a couple of bad colds this winter. Eyes:??There have been no visual changes. No eye pain. No blurring. Needs exam. ENT:??No difficulty swallowing. No sore throat or hoarseness. Respiratory:?No dyspnea on exertion, wheeze, cough or shortness of breath. Cardiac:??Denies any chest pain or palpitations ??No edema. Neuro:??No complaint of headaches. ??No complaint of numbness, tingling or weakness. GI:??There are no issues with heartburn, diarrhea or constipation. ??No abdominal pain or bloating.Question return of reflux. Not taking anything now. :??Denies urinary symptoms or erectile dysfunction. Uses Levitra as needed. Muscle/bone:??Can have myalgias on and off. Better lately. Taking Vitamin d OTC. ??Denies weakness or tremor. ?? Psych:??Mood is good without depression or anxiety. Sleep:??No problems falling or staying asleep. Can be off and on.??Can be restless with new dog.?? Results for orders placed or performed in visit on 12/14/17 POCT Fingerstick Glucose Result Value Ref Range POC Glucose 152 60 - 199 mg/dl POCT glycated hemoglobin, total (HA1C) Result Value Ref Range POC HA1C 7.5 (A) 4.3 - 5.6 % Wt Readings from Last 3 Encounters: 04/17/18 73.9 kg (163 lb) 12/14/17 73 kg (161 lb) 09/12/17 72.6 kg (160 lb) Patient Vitals for the past 24 hrs: Pulse BP 04/17/18 0932 59 130/80 PHYSICAL EXAM: GENERAL: A+O x 3; Comfortable; Mood and affect appropriate. EYES;sclera clear, no conjunctival injection. ENT: Nares clear, mucosa is pale boggy and edematous, pharynx is clear, no cervical adenopathy. CHEST: Clear to auscultation; No dullness to percussion CV: Regular rate and rhythm; No murmurs rubs or gallops; no peripheral edema SKIN: Skin is neither fine and moist nor excessively dry; No rashes noted. ABD: Flat, soft, mild tenderness in the epigastric region, no HSM, active bowel sounds throughout. Objective: Vital signs are noted per nursing [...] Comments POCT GLYCATED HEMOGLOBIN, TOTAL (HA1C) Routine 04/17/2018 9:53 AM EDT Type 1 diabetes mellitus on insulin therapy POCT FINGERSTICK GLUCOSE STAT 04/17/2018 9:53 AM EDT Type 1 diabetes mellitus on insulin therapy documented in this encounter Results * (ABNORMAL) POCT glycated hemoglobin, total (HA1C) (04/17/2018 9:53 AM EDT) Hemoglobin A1C, POC 7.5(H) 4.3 - 5.6 % 04/17/2018 9:53 AM EDT Melida Loza APRN POINT OF CARE TE ST ORDERABLES * (ABNORMAL) POCT Fingerstick Glucose (04/17/2018 9:53 AM EDT) Glucose, POC 165(H) 60 - 199 mg/dl 04/17/2018 9:53 AM EDT Melida Loza APRN POINT OF CARE TE ST ORDERABLES documented in this encounter Visit Diagnoses Diagnosis Type 1 diabetes mellitus on insulin therapy Type I (juvenile type) diabetes mellitus without mention of complication, not stated as uncontrolled Gastroesophageal reflux disease, esophagitis presence not specified documented in this encounter Care Teams Furniture Crater Relationship Specialty Start Date End Date Timothy Mo DO [address] [facility] [place] [address] PCP - General Family Medicine 12/09/16 08/04/21 documented as of this encounter
--- OUTSIDE RECORDS SUMMARY | 2024-02-17 00:37 | XMS_ITS | Encounter Summary ---
[place] [address] Care Team Providers Care Vegetable Canner Name Role Phone Aram Ascencio MD Primary Care Provider [facility] Encounter Details Date Type Department Care Team (Late st Contact Info) Description 11/03/2016 4:00 PM EDT Office Visit Ophthalmology [address] [phone] Jamal Saxena MD Social History Tobacco Use Types Packs/Day Years Used Date Smoking Tobacco: Never Assessed Sex and Gender Information Value Date Recorded Sex Assigned at Not on file Gender Identity Not on file Sexual Orientation Not on file documented as of this encounter Plan of Treatment Not on file documented as of this encounter Visit Diagnoses Not on filedocumented in this encounter Care Teams Vegetable Canner Relationship Specialty Start Date End Date Aram Ascencio MD PCP - General 05/08/12 12/08/16 documented as of this encounter
--- OUTSIDE RECORDS SUMMARY | 2024-02-17 00:37 | XMS_ITS | Encounter Summary ---
Author Organization [facility] [place] [address] Care Team Providers Care Certified Marine Mechanic Name Role Phone Aram Ascencio MD Primary Care Provider [place] Encounter Details Date Type Department Care Team (Late st Contact Info) Description 05/06/2014 Abstract [facility] [address] [facility] [place] [phone] Provider, His [place] MD Social History Tobacco [...] Procedure Name Priority Date/Time Associated Diagnosis Comments PSA (ULTRASENSITIVE) Routine 05/06/2014 7:21 AM EDT documented in this encounter Results * (ABNORMAL) PSA (05/06/2014 7:21 AM EDT) PSA Screen 1.14(Exter nal Lab) 0.00 - 4.0 ng/ml [facility] RESULT CONVERSION Comment: Sourced from [facility] Krishnamurthy Conversion 05/06/2014 7:21 AM EDT His [place] Provider CHEMISTRY ORDERABL ES [facility] RESULT CONVERSION documented in this encounter Visit Diagnoses Not on filedocumented in this encounter Care Teams Certified Marine Mechanic Relationship Specialty Start Date End Date Aram Ascencio MD PCP - General 05/08/12 12/08/16 documented as of this encounter
--- OUTSIDE RECORDS SUMMARY | 2024-02-17 00:37 | XMS_ITS | Encounter Summary ---
[place] [address] Care Team Providers Care Fire Lieutenant Name Role Phone Aram Ascencio MD Primary Care Provider [facility] Encounter Details Date Type Department Care Team (Late st Contact Info) Description 03/17/2016 4:00 PM EST Office Visit Endocrinology [address] [phone] Meilda Loza APRN Social History Tobacco Use Types [...] on filedocumented in this encounter Care Teams Fire Lieutenant Relationship Specialty Start Date End Date Aram Asecncio MD PCP - General 05/08/12 12/08/16 documented as of this encounter
--- OUTSIDE RECORDS SUMMARY | 2024-02-17 00:37 | XMS_ITS | Encounter Summary ---
[place] [address] Care Team Providers Care Death Surveys Coder Name Role Phone Aram Ascencio MD Primary Care Provider Unavail le Encounter Details Date Type Department Care Team (Late st Contact Info) Description 08/23/2014 11:00 AM EDT Procedure visit Ancillary at [address] [phone] Social History Tobacco Use Types Packs/Day Years Used Date Smoking Tobacco: Never Assessed Sex and Gender Information Value Date Recorded Sex Assigned at Not on file Gender Identity Not on file Sexual Orientation Not on file documented as of this encounter Plan of Treatment Not on file documented as of this encounter Visit Diagnoses Not on filedocumented in this encounter Care Teams Death Surveys Coder Relationship Specialty Start Date End Date Aram Ascencio MD PCP - General 05/08/12 12/08/16 documented as of this encounter
--- OUTSIDE RECORDS SUMMARY | 2024-02-17 00:37 | XMS_ITS | Encounter Summary ---
[place] [address] Care Team Providers Care Telegraphic Typewriter Installer Name Role Phone Timothy Mo DO Primary Care Provider Encounter Details Date Type Department Care Team (Latest Contact Info) Description 09/12/2017 11:00 AM EDT Laboratory Appointment Lab at [address] [phone] Uncomplicated type 1 diabetes mellitus Social History [...] Procedure Name Priority Date/Time Associated Diagnosis Comments VITAMIN D, 25-HYDROXY Routine 09/12/2017 11:07 AM EDT Uncomplicated type 1 diabetes mellitus COMPREHENSIVE METABOLIC PANEL Routine 09/12/2017 11:07 AM EDT Uncomplicated type 1 diabetes mellitus U ALBUMIN/CRE RATIO Routine 09/12/2017 1 1:04 AM EDT Uncomplicated type 1 diabetes mellitus documented in this encounter Results * Vitamin D, 25-Hydroxy (09/12/2017 11:07 AM EDT) Vitamin D Total 25 OH 34 30 - 100 ng/mL [facility] Comment: Deficient <10 ng/mL Insufficient 10 to 29 ng/mL Sufficient 30 to 100 ng/mL Potential Intoxication >100 ng/mL According to the [place] National Osteoporosis Foundation, Vitamin D concentrations >30 ng/mL are sufficient to protect bone health. ??The National Kidney Foundation has similarly stated that patients with Vitamin D concentrations <30ng/mL should be considered to be insufficient or deficient. [email or web address]-guidelines [email or web address]/nejm-VitD Blood specimen (specimen) 09/12/2017 11:07 AM EDT 09/12/2017 11:08 AM EDT Narrative Resulting Agency Comment Spec In Lab Melida Loza TAVERN KEEPER CHEMISTRY ORDERA BLES [facility] [address] [id number] * (ABNORMAL) Comprehensive metabolic panel (non-fasting) (09/12/2017 11:07 AM EDT) Glucose 193 65 - 199 mg/dL [facility] Comment:Diabetes: >=200 mg/d L plus symptoms Blood Urea Nitrogen 17 10 - 20 mg/dL [facility] Creatinine 0.79(L) 0.80 - 1.50 mg/dL [facility] Sodium 139 135 - 145 mmol/L [facility] Potassium 4.5 3.5 - 5.0 mmol/L [facility] Comment: Please note: ??Patients with WBC >100,000 may have falsely elevated Potassium levels. ??For accurate Potassium quantification in these patients send serum separator tube (gold top) for subsequent determinations. ??Contact the Clinical Chemistry Laboratory if there are any questions. Chloride 97(L) 98 - 107 mmol/L [facility] Carbon Dioxide 28 22 - 31 mmol/L [facility] Anion Gap 14 5 - 15 mmol/L [facility] Calcium 9.2 8.5 - 10.5 mg/dL [facility] Protein, Total 7.0 6.1 - 8.0 gm/dL [facility] Albumin 4.1 3.2 - 5.2 gm/dL [facility] Aspartate Aminotransferase 20 0 - 39 unit/L [facility] Alanine Aminotransferase 18 0 - 55 unit/L [facility] Alkaline Phosphatase 57 40 - 120 unit/L [facility] Bilirubin, Total 0.6 0.2 - 1.3 mg/dL [facility] Est Glomerular Filtration Rate 99 >=60 mL/min/1. 73 m?? [facility] Comment: The eGFR was calculated using the CKD-EPI equation. As with all creatinine based estimates of kidney function, eGFR values calculated with the CKD-EPI equation are not accurate in patients with acute kidney failure, extremes of body mass or the acutely ill. [email or web address] eGFR 115 >=60 mL/min/1. 73 m?? [facility] Comment: The eGFR was calculated using the CKD-EPI equation. As with all creatinine based estimates of kidney function, eGFR values calculated with the CKD-EPI equation are not accurate in patients with acute kidney failure, extremes of body mass or the acutely ill. [email or web address] Blood specimen (specimen) 09/12/2017 11:07 AM EDT 09/12/2017 11:08 AM EDT Narrative Resulting Agency Comment Spec In Lab Melida Loza APRN CHEMISTRY ORDERA BLES [facility] [address] [place] [address] * U Albumin/Cre Ratio (09/12/2017 11:04 AM EDT) Albumin / Creatinin Ratio, Urine <2 0 - 29 mcg/mg Cr [facility] Albumin, Urine <3.0 mg/L [facility] Creatinine, Urine 145 mg/dL [facility] Urine specimen (specimen) 09/12/2017 11:04 AM EDT 09/12/2017 11:32 AM EDT Narrative Resulting Agency Comment Spec In Lab Melida Loza TAVERN KEEPER URINE ORDERABLES [facility] [address] [place] [address] documented in this encounter Visit Diagnoses Diagnosis Uncomplicated type 1 diabetes mellitus Type I (juvenile type) diabetes mellitus without mention of complication, not stated as uncontrolled documented in this encounter Care Teams Telegraphic Typewriter Installer Relationship Specialty Start Date End Date Timothy Mo DO [address] [place] [address] PCP - General Family Medicine 12/09/16 08/04/21 documented as of this encounter
--- OUTSIDE RECORDS SUMMARY | 2024-02-17 00:37 | XMS_ITS | Encounter Summary ---
[place] [address] Care Team Providers Care Blow Molder Name Role Phone Aram Ascencio MD Primary Care Provider [facility] Encounter Details Date Type Department Care Team (Late st Contact Info) Description 10/30/2015 2:45 PM EDT Office Visit Ophthalmology [address] [phone] Jamal Saxena MD Social History Tobacco Use [...] on filedocumented in this encounter Care Teams Blow Molder Relationship Specialty Start Date End Date Aram Ascencio MD PCP - General 05/08/12 12/08/16 documented as of this encounter
--- OUTSIDE RECORDS SUMMARY | 2024-02-17 00:37 | XMS_ITS | Encounter Summary ---
Author Organization [facility] [place] [address] Care Team Providers Care Telegraph Operator Name Role Phone Timothy Mo DO Primary Care Provider [phone]- [phone] Encounter Details Date Type Department Care Team (Late st Contact Info) Description 03/11/2014 [facility] Information Services [address] [place] [phone] Provider, His [place] MD Social History Tobacco [...] Procedure Name Priority Date/Time Associated Diagnosis Comments CBC (WITH DIFF) Routine 03/11/2014 10:15 AM EST documented in this encounter Results * (ABNORMAL) CBC (with Diff) (03/11/2014 10:15 AM EST) Baso Absolute 0.05(Exte rnal Lab) 0.0 - 0.2 THOUS [facility] RESULT CONVERSION Comment: Sourced from [facility] Krishnamurthy Conversion Basophil % 1.0(Exter nal Lab) 0.0 - 2.0 percent [facility] RESULT CONVERSION Comment: Sourced from [facility] Krishnamurthy Conversion Eosinophils Abs 0.02(Exte rnal Lab) 0.0 - 0.8 THOUS [facility] RESULT CONVERSION Comment: Sourced from [facility] [place] Conversion Eos % 0.4(Exter nal Lab) 0.0 - 7.0 percent [facility] RESULT CONVERSION Comment: Sourced from [facility] [place] Conversion Immature Gran Absolute 0.02(Exte rnal Lab) 0.0 - 0.05 THOUS [facility] RESULT CONVERSION Comment: Sourced from [place] [place] Conversion Immature Gran % 0.4(Exter nal Lab) 0.0 - 0.66 %/100 WBC [facility] RESULT CONVERSION Comment: Sourced from [facility] Conversion Hematocrit 40.4(EXTE RNAL/ABN) 42.0 - 52.0 percent [facility] RESULT CONVERSION Comment: Sourced from [facility] Conversion Hemoglobin 13.7(EXTE RNAL/ABN) 14.0 - 18.0 g/dl [facility] RESULT CONVERSION Comment: Sourced from [facility] Conversion White Blood Cell 5.15(Exte rnal Lab) 4.8 - 10.8 THOUS [facility] RESULT CONVERSION Comment: Sourced from [facility] Conversion Lymphocytes Abs 1.41(Exte rnal Lab) 0.90 - 5.20 THOUS [facility] RESULT CONVERSION Comment: Sourced from [facility] [place] Conversion Lymph % 27.4(Exte rnal Lab) 19.0 - 48.0 percent [facility] RESULT CONVERSION Comment: Sourced from [facility] Conversion Mean Cell Hemoglobin 30.2(Exte rnal Lab) 27 - 31 pg [facility] RESULT CONVERSION Comment: Sourced from [place] Conversion Mean Cell Hemoglobin Concentration 33.9(Exte rnal Lab) 33 - 37 g/dl [facility] RESULT CONVERSION Comment: Sourced from [place] [place] Conversion Mean Cell Volume 89.2(Exte rnal Lab) 80 - 94 FL [facility] RESULT CONVERSION Comment: Sourced from [facility] [place] Conversion Monocyte Abs 0.40(Exte rnal Lab) 0.16 - 1.00 THOUS [facility] RESULT CONVERSION Comment: Sourced from [place] [place] Conversion Monocyte % 7.8(Exter nal Lab) 3.4 - 9.0 percent [facility] RESULT CONVERSION Comment: Sourced from [facility] Conversion Mean Platelet Volume 11.9(EXTE RNAL/ABN) 7.2 - 11.1 FL [facility] RESULT CONVERSION Comment: Sourced from [facility] [place] Conversion Neutrophil Absolute (ANC) - Automated 3.25(Exte rnal Lab) 1.90 - 8.00 THOUS [facility] RESULT CONVERSION Comment: Sourced from [facility] [place] Conversion Neutrophil % 63.0(Exte rnal Lab) 40.0 - 74.0 percent [facility] RESULT CONVERSION Comment: Sourced from [place] Conversion NRBC Absolute 0.00(Exte rnal Lab) 0.0 - 0.012 THOUS [facility] RESULT CONVERSION Comment: Sourced from [facility] Conversion NRBC% auto 0.0(Exter nal Lab) 0.0 - 0.2 %/100 WBC [facility] RESULT CONVERSION Comment: Sourced from [place] Conversion Platelet 218(Exter nal Lab) 130 - 400 THOUS [facility] RESULT CONVERSION Comment: Sourced from [facility] [place] Conversion Red Blood Cell 4.53(EXTE RNAL/ABN) 4.7 - 6.1 MILLIONS [facility] RESULT CONVERSION Comment: Sourced from [facility] Conversion RDW coefficient of variation 11.7(Exte rnal Lab) 11.5 - 14.5 percent [facility] RESULT CONVERSION Comment: Sourced from [facility] [place] Conversion 03/11/2014 10:1 5 AM EST His [place] Provider HEMATOLOGY ORDERAB LES [facility] RESULT CONVERSION documented in this encounter Visit Diagnoses Not on filedocumented in this encounter Care Teams Telegraph Operator Relationship Specialty Start Date End Date Timothy Mo DO [address] [place] [id number] PCP - General Family Medicine 12/09/16 08/04/21 documented as of this encounter
--- OUTSIDE RECORDS SUMMARY | 2024-02-17 00:37 | XMS_ITS | Encounter Summary ---
[place] [address] Care Team Providers Care Cooler Deliverer Name Role Phone Aram Ascencio MD Primary Care Provider Unavail le Encounter Details Date Type Department Care Team (Late st Contact Info) Description 08/23/2014 4:15 AM EDT Procedure visit Ancillary at [address] [phone] Social History Tobacco Use Types [...] on filedocumented in this encounter Care Teams Cooler Deliverer Relationship Specialty Start Date End Date Aram Ascencio MD PCP - General 05/08/12 12/08/16 documented as of this encounter
--- OUTSIDE RECORDS SUMMARY | 2024-02-17 00:37 | XMS_ITS | Encounter Summary ---
[place] [address] Care Team Providers Care Car Salesperson Name Role Phone Timothy Mo DO Primary Care Provider [phone]- [phone] Encounter Details Date Type Department Care Team ([facility] Contact Info) Description 04/20/2017 Orders Only Endocrinology at [address] [phone] Neeta Nath LPN Social History Tobacco Use [...] on filedocumented in this encounter Care Teams Car Salesperson Relationship Specialty Start Date End Date Timothy Mo DO [address] [place] [id number] PCP - General Family Medicine 12/09/16 08/04/21 documented as of this encounter
--- OUTSIDE RECORDS SUMMARY | 2024-02-17 00:37 | XMS_ITS | Encounter Summary ---
[place] [address] Care Team Providers Care Doggy Daycare Activities Director Name Role Phone Aram Ascencio MD Primary Care Provider [facility] Encounter Details Date Type Department Care Team ([facility] st Contact Info) Description 08/27/2014 8:30 AM EDT Office Visit Primary Care [address] [phone] Briseida Sanchez, SAFETY OFFICER [address] [place] [phone] Social History Tobacco Use Types Packs/Day Years Used Date Smoking Tobacco: Never Assessed Sex and Gender Information Value Date Recorded Sex Assigned at Not on file Gender Identity Not on file Sexual Orientation Not on file documented as of this encounter Plan of Treatment Not on file documented as of this encounter Visit Diagnoses Not on filedocumented in this encounter Care Teams Doggy Daycare Activities Director Relationship Specialty Start Date End Date Aram Ascencio MD PCP - General 05/08/12 12/08/16 documented as of this encounter
--- OUTSIDE RECORDS SUMMARY | 2024-02-17 00:37 | XMS_ITS | Encounter Summary ---
[place] [address] Care Team Providers Care Screening Tech Name Role Phone Timothy Mo DO Primary Care Provider +1- [phone] Encounter Details Date Type Department Care Team ([facility] Contact Info) Description 03/07/2018 Orders Only Endocrinology at [address] [phone] Neeta Nath LPN Social History Tobacco Use [...] on filedocumented in this encounter Care Teams Screening Tech Relationship Specialty Start Date End Date Timothy Mo DO [address] [place] [address] PCP - General Family Medicine 12/09/16 08/04/21 documented as of this encounter
--- OUTSIDE RECORDS SUMMARY | 2024-02-17 00:37 | XMS_ITS | Encounter Summary ---
Author [place] [address] Care Team Providers Care Fixed Wing Pilot Name Role Phone Timothy Mo DO Primary Care Provider +1- [phone] Encounter Details Date Type Department Care Team ([facility] Contact Info) Description 11/04/2017 Orders Only Endocrinology at [address] [phone] Neeta Nath LPN Social History Tobacco Use [...] on filedocumented in this encounter Care Teams Fixed Wing Pilot Relationship Specialty Start Date End Date Timothy Mo DO [address] [place] [id number] PCP - General Family Medicine 12/09/16 08/04/21 documented as of this encounter
--- OUTSIDE RECORDS SUMMARY | 2024-02-17 00:37 | XMS_ITS | Encounter Summary ---
[place] [address] Care Team Providers Care High School Sports Coach Name Role Phone Aram Ascencio MD Primary Care Provider [facility] Encounter Details Date Type Department Care Team (Late st Contact Info) Description 05/22/2014 [facility] Information Services [address] [place] [address] [place] [phone] Provider, His MD [place] Social History Tobacco [...] - Inhaled Oxygen Concentration - - Weight 76.7 kg (169 lb) 05/22/2014 3:00 PM EDT Sourced from [place] Conversion Height - - Body Mass Index 24.25 05/14/2014 3:40 PM EDT documented in this encounter Plan of Treatment Not on file documented as of this encounter Visit Diagnoses Not on filedocumented in this encounter Care Teams High School Sports Coach Relationship Specialty Start Date End Date Aram Ascencio MD PCP - General 05/08/12 12/08/16 documented as of this encounter
--- OUTSIDE RECORDS SUMMARY | 2024-02-17 00:37 | XMS_ITS | Encounter Summary ---
[place] [address] Care Team Providers Care Through Freight Engineer Name Role Phone Aram Ascencio MD Primary Care Provider [facility] Encounter Details Date Type Department Care Team (Late st Contact Info) Description 05/14/2014 [facility] Information Services [address] [place] [address] [place] [phone] Provider, His MD [place] Social History Tobacco [...] - - Weight 76.7 kg (169 lb) 05/14/2014 3:40 PM EDT Sourced from [place] Conversion Height 177.8 cm (5' 10) 05/14/2014 3:4 0 PM EDT Sourced from [place] Conversion Body Mass Index 24.25 05/14/2014 3:40 PM EDT documented in this encounter Plan of Treatment Not on file documented as of this encounter Visit Diagnoses Not on filedocumented in this encounter Care Teams Through Freight Engineer Relationship Specialty Start Date End Date Aram Ascencio MD PCP - General 05/08/12 12/08/16 documented as of this encounter
--- OUTSIDE RECORDS SUMMARY | 2024-02-17 00:37 | XMS_ITS | Encounter Summary ---
Author Organization [facility] [place] [address] Care Team Providers Care Stationary Engineer Supervisor Name Role Phone Aram Ascencio MD Primary Care Provider [facility] Encounter Details Date Type Department Care Team (Late st Contact Info) Description 10/29/2015 [facility] Information Services [address] [facility] [place] [phone] Provider, His MD [place] Social History Tobacco Use Types Packs/Day Years Used Date Smoking Tobacco: Never Assessed Sex and Gender Information Value Date Recorded Sex Assigned at Not on file Gender Identity Not on file Sexual Orientation Not on file documented as of this encounter Last Filed Vital Signs Vital Sign Reading Time Taken Comments Blood Pressure - - Pulse 64 10/29/2015 4:00 PM EDT Sourced from [place] Conversion Temperature - - Respiratory Rate - - Oxygen Saturation - - Inhaled Oxygen Concentration - - Weight 77.1 kg (170 lb) 10/29/2015 4:00 PM EDT Sourced from [place] Conversion Height - - Body Mass Index 24.39 05/14/2014 3:40 PM EDT documented in this encounter Plan of Treatment Not on file documented as of this encounter Procedures Procedure Name Priority Date/Time Associated Diagnosis Comments POCT GLYCATED HEMOGLOBIN, TOTAL (HA1C) Routine 10/29/2015 4:28 PM EDT documented in this encounter Results * (ABNORMAL) POCT glycated hemoglobin, total (HA1C) (10/29/2015 4:28 PM EDT) POC Glycohemoglobin 7.4(EXTER NAL/ABN) <5.7% % [facility] RESULT CONVERSION Comment: Sourced from [facility] Krishnamurthy Conversion 10/29/2015 4:28 PM EDT His [place] Provider POINT OF CARE TEST ORDERABLES [facility] RESULT CONVERSION documented in this encounter Visit Diagnoses Not on filedocumented in this encounter Care Teams Stationary Engineer Supervisor Relationship Specialty Start Date End Date Aram Ascencio MD PCP - General 05/08/12 12/08/16 documented as of this encounter
--- OUTSIDE RECORDS SUMMARY | 2024-02-17 00:37 | XMS_ITS | Encounter Summary ---
Author Organization [facility] [place] [address] Care Team Providers Care Coil Winding Machines Set Up Mechanic Name Role Phone Timothy Mo DO Primary Care Provider Encounter Details Date Type Department Care Team ([facility] st Contact Info) Description 12/04/2016 Orders Only Primary Care [address] [phone] Zayda Lynch, RN Social History Tobacco Use Types Packs/Day Years Used Date Smoking Tobacco: Never Assessed Sex and Gender Information Value Date Recorded Sex Assigned at Not on file Gender Identity Not on file Sexual Orientation Not on file documented as of this encounter Plan of Treatment Not on file documented as of this encounter Visit Diagnoses Not on filedocumented in this encounter Care Teams Coil Winding Machines Set Up Mechanic Relationship Specialty Start Date End Date Timothy Mo DO [address] [place] [id number] PCP - General Family Medicine 12/09/16 08/04/21 documented as of this encounter
--- OUTSIDE RECORDS SUMMARY | 2024-02-17 00:37 | XMS_ITS | Encounter Summary ---
Author Organization [facility] [place] [address] Care Team Providers Care Hotel Services Sales Representative Name Role Phone Aram Ascencio MD Primary Care Provider [facility] Encounter Details Date Type Department Care Team (Late st Contact Info) Description 12/26/2014 [facility] Information Services [address] [facility] [phone] Provider, His MD [place] Social History Tobacco Use Types Packs/Day Years Used Date Smoking Tobacco: Never Assessed Sex and Gender Information Value Date Recorded Sex Assigned at Not on file Gender Identity Not on file Sexual Orientation Not on file documented as of this encounter Last Filed Vital Signs Vital Sign Reading Time Taken Comments Blood Pressure - - Pulse 64 12/26/2014 4:00 PM EST Sourced from [employer] Conversion Temperature - - Respiratory Rate - - Oxygen Saturation - - Inhaled Oxygen Concentration - - Weight 76.4 kg (168 lb 8 oz) 12/26/2014 4:00 PM EST Sourced from [employer] Conversion Height - - Body Mass Index 24.18 05/14/2014 3:40 PM EDT documented in this encounter Plan of Treatment Not on file documented as of this encounter Procedures Procedure Name Priority Date/Time Associated Diagnosis Comments POCT GLYCATED HEMOGLOBIN, TOTAL (HA1C) Routine 12/26/2014 4:10 PM EST documented in this encounter Results * (ABNORMAL) POCT glycated hemoglobin, total (HA1C) (12/26/2014 4:10 PM EST) POC Glycohemoglobin 7.4(EXTER NAL/ABN) <5.7% % [facility] RESULT CONVERSION Comment: Sourced from [facility] Conversion 12/26/2014 4:10 PM EST His [place] Provider POINT OF CARE TEST ORDERABLES [facility] RESULT CONVERSION documented in this encounter Visit Diagnoses Not on filedocumented in this encounter Care Teams Hotel Services Sales Representative Relationship Specialty Start Date End Date Aram Ascencio MD PCP - General 05/08/12 12/08/16 documented as of this encounter
--- OUTSIDE RECORDS SUMMARY | 2024-02-17 00:37 | XMS_ITS | Encounter Summary ---
[place] [address] Care Team Providers Care Waterway Traffic Checker Name Role Phone Timothy Mo DO Primary Care Provider [phone]- [phone] Encounter Details Date Type Department Care Team ([facility] Contact Info) Description 12/25/2016 Orders Only Endocrinology at [address] [phone] Neeta Nath LPN Social History Tobacco Use [...] on filedocumented in this encounter Care Teams Waterway Traffic Checker Relationship Specialty Start Date End Date Timothy Mo DO [address] [place] [phone] PCP - General Family Medicine 12/09/16 08/04/21 documented as of this encounter
--- OUTSIDE RECORDS SUMMARY | 2024-02-17 00:37 | XMS_ITS | Encounter Summary ---
[place] [address] Care Team Providers Care Brace Maker Name Role Phone Aram Ascencio MD Primary Care Provider [facility] Encounter Details Date Type Department Care Team (Late st Contact Info) Description 02/21/2014 2:45 PM EST Office Visit [address] [phone] Jamal Saxena MD Social History Tobacco Use [...] on filedocumented in this encounter Care Teams Brace Maker Relationship Specialty Start Date End Date Aram Ascencio MD PCP - General 05/08/12 12/08/16 documented as of this encounter
--- OUTSIDE RECORDS SUMMARY | 2024-02-17 00:37 | XMS_ITS | Encounter Summary ---
[place] [address] Care Team Providers Care Manager Trade Marketing Name Role Phone Aram Ascencio MD Primary Care Provider [facility] Encounter Details Date Type Department Care Team (Late st Contact Info) Description 09/22/2016 External Results Lab at [address] [phone] Melida Loza APRN Social History Tobacco Use [...] Associated Diagnosis Comments VITAMIN D, 25-HYDROXY Routine 09/22/2016 5:12 PM EDT VITAMIN B12 Routine 09/22/2016 5:12 PM EDT documented in this encounter Results * (ABNORMAL) Vitamin D, 25-Hydroxy (09/22/2016 5:12 PM EDT) Vitamin D Total 25 OH 24.05(Ext L) >30 ng/ml [facility] EXTERNAL RESULTS Comment: Reference range: <10 ng/mL ?Deficient 10-30 ng/mL ??Insufficient >30 ng/mL ? Sufficient >100 gn/ml ? Potential Intoxication 09/22/2016 5:12 PM EDT Melida Loza COMMODITY DIRECTOR CHEMISTRY ORDERA BLES Performing Organization Address [facility] [address]/[facility] Co de Phone Number [facility] EXTERNAL RESULTS [address] [place] [address] * (ABNORMAL) Vitamin B12 (09/22/2016 5:12 PM EDT) Vitamin B12 907.1(Exte rnal Lab) 211 - 946 pg/ml [facility] EXTERNAL RESULTS 09/22/2016 5:12 PM EDT Melida Loza COMMODITY DIRECTOR CHEMISTRY ORDERA BLES Performing Organization Address [facility] de Phone Number [facility] EXTERNAL RESULTS [address] [place] [address] documented in this encounter Visit Diagnoses Not on filedocumented in this encounter Care Teams Manager Trade Marketing Relationship Specialty Start Date End Date Aram Ascencio MD PCP - General 05/08/12 12/08/16 documented as of this encounter
--- OUTSIDE RECORDS SUMMARY | 2024-02-17 00:37 | XMS_ITS | Encounter Summary ---
Author Organization [facility] [address] Care Team Providers Care Warp Starter Name Role Phone Aram Ascencio MD Primary Care Provider [facility] Encounter Details Date Type Department Care Team (Late st Contact Info) Description 11/03/2016 [facility] Information Services [address] [facility] [place] [phone] Provider, His [place] MD Social History Tobacco [...] Procedure Name Priority Date/Time Associated Diagnosis Comments EXTERNAL DIABETES EYE EXAM RESULT Routine 11/03/2016 4:00 PM EDT documented in this encounter Results * (ABNORMAL) Diabetes External Eye Exam (11/03/2016 4:00 PM EDT) External DM Eye Exam 11/03/2016 4:00:00 PM; See [employer] system for full report(Externa l Lab) [facility] CONVERSION Comment:Sourced from [facility]ureen Jacob[facility] Conversion Anatomical Region Laterality Modality Other 11/03/2016 4:00 PM EDT His [place] Provider OPHTHALMOLOGY SERV ICES ORDERABLES documented in this encounter Visit Diagnoses Not on filedocumented in this encounter Care Teams Warp Starter Relationship Specialty Start Date End Date Aram Ascencio MD PCP - General 05/08/12 12/08/16 documented as of this encounter
--- OUTSIDE RECORDS SUMMARY | 2024-02-17 00:37 | XMS_ITS | Encounter Summary ---
[place] [address] Care Team Providers Care Chain Tender Name Role Phone Aram Ascencio MD Primary Care Provider [facility] Encounter Details Date Type Department Care Team (Late st Contact Info) Description 03/11/2014 [facility] Information Services [address] [place] [address] [place] [phone] Provider, His MD [place] Social History Tobacco [...] - Inhaled Oxygen Concentration - - Weight 75.8 kg (167 lb) 03/11/2014 9:40 AM EST Sourced from [place] Conversion Height - - Body Mass Index 23.96 07/06/2013 8:30 AM EDT documented in this encounter Plan of Treatment Not on file documented as of this encounter Visit Diagnoses Not on filedocumented in this encounter Care Teams Chain Tender Relationship Specialty Start Date End Date Aram Ascencio MD PCP - General 05/08/12 12/08/16 documented as of this encounter
--- OUTSIDE RECORDS SUMMARY | 2024-02-17 00:37 | XMS_ITS | Encounter Summary ---
[place] [address] Care Team Providers Care Shrimp Cleaner Name Role Phone Aram Ascencio MD Primary Care Provider [facility] le Encounter Details Date Type Department Care Team (Late st Contact Info) Description 01/22/2014 [facility] Information Services [address] [place] [address] [place] [phone] Provider, His MD [place] Social History Tobacco [...] - - Weight 75.8 kg (167 lb) 01/22/2014 1:30 PM EST Sourced from [place] Conversion Height - - Body Mass Index 23.96 07/06/2013 8:30 AM EDT documented in this encounter Plan of Treatment Not on file documented as of this encounter Visit Diagnoses Not on filedocumented in this encounter Care Teams Shrimp Cleaner Relationship Specialty Start Date End Date Aram Ascencio MD PCP - General 05/08/12 12/08/16 documented as of this encounter
--- OUTSIDE RECORDS SUMMARY | 2024-02-17 00:37 | XMS_ITS | Encounter Summary ---
[place] [address] Care Team Providers Care Hand Pleater Name Role Phone Aram Ascencio MD Primary Care Provider [facility] Encounter Details Date Type Department Care Team (Late st Contact Info) Description 08/23/2014 3:30 PM EDT Office Visit Endocrinology [address] [phone] Melida Loza APRN Social History Tobacco Use [...] on filedocumented in this encounter Care Teams Hand Pleater Relationship Specialty Start Date End Date Aram Ascencio MD PCP - General 05/08/12 12/08/16 documented as of this encounter
--- OUTSIDE RECORDS SUMMARY | 2024-02-17 00:37 | XMS_ITS | Encounter Summary ---
Author Organization [facility] [place] [address] Care Team Providers Care Forensic Toxicologist Name Role Phone Timothy Mo DO Primary Care Provider Encounter Details Date Type Department Care Team (Late st Contact Info) Description 05/06/2014 [facility] Information Services [address] [place] [phone] Provider, His [place] MD Social History Tobacco [...] Associated Diagnosis Comments CMP ([facility] CONVERSION) Routine 05/06/2014 7:21 AM EDT documented in this encounter Results * (ABNORMAL) CMP (David conversion) (05/06/2014 7:21 AM EDT) Est Glomerular Filtration Rate >60(Exte rnal Lab) ml/min/1.73m2 [facility] RESULT CONVERSION Comment: Sourced from [facility] Krishnamur[facility] Conversion Albumin 4.0(Exte rnal Lab) 3.5 - 5.2 g/dl [facility] RESULT CONVERSION Comment: Sourced from [facility]nam[facility] Conversion Alkaline Phosphatase 63(Exter nal Lab) 40 - 130 international units per liter [facility] RESULT CONVERSION Comment: Sourced from [employer] [place] Conversion Alanine Aminotransferase 19(Exter nal Lab) <56 international units per liter [facility] RESULT CONVERSION Comment: Sourced from David [place] Conversion Aspartate Aminotransferase 20(Exter nal Lab) <40 international units per liter [facility] RESULT CONVERSION Comment: Sourced from David [place] Conversion Blood Urea Nitrogen 13(Exter nal Lab) 6 - 20 mg/dl [facility] RESULT CONVERSION Comment: Sourced from [place] Conversion Calcium 8.8(Exte rnal Lab) 8.6 - 10.2 mg/dl [facility] RESULT CONVERSION Comment: Sourced from [facility] [place] Conversion CKD Stage NL, 1or2(Ext ernal Lab) [facility] RESULT CONVERSION Comment: Sourced from [place] Conversion Chloride 102(Exte rnal Lab) 98 - 107 mmol/L [facility] RESULT CONVERSION Comment: Sourced from [facility] [place] Conversion Carbon Dioxide 29(Exter nal Lab) 21 - 32 mmol/L [facility] RESULT CONVERSION Comment: Sourced from [place] Conversion Creatinine 0.8(Exte rnal Lab) 0.8 - 1.5 mg/dl [facility] RESULT CONVERSION Comment: Sourced from [employer] [place] Conversion Glucose Fasting 159(EXTE RNAL/ABN ) 70 - 100 mg/dl [facility] RESULT CONVERSION Comment: Sourced from [employer] [place] Conversion Potassium 4.6(Exte rnal Lab) 3.3 - 5.1 mmol/L [facility] RESULT CONVERSION Comment: Sourced from David [place] Conversion Sodium 141(Exte rnal Lab) 136 - 145 mmol/L [facility] RESULT CONVERSION Comment: Sourced from [employer] [place] Conversion Bilirubin, Total 0.6(Exte rnal Lab) <1.2 mg/dl [facility] RESULT CONVERSION Comment: Sourced from David [place] Conversion Protein, Total 6.7(Exte rnal Lab) 6.6 - 8.7 g/dl [facility] RESULT CONVERSION Comment: Sourced from [employer] [place] Conversion 05/06/2014 7:21 AM EDT His [place] Provider CHEMISTRY ORDERABL ES [facility] RESULT CONVERSION documented in this encounter Visit Diagnoses Not on filedocumented in this encounter Care Teams Forensic Toxicologist Relationship Specialty Start Date End Date Timothy Mo DO [address] [facility] [place] [address] PCP - General Family Medicine 12/09/16 08/04/21 documented as of this encounter
--- OUTSIDE RECORDS SUMMARY | 2024-02-17 00:37 | XMS_ITS | Encounter Summary ---
Author Organization [facility] [place] [address] Care Team Providers Care Metal Slitter Name Role Phone Aram Ascencio MD Primary Care Provider [facility] Encounter Details Date Type Department Care Team (Late st Contact Info) Description 08/26/2014 [place] [phone] Briseida Sanchez, REGULATORY AUDITOR [address] [place] [address] Social History Tobacco Use Types Packs/Day Years Used Date Smoking Tobacco: Never Assessed Sex and Gender Information Value Date Recorded Sex Assigned at Not on file Gender Identity Not on file Sexual Orientation Not on file documented as of this encounter Plan of Treatment Not on file documented as of this encounter Procedures Procedure Name Priority Date/Time Associated Diagnosis Comments XR CERVICAL SPINE 2 OR 3 VIEWS Routine 08/26/2014 4:23 PM EDT documented in this encounter Results * XR Cervical Spine 2 Or 3 Views (08/26/2014 4:23 PM EDT) Anatomical Region Laterality Modality C-spine N/A Radiographic Naima ging 08/26/2014 4:23 PM EDT Narrative 08/27/2014 10:53 AM EDT External Results [facility] EXAMINATION: ??DHK 2600 - CERV SPINE 3 VIEWS OR LESS [address]5819 DIAGNOSIS: ?NECK PAIN CERVICALGIA REASON: ? NECK PAIN RESULT: ? Cervical spine. IMPRESSION: ? Degenerative disc disease at C4-5, C5-6 and C6-7 noted with disc space narrowing and spurring. ??No fracture seen. INTERPRETING PHYSICIAN: ??TERRANCE BRAVO M.D. Aug 26 2014 ??4:47P ? TRANSCRIBED BY/DATE: ?? ARN on Aug 26 2014 ??5:18P ELECTRONICALLY AUTHORIZED BY: ?? TERRANCE BRAVO M.D. ? Aug 27 2014 10:53A Procedure Note Terrance Bravo MD - 09/20/2016 External Results [facility] Krishnamurthy EXAMINATION: DHK 2600 - CERV SPINE 3 VIEWS OR LESS [address]53 DIAGNOSIS: NECK PAIN CERVICALGIA REASON: NECK PAIN RESULT: Cervical spine. IMPRESSION: Degenerative disc disease at C4-5, C5-6 and C6-7 noted with disc space narrowing and spurring. No fracture seen. INTERPRETING PHYSICIAN: TERRANCE BRAVO M.D. Aug 26 2014 4:47P TRANSCRIBED BY/DATE: ARN on Aug 26 2014 5:18P ELECTRONICALLY AUTHORIZED BY: TERRANCE BRAVO M.D. Aug 27 2014 10:53A Briseida Sanchez REGULATORY AUDITOR IMG DX ORDERABLES documented in this encounter Visit Diagnoses Not on filedocumented in this encounter Care Teams Metal Slitter Relationship Specialty Start Date End Date Aram Ascencio MD PCP - General 05/08/12 12/08/16 documented as of this encounter
--- OUTSIDE RECORDS SUMMARY | 2024-02-17 00:37 | XMS_ITS | Encounter Summary ---
Author Organization [facility] [place] [address] Care Team Providers Care Manager Php Name Role Phone Aram Ascencio MD Primary Care Provider [facility] Encounter Details Date Type Department Care Team (Late st Contact Info) Description 09/22/2016 [facility] Information Services [address] [place] [address] [place] [phone] Provider, His [place] MD Social History Tobacco Use Types Packs/Day Years Used Date Smoking Tobacco: Never Assessed Sex and Gender Information Value Date Recorded Sex Assigned at Not on file Gender Identity Not on file Sexual Orientation Not on file documented as of this encounter Last Filed Vital Signs Vital Sign Reading Time Taken Comments Blood Pressure 129/76 09/22/2016 4:11 PM EDT Sourced from [place] Conversion Pulse 68 09/22/2016 4:00 PM EDT Sourced from [place] Conversion Temperature - - Respiratory Rate - - Oxygen Saturation - - Inhaled Oxygen Concentration - - Weight 73.9 kg (163 lb) 09/22/2016 4:00 PM EDT Sourced from [place] Conversion Height - - Body Mass Index 23.39 05/14/2014 3:40 PM EDT documented in this encounter Plan of Treatment Not on file documented as of this encounter Procedures Procedure Name Priority Date/Time Associated Diagnosis Comments POCT GLYCATED HEMOGLOBIN, TOTAL (HA1C) Routine 09/22/2016 4:22 PM EDT EXTERNAL DIABETES EYE EXAM RESULT Routine 09/22/2016 4:00 PM EDT documented in this encounter Results * (ABNORMAL) POCT glycated hemoglobin, total (HA1C) (09/22/2016 4:22 PM EDT) POC Glycohemoglobin 7.8(EXTER NAL/ABN) <5.7% % DAVID [place] CONVERSION Comment: Sourced from David Krishnamurthy Conversion 09/22/2016 4:22 PM EDT His [place] Provider POINT OF CARE TEST ORDERABLES [facility]ID [place] CONVERSION * (ABNORMAL) Diabetes External Eye Exam (09/22/2016 4:00 PM EDT) External DM Eye Exam 09/22/2016 4:00:00 PM; See [employer] system for full report(Externa l Lab) [facility]ID [place] CONVERSION Comment:Sourced from [facility]ureen Krishnamurthy Conversion Anatomical Region Laterality Modality Other 09/22/2016 4:00 PM EDT His [place] Provider OPHTHALMOLOGY SERV ICES ORDERABLES documented in this encounter Visit Diagnoses Not on filedocumented in this encounter Care Teams Manager Php Relationship Specialty Start Date End Date Aram Ascencio MD PCP - General 05/08/12 12/08/16 documented as of this encounter
--- OUTSIDE RECORDS SUMMARY | 2024-02-17 00:37 | XMS_ITS | Encounter Summary ---
[place] [address] Care Team Providers Care Knockout Worker Name Role Phone Aram Ascencio MD Primary Care Provider [facility] Encounter Details Date Type Department Care Team (Late st Contact Info) Description 08/23/2014 [facility] Information Services [address] [place] [address] [place] [phone] Provider, His MD [place] Social History Tobacco [...] - - Weight 76.7 kg (169 lb) 08/23/2014 3:30 PM EDT Sourced from [place] Conversion Height - - Body Mass Index 24.25 05/14/2014 3:40 PM EDT documented in this encounter Plan of Treatment Not on file documented as of this encounter Visit Diagnoses Not on filedocumented in this encounter Care Teams Knockout Worker Relationship Specialty Start Date End Date Aram Ascencio MD PCP - General 05/08/12 12/08/16 documented as of this encounter
--- OUTSIDE RECORDS SUMMARY | 2024-02-17 00:37 | XMS_ITS | Encounter Summary ---
[place] [address] Care Team Providers Care Food Production Supervisor Name Role Phone Aram Ascencio MD Primary Care Provider [facility] Encounter Details Date Type Department Care Team (Late st Contact Info) Description 05/14/2014 3:40 PM EDT Office Visit [address] [phone] Aram Ascencio MD Social History Tobacco Use [...] on filedocumented in this encounter Care Teams Food Production Supervisor Relationship Specialty Start Date End Date Aram Ascencio MD PCP - General 05/08/12 12/08/16 documented as of this encounter
--- OUTSIDE RECORDS SUMMARY | 2024-02-17 00:37 | XMS_ITS | Encounter Summary ---
Author Organization [facility] [place] [address] Care Team Providers Care Transformer Maker Name Role Phone Timothy Mo DO Primary Care Provider [phone] Encounter Details Date Type Department Care Team (Late st Contact Info) Description 08/23/2014 Abstract [facility] Information Services [address] [place] [phone] Provider, His [place] MD Social History Tobacco [...] Associated Diagnosis Comments CBC (WITH DIFF) Routine 08/23/2014 4:38 PM EDT documented in this encounter Results * (ABNORMAL) CBC (with Diff) (08/23/2014 4:38 PM EDT) Baso Absolute 0.08(Exte rnal Lab) 0.0 - 0.2 THOUS [facility] RESULT CONVERSION Comment: Sourced from [facility]nam[facility] Conversion Basophil % 1.1(Exter nal Lab) 0.0 - 2.0 percent [facility] RESULT CONVERSION Comment: Sourced from [facility]nam[facility] Conversion Eosinophils Abs 0.06(Exte rnal Lab) 0.0 - 0.8 THOUS [facility] RESULT CONVERSION Comment: Sourced from [place] Conversion Eos % 0.8(Exter nal Lab) 0.0 - 7.0 percent [facility] RESULT CONVERSION Comment: Sourced from [place] Conversion Immature Gran Absolute 0.03(Exte rnal Lab) 0.0 - 0.05 THOUS [facility] RESULT CONVERSION Comment: Sourced from [place] Conversion Immature Gran % 0.4(Exter nal Lab) 0.0 - 0.66 %/100 WBC [facility] RESULT CONVERSION Comment: Sourced from [place] Conversion Hematocrit 39.9(EXTE RNAL/ABN) 42.0 - 52.0 percent [facility] RESULT CONVERSION Comment: Sourced from David [place] Conversion Hemoglobin 14.0(Exte rnal Lab) 14.0 - 18.0 g/dl [facility] RESULT CONVERSION Comment: Sourced from [place] Conversion White Blood Cell 7.60(Exte rnal Lab) 4.8 - 10.8 THOUS [facility] RESULT CONVERSION Comment: Sourced from [place] Conversion Lymphocytes Abs 2.13(Exte rnal Lab) 0.90 - 5.20 THOUS [facility] RESULT CONVERSION Comment: Sourced from [place] Conversion Lymph % 28.0(Exte rnal Lab) 19.0 - 48.0 percent [facility] RESULT CONVERSION Comment: Sourced from [place] Conversion Mean Cell Hemoglobin 31.3(EXTE RNAL/ABN) 27 - 31 pg [facility] RESULT CONVERSION Comment: Sourced from [place] Conversion Mean Cell Hemoglobin Concentration 35.1(Exte rnal Lab) 33 - 37 g/dl [facility] RESULT CONVERSION Comment: Sourced from [place] Conversion Mean Cell Volume 89.3(Exte rnal Lab) 80 - 94 FL [facility] RESULT CONVERSION Comment: Sourced from [place] Conversion Monocyte Abs 0.53(Exte rnal Lab) 0.16 - 1.00 THOUS [facility] RESULT CONVERSION Comment: Sourced from [facility] [place] Conversion Monocyte % 7.0(Exter nal Lab) 3.4 - 9.0 percent [facility] RESULT CONVERSION Comment: Sourced from [place] Conversion Mean Platelet Volume 11.2(EXTE RNAL/ABN) 7.2 - 11.1 FL [facility] RESULT CONVERSION Comment: Sourced from [place] Conversion Neutrophil Absolute (ANC) - Automated 4.77(Exte rnal Lab) 1.90 - 8.00 THOUS [facility] RESULT CONVERSION Comment: Sourced from [place] Conversion Neutrophil % 62.7(Exte rnal Lab) 40.0 - 74.0 percent [facility] RESULT CONVERSION Comment: Sourced from [place] Conversion NRBC Absolute 0.00(Exte rnal Lab) 0.0 - 0.012 THOUS [facility] RESULT CONVERSION Comment: Sourced from [place] Conversion NRBC% auto 0.0(Exter nal Lab) 0.0 - 0.2 %/100 WBC [facility] RESULT CONVERSION Comment: Sourced from [facility] [place] Conversion Platelet 221(Exter nal Lab) 130 - 400 THOUS [facility] RESULT CONVERSION Comment: Sourced from [place] Conversion Red Blood Cell 4.47(EXTE RNAL/ABN) 4.7 - 6.1 MILLIONS [facility] RESULT CONVERSION Comment: Sourced from [place] Conversion RDW coefficient of variation 11.9(Exte rnal Lab) 11.5 - 14.5 percent [facility] RESULT CONVERSION Comment: Sourced from [facility] [place] Conversion 08/23/2014 4:38 PM EDT His [place] Provider HEMATOLOGY ORDERAB LES [facility] RESULT CONVERSION documented in this encounter Visit Diagnoses Not on filedocumented in this encounter Care Teams Transformer Maker Relationship Specialty Start Date End Date Timothy Mo DO [address] [place] [id number] PCP - General Family Medicine 12/09/16 08/04/21 documented as of this encounter
--- OUTSIDE RECORDS SUMMARY | 2024-02-17 00:37 | XMS_ITS | Encounter Summary ---
[place] [address] Care Team Providers Care Technical Sourcing Recruiter Name Role Phone Aram Ascencio MD Primary Care Provider [facility] Encounter Details Date Type Department Care Team (Late st Contact Info) Description 08/27/2014 [facility] Information Services [address] [place] [address] [place] [phone] Provider, His MD [place] Social History Tobacco [...] - Inhaled Oxygen Concentration - - Weight 78 kg (172 lb) 08/27/2014 8:30 AM EDT Sourced from [place] Conversion Height - - Body Mass Index 24.68 05/14/2014 3:40 PM EDT documented in this encounter Plan of Treatment Not on file documented as of this encounter Visit Diagnoses Not on filedocumented in this encounter Care Teams Technical Sourcing Recruiter Relationship Specialty Start Date End Date Aram Ascencio MD PCP - General 05/08/12 12/08/16 documented as of this encounter
--- OUTSIDE RECORDS SUMMARY | 2024-02-17 00:37 | XMS_ITS | Encounter Summary ---
Author Organization [facility] [place] [address] Care Team Providers Care Cargoman Name Role Phone Aram Ascencio MD Primary Care Provider [facility] Encounter Details Date Type Department Care Team (Late st Contact Info) Description 06/17/2016 [facility] Information Services [address] [place] [address] [place] [phone] Provider, His [place] MD Social History Tobacco Use Types Packs/Day Years Used Date Smoking Tobacco: Never Assessed Sex and Gender Information Value Date Recorded Sex Assigned at Not on file Gender Identity Not on file Sexual Orientation Not on file documented as of this encounter Last Filed Vital Signs Vital Sign Reading Time Taken Comments Blood Pressure 135/65 06/17/2016 4:00 PM EDT Sourced from [place] Conversion Pulse 72 06/17/2016 4:00 PM EDT Sourced from [place] Conversion Temperature - - Respiratory Rate - - Oxygen Saturation - - Inhaled Oxygen Concentration - - Weight 73.9 kg (163 lb) 06/17/2016 4:00 PM EDT Sourced from [place] Conversion Height - - Body Mass Index 23.39 05/14/2014 3:40 PM EDT documented in this encounter Plan of Treatment Not on file documented as of this encounter Procedures Procedure Name Priority Date/Time Associated Diagnosis Comments POCT GLYCATED HEMOGLOBIN, TOTAL (HA1C) Routine 06/17/2016 4:23 PM EDT EXTERNAL DIABETES EYE EXAM RESULT Routine 06/17/2016 4:00 PM EDT documented in this encounter Results * (ABNORMAL) POCT glycated hemoglobin, total (HA1C) (06/17/2016 4:23 PM EDT) POC Glycohemoglobin 8.0(EXTER NAL/ABN) <5.7% % [facility] [place] CONVERSION Comment: Sourced from [facility] Conversion 06/17/2016 4:23 PM EDT His [place] Provider POINT OF CARE TEST ORDERABLES [facility] [place] CONVERSION * (ABNORMAL) Diabetes External Eye Exam (06/17/2016 4:00 PM EDT) External DM Eye Exam 06/17/2016 4:00:00 PM; See [employer] system for full report(Externa l Lab) [facility] [place] CONVERSION Comment:Sourced from [facility] Krishnamurthy Conversion Anatomical Region Laterality Modality Other 06/17/2016 4:00 PM EDT His [place] Provider OPHTHALMOLOGY SERV ICES ORDERABLES documented in this encounter Visit Diagnoses Not on filedocumented in this encounter Care Teams Cargoman Relationship Specialty Start Date End Date Aram Ascencio MD PCP - General 05/08/12 12/08/16 documented as of this encounter
--- OUTSIDE RECORDS SUMMARY | 2024-02-17 00:37 | XMS_ITS | Encounter Summary ---
[place] [address] Care Team Providers Care Switchboard Wirer Name Role Phone Aram Ascencio MD Primary Care Provider [facility] Encounter Details Date Type Department Care Team (Late st Contact Info) Description 05/22/2014 3:00 PM EDT Office Visit [address] [phone] Melida Loza APRN Social History Tobacco Use [...] on filedocumented in this encounter Care Teams Switchboard Wirer Relationship Specialty Start Date End Date Aram Ascencio MD PCP - General 05/08/12 12/08/16 documented as of this encounter
--- OUTSIDE RECORDS SUMMARY | 2024-02-17 00:38 | XMS_ITS | Encounter Summary ---
Author Organization [facility] [place] [address] Care Team Providers Care Sales Service Rep Name Role Phone Aram Ascencio MD Primary Care Provider Unavail le Encounter Details Date Type Department Care Team (Late st Contact Info) Description 01/19/2011 Abstract [facility] Information Services [address] [place] [phone] Provider, His [place] MD Social History Tobacco [...] Procedure Name Priority Date/Time Associated Diagnosis Comments PROTHROMBIN TIME Routine 01/19/2011 9:54 AM EST documented in this encounter Results * (ABNORMAL) Prothrombin Time (01/19/2011 9:54 AM EST) International Normalization Ratio 1.01(Exte rnal Lab) 0.0 - 1.08 Ratio [facility] RESULT CONVERSION Comment: Sourced from [facility] Conversion Prothrombin Time 10.8(Exte rnal Lab) 9.7 - 11.5 Seconds [facility] RESULT CONVERSION Comment: Sourced from [facility] Conversion 01/19/2011 9:54 AM EST His Krishnamurthy Provider HEMATOLOGY ORDERAB LES [facility] RESULT CONVERSION documented in this encounter Visit Diagnoses Not on filedocumented in this encounter Care Teams Sales Service Rep Relationship Specialty Start Date End Date Aram Ascencio MD PCP - General 05/08/12 12/08/16 documented as of this encounter
--- OUTSIDE RECORDS SUMMARY | 2024-02-17 00:38 | XMS_ITS | Encounter Summary ---
[place] [address] Care Team Providers Care Curriculum And Assessment Director Name Role Phone Aram Ascencio MD Primary Care Provider [facility] Encounter Details Date Type Department Care Team (Late st Contact Info) Description 01/22/2014 1:30 PM EST Office Visit [address] [phone] Melida Loza APRN Social History Tobacco Use [...] on filedocumented in this encounter Care Teams Curriculum And Assessment Director Relationship Specialty Start Date End Date Aram Ascencio MD PCP - General 05/08/12 12/08/16 documented as of this encounter
--- OUTSIDE RECORDS SUMMARY | 2024-02-17 00:38 | XMS_ITS | Encounter Summary ---
[place] [address] Care Team Providers Care Certified Procedural Coder Name Role Phone Aram Ascencio MD Primary Care Provider [facility] Encounter Details Date Type Department Care Team (Late st Contact Info) Description 08/31/2012 4:15 AM EDT Procedure visit [address] [phone] Social History Tobacco Use Types Packs/Day Years Used Date Smoking Tobacco: Never Assessed Sex and Gender Information Value Date Recorded Sex Assigned at Not on file Gender Identity Not on file Sexual Orientation Not on file documented as of this encounter Plan of Treatment Not on file documented as of this encounter Visit Diagnoses Not on filedocumented in this encounter Care Teams Certified Procedural Coder Relationship Specialty Start Date End Date Aram Ascencio MD PCP - General 05/08/12 12/08/16 documented as of this encounter
--- OUTSIDE RECORDS SUMMARY | 2024-02-17 00:38 | XMS_ITS | Encounter Summary ---
[place] [address] Care Team Providers Care Veterinary Technician Assistant Name Role Phone Kamilah Rowell MD Primary Care Provider Unavail able Encounter Details Date Type Department Care Team (Late st Contact Info) Description 04/14/2010 10:15 AM EST Office Visit [address] [phone] Social History Tobacco Use Types [...] on filedocumented in this encounter Care Teams Veterinary Technician Assistant Relationship Specialty Start Date End Date Kamilah Rowell MD PCP - General 12/30/09 05/07/12 documented as of this encounter
--- OUTSIDE RECORDS SUMMARY | 2024-02-17 00:38 | XMS_ITS | Encounter Summary ---
[place] [address] Care Team Providers Care Restorative Rehab Aide Name Role Phone Aram Ascencio MD Primary Care Provider [facility] Encounter Details Date Type Department Care Team (Late st Contact Info) Description 12/19/2012 [facility] Information Services [address] [place] [address] [place] [phone] Provider, His [place] MD Social History Tobacco [...] - - Weight 75.8 kg (167 lb) 12/19/2012 4:00 PM EST Sourced from [place] Conversion Height - - Body Mass Index 23.96 01/14/2012 11:45 AM EST documented in this encounter Plan of Treatment Not on file documented as of this encounter Visit Diagnoses Not on filedocumented in this encounter Care Teams Restorative Rehab Aide Relationship Specialty Start Date End Date Aram Ascencio MD PCP - General 05/08/12 12/08/16 documented as of this encounter
--- OUTSIDE RECORDS SUMMARY | 2024-02-17 00:38 | XMS_ITS | Encounter Summary ---
[place] [address] Care Team Providers Care Inverter And Clipper Name Role Phone aKmilah Rowell MD Primary Care Provider Unavail able Encounter Details Date Type Department Care Team (Late st Contact Info) Description 04/21/2010 3:30 PM EDT Office Visit [address] [phone] Melida Loza APRN Social History Tobacco Use [...] on filedocumented in this encounter Care Teams Inverter And Clipper Relationship Specialty Start Date End Date Kamilah Rowell MD PCP - General 12/30/09 05/07/12 documented as of this encounter
--- OUTSIDE RECORDS SUMMARY | 2024-02-17 00:38 | XMS_ITS | Encounter Summary ---
[place] [address] Care Team Providers Care Stone Planer Name Role Phone Kamilah Rowell MD Primary Care Provider Unavail able Encounter Details Date Type Department Care Team (Late st Contact Info) Description 03/24/2011 3:45 PM EST Office Visit [address] [phone] Jamal Saxena MD Social History Tobacco Use [...] on filedocumented in this encounter Care Teams Stone Planer Relationship Specialty Start Date End Date Kamilah Rowell MD PCP - General 12/30/09 05/07/12 documented as of this encounter
--- OUTSIDE RECORDS SUMMARY | 2024-02-17 00:38 | XMS_ITS | Encounter Summary ---
[place] [address] Care Team Providers Care Manager Ship Name Role Phone Aram Ascencio MD Primary Care Provider [facility] Encounter Details Date Type Department Care Team (Late st Contact Info) Description 06/27/2013 [facility] Information Services [address] [place] [address] [place] [phone] Provider, His MD [place] Social History Tobacco [...] - - Weight 72.6 kg (160 lb) 06/27/2013 8:30 AM EDT Sourced from [place] Conversion Height - - Body Mass Index 22.96 01/14/2012 11:45 AM EST documented in this encounter Plan of Treatment Not on file documented as of this encounter Visit Diagnoses Not on filedocumented in this encounter Care Teams Manager Ship Relationship Specialty Start Date End Date Aram Ascencio MD PCP - General 05/08/12 12/08/16 documented as of this encounter
--- OUTSIDE RECORDS SUMMARY | 2024-02-17 00:38 | XMS_ITS | Encounter Summary ---
[place] [address] Care Team Providers Care Bucket Pusher Name Role Phone Kamilah Rowell MD Primary Care Provider Unavail able Encounter Details Date Type Department Care Team (Late st Contact Info) Description 05/08/2010 4:15 AM EDT Procedure visit [address] [phone] Social History Tobacco Use Types [...] on filedocumented in this encounter Care Teams Bucket Pusher Relationship Specialty Start Date End Date Kamilah Rowell MD PCP - General 12/30/09 05/07/12 documented as of this encounter
--- OUTSIDE RECORDS SUMMARY | 2024-02-17 00:38 | XMS_ITS | Encounter Summary ---
Author Organization [facility] [place] [address] Care Team Providers Care Asp Net Software Developer Name Role Phone Timothy Mo DO Primary Care Provider Encounter Details Date Type Department Care Team (Late st Contact Info) Description 09/24/2013 Abstract [facility] Information Services [address] [place] [phone] Provider, His [place] MD Social History Tobacco [...] Associated Diagnosis Comments CMP ([facility] CONVERSION) Routine 09/24/2013 7:16 AM EDT documented in this encounter Results * (ABNORMAL) CMP (David conversion) (09/24/2013 7:16 AM EDT) Est Glomerular Filtration Rate >60(Exte rnal Lab) ml/min/1.73m2 [facility] RESULT CONVERSION Comment: Sourced from [facility] [place] Conversion Albumin 3.4(Exte rnal Lab) 3.1 - 4.7 g/dl [facility] RESULT CONVERSION Comment: Sourced from [facility] Conversion Alkaline Phosphatase 75(Exter nal Lab) 50 - 136 international units per liter [facility] RESULT CONVERSION Comment: Sourced from [place] Conversion Alanine Aminotransferase 24(Exter nal Lab) 12 - 78 international units per liter [facility] RESULT CONVERSION Comment: Sourced from [facility] [place] Conversion Aspartate Aminotransferase 16(Exter nal Lab) <37 international units per liter [facility] RESULT CONVERSION Comment: Sourced from [place] Conversion Blood Urea Nitrogen 15(Exter nal Lab) 5 - 25 mg/dl [facility] RESULT CONVERSION Comment: Sourced from David [place] Conversion Calcium 8.6(Exte rnal Lab) 8.2 - 10.2 mg/dl [facility] RESULT CONVERSION Comment: Sourced from David [place] Conversion CKD Stage NL, 1or2(Ext ernal Lab) [facility] RESULT CONVERSION Comment: Sourced from [place] Conversion Chloride 103(Exte rnal Lab) 98 - 107 mmol/L [facility] RESULT CONVERSION Comment: Sourced from [facility] [place] Conversion Carbon Dioxide 29(Exter nal Lab) 21 - 32 mmol/L [facility] RESULT CONVERSION Comment: Sourced from [place] Conversion Creatinine 1.0(Exte rnal Lab) 0.6 - 1.3 mg/dl [facility] RESULT CONVERSION Comment: Sourced from [place] Conversion Glucose Fasting 155(EXTE RNAL/ABN ) 70 - 100 mg/dl [facility] RESULT CONVERSION Comment: Sourced from [place] Conversion Potassium 4.2(Exte rnal Lab) 3.3 - 5.1 mmol/L [facility] RESULT CONVERSION Comment: Sourced from [place] Conversion Sodium 137(Exte rnal Lab) 136 - 145 mmol/L [facility] RESULT CONVERSION Comment: Sourced from David [place] Conversion Bilirubin, Total 0.7(Exte rnal Lab) 0 - 1.0 mg/dl [facility] RESULT CONVERSION Comment: Sourced from [facility] [place] Conversion Protein, Total 6.4(Exte rnal Lab) 6.2 - 8.5 g/dl [facility] RESULT CONVERSION Comment: Sourced from David [place] Conversion 09/24/2013 7:16 AM EDT His [place] Provider CHEMISTRY ORDERABL ES [facility] RESULT CONVERSION documented in this encounter Visit Diagnoses Not on filedocumented in this encounter Care Teams Asp Net Software Developer Relationship Specialty Start Date End Date Timothy Mo DO [address] [facility] [place] [address] PCP - General Family Medicine 12/09/16 08/04/21 documented as of this encounter
--- OUTSIDE RECORDS SUMMARY | 2024-02-17 00:38 | XMS_ITS | Encounter Summary ---
[place] [address] Care Team Providers Care Lockstitch Pocket Setter Name Role Phone Aram Ascencio MD Primary Care Provider Unavail le Encounter Details Date Type Department Care Team (Late st Contact Info) Description 11/22/2011 [facility] Information Services [address] [place] [address] [place] [phone] Provider, His MD [place] Social History Tobacco [...] - Inhaled Oxygen Concentration - - Weight 74.4 kg (164 lb) 11/22/2011 11:1 5 AM EDT Sourced from [place] Conversion Height 177.8 cm (5' 10) 11/22/2011 11: 15 AM EDT Sourced from [place] Conversion Body Mass Index 23.53 11/22/2011 11:15 AM EDT documented in this encounter Plan of Treatment Not on file documented as of this encounter Visit Diagnoses Not on filedocumented in this encounter Care Teams Lockstitch Pocket Setter Relationship Specialty Start Date End Date Aram Ascencio MD PCP - General 05/08/12 12/08/16 documented as of this encounter
--- OUTSIDE RECORDS SUMMARY | 2024-02-17 00:38 | XMS_ITS | Encounter Summary ---
[place] [address] Care Team Providers Care Jewel Bearing Grinder Name Role Phone Aram [facility]io MD [facility] Encounter Details Date Type Department Care Team (Late st Contact Info) Description 09/24/2013 6:15 AM EDT Laboratory Appointment [address] [phone] Social History Tobacco Use Types Packs/Day Years Used Date Smoking Tobacco: Never Assessed Sex and Gender Information Value Date Recorded Sex Assigned at Not on file Gender Identity Not on file Sexual Orientation Not on file documented as of this encounter Plan of Treatment Not on file documented as of this encounter Visit Diagnoses Not on filedocumented in this encounter Care Teams Jewel Bearing Grinder Relationship Specialty Start Date End Date Aram Ascencio MD PCP - General 05/08/12 12/08/16 documented as of this encounter
--- OUTSIDE RECORDS SUMMARY | 2024-02-17 00:38 | XMS_ITS | Encounter Summary ---
[place] [address] Care Team Providers Care Audio Video Repairer Name Role Phone Aram Ascencio MD Primary Care Provider [facility] Encounter Details Date Type Department Care Team (Late st Contact Info) Description 07/13/2012 3:15 PM EDT Office Visit [address] [phone] Jamal Saxena MD Social History Tobacco Use [...] on filedocumented in this encounter Care Teams Audio Video Repairer Relationship Specialty Start Date End Date Aram Ascencio MD PCP - General 05/08/12 12/08/16 documented as of this encounter
--- OUTSIDE RECORDS SUMMARY | 2024-02-17 00:38 | XMS_ITS | Encounter Summary ---
[place] [address] Care Team Providers Care Feather Separator Name Role Phone Kamilah Rowell MD Primary Care Provider Unavail able Encounter Details Date Type Department Care Team (Late st Contact Info) Description 03/19/2011 8:15 AM EST Laboratory Appointment [address] [phone] Social History Tobacco Use Types [...] on filedocumented in this encounter Care Teams Feather Separator Relationship Specialty Start Date End Date Kamilah Rowell MD PCP - General 12/30/09 05/07/12 documented as of this encounter
--- OUTSIDE RECORDS SUMMARY | 2024-02-17 00:38 | XMS_ITS | Encounter Summary ---
Author Organization [facility] [place] [address] Care Team Providers Care Location Analyst Name Role Phone Aram Ascencio MD Primary Care Provider [facility] Encounter Details Date Type Department Care Team (Late st Contact Info) Description 01/19/2011 [place] [phone] Darwin Toribio MD [address] [place] [address] [place] [address] Social History Tobacco Use Types Packs/Day Years Used Date Smoking Tobacco: Never Assessed Sex and Gender Information Value Date Recorded Sex Assigned at Not on file Gender Identity Not on file Sexual Orientation Not on file documented as of this encounter Plan of Treatment Not on file documented as of this encounter Procedures Procedure Name Priority Date/Time Associated Diagnosis Comments XR CHEST PA AND LATERAL Routine 01/19/2011 10:25 AM EST documented in this encounter Results * XR Chest PA & Lateral (Generic) (01/19/2011 10:25 AM EST) Anatomical Region Laterality Modality Chest N/A Radiographic Naima ging 01/19/2011 10:2 5 AM EST Narrative 01/21/2011 1:31 PM EST External Results Nba Krishnamurthy Final Report EXAMINATION: ??RAD 7102 - CHEST 2V FRONTAL/LAT ? [id number] DIAGNOSIS: ?CHEST PAIN REASON: ? chest pain RESULT: ? Clinical Indication: ??Chest pain. Findings: ? Both lungs are hyperexpanded but clear. ??I see no air space disease or vascular congestion. The heart size is normal. There is a mild to moderate thoracic scoliosis concave to the left. IMPRESSION: 1. ? COPD. ??No acute disease. 2. ? Thoracic scoliosis concave to the left. INTERPRETING PHYSICIAN: ??JAKE QUINN M.D. ? TRANSCRIBED BY/DATE: ?? LS ??on Jan 20 2011 ??7:01A ELECTRONICALLY AUTHORIZED BY: ?? JAKE QUINN M.D. ? Jan 21 2011 ??1:31P Procedure Note Jake Quinn MD - 09/25/2016 External Results Brooklyndave Krishnamurthy Final Report EXAMINATION: RAD 7102 - CHEST 2V FRONTAL/LAT [id number] DIAGNOSIS: CHEST PAIN REASON: chest pain RESULT: Clinical Indication: Chest pain. Findings: Both lungs are hyperexpanded but clear. I see no airspace disease or vascular congestion. The heart size is normal. There is a mildto moderate thoracic scoliosis concave to the left. IMPRESSION: 1. COPD. No acute disease. 2. Thoracic scoliosis concave to the left. INTERPRETING PHYSICIAN: JAKE QUINN M.D. TRANSCRIBED BY/DATE: LS on Jan 20 2011 7:01A ELECTRONICALLY AUTHORIZED BY: JAKE QUINN M.D. Jan 21 2011 1:31P Darwin Toribio MD IMG DX ORDERABLES documented in this encounter Visit Diagnoses Not on filedocumented in this encounter Care Teams Location Analyst Relationship Specialty Start Date End Date Aram Ascencio MD PCP - General 05/08/12 12/08/16 documented as of this encounter
--- OUTSIDE RECORDS SUMMARY | 2024-02-17 00:38 | XMS_ITS | Encounter Summary ---
[place] [address] Care Team Providers Care Community Resource Officer Name Role Phone Unavailable Primary Care Provider Unavailabl e Encounter Details Date Type Department Care Team (Late st Contact Info) Description 12/24/2009 3:00 PM EST Follow-Up [address] [phone] Social History Tobacco Use Types Packs/Day Years [...]
--- OUTSIDE RECORDS SUMMARY | 2024-02-17 00:38 | XMS_ITS | Encounter Summary ---
[place] [address] Care Team Providers Care Driver Courier Name Role Phone Kamilah Rowell MD Primary Care Provider Unavail able Encounter Details Date Type Department Care Team ([facility] st Contact Info) Description 07/12/2011 9:15 AM EDT Office Visit [address] [phone] Elaina Ruffin MD [address] [address] Social History Tobacco Use Types Packs/Day Years Used Date Smoking Tobacco: Never Assessed Sex and Gender Information Value Date Recorded Sex Assigned at Not on file Gender Identity Not on file Sexual Orientation Not on file documented as of this encounter Plan of Treatment Not on file documented as of this encounter Visit Diagnoses Not on filedocumented in this encounter Care Teams Driver Courier Relationship Specialty Start Date End Date Kamilah Rowell MD PCP - General 12/30/09 05/07/12 documented as of this encounter
--- OUTSIDE RECORDS SUMMARY | 2024-02-17 00:38 | XMS_ITS | Encounter Summary ---
[place] [address] Care Team Providers Care County Library Director Name Role Phone Aram Ascencio MD Primary Care Provider Unavail le Encounter Details Date Type Department Care Team (Late st Contact Info) Description 07/23/2013 11:30 AM EDT Procedure visit [address] [phone] Social History Tobacco Use Types Packs/Day Years Used Date Smoking Tobacco: Never Assessed Sex and Gender Information Value Date Recorded Sex Assigned at Not on file Gender Identity Not on file Sexual Orientation Not on file documented as of this encounter Plan of Treatment Not on file documented as of this encounter Visit Diagnoses Not on filedocumented in this encounter Care Teams County Library Director Relationship Specialty Start Date End Date Aram Ascencio MD PCP - General 05/08/12 12/08/16 documented as of this encounter
--- OUTSIDE RECORDS SUMMARY | 2024-02-17 00:38 | XMS_ITS | Encounter Summary ---
[place] [address] Care Team Providers Care Manager Construction Name Role Phone Kamilah Rowell MD Primary Care Provider Unavail able Encounter Details Date Type Department Care Team (Late st Contact Info) Description 07/24/2010 2:30 PM EDT Office Visit [address] [phone] Melida Loza APRN Social History Tobacco Use [...] filedocumented in this encounter Care Teams Manager Construction Relationship Specialty Start Date End Date Kamilah Rowell MD PCP - General 12/30/09 05/07/12 documented as of this encounter
--- OUTSIDE RECORDS SUMMARY | 2024-02-17 00:38 | XMS_ITS | Encounter Summary ---
[place] [address] Care Team Providers Care Manufacturing Executive Name Role Phone Kamilah Rowell MD Primary Care Provider Unavail able Encounter Details Date Type Department Care Team (Late st Contact Info) Description 03/25/2011 3:30 PM EST Office Visit [address] [phone] Melida Loza APRN Social History Tobacco Use [...] on filedocumented in this encounter Care Teams Manufacturing Executive Relationship Specialty Start Date End Date Kamilah Rowell MD PCP - General 12/30/09 05/07/12 documented as of this encounter
--- OUTSIDE RECORDS SUMMARY | 2024-02-17 00:38 | XMS_ITS | Encounter Summary ---
[place] [address] Care Team Providers Care Log Hauler Name Role Phone Aram Ascencio MD Primary Care Provider [facility] Encounter Details Date Type Department Care Team (Late st Contact Info) Description 07/06/2013 [facility] Information Services [address] [place] [address] [place] [phone] Provider, His MD [place] Social History Tobacco [...] - Inhaled Oxygen Concentration - - Weight 74 kg (163 lb 1.6 oz) 07/06/2013 8:30 AM EDT Sourced from [employer] Conversion Height 177.8 cm (5' 10) 07/06/2013 8:3 0 AM EDT Sourced from [place] Conversion Body Mass Index 23.4 07/06/2013 8:30 AM EDT documented in this encounter Plan of Treatment Not on file documented as of this encounter Visit Diagnoses Not on filedocumented in this encounter Care Teams Log Hauler Relationship Specialty Start Date End Date Aram Ascencio MD PCP - General 05/08/12 12/08/16 documented as of this encounter
--- OUTSIDE RECORDS SUMMARY | 2024-02-17 00:38 | XMS_ITS | Encounter Summary ---
Author Organization [facility] [place] [address] Care Team Providers Care Water Hydrant Installer Name Role Phone Aram Ascencio MD Primary Care Provider [facility] Encounter Details Date Type Department Care Team (Late st Contact Info) Description 01/20/2011 [place] [phone] Darwin Toribio MD [address] [place] [address] [place] [address] Social History Tobacco Use Types Packs/Day Years Used Date Smoking Tobacco: Never Assessed Sex and Gender Information Value Date Recorded Sex Assigned at Not on file Gender Identity Not on file Sexual Orientation Not on file documented as of this encounter Plan of Treatment Not on file documented as of this encounter Procedures Procedure Name Priority Date/Time Associated Diagnosis Comments NM EXERCISE STRESS AND REST MYOCARDIAL PERFUSION Routine 01/20/2011 11:19 AM EST documented in this encounter Results * NM Myocardial Perfusion Stress Rest (01/20/2011 11:19 AM EST) Anatomical Region Laterality Modality Other 01/20/2011 11:1 9 AM EST Narrative 01/21/2011 1:33 PM EST External Results Nba rKishnamurthy Final Report EXAMINATION: ??NUC 8069 - MYOCARD PERF MULTI,MIBI,[id number] DIAGNOSIS: ?CHEST PAIN REASON: ? chest pain RESULT: ? Clinical Indication: ??Chest pain. Technique: ? 10.7 millicuries of technetium-99m Myoview was administered intravenously and reconstructed SPECT images of the heart were acquired in three planes. ??The patient was then exercised for 12.9 METS to a peak heart rate of 164 beats per minute which is 97% of the maximum predicted heart rate. ?? 31.3 millicuries of technetium-99m Myoview was then administered and additional imaging of the heart was acquired. Findings: ? I see no radio tracer defects either during stress or rest imaging. The left ventricular ejection fraction was calculated at 67%. ??I see no gross wall motion abnormality. IMPRESSION: ? Negative study. ??No evidence for myocardial scarring or ischemia. INTERPRETING PHYSICIAN: ??JAKE QUINN M.D. ? TRANSCRIBED BY/DATE: ?? LS ??on Jan 20 2011 11:49A ELECTRONICALLY AUTHORIZED BY: ?? JAKE QUINN M.D. ? Jan 21 2011 ??1:33P Procedure Note Jake Quinn MD - 09/25/2016 External Results Nba Krishnamurthy Final Report EXAMINATION: NUC 8069 - MYOCARD PERF MULTI,MIBI,[id number] DIAGNOSIS: CHEST PAIN REASON: chest pain RESULT: Clinical Indication: Chest pain. Technique: 10.7 millicuries of technetium-99m Myoview wasadministered intravenously and reconstructed SPECT images of the heart were acquiredin three planes. The patient was then exercised for 12.9 METS to a peakheart rate of 164 beats per minute which is 97% of the maximum predicted heart rate. 31.3 millicuries of technetium-99m Myoview was then administeredand additional imaging of the heart was acquired. Findings: I see no radio tracer defects either during stress or rest imaging. The left ventricular ejection fraction was calculated at 67%. I see no gross wall motion abnormality. IMPRESSION: Negative study. No evidence for myocardial scarringor ischemia. INTERPRETING PHYSICIAN: JAKE QUINN M.D. TRANSCRIBED BY/DATE: LS on Jan 20 2011 11:49A ELECTRONICALLY AUTHORIZED BY: JAKE QUINN M.D. Jan 21 2011 1:33P Darwin Toribio MD IMG NM ORDERABLES documented in this encounter Visit Diagnoses Not on filedocumented in this encounter Care Teams Water Hydrant Installer Relationship Specialty Start Date End Date Aram Ascencio MD PCP - General 05/08/12 12/08/16 documented as of this encounter
--- OUTSIDE RECORDS SUMMARY | 2024-02-17 00:38 | XMS_ITS | Encounter Summary ---
[place] [address] Care Team Providers Care Credit Card Associate Name Role Phone Aram Ascencio MD Primary Care Provider [facility] Encounter Details Date Type Department Care Team (Late st Contact Info) Description 07/23/2013 [facility] Information Services [address] [place] [address] [place] [phone] Provider, His MD [place] Social History Tobacco [...] - - Weight 74.4 kg (164 lb) 07/23/2013 2:20 PM EDT Sourced from [place] Conversion Height - - Body Mass Index 23.53 07/06/2013 8:30 AM EDT documented in this encounter Plan of Treatment Not on file documented as of this encounter Visit Diagnoses Not on filedocumented in this encounter Care Teams Credit Card Associate Relationship Specialty Start Date End Date Aram Ascencio MD PCP - General 05/08/12 12/08/16 documented as of this encounter
--- OUTSIDE RECORDS SUMMARY | 2024-02-17 00:38 | XMS_ITS | Encounter Summary ---
[place] [address] Care Team Providers Care Stamp Press Operator Name Role Phone Kamilah Rowell MD Primary Care Provider Unavail able Encounter Details Date Type Department Care Team (Late st Contact Info) Description 11/22/2011 4:15 AM EDT Procedure visit [address] [phone] Social History Tobacco Use Types [...] on filedocumented in this encounter Care Teams Stamp Press Operator Relationship Specialty Start Date End Date Kamilah Rowell MD PCP - General 12/30/09 05/07/12 documented as of this encounter
--- OUTSIDE RECORDS SUMMARY | 2024-02-17 00:38 | XMS_ITS | Encounter Summary ---
[place] [address] Care Team Providers Care Jawbone Puller Name Role Phone Aram Ascencio MD Primary Care Provider [facility] Encounter Details Date Type Department Care Team (Late st Contact Info) Description 09/04/2013 8:30 AM EDT Office Visit [address] [phone] Social History Tobacco Use Types Packs/Day Years Used Date Smoking Tobacco: Never Assessed Sex and Gender Information Value Date Recorded Sex Assigned at Not on file Gender Identity Not on file Sexual Orientation Not on file documented as of this encounter Plan of Treatment Not on file documented as of this encounter Visit Diagnoses Not on filedocumented in this encounter Care Teams Jawbone Puller Relationship Specialty Start Date End Date Aram Ascencio MD PCP - General 05/08/12 12/08/16 documented as of this encounter
--- OUTSIDE RECORDS SUMMARY | 2024-02-17 00:38 | XMS_ITS | Encounter Summary ---
[place] [address] Care Team Providers Care Hydroelectric Operator Name Role Phone Kamilah Rowell MD Primary Care Provider Unavail able Encounter Details Date Type Department Care Team (Late st Contact Info) Description 02/17/2010 3:30 PM EST Initial consult [address] [phone] Meliad Loza APRN Social History Tobacco Use Types [...] on filedocumented in this encounter Care Teams Hydroelectric Operator Relationship Specialty Start Date End Date Kamilah Rowell MD PCP - General 12/30/09 05/07/12 documented as of this encounter
--- OUTSIDE RECORDS SUMMARY | 2024-02-17 00:38 | XMS_ITS | Encounter Summary ---
[place] [address] Care Team Providers Care Multiple Wire Sawyer Name Role Phone Kamilah Rowell MD Primary Care Provider Unavail able Encounter Details Date Type Department Care Team (Late st Contact Info) Description 11/25/2010 4:00 PM EDT Office Visit [address] [phone] Melida Loza, MAIRA Social History Tobacco Use Types Packs/Day Years Used Date Smoking Tobacco: Never Assessed Sex and Gender Information Value Date Recorded Sex Assigned at Not on file Gender Identity Not on file Sexual Orientation Not on file documented as of this encounter Plan of Treatment Not on file documented as of this encounter Visit Diagnoses Not on filedocumented in this encounter Care Teams Multiple Wire Sawyer Relationship Specialty Start Date End Date Kamilah Rowell MD PCP - General 12/30/09 05/07/12 documented as of this encounter
--- OUTSIDE RECORDS SUMMARY | 2024-02-17 00:38 | XMS_ITS | Encounter Summary ---
[place] [address] Care Team Providers Care Slag Skimmer Name Role Phone Kamilah Rowell MD Primary Care Provider Unavail able Encounter Details Date Type Department Care Team (Late st Contact Info) Description 02/17/2010 10:15 AM EST Procedure visit [address] [phone] Social History Tobacco Use Types [...] on filedocumented in this encounter Care Teams Slag Skimmer Relationship Specialty Start Date End Date Kamilah Rowell MD PCP - General 12/30/09 05/07/12 documented as of this encounter
--- OUTSIDE RECORDS SUMMARY | 2024-02-17 00:38 | XMS_ITS | Encounter Summary ---
[place] [address] Care Team Providers Care Sales And Service Specialist Name Role Phone Aram Ascencio MD Primary Care Provider [facility] Encounter Details Date Type Department Care Team (Late st Contact Info) Description 08/31/[address] [facility] Information Services [address] [place] [address] [place] [phone] Provider, His MD [place] Social History Tobacco [...] - - Weight 74.4 kg (164 lb) 08/31/2012 3:00 PM EDT Sourced from [place] Conversion Height - - Body Mass Index 23.53 01/14/2012 11:45 AM EST documented in this encounter Plan of Treatment Not on file documented as of this encounter Visit Diagnoses Not on filedocumented in this encounter Care Teams Sales And Service Specialist Relationship Specialty Start Date End Date Aram Ascencio MD PCP - General 05/08/12 12/08/16 documented as of this encounter
--- OUTSIDE RECORDS SUMMARY | 2024-02-17 00:38 | XMS_ITS | Encounter Summary ---
Author Organization [facility] [place] [address] Care Team Providers Care Web Press Jogger Name Role Phone Aram Ascencio MD Primary Care Provider [facility] Encounter Details Date Type Department Care Team (Late st Contact Info) Description 09/24/2013 [facility] Information Services [address] [place] [phone] Provider, His [place] MD Social History Tobacco [...] Procedure Name Priority Date/Time Associated Diagnosis Comments TSH Routine 09/24/2013 7:16 AM EDT documented in this encounter Results * (ABNORMAL) TSH (09/24/2013 7:16 AM EDT) Thyroid Stimulating Hormone 1.25(Exte rnal Lab) 0.30 - 5.5 uIU/mL [facility] RESULT CONVERSION Comment: Sourced from [facility] Krishnamurthy Conversion 09/24/2013 7:16 AM EDT His [place] Provider CHEMISTRY ORDERABL ES [facility] RESULT CONVERSION documented in this encounter Visit Diagnoses Not on filedocumented in this encounter Care Teams Web Press Jogger Relationship Specialty Start Date End Date Aram Ascencio MD PCP - General 05/08/12 12/08/16 documented as of this encounter
--- OUTSIDE RECORDS SUMMARY | 2024-02-17 00:38 | XMS_ITS | Encounter Summary ---
[place] [address] Care Team Providers Care District Representative Name Role Phone Kamilah Rowell MD Primary Care Provider Unavail able Encounter Details Date Type Department Care Team ([facility] Contact Info) Description 11/22/2011 11:15 AM EDT Office Visit [address] [phone] Aram Moss PA [address] [place] [phone] Social History Tobacco Use Types Packs/Day Years Used Date Smoking Tobacco: Never Assessed Sex and Gender Information Value Date Recorded Sex Assigned at Not on file Gender Identity Not on file Sexual Orientation Not on file documented as of this encounter Plan of Treatment Not on file documented as of this encounter Visit Diagnoses Not on filedocumented in this encounter Care Teams District Representative Relationship Specialty Start Date End Date Kamilah Rowell MD PCP - General 12/30/09 05/07/12 documented as of this encounter
--- OUTSIDE RECORDS SUMMARY | 2024-02-17 00:38 | XMS_ITS | Encounter Summary ---
[place] [address] Care Team Providers Care Aircraft Refueller Name Role Phone Kamilah Rowell MD Primary Care Provider Unavail able Encounter Details Date Type Department Care Team (Late st Contact Info) Description 07/13/2011 4:00 PM EDT Office Visit [address] [phone] Melida Loza APRN Social History Tobacco Use [...] on filedocumented in this encounter Care Teams Aircraft Refueller Relationship Specialty Start Date End Date Kamilah Rowell MD PCP - General 12/30/09 05/07/12 documented as of this encounter
--- OUTSIDE RECORDS SUMMARY | 2024-02-17 00:38 | XMS_ITS | Encounter Summary ---
[place] [address] Care Team Providers Care Senior Datastage Developer Name Role Phone Aram Ascencio MD Primary Care Provider Unavail le Encounter Details Date Type Department Care Team (Late st Contact Info) Description 07/06/2013 4:15 AM EDT Procedure visit [address] [phone] Social History Tobacco Use Types Packs/Day Years Used Date Smoking Tobacco: Never Assessed Sex and Gender Information Value Date Recorded Sex Assigned at Not on file Gender Identity Not on file Sexual Orientation Not on file documented as of this encounter Plan of Treatment Not on file documented as of this encounter Visit Diagnoses Not on filedocumented in this encounter Care Teams Senior Datastage Developer Relationship Specialty Start Date End Date Aram Ascencio MD PCP - General 05/08/12 12/08/16 documented as of this encounter
--- OUTSIDE RECORDS SUMMARY | 2024-02-17 00:38 | XMS_ITS | Encounter Summary ---
[place] [address] Care Team Providers Care Thermodynamicist Name Role Phone Aram Ascenico MD Primary Care Provider [facility] Encounter Details Date Type Department Care Team (Late st Contact Info) Description 12/19/2012 4:00 PM EST Office Visit [address] [phone] Melida Loza APRN Social History Tobacco Use [...] on filedocumented in this encounter Care Teams Thermodynamicist Relationship Specialty Start Date End Date Aram Ascencio MD PCP - General 05/08/12 12/08/16 documented as of this encounter
--- OUTSIDE RECORDS SUMMARY | 2024-02-17 00:38 | XMS_ITS | Encounter Summary ---
[place] [address] Care Team Providers Care Assistant Professor Sculpture Name Role Phone Kamilah Rowell MD Primary Care Provider Unavail able Encounter Details Date Type Department Care Team (Late st Contact Info) Description 06/11/2011 4:15 AM EDT Procedure visit [address] [phone] Social History Tobacco Use Types [...] on filedocumented in this encounter Care Teams Assistant Professor Sculpture Relationship Specialty Start Date End Date Kamilah Rowell MD PCP - General 12/30/09 05/07/12 documented as of this encounter
--- OUTSIDE RECORDS SUMMARY | 2024-02-17 00:38 | XMS_ITS | Encounter Summary ---
[place] [address] Care Team Providers Care Cracker Dough Mixer Name Role Phone Aram Ascencio MD Primary Care Provider [facility] Encounter Details Date Type Department Care Team (Late st Contact Info) Description 04/26/2013 [facility] Information Services [address] [place] [address] [place] [phone] Provider, His MD [place] Social History Tobacco [...] - Inhaled Oxygen Concentration - - Weight 73.5 kg (162 lb) 04/26/2013 3:30 PM EDT Sourced from [place] Conversion Height - - Body Mass Index 23.24 01/14/2012 11:45 AM EST documented in this encounter Plan of Treatment Not on file documented as of this encounter Visit Diagnoses Not on filedocumented in this encounter Care Teams Cracker Dough Mixer Relationship Specialty Start Date End Date Aram Ascencio MD PCP - General 05/08/12 12/08/16 documented as of this encounter
--- OUTSIDE RECORDS SUMMARY | 2024-02-17 00:38 | XMS_ITS | Encounter Summary ---
[place] [address] Care Team Providers Care Refrigerated National Truck Driver Name Role Phone Aram Ascencio MD Primary Care Provider [facility] Encounter Details Date Type Department Care Team (Late st Contact Info) Description 08/31/2012 3:00 PM EDT Office Visit [address] [phone] Melida Loza APRN Social History Tobacco Use [...] on filedocumented in this encounter Care Teams Refrigerated National Truck Driver Relationship Specialty Start Date End Date Aram Ascencio MD PCP - General 05/08/12 12/08/16 documented as of this encounter
--- OUTSIDE RECORDS SUMMARY | 2024-02-17 00:38 | XMS_ITS | Encounter Summary ---
[place] [address] Care Team Providers Care Deoiling Machine Operator Name Role Phone Aram Ascencio MD Primary Care Provider [facility] Encounter Details Date Type Department Care Team (Late st Contact Info) Description 04/26/2013 3:30 PM EDT Office Visit [address] [phone] Melida Loza APRN Social History Tobacco Use [...] on filedocumented in this encounter Care Teams Deoiling Machine Operator Relationship Specialty Start Date End Date Aram Ascencio MD PCP - General 05/08/12 12/08/16 documented as of this encounter
--- OUTSIDE RECORDS SUMMARY | 2024-02-17 00:38 | XMS_ITS | Encounter Summary ---
[place] [address] Care Team Providers Care Early Childhood Worker Name Role Phone Kamilah Rowell MD Primary Care Provider Unavail able Encounter Details Date Type Department Care Team (Late st Contact Info) Description 01/27/2012 4:00 PM EST Office Visit [address] [phone] Melida Loza APRN Social History Tobacco Use [...] on filedocumented in this encounter Care Teams Early Childhood Worker Relationship Specialty Start Date End Date Kamilah Rowell MD PCP - General 12/30/09 05/07/12 documented as of this encounter
--- OUTSIDE RECORDS SUMMARY | 2024-02-17 00:38 | XMS_ITS | Encounter Summary ---
[place] [address] Care Team Providers Care Restaurant Expeditor Name Role Phone Kamilah Rowell MD Primary Care Provider Unavail able Encounter Details Date Type Department Care Team (Late st Contact Info) Description 03/17/2010 7:30 AM EST Office Visit [address] [phone] Social History Tobacco Use Types [...] on filedocumented in this encounter Care Teams Restaurant Expeditor Relationship Specialty Start Date End Date Kamilah Rowell MD PCP - General 12/30/09 05/07/12 documented as of this encounter
--- OUTSIDE RECORDS SUMMARY | 2024-02-17 00:38 | XMS_ITS | Encounter Summary ---
[place] [address] Care Team Providers Care Comb Fixer Name Role Phone Kamilah Rowell MD Primary Care Provider Unavail able Encounter Details Date Type Department Care Team (Late st Contact Info) Description 01/28/2011 11:20 AM EST Office Visit [address] [phone] Kamilah Rowell MD Social History Tobacco Use Types Packs/Day Years Used Date Smoking Tobacco: Never Assessed Sex and Gender Information Value Date Recorded Sex Assigned at Not on file Gender Identity Not on file Sexual Orientation Not on file documented as of this encounter Plan of Treatment Not on file documented as of this encounter Visit Diagnoses Not on filedocumented in this encounter Care Teams Comb Fixer Relationship Specialty Start Date End Date Kamilah Rowell MD PCP - General 12/30/09 05/07/12 documented as of this encounter
--- OUTSIDE RECORDS SUMMARY | 2024-02-17 00:38 | XMS_ITS | Encounter Summary ---
[place] [address] Care Team Providers Care Administrator Social Welfare Name Role Phone Aram Ascencio MD Primary Care Provider [facility] Encounter Details Date Type Department Care Team (Late st Contact Info) Description 09/26/2013 8:30 AM EDT Office Visit [address] [phone] Melida Loza APRN Social History Tobacco Use [...] on filedocumented in this encounter Care Teams Administrator Social Welfare Relationship Specialty Start Date End Date Aram Ascencio MD PCP - General 05/08/12 12/08/16 documented as of this encounter
--- OUTSIDE RECORDS SUMMARY | 2024-02-17 00:38 | XMS_ITS | Encounter Summary ---
[place] [address] Care Team Providers Care Sfdc Technical Architect Name Role Phone rAam Ascencio MD Primary Care Provider [facility] Encounter Details Date Type Department Care Team (Late st Contact Info) Description 2012 [facility] Information Services [address] [place] [address] [place] [phone] Provider, His MD [place] Social History Tobacco [...] - - Weight 74.4 kg (164 lb) 2012 4:00 PM EDT Sourced from [place] Conversion Height - - Body Mass Index 23.53 01/14/2012 11:45 AM EST documented in this encounter Plan of Treatment Not on file documented as of this encounter Visit Diagnoses Not on filedocumented in this encounter Care Teams Sfdc Technical Architect Relationship Specialty Start Date End Date Aram Ascencio MD PCP - General 05/08/12 12/08/16 documented as of this encounter
--- OUTSIDE RECORDS SUMMARY | 2024-02-17 00:38 | XMS_ITS | Encounter Summary ---
[place] [address] Care Team Providers Care Ultrasonic Cleaner Name Role Phone Aram Ascencio MD Primary Care Provider [facility] Encounter Details Date Type Department Care Team ([facility] st Contact Info) Description 06/27/2013 8:30 AM EDT Office Visit [address] [phone] Aram Moss PA [address] [place] [address] Social History Tobacco Use Types Packs/Day Years Used Date Smoking Tobacco: Never Assessed Sex and Gender Information Value Date Recorded Sex Assigned at Not on file Gender Identity Not on file Sexual Orientation Not on file documented as of this encounter Plan of Treatment Not on file documented as of this encounter Visit Diagnoses Not on filedocumented in this encounter Care Teams Ultrasonic Cleaner Relationship Specialty Start Date End Date Aram Ascencio MD PCP - General 05/08/12 12/08/16 documented as of this encounter
--- OUTSIDE RECORDS SUMMARY | 2024-02-17 00:38 | XMS_ITS | Encounter Summary ---
[place] [address] Care Team Providers Care Carton Marker Machine Name Role Phone Aram Ascencio MD Primary Care Provider [facility] Encounter Details Date Type Department Care Team (Late st Contact Info) Description 01/27/2012 [facility] Information Services [address] [place] [address] [place] [phone] Provider, His [place] MD Social History Tobacco [...] - - Weight 75.8 kg (167 lb) 01/27/2012 4:00 PM EST Sourced from [place] Conversion Height - - Body Mass Index 23.96 01/14/2012 11:45 AM EST documented in this encounter Plan of Treatment Not on file documented as of this encounter Visit Diagnoses Not on filedocumented in this encounter Care Teams Carton Marker Machine Relationship Specialty Start Date End Date Aram Ascencio MD PCP - General 05/08/12 12/08/16 documented as of this encounter
--- OUTSIDE RECORDS SUMMARY | 2024-02-17 00:38 | XMS_ITS | Encounter Summary ---
Author [place] [address] Care Team Providers Care Energy Conservation Director Name Role Phone Kamilah Rowell MD Primary Care Provider Unavail able Encounter Details Date Type Department Care Team (Late st Contact Info) Description 2012 4:00 PM EDT Office Visit [address] [phone] Melida Loza APRN Social History Tobacco Use [...] on filedocumented in this encounter Care Teams Energy Conservation Director Relationship Specialty Start Date End Date Kamilah Rowell MD PCP - General 12/30/09 05/07/12 documented as of this encounter
--- OUTSIDE RECORDS SUMMARY | 2024-02-17 00:38 | XMS_ITS | Encounter Summary ---
[place] [address] Care Team Providers Care Commodity Specialist Name Role Phone Kamilah Rowell MD Primary Care Provider Unavail able Encounter Details Date Type Department Care Team (Late st Contact Info) Description 05/08/2010 1:40 PM EDT Office Visit [address] [phone] Kamilah Rowell MD Social History Tobacco Use [...] on filedocumented in this encounter Care Teams Commodity Specialist Relationship Specialty Start Date End Date Kamilah Rowell MD PCP - General 12/30/09 05/07/12 documented as of this encounter
--- OUTSIDE RECORDS SUMMARY | 2024-02-17 00:38 | XMS_ITS | Encounter Summary ---
Author [facility] [place] [address] Care Team Providers Care Machine Molder Squeeze Name Role Phone Aram Ascencio MD Primary Care Provider [facility] Encounter Details Date Type Department Care Team (Late st Contact Info) Description 07/12/2011 Abstract [facility] Information Services [address] [place], [place] [address] [place] [phone] Provider, His [place] MD Social History Tobacco [...] Name Priority Date/Time Associated Diagnosis Comments EXTERNAL COLONOSCOPY RESULT Routine 07/12/2011 9:15 AM EDT documented in this encounter Results * (ABNORMAL) External Colonoscopy (07/12/2011 9:15 AM EDT) External Colonoscopy 07/12/2011 9:15:00 AM - See [facility] system for full report(Externa l Lab) [facility] RESULT CONVERSION Comment:Sourced from Maureen Krishnamurthy Conversion 07/12/2011 9:15 AM EDT His Krishnamurthy Provider EXTERNAL GI PROCED URE RESULT [facility] RESULT CONVERSION documented in this encounter Visit Diagnoses Not on filedocumented in this encounter Care Teams Machine Molder Squeeze Relationship Specialty Start Date End Date Aram Ascencio MD PCP - General 05/08/12 12/08/16 documented as of this encounter
--- OUTSIDE RECORDS SUMMARY | 2024-02-17 00:38 | XMS_ITS | Encounter Summary ---
[place] [address] Care Team Providers Care Patient Care Name Role Phone Aram Ascencio MD Primary Care Provider [facility] Encounter Details Date Type Department Care Team (Late st Contact Info) Description 01/14/2012 [facility] Information Services [address] [facility] [place] [phone] Provider, His MD [place] Social History Tobacco [...] - Inhaled Oxygen Concentration - - Weight 76.2 kg (168 lb) 01/14/2012 11:4 5 AM EST Sourced from [place] Conversion Height 177.8 cm (5' 10) 01/14/2012 11: 45 AM EST Sourced from [place] Conversion Body Mass Index 24.11 01/14/2012 11:45 AM EST documented in this encounter Plan of Treatment Not on file documented as of this encounter Visit Diagnoses Not on filedocumented in this encounter Care Teams Patient Care Relationship Specialty Start Date End Date Aram Ascencio MD PCP - General 05/08/12 12/08/16 documented as of this encounter
--- OUTSIDE RECORDS SUMMARY | 2024-02-17 00:38 | XMS_ITS | Encounter Summary ---
[place] [address] Care Team Providers Care Junior Recruiter Name Role Phone Aram Ascencio MD Primary Care Provider Unavail le Encounter Details Date Type Department Care Team (Late st Contact Info) Description 07/20/2013 4:15 AM EDT Procedure visit [address] [phone] Social History Tobacco Use Types Packs/Day Years Used Date Smoking Tobacco: Never Assessed Sex and Gender Information Value Date Recorded Sex Assigned at Not on file Gender Identity Not on file Sexual Orientation Not on file documented as of this encounter Plan of Treatment Not on file documented as of this encounter Visit Diagnoses Not on filedocumented in this encounter Care Teams Junior Recruiter Relationship Specialty Start Date End Date Aram Ascencio MD PCP - General 05/08/12 12/08/16 documented as of this encounter
--- OUTSIDE RECORDS SUMMARY | 2024-02-17 00:38 | XMS_ITS | Encounter Summary ---
[place] [address] Care Team Providers Care Preschool Assistant Teacher Name Role Phone Kamilah Rowell MD Primary Care Provider Unavail able Encounter Details Date Type Department Care Team ([facility] Contact Info) Description 01/14/2012 11:45 AM EST Office Visit [address] [phone] Aram Moss PA [address] [place] [address] Social History Tobacco Use Types Packs/Day Years Used Date Smoking Tobacco: Never Assessed Sex and Gender Information Value Date Recorded Sex Assigned at Not on file Gender Identity Not on file Sexual Orientation Not on file documented as of this encounter Plan of Treatment Not on file documented as of this encounter Visit Diagnoses Not on filedocumented in this encounter Care Teams Preschool Assistant Teacher Relationship Specialty Start Date End Date Kamilah Rowell MD PCP - General 12/30/09 05/07/12 documented as of this encounter
--- OUTSIDE RECORDS SUMMARY | 2024-02-17 00:38 | XMS_ITS | Encounter Summary ---
[place] [address] Care Team Providers Care Senior Solutions Consultant Name Role Phone Aram Ascencio MD Primary Care Provider [facility] Encounter Details Date Type Department Care Team (Late st Contact Info) Description 09/26/2013 [facility] Information Services [address] [place] [address] [place] [phone] Provider, His [place] MD Social History Tobacco [...] - - Weight 75.8 kg (167 lb) 09/26/2013 8:30 AM EDT Sourced from [place] Conversion Height - - Body Mass Index 23.96 07/06/2013 8:30 AM EDT documented in this encounter Plan of Treatment Not on file documented as of this encounter Visit Diagnoses Not on filedocumented in this encounter Care Teams Senior Solutions Consultant Relationship Specialty Start Date End Date Aram Ascencio MD PCP - General 05/08/12 12/08/16 documented as of this encounter
--- OUTSIDE RECORDS SUMMARY | 2024-02-17 00:38 | XMS_ITS | Encounter Summary ---
[place] [address] Care Team Providers Care Cargo Handler Name Role Phone Aram Ascencio MD Primary Care Provider [facility] Encounter Details Date Type Department Care Team (Late st Contact Info) Description 07/06/2013 8:30 AM EDT Office Visit [address] [phone] Kamilah Bryan PA Social History Tobacco Use Types Packs/Day Years Used Date Smoking Tobacco: Never Assessed Sex and Gender Information Value Date Recorded Sex Assigned at Not on file Gender Identity Not on file Sexual Orientation Not on file documented as of this encounter Plan of Treatment Not on file documented as of this encounter Visit Diagnoses Not on filedocumented in this encounter Care Teams Cargo Handler Relationship Specialty Start Date End Date Aram Ascencio MD PCP - General 05/08/12 12/08/16 documented as of this encounter
--- OUTSIDE RECORDS SUMMARY | 2024-02-17 00:38 | XMS_ITS | Encounter Summary ---
[place] [address] Care Team Providers Care Cane Feeder Name Role Phone Aram Ascencio MD Primary Care Provider [place] Encounter Details Date Type Department Care Team (Late st Contact Info) Description 03/19/2011 Abstract [facility] Information Services [address] [facility] [place] [phone] Provider, His [place] MD Social History Tobacco [...] Date/Time Associated Diagnosis Comments HEMOGLOBIN A1C Routine 03/19/2011 12:00 PM EST documented in this encounter Results * (ABNORMAL) Hemoglobin A1c (03/19/2011 12:00 PM EST) Hemoglobin A1c 7.7(EXTER NAL/ABN) <=5.6 percent [facility] RESULT CONVERSION Comment: Sourced from David Krishnamurthy Conversion 03/19/2011 12:0 0 PM EST His [place] Provider CHEMISTRY ORDERABL ES [facility] RESULT CONVERSION documented in this encounter Visit Diagnoses Not on filedocumented in this encounter Care Teams Cane Feeder Relationship Specialty Start Date End Date Aram Ascencio MD PCP - General 05/08/12 12/08/16 documented as of this encounter
--- OUTSIDE RECORDS SUMMARY | 2024-02-17 00:38 | XMS_ITS | Encounter Summary ---
[place] [address] Care Team Providers Care Web Portal Developer Name Role Phone Aram Ascencio MD Primary Care Provider [facility] Encounter Details Date Type Department Care Team (Late st Contact Info) Description 07/23/2013 2:20 PM EDT Office Visit [address] [phone] Kamaljit Artis MD Social History Tobacco Use Types Packs/Day [...] filedocumented in this encounter Care Teams Web Portal Developer Relationship Specialty Start Date End Date Aram Ascencio MD PCP - General 05/08/12 12/08/16 documented as of this encounter
--- NOTE | 2024-02-17 13:40 | DI.RAD_ITS ---
Exam(s) XR HIP PELVIS ADULT BL EXAM: XR HIP PELVIS ADULT BL CLINICAL HISTORY: continued back, hip pain with radiation. TECHNIQUE: 2D digital imaging was performed. COMPARISON: No exams were available for comparison FINDINGS: 3 views There is no evidence of pelvic nor hip fracture. There is symmetrical narrowing of the medial aspect of both hip joints. In addition, there is a soft tissue calcific density in the left hip measuring 2 by 1 cm, this located just above and medial to the greater trochanter. Possibly related to the cap lane or possible intra or para-articular calcified body. Similar findings are not seen in the opposi te-right hip. Sacroiliac joints appear unremarkable. No ominous osseous lesions evident. IMPRESSION: Findings as above. DATA REPOSITORY: RADIATION DOSE DELIVERED:
--- NOTE | 2024-02-17 13:55 | DI.RAD_ITS ---
Exam(s) XR LUMBAR SPINE COMPLETE EXAM: XR LUMBAR SPINE COMPLETE CLINICAL HISTORY: continued back, hip pain with radiation,radiculopathy,m54.10. TECHNIQUE: 2D digital imaging was performed. COMPARISON: No exams were available for comparison FINDINGS: Five views. There is mild lumbar scoliosis convex left. There is no evidence of fracture, listhesis, nor pars interarticularis defects. All of the disc spac es exhibit normal height although there is anterior osseous lipping at L3-4 level indicating an eleme nt of degenerative disc disease despite relatively preserved disc height at this level. There is als o a small Schmorl's node invagination in the inferior endplate of L4 vertebral body. There are mild degenerative changes in the facet joints lower 2 levels L4-5 and L5-S1. Facet joints above this leve l appear unremarkable. Bone density normal. No osseous lesions. Sacroiliac joints appear un remarkable. Incidentally noted is what is probably a lamellated gallstone in the right upper quadrant. There is also the probable cutaneous sensor device on the left side incidentally noted IMPRESSION: Mild scoliosis convex left. Some degenerative changes as described above, most prominent in the righ t facet joint at L4-5 level. DATA REPOSITORY: RADIATION DOSE DELIVERED:
== END 2024-02-17 00:41 ==
LOC: DI 00:21
PROVIDERS: PCP Nurse Practitioner Family; Visit Provider Nurse Practitioner Family
DX: M41.86 Other forms of scoliosis, lumbar region (principal); M16.0 Bilateral primary osteoarthritis of hip
CPT/HCPCS: 73521; 72110

== ENCOUNTER 2024-12-05 09:08 | Outpatient (CLI) | payer OTHER, SELFPAY ==
[2024-12-05 10:19] LABS: COMMENT (LAB VIEW ONLY) 90.36 mg/dL; Microalb ug/mg Crea 6.6 ug/mg Cr
[2024-12-05 10:29] LABS: Anion Gap 6.8 mmol/L (3-11); BUN 15 mg/dL (7-18); CO2 31.2 mmol/L (21.0-32.0); Calcium 8.7 mg/dL (8.5-10.1); Calculated LDL 103 mg/dL (<100); Chloride 102 mmol/L (98-107); Cholesterol 195 mg/dL (<200); Estimated GFR 98.21 (mL/min/1.73m2); Glucose 118 mg/dL (74-106); HDL Cholesterol 87 mg/dL (>or=40); Potassium 4.4 mmol/L (3.5-5.1); Sodium 140 mmol/L (136-145); TSH (W/Ref FT4) 0.89 uIU/mL (0.36-3.74); Triglyceride 26 mg/dL (<150)
[2024-12-05 14:29] LABS: Hemoglobin A1C 6.7 % (<5.7)
== END 2024-12-05 09:09 | disposition home or self-care (01) ==
LOC: LBO 09:08
PROVIDERS: PCP Nurse Practitioner Family; Visit Provider Registered Nurse Critical Care Medicine
DX: E10.9 Type 1 diabetes mellitus without complications (principal)
CPT/HCPCS: 36415; 80048; 80061; 82043; 82570; 83036; 84443

== ENCOUNTER 2025-01-19 12:23 | Outpatient (REF) | payer OTHER, SELFPAY | END 2025-01-19 12:24 | disposition home or self-care (01) | LOC: LBN 12:23 | PROVIDERS: PCP Nurse Practitioner Family; Visit Provider Physician Assistant | DX: N50.89 Other specified disorders of the male genital organs (principal) | CPT/HCPCS: 87086 ==